=== PATIENT | female | born 1985 | race Caucasian/White ===

== ENCOUNTER 2016-11-20 13:27 | Emergency (ER) | payer MEDICAID ==
--- NOTE | 2016-11-20 13:34 | ER Document Report ---
ED Medical Screen (RME) - General Stated Complaint: BACK PAIN Mode of Arrival: Ambulatory Information source: Patient Notes: pt reports she turned the wrong way now having increased back pain. Reports hx of back pain. Has taken OTC meds without relief of sx. Denies urinary /bowel retention/incontinence, denies numbness/tingling. Reports pain with sitting, reports feels better with standing. Denies trauma. I have greeted and performed a rapid initial assessment of this patient. A comprehensive ED assessment and evaluation of the patient, analysis of test results and completion of the medical decision making process will be conducted by additional ED providers. TRAVEL OUTSIDE OF THE [place] IN LAST 30 DAYS: No - Related Data Allergies/Adverse Reactions: No Known Allergies Allergy (Verified 06/25/12 11:23) Past Medical History - Past Medical History Cardiac Medical History: Denies: Hx Coronary Artery Disease, Hx Heart Attack, Hx Hypertension Pulmonary Medical History: Denies: Hx Asthma, Hx Bronchitis, Hx COPD, Hx Pneumonia Neurological Medical History: Denies: Hx Cerebrovascular Accident, Hx Seizures Musculoskeltal Medical History: Denies Hx Arthritis Psychiatric Medical History: Reports: Hx Anxiety - Immunizations Immunizations up to date: Yes Hx Diphtheria, Pertussis, Tetanus Vaccination: Yes
--- NOTE | 2016-11-20 14:28 | ER Document Report ---
ED Neck/Back Problem - General Chief Complaint: Back Pain Stated Complaint: BACK PAIN Mode of Arrival: Ambulatory Information source: Patient Notes: 31 y/o F presents to ED c/o low back pain. Pt reports hx of degenerative disc disease and states has had similar episodes in the past and at one time was being followed by pain management clinic. Reports yesterday was lifting a box when she felt a pulling pain to her left lower back. States pain radiates to her left upper buttocks and is worse with sitting. Denies fall or direct trauma , fever, extremity weakness/numbness/tingling, saddle numbness, urinary retention, or incontinence of bowel or bladder. TRAVEL OUTSIDE OF THE [place] IN LAST 30 DAYS: No - HPI Patient complains to provider of: Lower back Onset: Yesterday Onset: Gradual Timing: Still present Quality of pain: Achy, Sharp Severity: Moderate Pain Level: 3 Context: Lifting, Turning Recent injury: Possibly Associated symptoms: Like prior neck/back pain. denies: None, Abdominal pain, Chest pain, Chills, Constipation, Fever, Incontinence, Motor loss, Numbness/ tingling, Radiation to arm, Radiation to chest, Radiation to leg, Sensory loss, Sweaty, Unable to urinate, Lower back pain, Upper back pain, Other Exacerbated by: Sitting position Relieved by: Upright position Similar symptoms previously: Yes Recently seen / treated by doctor: No - Related Data Allergies/Adverse Reactions: No Known Allergies Allergy (Verified 11/20/16 13:33) Past Medical History - General Information source: Patient - Social History Smoking Status: Smoker,Current Status Unk Frequency of alcohol use: None Drug Abuse: None Lives with: Family Family History: Reviewed & Not Pertinent - Past Medical History Cardiac Medical History: Denies: Hx Coronary Artery Disease, Hx Heart Attack, Hx Hypertension Pulmonary Medical History: Denies: Hx Asthma, Hx Bronchitis, Hx COPD, Hx Pneumonia Neurological Medical History: Denies: Hx Cerebrovascular Accident, Hx Seizures Renal/ Medical History: Denies: Hx Peritoneal Dialysis Musculoskeltal Medical History: Denies Hx Arthritis Psychiatric Medical History: Reports: Hx Anxiety Surgical Hx: Negative - Immunizations Immunizations up to date: Yes Hx Diphtheria, Pertussis, Tetanus Vaccination: Yes Review of Systems - Review of Systems Constitutional: No symptoms reported EENT: No symptoms reported Cardiovascular: No symptoms reported Respiratory: No symptoms reported Gastrointestinal: No symptoms reported Genitourinary: No symptoms reported Female Genitourinary: No symptoms reported Musculoskeletal: See HPI Skin: No symptoms reported Hematologic/Lymphatic: No symptoms reported Neurological/Psychological: No symptoms reported -: Yes All other systems reviewed and negative Physical Exam - Vital signs Vitals: Temp Pulse Resp BP Pulse Ox 98.5 F 83 20 105/59 L 98 11/20/16 13:31 11/20/16 13:31 11/20/16 13:31 11/20/16 13:31 11/20/16 13:31 Interpretation: Normal - General General appearance: Appears well, Alert In distress: None - HEENT Head: Normocephalic, Atraumatic Eyes: Normal Pupils: PERRL - Respiratory Respiratory status: No respiratory distress Chest status: Nontender Breath sounds: Normal Chest palpation: Normal - Cardiovascular Rhythm: Regular Heart sounds: Normal auscultation Murmur: No Pulses: Normal: Radial, Posterior tibial, Dorsalis pedis Normal capillary refill: Yes - Abdominal Inspection: Normal Distension: No distension Bowel sounds: Normal Tenderness: Nontender Organomegaly: No organomegaly - Back Back: Tender. No: Normal, Nontender, Deformity/step-off, CVA tenderness, Vertebra tenderness - tenderness with palpation to left paraspinal musculature at lumbar level. full ROM without paresthesias. or neurological deficits., Scars , Scoliosis, Wounds, Other - Extremities General upper extremity: Normal inspection, Nontender, Normal color, Normal ROM , Normal strength, Normal temperature. No: Edema General lower extremity: Normal inspection, Nontender, Normal color, Normal ROM , Normal strength, Normal temperature, Normal weight bearing. No: Edema - Neurological Neuro grossly intact: Yes Cognition: Normal Orientation: AAOx4 Sarah Coma Scale Eye Opening: Spontaneous Sarah Coma Scale Verbal: Oriented Sarah Coma Scale Motor: Obeys Commands [place] Coma Scale Total: 15 Speech: Normal Cerebellar coordination: Normal Motor strength normal: LUE, RUE, LLE, RLE Sensory: Normal Knee - Reflex grade: 2 = Normal - Psychological Associated symptoms: Normal affect, Normal mood - Skin Skin Temperature: Warm Skin Moisture: Dry Skin Color: Normal Course - Re-evaluation Re-evalutation: 11/20/16 14:29 Pt hemodynamically stable, in no distress, afebrile. The patient presents with back pain without signs of spinal cord compression, cauda equina syndrome, infection, aneurysm, or other serious etiology. The patient is neurologically intact, independently and steadily ambulatory without paresthesias or neurological deficits. Given the extremely low risk of these diagnoses further testing and evaluation for these possibilities does not appear to be indicated at this time. Pt appears stable for discharge and agrees with home care, follow -up, and ED return precautions. - Vital Signs Vital signs: Temp Pulse Resp BP Pulse Ox 98.6 F 69 20 103/68 99 11/20/16 15:54 11/20/16 15:54 11/20/16 13:31 11/20/16 15:54 11/20/16 15:54 Discharge - Discharge Clinical Impression: Low back pain Qualifiers: Chronicity: acute Back pain laterality: left Sciatica presence: without sciatica Qualified Code(s): M54.5 - Low back pain Condition: Stable Disposition: HOME, SELF-CARE Additional Instructions: LOW BACK PAIN: Three out of every four people will have an episode of disabling back pain during their lifetime. Most commonly the pain is due to straining of the muscles and ligaments in the low back. Usual treatment includes: (1) Rest on a firm surface. Avoid lying on your stomach. (2) Ice pack the painful area. After a few days, gentle heat may be used intermittently to relax the area, or ice packs can be continued. (3) Medication may be needed -- muscle relaxers and antiinflammatory medicines are commonly used. (4) As the back improves, exercises are prescribed to strengthen the back and abdominal muscles. Your doctor will advise you on the proper care for your back at each stage in your recovery. You may be better in a few days -- or healing may take several weeks. If new symptoms of a "herniated disc" (radiation of pain, numbness, or tingling down the back of the leg or weakness in the leg) occur, you should be re-examined. Further testing may be necessary. Anti-Inflammatory Medication You have received a prescription for an antiinflammatory agent. This is an excellent, safe drug for pain control. In addition, it has potent antiinflammatory effects which are beneficial, especially in the treatment of injuries, arthritis, or tendonitis. It's best to take this medicine with food. Persons with ulcer disease or allergy to aspirin should notify their physician of this before taking this drug. Take the medication exactly as prescribed. Don't take additional doses unless instructed to do so by your doctor. If you develop wheezing, shortness of breath, hives, faintness, stomach pain, vomiting, or dark black stools, return for re-evaluation at once. MUSCLE RELAXERS: Muscle relaxing medications are usually prescribed for acute muscle spasm or injury to the neck and back. They are often combined with antiinflammatory pain medication for increased relief. You may stop the muscle relaxer when the pain and stiffness have improved. Start the medication again if spasms recur. Muscle relaxers may cause drowsiness, especially with the first dose. Do not operate machinery or drive while under the effects of the medication. Most muscle relaxers last up to 24 hours. Do not combine the medication with alcohol. ICE PACKS: Apply ice packs frequently against the painful area. Many different schedules are recommended, such as "20 minutes on, 20 minutes off" or "one hour ice, two hours rest." If you need to work, you may need to go longer between ice treatments. You should plan to have the area ice packed AT LEAST one fourth of the time. The ice should be applied over the wrap, tape, or splint, or over a layer of cloth -- not directly against the skin. Some ice bags have a built-in cloth and can be put directly on the skin. WARM PACKS: After approximately two days, apply gentle heat (such as a heating pad or hot water bottle) for about 20 to 30 minutes about every two hours -- at least four times daily. Warmth and elevation will help you make a more rapid recovery , and will ease the pain considerably. Do not use HOT heat, and never apply heat for longer than 30 minutes. The continuous heat can invisibly damage skin and muscles -- even when no burn is seen on the surface. Damaged muscles can make you MORE sore. FOLLOW-UP CARE: Follow-up with your primary care provider this week as discussed. Return to the Emergency Department for any worsening symptoms or concerns. Prescriptions: Methocarbamol [Robaxin 500 mg Tablet] 500 mg PO Q8HP PRN #10 tablet PRN Reason: Naproxen 500 mg PO BIDP PRN #10 tablet PRN Reason: Referrals: BABATUNDE LOWERY DO [NO LOCAL MD] - Follow up in 3-5 days
[2016-11-20] MEDS ORDERED: NAPROXEN 250 MG TABLET PO ONE (15:56)
[2016-11-20 16:00] VITALS: BP 103/68
== END 2016-11-20 16:06 | disposition home or self-care (01) ==
LOC: ER 13:27
DX: M54.5 Low back pain (principal); X50.9XXA Other and unspecified overexertion or strenuous movements or postures, initial encounter
CPT/HCPCS: 99283; J3490

== ENCOUNTER → 2017-01-13 | Outpatient (CLI) | payer MEDICAID | LOC: RAD 13:40 | PROVIDERS: ATTEND Student in an Organized Health Care Education/Training Program | DX: M79.672 Pain in left foot (principal) ==

== ENCOUNTER 2017-03-10 21:33 | Emergency (ER) | payer MEDICAID ==
[2017-03-10] MEDS ORDERED: OXYCODONE-ACETAMINOPHEN 5-325 MG TABLET PO ONE (23:15)
--- NOTE | 2017-03-10 23:39 | ER Document Report ---
ED General - General Chief Complaint: Post Surgical Pain Stated Complaint: DRAINAGE/PAIN FROM SURGICAL SITE Time Seen by Provider: 03/10/17 23:04 Notes: Patient is a 32 year old female that comes to the ED for chief complaint of right breast pain. She states she has a lumpectomy [address] Castro in [place]. She states she accidentally bumped the breast on the wall today, states she had a little bit of bleeding and the area is much more tender than it was before. She states she is worried it is infected. She denies fever, N/V. She denies any other symptoms. TRAVEL OUTSIDE OF THE [place] IN LAST 30 DAYS: No - Related Data Allergies/Adverse Reactions: No Known Allergies Allergy (Verified 11/20/16 13:33) Past Medical History - General Information source: Patient - Social History Smoking Status: Never Smoker Drug Abuse: None Lives with: Family Family History: Reviewed & Not Pertinent Patient has suicidal ideation: No Patient has homicidal ideation: No - Past Medical History Cardiac Medical History: Denies: Hx Coronary Artery Disease, Hx Heart Attack, Hx Hypertension Pulmonary Medical History: Denies: Hx Asthma, Hx Bronchitis, Hx COPD, Hx Pneumonia Neurological Medical History: Denies: Hx Cerebrovascular Accident, Hx Seizures Renal/ Medical History: Denies: Hx Peritoneal Dialysis Musculoskeltal Medical History: Denies Hx Arthritis Psychiatric Medical History: Reports: Hx Anxiety Past Surgical History: Reports: Hx Breast Surgery - Immunizations Immunizations up to date: Yes Hx Diphtheria, Pertussis, Tetanus Vaccination: Yes Review of Systems - Review of Systems Constitutional: No symptoms reported EENT: No symptoms reported Cardiovascular: No symptoms reported Respiratory: No symptoms reported Gastrointestinal: No symptoms reported Genitourinary: No symptoms reported Female Genitourinary: No symptoms reported Musculoskeletal: No symptoms reported Skin: See HPI Hematologic/Lymphatic: No symptoms reported Neurological/Psychological: No symptoms reported Physical Exam - Vital signs Vitals: Temp Pulse Resp BP Pulse Ox 98.2 F 68 16 101/60 99 03/10/17 21:49 03/10/17 21:49 03/10/17 21:49 03/10/17 21:49 03/10/17 21:49 Interpretation: Normal - General General appearance: Appears well, Alert - HEENT Head: Normocephalic, Atraumatic Eyes: Normal Pupils: PERRL - Respiratory Respiratory status: No respiratory distress Chest status: Nontender Breath sounds: Normal Chest palpation: Normal - Cardiovascular Rhythm: Regular Heart sounds: Normal auscultation Murmur: No - Abdominal Inspection: Normal Distension: No distension Bowel sounds: Normal Tenderness: Nontender Organomegaly: No organomegaly - Back Back: Normal, Nontender - Extremities General upper extremity: Normal inspection, Nontender, Normal color, Normal ROM , Normal temperature General lower extremity: Normal inspection, Nontender, Normal color, Normal ROM , Normal temperature, Normal weight bearing. No: Nazia's sign - Neurological Neuro grossly intact: Yes Cognition: Normal Orientation: AAOx4 Sarah Coma Scale Eye Opening: Spontaneous [place] Coma Scale Verbal: Oriented Sarah Coma Scale Motor: Obeys Commands [place] Coma Scale Total: 15 Speech: Normal Motor strength normal: LUE, RUE, LLE, RLE Sensory: Normal - Psychological Associated symptoms: Normal affect, Normal mood - Skin Skin Temperature: Warm Skin Moisture: Dry Skin Color: Normal Skin irregularity: other - Right breast with an area superior to the nipple, appears to have good healing but 1 and has a tiny amount of dried blood over it. There is tenderness over the area behind the wound, there appears to be some soft tissue swelling, there is no abnormal heat, there is no abnormal erythema, there is no discharge from the nipple. No nearby swollen lymph nodes. LAMONTE Arenas present during exam. Course - Re-evaluation Re-evalutation: No leukocytosis, fever, tachycardia. No evidence of cellulitis or postop infection on exam. Area is tender, there was a tiny amount of bleeding although the wound did not separate and it does not need closure at this time. Appears to be soft tissue injury of the recent surgical site with no concerning abnormalities. I did provide pain control, patient states that she will call her surgeon for follow-up within the next 3 days, discussed return precautions in detail, patient states she is ready to leave and is grateful for the evaluation and care. - Vital Signs Vital signs: Temp Pulse Resp BP Pulse Ox 98.4 F 76 18 107/52 L 98 03/11/17 00:28 03/11/17 00:28 03/11/17 00:28 03/11/17 00:28 03/11/17 00:28 - Laboratory Result Diagrams: 03/10/17 23:40 Discharge - Discharge Clinical Impression: Breast pain, right, Post-op pain Condition: Stable Disposition: HOME, SELF-CARE Additional Instructions: Your examination is consistent with injury/contusion and possibly even a hematoma in the area of surgery, however the examination and workup did not indicate infection. Keep a clean dressing, ideally with topical antibiotic, over the small area that has bled to avoid infection. Take the pain medication if needed. Follow-up with your surgeon closely for a reevaluation and additional management. Return to the emergency department for any concerning or worsening symptoms including developing or spreading redness, discolored drainage, fever, or any other concerning symptoms. Prescriptions: Morphine Sulfate [Morphine Ir 15 Mg Tablet] 15 mg PO Q4HP PRN #12 tablet PRN Reason: Referrals: BERTA ESTRELLA PA-C [Primary Care Provider] - Follow up as needed
[2017-03-10 23:54] LABS: ABSOLUTE BASOPHILS # (AUTO) 0.1 10^3/uL (0.0-0.2); ABSOLUTE EOSINOPHILS # (AUTO) 0.2 10^3/uL (0.0-0.6); ABSOLUTE LYMPHOCYTES (AUTO) 2.5 10^3/uL (0.5-4.7); ABSOLUTE MONOCYTES (AUTO) 0.4 10^3/uL (0.1-1.4); ABSOLUTE NEUT (AUTO) 5.2 10^3/uL (1.7-8.2); BASOPHILS % (AUTO) 0.8 % (0-2); EOSINOPHILS % (AUTO) 2.4 % (0-6); HEMATOCRIT 38.3 % (36.0-47.0); HEMOGLOBIN 12.8 g/dL (12.0-15.5); HGB HCT DIFFERENCE 0.1; LYMPHOCYTES % (AUTO) 30.2 % (13-45); MEAN CORPUSCULAR HEMOGLOBIN 31.3 pg (27.0-33.4); MEAN CORPUSCULAR HGB CONC 33.4 g/dL (32.0-36.0); MEAN CORPUSCULAR VOLUME 94 fl (80-97); MONOCYTES % (AUTO) 5.1 % (3-13); SEGMENTED NEUTROPHILS % (AUTO) 61.5 % (42-78); WHITE BLOOD COUNT 8.4 10^3/uL (4.0-10.5)
[2017-03-11 00:29] VITALS: BP 107/52
== END 2017-03-11 00:30 | disposition home or self-care (01) ==
LOC: ER 21:33
DX: G89.18 Other acute postprocedural pain (principal); N64.4 Mastodynia; W22.01XA Walked into wall, initial encounter
CPT/HCPCS: 36415; 85025; 99283

== ENCOUNTER → 2017-05-01 | Outpatient (CLI) | payer MEDICAID ==
[2017-05-01 14:55] LABS: ABSOLUTE LYMPHOCYTES (AUTO) 1.5 10^3/uL (0.5-4.7); ABSOLUTE MONOCYTES (AUTO) 0.2 10^3/uL (0.1-1.4); ABSOLUTE NEUT (AUTO) 3.7 10^3/uL (1.7-8.2); BASOPHILS % (AUTO) 0.3 % (0-2); EOSINOPHILS % (AUTO) 0.7 % (0-6); HEMATOCRIT 39.2 % (36.0-47.0); HEMOGLOBIN 13.2 g/dL (12.0-15.5); HGB HCT DIFFERENCE 0.4; LYMPHOCYTES % (AUTO) 27.3 % (13-45); MEAN CORPUSCULAR HGB CONC 33.7 g/dL (32.0-36.0); MEAN CORPUSCULAR VOLUME 92 fl (80-97); MONOCYTES % (AUTO) 3.8 % (3-13); RED BLOOD COUNT 4.25 10^6/uL (3.72-5.28); RED CELL DISTRIBUTION WIDTH 13.3 % (11.5-14.0); SEGMENTED NEUTROPHILS % (AUTO) 67.9 % (42-78); WHITE BLOOD COUNT 5.4 10^3/uL (4.0-10.5)
[2017-05-01 15:35] LABS: ERYTHROCYTE SEDIMENTATION RATE 6 mm/hr (0-20)
== END ==
LOC: OD 14:00
PROVIDERS: ATTEND Orthopaedic Surgery
DX: M54.12 Radiculopathy, cervical region (principal)
CPT/HCPCS: 36415; 85025; 85652; 86038; 86140; 86430

== ENCOUNTER 2017-05-29 14:49 | Emergency (ER) | payer MEDICAID ==
--- NOTE | 2017-05-29 16:27 | ER Document Report ---
HPI - HPI Pain Level: 5 Notes: Patient is a 32-year-old female who presents to the ED complaining of itching to the skin around her vaginal area 3 years intermittently with this case being over the last 2-3 months. Patient states that she has been seen by multiple providers, specialties, and even dermatology on one occasion who placed her on several different creams and medicines without any resolution or firm diagnosis. Patient states that she has had all the STD testing, pelvic exams, and skin scraping done. Patient states that she has not had an actual skin biopsy performed. Patient states that she was told it could be a superficial nerve problem or possibly something like psoriasis. Patient has not been seen recently for the rash. The rash is localized to that area and does not spread. She never notices any discharge, abscess, or red streaks. 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 Patient states that she does shave, but did try stopping for 4 months straight without any changes. Patient states that she has tried all new close with different fabrics, different soaps, different detergents without any resolution. She denies any vaginal discharge, bleeding, or odor. Denies any headache, fever, URI, sore throat, chest pain, palpitations , syncope, cough, shortness of breath, wheeze, dyspnea, abdominal pain, nausea/ vomiting/diarrhea, urinary retention, dysuria, hematuria. - ROS Notes: REVIEW OF SYSTEMS: CONSTITUTIONAL : Denies fever, chills, or sweats. Denies recent illness. EENT: Denies eye, ear, throat, or mouth pain or symptoms. Denies nasal or sinus congestion or discharge. Denies throat, tongue, or mouth swelling or difficulty swallowing. CARDIOVASCULAR: Denies chest pain. Denies palpitations or racing or irregular heart beat. Denies ankle edema. RESPIRATORY: Denies cough, cold, or chest congestion. Denies shortness of breath, difficulty breathing, or wheezing. GASTROINTESTINAL: Denies abdominal pain or distention. Denies nausea, vomiting , or diarrhea. Denies blood in vomitus, stools, or per rectum. Denies black, tarry stools. Denies constipation. GENITOURINARY: Denies difficulty urinating, painful urination, burning, frequency, blood in urine, or discharge. MUSCULOSKELETAL: Denies back or neck pain or stiffness. Denies joint pain or swelling. SKIN: See HPI NEUROLOGICAL: Denies confusion or altered mental status. Denies passing out or loss of consciousness. Denies dizziness or lightheadedness. Denies headache. Denies weakness or paralysis or loss of use of either side. Denies problems with gait or speech. Denies sensory loss, numbness, or tingling. ALL OTHER SYSTEMS REVIEWED AND NEGATIVE. Dictation was performed using [facility] voice recognition software - REPRODUCTIVE LMP: IUD 1 month ago Reproductive: DENIES: : - DERM Skin Color: Normal Past Medical History - Social History Smoking Status: Never Smoker Chew tobacco use (# tins/day): No Frequency of alcohol use: Occasional Drug Abuse: None Family History: Reviewed & Not Pertinent Patient has suicidal ideation: No - Past Medical History Cardiac Medical History: Denies: Hx Coronary Artery Disease, Hx Heart Attack, Hx Hypertension Pulmonary Medical History: Denies: Hx Asthma, Hx Bronchitis, Hx COPD, Hx Pneumonia Neurological Medical History: Denies: Hx Cerebrovascular Accident, Hx Seizures Renal/ Medical History: Denies: Hx Peritoneal Dialysis Musculoskeltal Medical History: Denies Hx Arthritis Psychiatric Medical History: Reports: Hx Anxiety Past Surgical History: Reports: Hx Breast Surgery - Immunizations Immunizations up to date: Yes Hx Diphtheria, Pertussis, Tetanus Vaccination: Yes Vertical Provider Document - CONSTITUTIONAL Agree With Documented VS: Yes Notes: PHYSICAL EXAMINATION: accompanied by female nurse (kassi) GENERAL: Well-appearing, well-nourished and in no acute distress. HEAD: Atraumatic, normocephalic. EYES: Pupils equal round and reactive to light, extraocular movements intact, conjunctiva are normal. ENT: Nares patent, oropharynx clear without exudates. Moist mucous membranes. EAC's clear bilaterally. TMs intact bilaterally without erythema fluid or perforation. No tonsillar hypertrophy or erythema. No sinus tenderness. NECK: Normal range of motion, supple without lymphadenopathy LUNGS: Breath sounds clear to auscultation bilaterally and equal. No wheezes rales or rhonchi. HEART: Regular rate and rhythm without murmurs ABDOMEN: Soft, nontender, nondistended abdomen. No guarding, no rebound. No masses appreciated. Normal bowel sounds present. CVA tenderness negative bilaterally. Female : No inguinal adenopathy. External genitalia without erythema, lesions , or masses. + scant/mild folliculitis noted. No other rash visualized. No vaginal discharge noted. No abscess, streaks, or discharge. Musculoskeletal: FROM to passive/active. Strength 5+/5. Extremities: No cyanosis/clubbing/edema b/l. Peripheral pulses 2+. Capillary refill less than 3 seconds. NEUROLOGICAL: Normal speech, normal gait. Normal sensory, motor exams PSYCH: Normal mood, normal affect. SKIN: Warm, Dry, normal turgor, no rashes or lesions noted. - INFECTION CONTROL TRAVEL OUTSIDE OF THE [place] IN LAST 30 DAYS: No - RESPIRATORY O2 Sat by Pulse Oximetry: 99 Course - Re-evaluation Re-evalutation: 05/29/17 16:55 Patient is an afebrile, well-hydrated, 32-year-old female who presents the ED with chronic rash issues to her vaginal area, I suspect that this current issue resembles folliculitis based on H&P today. Vitals are stable. PE otherwise unremarkable. Urine test was negative. Thoroughly reviewed with the patient that with the symptoms being intermittent for 3 years and her already having several consults with specialists, that we would not be able to perform any further biopsies at this time and that she needs follow-up with a electronics engineering technologist for further evaluation and management. I do not have any suspicion of an emergent situation at this time. I will send her home with a prescription for doxycycline to take twice a day for 10 days. Patient advised to stop shaving and to wash with mild soap and water. She may apply bacitracin to the area as well. Recheck with your PCM this week. Schedule consult with dermatology for further evaluation and management. Return to the ED with any worsening/concerning symptoms otherwise as reviewed in discharge. Patient is in agreement. - Vital Signs Vital signs: Temp Pulse Resp BP Pulse Ox 98.0 F 64 105/62 99 05/29/17 15:14 05/29/17 15:14 05/29/17 15:14 05/29/17 15:14 Discharge - Discharge Clinical Impression: Folliculitis Condition: Stable Disposition: HOME, SELF-CARE Instructions: Bactroban Ointment ([facility]), Doxycycline ([facility]), Folliculitis ([facility]) Additional Instructions: Keep the skin clean and dry Wash with mild soap and water Use bacitracin once daily for 2-3 days Take antibiotics as directed for full dose Monitor for any worsening symptoms Recheck with your PCM this week Schedule an appointment with dermatology for further evaluation and management Return to the ED with any worsening symptoms and/or development of fever, headache, chest pain, palpitations, syncope, shortness of breath, trouble breathing, abdominal pain, n/v/d, blood in stool/urine, loss of control of bowel /bladder, vaginal discharge/bleeding/odor, abscess, red streaks, discharge, or other worsening symptoms that are concerning to you. Prescriptions: Doxycycline Hyclate 100 mg PO BID #20 capsule Referrals: BABATUNDE LOWERY DO [Primary Care Provider] - Follow up in 3-5 days MOLLY FITZGERALD DO [ACTIVE STAFF] - Follow up in 1 week
[2017-05-29 17:04] VITALS: BP 113/72
== END 2017-05-29 17:01 | disposition home or self-care (01) ==
LOC: ER 14:49
DX: L73.9 Follicular disorder, unspecified (principal); B00.9 Herpesviral infection, unspecified
CPT/HCPCS: 81025; 99283

== ENCOUNTER 2017-06-18 15:09 | Emergency (ER) | payer MEDICAID ==
[2017-06-18] MEDS ORDERED: DIPHENHYDRAMINE HCL 50 MG/ML VIAL IM ONE (15:44)
--- NOTE | 2017-06-18 15:57 | ER Document Report ---
ED Medical Screen (RME) - General TRAVEL OUTSIDE OF THE [place] IN LAST 30 DAYS: No <RIGOBERTO CORONEL - Last Filed: 06/18/17 15:44> <ALAINA VALVERDE - Last Filed: 06/18/17 16:50> - General Chief Complaint: Pelvic Pain Stated Complaint: RIGHT SIDE PAIN Time Seen by Provider: 06/18/17 15:35 Notes: Patient is a 32 year old female presenting to the emergency department for vaginal itching, abdominal pain, "red spots to her pubic region," nausea, and diarrhea. Patient states she saw her PCP 3 weeks ago who stated that she had red spots from shaving and patient states she has not shaved in 3 weeks and they are still present. Patient states that her abdomen is hard and painful when pushing on it. Patient states she also has nausea and night sweats. Patient had diarrhea for 1 months but saw her GI doctor for such. Patient denies any fevers. Patient states she had a pelvic exam 3 weeks ago and was treated for bacterial vaginosis; patient states she had no relief. Patient has a follow up with her PCP on Monday. Patient states she wants to be comfortable , be able to sleep, and make it through her appointment on Monday. Patient had her Thyroid checked in September and it was normal. Patient also wants to get her hormone levels checked because early menopause runs in her family. Patient also states she lost 65 lbs in the last year. (RIGOBERTO CORONEL) - Related Data Allergies/Adverse Reactions: No Known Allergies Allergy (Verified 06/18/17 15:15) Past Medical History - Social History Frequency of alcohol use: Occasional Drug Abuse: None - Past Medical History Cardiac Medical History: Denies: Hx Coronary Artery Disease, Hx Heart Attack, Hx Hypertension Pulmonary Medical History: Denies: Hx Asthma, Hx Bronchitis, Hx COPD, Hx Pneumonia Neurological Medical History: Denies: Hx Cerebrovascular Accident, Hx Seizures Renal/ Medical History: Denies: Hx Peritoneal Dialysis GI Medical History: Reports: Hx Gastroesophageal Reflux Disease Musculoskeltal Medical History: Denies Hx Arthritis Psychiatric Medical History: Reports: Hx Anxiety Past Surgical History: Reports: Hx Breast Surgery - lupectomy - Immunizations Immunizations up to date: Yes Hx Diphtheria, Pertussis, Tetanus Vaccination: Yes History of Influenza Vaccine for 06/2017 - 11/2017 Season: No <RIGOBERTO CORONEL - Last Filed: 06/18/17 15:44> Physical Exam <RIGOBRETO CORONEL - Last Filed: 06/18/17 15:44> <ALAINA VALVERDE - Last Filed: 06/18/17 16:50> - Vital signs Vitals: Temp Pulse Resp BP Pulse Ox 98.6 F 105 H 18 128/82 H 97 06/18/17 15:16 06/18/17 15:16 06/18/17 15:16 06/18/17 15:16 06/18/17 15:16 - Notes Notes: GENERAL: Alert. No acute distress. RESPIRATORY: No respiratory distress. (RIGOBERTO CORONEL) Course - Laboratory Result Diagrams: 06/18/17 15:50 06/18/17 15:50 <ALAINA VALVERDE - Last Filed: 06/18/17 16:50> - Vital Signs Vital signs: Temp Pulse Resp BP Pulse Ox 98.6 F 105 H 18 128/82 H 97 06/18/17 15:16 06/18/17 15:16 06/18/17 15:16 06/18/17 15:16 06/18/17 15:16 - Laboratory Laboratory results interpreted by me: 06/18/17 15:50 Urine Urobilinogen 2.0 H Ur Leukocyte Esterase SMALL H Scribe Documentation - Scribe Written by Scrariella:: Ildefonso Giraldo 06/18/17 16:00 acting as scribe for :: Ange <RIGOBERTO CORONEL - Last Filed: 06/18/17 15:44>
[2017-06-18 16:15] LABS: ABSOLUTE LYMPHOCYTES (AUTO) 1.6 10^3/uL (0.5-4.7); ABSOLUTE MONOCYTES (AUTO) 0.2 10^3/uL (0.1-1.4); ABSOLUTE NEUT (AUTO) 3.9 10^3/uL (1.7-8.2); BASOPHILS % (AUTO) 0.6 % (0-2); EOSINOPHILS % (AUTO) 0.3 % (0-6); HEMATOCRIT 40.3 % (36.0-47.0); HEMOGLOBIN 13.7 g/dL (12.0-15.5); HGB HCT DIFFERENCE 0.8; LYMPHOCYTES % (AUTO) 27.5 % (13-45); MEAN CORPUSCULAR HEMOGLOBIN 31.1 pg (27.0-33.4); MEAN CORPUSCULAR HGB CONC 33.9 g/dL (32.0-36.0); MEAN CORPUSCULAR VOLUME 92 fl (80-97); MONOCYTES % (AUTO) 3.6 % (3-13); WHITE BLOOD COUNT 5.7 10^3/uL (4.0-10.5)
--- NOTE | 2017-06-18 16:15 | ER Document Report ---
ED General - General Chief Complaint: Pelvic Pain Stated Complaint: RIGHT SIDE PAIN Time Seen by Provider: 06/18/17 15:35 Mode of Arrival: Ambulatory Information source: Patient Notes: 32-year-old female presents with complaints of 2-3 year duration of itching of her external labia with ulcerations. Patient notes she has been seen multiple times for this but there is been no diagnosis. Patient denies any fevers or chills denies any drainage TRAVEL OUTSIDE OF THE [place] IN LAST 30 DAYS: No - HPI Onset: Other Onset/Duration: Persistent Quality of pain: Burning Severity: Mild Pain Level: 1 Associated symptoms: Other Exacerbated by: Denies Relieved by: Denies Similar symptoms previously: Yes Recently seen / treated by doctor: Yes - Related Data Allergies/Adverse Reactions: No Known Allergies Allergy (Verified 06/18/17 15:15) Past Medical History - Social History Smoking Status: Never Smoker Cigarette use (# per day): No Chew tobacco use (# tins/day): No Smoking Education Provided: No Frequency of alcohol use: Occasional Drug Abuse: None Family History: Reviewed & Not Pertinent - Past Medical History Cardiac Medical History: Denies: Hx Coronary Artery Disease, Hx Heart Attack, Hx Hypertension Pulmonary Medical History: Denies: Hx Asthma, Hx Bronchitis, Hx COPD, Hx Pneumonia Neurological Medical History: Denies: Hx Cerebrovascular Accident, Hx Seizures Renal/ Medical History: Denies: Hx Peritoneal Dialysis GI Medical History: Reports: Hx Gastroesophageal Reflux Disease Musculoskeltal Medical History: Denies Hx Arthritis Psychiatric Medical History: Reports: Hx Anxiety Past Surgical History: Reports: Hx Breast Surgery - lupectomy - Immunizations Immunizations up to date: Yes Hx Diphtheria, Pertussis, Tetanus Vaccination: Yes Review of Systems - Review of Systems Notes: REVIEW OF SYSTEMS: CONSTITUTIONAL : Denies fever, chills, or sweats. Denies recent illness. EENT: Denies eye, ear, throat, or mouth pain or symptoms. Denies nasal or sinus congestion or discharge. Denies throat, tongue, or mouth swelling or difficulty swallowing. CARDIOVASCULAR: Denies chest pain. Denies palpitations or racing or irregular heart beat. Denies ankle edema. RESPIRATORY: Denies cough, cold, or chest congestion. Denies shortness of breath, difficulty breathing, or wheezing. GASTROINTESTINAL: Denies abdominal pain or distention. Denies nausea, vomiting , or diarrhea. Denies blood in vomitus, stools, or per rectum. Denies black, tarry stools. Denies constipation. GENITOURINARY: Denies difficulty urinating, painful urination, burning, frequency, blood in urine, or discharge. FEMALE GENITOURINARY: Denies vaginal bleeding, heavy or abnormal periods, irregular periods. Denies vaginal discharge or odor. Admits to rash on vagina MUSCULOSKELETAL: Denies back or neck pain or stiffness. Denies joint pain or swelling. SKIN: Admits to vaginal rash HEMATOLOGIC : Denies easy bruising or bleeding. LYMPHATIC: Denies swollen, enlarged glands. NEUROLOGICAL: Denies confusion or altered mental status. Denies passing out or loss of consciousness. Denies dizziness or lightheadedness. Denies headache. Denies weakness or paralysis or loss of use of either side. Denies problems with gait or speech. Denies sensory loss, numbness, or tingling. Denies seizures. PSYCHIATRIC: Denies anxiety or stress. Denies depression, suicidal ideation, or homicidal ideation. ALL OTHER SYSTEMS REVIEWED AND NEGATIVE. PHYSICAL EXAMINATION: GENERAL: Well-appearing, well-nourished and in no acute distress. HEAD: Atraumatic, normocephalic. EYES: Pupils equal round and reactive to light, extraocular movements intact, conjunctiva are normal. ENT: Nares patent, oropharynx clear without exudates. Moist mucous membranes. NECK: Normal range of motion, supple without lymphadenopathy LUNGS: Breath sounds clear to auscultation bilaterally and equal. No wheezes rales or rhonchi. HEART: Regular rate and rhythm without murmurs ABDOMEN: Soft, nontender, nondistended abdomen. No guarding, no rebound. No masses appreciated. Female : Exam performed with nurse in room notes small ulceration near the clitoris as well as ulceration on the left suprapubic region 2 small blisters of the right suprapubic region Musculoskeletal: Normal range of motion, no pitting or edema. No cyanosis. NEUROLOGICAL: Cranial nerves grossly intact. Normal speech, normal gait. Normal sensory, motor exams PSYCH: Normal mood, normal affect. SKIN: Warm, Dry, normal turgor, no rashes or lesions noted. Dictation was performed using [employer] voice recognition software Physical Exam - Vital signs Vitals: Temp Pulse Resp BP Pulse Ox 98.6 F 105 H 18 128/82 H 97 06/18/17 15:16 06/18/17 15:16 06/18/17 15:16 06/18/17 15:16 06/18/17 15:16 Course - Re-evaluation Re-evalutation: 06/18/17 19:12 Swab for viral culture was performed, patient will be started on acyclovir for concerns of herpes ulcerations. Patient otherwise well-appearing no distress Patient given follow-up with [facility] After performing a Medical Screening Examination, I estimate there is LOW risk for OPEN FRACTURE, COMPARTMENT SYNDROME, TENDON RUPTURE, ACUTE NEUROVASCULAR INJURY, or RETAINED FOREIGN BODY, thus I consider the discharge disposition reasonable. Also, there is no evidence or peritonitis, sepsis, or toxicity. I have reevaluated this patient multiple times and no significant life threatening changes are noted. The patient and I have discussed the diagnosis and risks, and we agree with discharging home with close follow-up with the understanding that symptoms and presentations can change. We also discussed returning to the Emergency Department immediately if new or worsening symptoms occur. We have discussed the symptoms which are most concerning (e.g., changing or worsening pain, fever, numbness, weakness, cool or painful digits) that necessitate immediate return. - Vital Signs Vital signs: Temp Pulse Resp BP Pulse Ox 98.6 F 64 16 123/74 99 06/18/17 17:44 06/18/17 17:44 06/18/17 17:44 06/18/17 17:44 06/18/17 17:44 - Laboratory Result Diagrams: 06/18/17 15:50 06/18/17 15:50 Laboratory results interpreted by me: 06/18/17 15:50 Urine Urobilinogen 2.0 H Ur Leukocyte Esterase SMALL H Discharge - Discharge Clinical Impression: Ulceration of vagina Condition: Stable Disposition: HOME, SELF-CARE Instructions: [facility] Doctors Prescriptions: Acyclovir [Acyclovir 400 mg Tablet] 400 mg PO Q6 10 Days tablet Referrals: BABATUNDE LOWERY DO [Primary Care Provider] - Follow up in 3-5 days
[2017-06-18 16:27] LABS: APPEARANCE,URINE SLIGHTLY-CLOUDY; BILIRUBIN,URINE NEGATIVE (NEGATIVE); GLUCOSE, URINE NEGATIVE (NEGATIVE); KETONES,URINE NEGATIVE (NEGATIVE); LEUKOCYTE ESTERASE,URINE SMALL (NEGATIVE); NITRITE,URINE NEGATIVE (NEGATIVE); PROTEIN,URINE NEGATIVE (NEGATIVE); URINE SPECIFIC GRAVITY 1.025
[2017-06-18 16:41] LABS: ALANINE AMINOTRANSFERASE 34 U/L (9-52); ALBUMIN 4.6 g/dL (3.5-5.0); ALKALINE PHOSPHATASE 50 U/L (38-126); ANION GAP 12 (5-19); ASPARTATE AMINO TRANSFERASE 19 U/L (14-36); BILIRUBIN,DIRECT 0.4 mg/dL (0.0-0.4); BILIRUBIN,TOTAL 0.8 mg/dL (0.2-1.3); BLOOD UREA NITROGEN 11 mg/dL (7-20); CALCIUM 9.5 mg/dL (8.4-10.2); CARBON DIOXIDE 27 mmol/L (22-30); CHLORIDE 103 mmol/L (98-107); CREATININE RESULT 0.68 mg/dL (0.52-1.25); GLUCOSE 104 mg/dL (75-110); POTASSIUM 4.2 mmol/L (3.6-5.0); TOTAL PROTEIN 7.1 g/dL (6.3-8.2)
[2017-06-18 17:48] VITALS: BP 123/74
== END 2017-06-18 17:48 | disposition home or self-care (01) ==
LOC: ER 15:09
DX: N76.5 Ulceration of vagina (principal); R10.2 Pelvic and perineal pain; L29.9 Pruritus, unspecified; R10.9 Unspecified abdominal pain
CPT/HCPCS: 99284; 96372; 36415; 87252; 84703; 85025; 80053; 81001; J1200

== ENCOUNTER 2017-06-27 07:39 | Day surgery (SDC) | payer MEDICAID ==
[2017-06-23 11:42] LABS: APPEARANCE,URINE SLIGHTLY-CLOUDY; BILIRUBIN,URINE NEGATIVE (NEGATIVE); GLUCOSE, URINE NEGATIVE (NEGATIVE); KETONES,URINE NEGATIVE (NEGATIVE); LEUKOCYTE ESTERASE,URINE NEGATIVE (NEGATIVE); NITRITE,URINE NEGATIVE (NEGATIVE); PROTEIN,URINE NEGATIVE (NEGATIVE); URINE SPECIFIC GRAVITY 1.027
[2017-06-23 11:53] LABS: HEMATOCRIT 40.1 % (36.0-47.0); HEMOGLOBIN 13.5 g/dL (12.0-15.5); HGB HCT DIFFERENCE 0.4; MEAN CORPUSCULAR HEMOGLOBIN 31.4 pg (27.0-33.4); MEAN CORPUSCULAR HGB CONC 33.7 g/dL (32.0-36.0); MEAN CORPUSCULAR VOLUME 93 fl (80-97); RED BLOOD COUNT 4.31 10^6/uL (3.72-5.28); RED CELL DISTRIBUTION WIDTH 14.1 % (11.5-14.0); WHITE BLOOD COUNT 5.7 10^3/uL (4.0-10.5)
[2017-06-23 12:26] LABS: ANION GAP 11 (5-19); BLOOD UREA NITROGEN 11 mg/dL (7-20); CALCIUM 9.6 mg/dL (8.4-10.2); CARBON DIOXIDE 26 mmol/L (22-30); CHLORIDE 106 mmol/L (98-107); CREATININE RESULT 0.62 mg/dL (0.52-1.25); GLUCOSE 98 mg/dL (75-110); POTASSIUM 4.9 mmol/L (3.6-5.0); SODIUM 142.9 mmol/L (137-145)
[~2017-06-27 07:39] MED LIST: CEFAZOLIN 2 GM/D5W RTU 2 GM/50 ML RTUPB IV PRN; LACTATED RINGERS 1000 ML IV PRN; LIDOCAINE 0.5% INJ-PF (5 MG/ML) 50 ML SDV SUBCUT PRN
[2017-06-27] MEDS ORDERED: BUPIVACAINE HCL 0.5 % INJ/PF 30 ML SDV ONE ×2 (07:56→09:18)
[2017-06-27] MEDS ORDERED: FENTANYL CITRATE INJ/PF 100 MCG/2 ML AMPUL ONE (09:05)
[2017-06-27] MEDS ORDERED: MIDAZOLAM 2 MG/2 ML INJ ONE (09:05)
[2017-06-27] MEDS ORDERED: ONDANSETRON HCL INJ/PF 4 MG/2 ML SDV ONE (09:05)
[2017-06-27] MEDS ORDERED: PROPOFOL INJ 200 MG/20 ML VIAL IV ONE (09:06)
[2017-06-27] MEDS ORDERED: LIDOCAINE 1% INJ-PF (10 MG/ML) 30 ML SDV ONE (09:18)
[2017-06-27] MEDS ORDERED: PROMETHAZINE HCL INJ 25 MG/1 ML VIAL IV PRN (09:25)
[2017-06-27] MEDS ORDERED: MEPERIDINE HCL/PF INJ 25 MG/1 ML DISP.SYRIN IV PRN (09:25)
[2017-06-27] MEDS ORDERED: FENTANYL CITRATE INJ/PF 100 MCG/2 ML AMPUL IV PRN ×3 (09:25)
[2017-06-27] MEDS ORDERED: DIPHENHYDRAMINE HCL 50 MG/ML VIAL IV PRN (09:25)
[2017-06-27] MEDS ORDERED: MORPHINE SULFATE 10 MG/ML INJ IV PRN ×2 (09:25→09:45)
[2017-06-27] MEDS ORDERED: ONDANSETRON HCL INJ/PF 4 MG/2 ML SDV IV PRN (09:45)
[2017-06-27] MEDS ORDERED: HYDROCODONE/ACETAMINOPHEN 5-325 MG TABLET PO PRN (09:45)
--- NOTE | 2017-06-27 09:47 | Operative Report ---
Operative Report DATE OF SURGERY: 06/27/17 PREOPERATIVE DIAGNOSIS: Right Carpal Tunnel Syndrome POSTOPERATIVE DIAGNOSIS: Same OPERATION: Endoscopic Right Carpal Tunnel Release SURGEON: RAMONA TOMAS ANESTHESIA: LMAC COMPLICATIONS: None ESTIMATED BLOOD LOSS: Minimal PROCEDURE: Indication for above procedure: 32-year-old female with subjective findings suggesting carpal tunnel syndrome. Patient had neurodiagnostic testing which demonstrated minimal findings of carpal tunnel syndrome however given her subjective complaints we attempted conservative measures including bracing and injections. Injections did provide relief but not complete relief. At that point we discussed treatment options including continued conservative management versus operative intervention. After discussing risks and benefits of both the joint decision was made to proceed with operative treatment. Procedure In Detail: Patient was seen and evaluated in the preoperative holding area. The RIGHT upper extremity was initialized and marked. Patient received Ancef IV for bacterial prophylaxis. Patient was taken back to the operative room where transferred operative table. Patient was then placed under MAC anesthesia. Once adequately anesthetized, a nonsterile tourniquet was placed on the upper extremity. A surgical team debriefing was performed ensuring all instrumentation was available, the surgical procedure was discussed with possible concerns reviewed. Skin was prepped with alcohol a 50:50 10 mL mixture of 1% lidocaine and 0.5% Marcaine plain was injected locally and w/in carpal canal. The upper extremity was prepped with chlorhexidine and alcohol and draped in a sterile fashion. A timeout was done identifying correct patient, procedure and extremity everyone in attendance agree with this and verbalized no concerns.The extremity was then exsanguinated the tourniquet was inflated to 250 mmHg. A transverse skin incision was made just proximal to the wrist flexion crease ulnar to the palmaris longus. Blunt dissection was performed down to the palmaris longus tendon which was retracted radially. Deep to the palmaris longus tendon was the volar carpal ligament this was incised identifying the median nerve deep. With the use of a Lovejoy elevator any soft tissue/synovium was freed from the undersurface of the transverse carpal ligament. The hook of hamate was identified ulnarly. The ConMed cannulas were then introduced beginning with #1 progressing to a #3 gently dilating the carpal canal. I then introduced the scope within the cannula and identified transverse carpal ligament ensuring the median nerve was not visualized within the cannula. I triangulated distally with a 25-gauge needle identifying the distal aspect of the transverse carpal ligament, to ensure protection of the superficial palmar arch. The arthroscopic knife was used to incise the transverse carpal ligament under direct visualization with the arthroscopic camera. Any excess transverse fibers that remained after the first past were carefully released with a repeat pass. The median nerve was then directly visualized radially without disruption. Once this was completed I placed the #3 dilator and assured I got complete release of the transverse carpal ligament without residual compression. The median nerve was directly visualized and free of any overlying compression. I then turned my attention to release of the volar antebrachial fascia proximally. Once again a Lovejoy was used to open the wound and I proceeded with cannula #1 to #3. The arthroscope was introduced into the cannula and under direct visualization the volar antebrachial fascia was released. Once this was complete I copiusly irrigated the wound with normal saline. The skin incision was closed with 4-0 Monocryl subcutaneous and a running subcuticular 4-0 Monocryl. This was reinforced with Dermabond and Steri -Strips. Sterile, 4 x 4's and a Kvng bandage was placed loosely. Sponge counts , instrument counts and needle counts were correct. The was no intraoperative complications patient tolerated the procedure well and was stable to PACU.
--- NOTE | 2017-06-27 09:49 | PDOC DISCHARGE SUMMARY ---
Discharge Summary (SDC) - Discharge Final Diagnosis: Right carpal tunnel syndrome Date of Surgery: 06/27/17 Discharge Date: 06/27/17 Condition: Good Treatment or Instructions: Schedule Follow Up w/ Dr. Alex Collier @ [facility] for Surgery to be seen in 10-14 days or as scheduled [place]: [place]: [place]: May remove dressing on postop day #3, keep incision covered and dry. Ice and elevate May begin finger range of motion attempting to make full fist. Stool softener of choice when on pain medication. Prescriptions: Hydrocodone/Acetaminophen [[place] 5-325 mg Tablet] 1 tab PO Q6 PRN #20 tablet PRN Reason: Referrals: BABATUNDE LOWERY DO [Primary Care Provider] - Discharge Diet: As Tolerated Respiratory Treatments at Home: Deep Breathing/Coughing Discharge Activity: No Lifting Over 10 Pounds, No Lifting/Push/Pulling Report the Following to Your Physician Immediately: Increase in Pain, Fever over 101 Degrees, Unusual Bleeding, Redness, Swelling, Warmth, Increased Soreness
[2017-06-27 11:23] VITALS: BP 115/79
== END 2017-06-27 11:20 | disposition home or self-care (01) ==
LOC: OROUT 07:39
PROVIDERS: ATTEND Orthopaedic Surgery
PROC: 01N54ZZ Release Median Nerve, Percutaneous Endoscopic Approach (ICD-10-PCS; principal; 2017-06-27 09:30)
DX: G56.03 Carpal tunnel syndrome, bilateral upper limbs (principal); F17.210 Nicotine dependence, cigarettes, uncomplicated; F90.9 Attention-deficit hyperactivity disorder, unspecified type; F32.9 Major depressive disorder, single episode, unspecified; Z79.899 Other long term (current) drug therapy
CPT/HCPCS: 36415; 85027; 81025; 80048; 81001; 29848; J2250; J3010; J3490; J2405; J2704; J0690; 1810

== ENCOUNTER 2017-07-04 20:07 | Emergency (ER) | payer MEDICAID ==
[2017-07-04 20:11] VITALS: BP 124/75
--- NOTE | 2017-07-04 20:47 | RADIOLOGY REPORT (SQ) ---
EXAM DESCRIPTION: HAND RIGHT 3 VIEWS COMPLETED DATE/TIME: 07/04/2017 8:37 pm REASON FOR STUDY: injury to hand and wrist COMPARISON: None. EXAM PARAMETERS: NUMBER OF VIEWS: Three views. TECHNIQUE: AP, lateral and oblique radiographic images acquired of the right hand. LIMITATIONS: None. FINDINGS: MINERALIZATION: Normal. BONES: No acute fracture or dislocation. No worrisome bone lesions. JOINTS: No effusions. SOFT TISSUES: No soft tissue swelling. No foreign body. OTHER: No other significant finding. IMPRESSION: NEGATIVE STUDY OF THE RIGHT HAND. NO RADIOGRAPHIC EVIDENCE OF ACUTE INJURY. TECHNICAL DOCUMENTATION: JOB ID: [id number] [employer]- All Rights Reserved
[2017-07-04] MEDS ORDERED: ACETAMINOPHEN 325 MG TABLET PO ONE (21:12)
--- NOTE | 2017-07-04 21:21 | ER Document Report ---
HPI - HPI Pain Level: 3 Context: Patient is a 32-year-old female who presents emergency department complaining of right wrist pain. Patient states that she had surgery last Monday for carpal tunnel release with Dr. Tomas. States this evening she was sliding her glass door closed when she caught her wrist just proximal to her incision in the door. She admits to pain in her wrist radiating up her arm. Otherwise she denies any bleeding from the incision site, drainage. - CARDIOVASCULAR Cardiovascular: DENIES: Chest pain - REPRODUCTIVE Reproductive: DENIES: : Past Medical History - Social History Smoking Status: Never Smoker Chew tobacco use (# tins/day): No Frequency of alcohol use: None Drug Abuse: None Family History: Reviewed & Not Pertinent Patient has suicidal ideation: No Patient has homicidal ideation: No - Past Medical History Cardiac Medical History: Denies: Hx Coronary Artery Disease, Hx Heart Attack, Hx Hypertension Pulmonary Medical History: Denies: Hx Asthma, Hx Bronchitis, Hx COPD, Hx Pneumonia Neurological Medical History: Denies: Hx Cerebrovascular Accident, Hx Seizures Renal/ Medical History: Denies: Hx Peritoneal Dialysis GI Medical History: Reports: Hx Gastroesophageal Reflux Disease Musculoskeltal Medical History: Denies Hx Arthritis Psychiatric Medical History: Reports: Hx Anxiety Past Surgical History: Reports: Hx Breast Surgery - lupectomy - Immunizations Immunizations up to date: Yes Hx Diphtheria, Pertussis, Tetanus Vaccination: Yes Vertical Provider Document - CONSTITUTIONAL Notes: PHYSICAL EXAM GENERAL: Alert, interacts well. EXTREMITIES: Moves all 4 extremities spontaneously. No edema, radial and dorsalis pedis pulses 2/4 bilaterally. No cyanosis. NEUROLOGICAL: Alert and oriented x4. Normal speech. PSYCH: Normal affect, normal mood. SKIN: Warm, dry, normal turgor. 3 cm incision over the flexor surface of the right wrist without evidence of wound dehiscence, bleeding. Minimal surrounding erythema without cellulitis or induration or fluctuation. Small amount of ecchymosis just distal to the incision with mild swelling. - INFECTION CONTROL TRAVEL OUTSIDE OF THE [place] IN LAST 30 DAYS: No - RESPIRATORY O2 Sat by Pulse Oximetry: 97 Course - Re-evaluation Re-evalutation: 07/04/17 21:19 Patient is a 32-year-old female who is hemodynamically stable, no acute distress afebrile. No evidence of fracture, soft tissue swelling noted on x- ray of the hand or the wrist. Bedside ultrasound does not show any evidence of hematoma at the incision site or area of swelling. Discussed with patient to use ice and elevation and she is to follow-up with Dr. Tomas on Monday. - Vital Signs Vital signs: Temp Pulse Resp BP Pulse Ox 98.6 F 97 18 124/75 97 07/04/17 20:09 07/04/17 20:09 07/04/17 20:09 07/04/17 20:09 07/04/17 20:09 - Diagnostic Test Radiology reviewed: Image reviewed, Reports reviewed Discharge - Discharge Clinical Impression: Wrist pain Qualifiers: Laterality: right Qualified Code(s): M25.531 - Pain in right wrist Condition: Good Disposition: HOME, SELF-CARE Instructions: Contusion ([facility]), Ice & Elevation ([facility]), Acetaminophen Referrals: RAMONA TOMAS DO [ACTIVE STAFF] - 07/10/17
== END 2017-07-04 21:26 | disposition home or self-care (01) ==
LOC: ER 20:07
DX: M25.531 Pain in right wrist (principal); W23.0XXA Caught, crushed, jammed, or pinched between moving objects, initial encounter; Z98.890 Other specified postprocedural states
CPT/HCPCS: 99283; 73130; J3490

== ENCOUNTER 2017-08-23 22:51 | Emergency (ER) | payer MEDICAID ==
[2017-08-23] MEDS ORDERED: ONDANSETRON 4 MG TAB.RAPDIS PO ONE (23:55)
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
[2017-08-24] MEDS ORDERED: HYDROMORPHONE HCL INJ/PF 2 MG/ML AMPULE IV ONE (00:37)
[2017-08-24] MEDS ORDERED: TETRACAINE HCL 0.5% OPH SOLN 2 ML OS ONE (00:40)
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
--- NOTE | 2017-08-24 01:05 | RADIOLOGY REPORT (SQ) ---
EXAM DESCRIPTION: CT FACIAL AREA WITHOUT CLINICAL HISTORY: trauma COMPARISON: None available TECHNIQUE: Axial CT of the facial bones obtained without contrast. FINDINGS: Visualized orbital floors and conrad are intact. Orbits and globes are unremarkable. Extensive soft tissue edema and contusion in the left preseptal periorbital soft tissues as well as the remainder of the left facial subcutaneous soft tissues. The nasal bones are intact. The nasal septum is midline. Minimal layering fluid in the maxillary sinuses. The maxillary antral conrad appear to be intact. The pterygoid plates are intact. The maxillary hard palate and anterior nasal spine are intact. The zygomatic processes are intact. The mandible is intact. No mandibular condylar dislocation. The remaining paranasal sinuses and mastoid air cells are well aerated. No soft tissue abnormalities of the oral or nasopharynx. Parotid gland is unremarkable. DLP: 520.53 mGy-cm IMPRESSION: 1. No definite facial bone fracture identified. 2. Minimal layering fluid in the maxillary sinuses bilaterally. Occult nondisplaced maxillary antral wall fractures cannot completely be excluded. 3. Extensive contusion and edema within the left facial soft tissues extending from the periorbital region through the soft tissues overlying the mandible. This exam was performed according to our departmental dose-optimization program, which includes automated exposure control, adjustment of the mA and/or kV according to patient size and/or use of iterative reconstruction technique.
[2017-08-24] MEDS ORDERED: HYDROCODONE/ACETAMINOPHEN 5-325 MG 6 TAB/DSPK PO PRN (01:57)
[2017-08-24 02:27] VITALS: BP 117/72
== END 2017-08-24 02:30 | disposition home or self-care (01) ==
LOC: ER 22:51
DX: S06.0X9A Concussion with loss of consciousness of unspecified duration, initial encounter (principal); S00.83XA Contusion of other part of head, initial encounter; R51 Headache; Y04.0XXA Assault by unarmed brawl or fight, initial encounter
CPT/HCPCS: 99284; 96374; 70450; 70486; 72125; S0119; J1170; J3490

== ENCOUNTER → 2017-10-26 | Outpatient (CLI) | payer MEDICAID ==
--- NOTE | 2017-10-26 12:58 | WOMENS IMAGING REPORT ---
EXAM DESCRIPTION: BILAT DIAGNOSTIC MAMMO W/CAD COMPLETED DATE/TIME: 10/26/2017 10:44 am REASON FOR STUDY: MASTODYNIA N64.4 MASTODYNIA COMPARISON: 2009, 2015 TECHNIQUE: Standard craniocaudal and mediolateral oblique views of each breast recorded using digita l acquisition. True lateral views of both breasts. LIMITATIONS: None. FINDINGS: RIGHT BREAST MASSES: No suspicious masses. CALCIFICATIONS: No new or suspicious calcifications. ARCHITECTURAL DISTORTION: Adjacent to surgical clips in the upper outer quadrant status post benign b iopsy. DEVELOPING DENSITY: None. ASYMMETRY: None noted. OTHER: No other significant findings. LEFT BREAST MASSES: No suspicious masses. CALCIFICATIONS: No new or suspicious calcifications. ARCHITECTURAL DISTORTION: None. DEVELOPING DENSITY: None. ASYMMETRY: None noted. OTHER: No other significant finding. Read with the assistance of CAD: .[facility] - R2 Cenova Version 1.3 .[facility] - R2 Cenova Version 1.3 .[facility] - R2 Cenova Version 2.4 .[facility] - R2 Cenova Version 2.4 .[facility] - R2 [employer] Architect Version 9.2 Ultrasound of both breasts was performed. Small lymph node in the right breast 10 o'clock position. No suspicious masses in either breast. IMPRESSION: No evidence of malignancy. BREAST DENSITY: c. The breasts are heterogeneously dense, which may obscure small masses. BIRAD: 2 Benign findings. RECOMMENDATION: RECOMMENDED FOLLOW UP: Birads 1 or 2: No breast imaging finding to explain the patie nt's presenting complaint. Further intervention should be based on the degree of clinical suspicion. SPECIFIC INTERVENTION/IMAGING/CONSULTATION RECOMMENDED:No additional intervention/ imaging/consultati on needed at this time. COMMUNICATION:The imaging findings were not discussed with the patient. Her referring provider has be en notified of the findings. COMMENT: The patient has been notified of the results by letter per SA requirements. Additional no tification policies are in place for contacting patient with suspicious or incomplete findings. Quality ID #[id number]: The [employer] recommends an annual screening mammogram for women aged 40 years or over. This facility utilizes a reminder system to ensure that all patients receive reminder letters, and/or direct phone calls for appointments. This includes reminders for routine scr eening mammograms, diagnostic mammograms, or other Breast Imaging Interventions when appropriate. Th is patient will be placed in the appropriate reminder system. The [employer] (ACR) has developed recommendations for screening MRI of the breast s in certain patient populations, to be used in conjunction with mammography. Breast MRI surveillanc e may be appropriate for women with more than 20% lifetime risk of developing breast cancer as deter mined by genetic testing, significant family history of the disease, or history of mantle radiation f or Hodgkins Disease. ACR Practice Guidelines 2008. TECHNICAL DOCUMENTATION: FINDING NUMBER: (1) ASSESSMENT: (1) JOB ID: [id number] [employer]- All Rights Reserved
--- NOTE | 2017-10-26 13:40 | WOMENS IMAGING REPORT ---
EXAM DESCRIPTION: U/S BREAST UNILATERAL, COMPL COMPLETE DATE/TIME: 10/26/2017 1:17 pm REASON FOR STUDY: BILATERAL BREAST N63,N64.6 N64.4 MASTODYNIA FINDINGS: Please see combined report for performance of procedure and radiologic supervision and int erpretation. IMPRESSION: Please see combined report for performance of procedure and radiologic supervision and i nterpretation.
== END ==
LOC: WI 10:13
PROVIDERS: ATTEND Physician Assistant
DX: N64.4 Mastodynia (principal)
CPT/HCPCS: 76641; 77066

== ENCOUNTER 2018-08-02 23:23 | Emergency (ER) | payer MEDICAID ==
[2018-08-03] MEDS ORDERED: KETOROLAC TROMETHAMINE 60 MG/2 ML SDV IM ONE (00:20)
[2018-08-03] MEDS ORDERED: HYDROCODONE/ACETAMINOPHEN 5-325 MG (6 TAB/ER DISP) PO PRN (00:20)
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
[2018-08-03 00:37] VITALS: BP 109/58
== END 2018-08-03 01:02 | disposition home or self-care (01) ==
LOC: ER 23:23
DX: G89.18 Other acute postprocedural pain (principal); N64.4 Mastodynia; R11.0 Nausea; Z91.048 Other nonmedicinal substance allergy status
CPT/HCPCS: 99283; 96372; J1885

== ENCOUNTER 2018-09-12 06:55 | Inpatient (IN) | payer MEDICAID ==
[2018-09-12] MEDS ORDERED: IPRATROPIUM/ALBUTEROL 0.5-2.5 MG/3 ML AMPUL NEB ONE (07:06)
--- NOTE | 2018-09-12 07:08 | ER Document Report ---
ED General - General Chief Complaint: Breathing Difficulty Stated Complaint: SHORTNESS OF BREATH Time Seen by Provider: 09/12/18 07:08 Notes: Patient is a 33-year-old female that presents to the emergency department for chief complaint of shortness of breath, difficulty breathing. Patient states that she had a colonoscopy on Monday, and during the procedure she got nauseous, and vomited, and believes that she had aspirated, she was doing okay yesterday but symptoms progressed yesterday evening, to the point where she is very short of breath this morning and brought her to the emergency department. She denies history of lung disease in the past. She is also noted having a cough. Having rib pain. She currently rates her pain as a 4 out of 10. She describes the pain as an aching sensation, worse with a deep breath, diffusely in both sides. She denies noting any fevers, chills, night sweats, abdominal pain, but does admit to having some nausea, but no vomiting at this time. Past Medical History: Breast mass, anxiety, intermittent rectal bleeding Past Surgical History: Colonoscopy, breast surgery Social History: Denies tobacco, alcohol or drug use. Family History: Reviewed and noncontributory for presenting illness Allergies: Reviewed, see documented allergy list. REVIEW OF SYSTEMS: Other than noted above, the 12 point review of systems was reviewed with the patient and were negative, all pertinent findings are included in the HPI. PHYSICAL EXAMINATION: Vital signs reviewed, nursing noted reviewed. GENERAL: Ill-appearing female, in acute respiratory distress, breathing approximately 50 breaths a minute HEAD: Atraumatic, normocephalic. EYES: Eyes appear normal, extraocular movements intact, sclera anicteric, conjunctiva are normal. ENT: nares patent, oropharynx clear without exudates. Moist mucous membranes. NECK: Normal range of motion, supple without lymphadenopathy LUNGS: Lung sounds demonstrate crackles bilaterally in the bases, clear in the upper perez. Increased work of breathing, acute respiratory distress HEART: Heart rate tachycardic, regular rhythm ABDOMEN: Soft, nontender, normoactive bowel sounds. No rebound, guarding, or rigidity. No masses appreciated. EXTREMITIES: Nontender, good range of motion, no pitting or edema. NEUROLOGICAL: No focal neurological deficits. Moves all extremities spontaneously Motor and sensory grossly intact on exam. PSYCH: Patient appears anxious, answering questions appropriately, conversational dyspnea SKIN: Warm, Dry, normal turgor, no rashes or lesions noted on exposed skin TRAVEL OUTSIDE OF THE [place] IN LAST 30 DAYS: No - Related Data Allergies/Adverse Reactions: adhesive tape Allergy (Unknown, Verified 09/12/18 07:28) Past Medical History - Social History Smoking Status: Never Smoker Family History: Reviewed & Not Pertinent - Past Medical History Cardiac Medical History: Denies: Hx Coronary Artery Disease, Hx Heart Attack, Hx Hypertension Pulmonary Medical History: Denies: Hx Asthma, Hx Bronchitis, Hx COPD, Hx Pneumonia Neurological Medical History: Denies: Hx Cerebrovascular Accident, Hx Seizures Renal/ Medical History: Denies: Hx Peritoneal Dialysis GI Medical History: Reports: Hx Gastroesophageal Reflux Disease Musculoskeletal Medical History: Denies Hx Arthritis Psychiatric Medical History: Reports: Hx Anxiety, Hx Depression - anxiety Past Surgical History: Reports: Hx Breast Surgery - lupectomy, Hx Orthopedic Surgery - carpal tunnel - Immunizations Immunizations up to date: Yes Hx Diphtheria, Pertussis, Tetanus Vaccination: Yes Physical Exam - Vital signs Vitals: Temp Pulse Resp BP Pulse Ox 98.7 F 131 H 45 H 124/77 71 L 09/12/18 06:59 09/12/18 06:59 09/12/18 06:59 09/12/18 06:59 09/12/18 06:59 Course - Re-evaluation Re-evalutation: Patient seen and examined vital signs reviewed. Laboratory data and imaging were ordered as appropriate for the patient's presenting symptoms and complaint, with consideration of any critical or life threatening conditions that may be associated with their obtained history and exam as noted above. Patient was treated with supplemental oxygen initially, and then eventually placed on BiPAP to help assist breathing, she did continue to use accessory muscles, and was breathing 40-[address] of the chest was ordered to evaluate for possible pulmonary embolism, given recent surgery, and severe hypoxia and respiratory distress. Results were reviewed when available and demonstrated multifocal lobar pneumonia, likely secondary to aspiration, possible ARDS component or aspiration pneumonitis, patient given IV Zosyn, and 2 L IV fluid bolus, her lactic acid was elevated at 3.3, and was given a bolus above 30 mils per kilo. She was also given a low dose of Dilaudid for pain as well as some Zofran for her nausea. The patient was re-evaluated and was improved on the BiPAP. Evaluation was most consistent with recent pneumonia versus pneumonitis, hypoxia, acute respiratory failure requiring noninvasive positive pressure ventilation. Results were discussed with the patient at this point after careful consideration I feel that that patient should be admitted to the hospital. This was discussed with the patient that it is in the best interest for their care to be admitted for further evaluation and management. Patient agreed with this plan of care. A call was placed to the admitted physician, Dr. Garcia who graciously accepted the patient onto their service. *Note is created using voice recognition software and may contain spelling, syntax or grammatical errors. Laboratory 09/12/18 09/12/18 09/12/18 07:08 07:08 07:08 WBC 9.9 RBC 4.43 Hgb 13.7 Hct 40.3 MCV 91 MCH 30.9 MCHC 33.9 RDW 13.9 Plt Count 198 Total Counted 100 Seg Neutrophils % Not Reportable Seg Neuts % (Manual) 87 H Band Neutrophils % 5 Lymphocytes % Not Reportable Lymphocytes % (Manual) 7 L Monocytes % Not Reportable Monocytes % (Manual) 0 L Eosinophils % Not Reportable Eosinophils % (Manual) 1 Basophils % Not Reportable Basophils % (Manual) 0 Absolute Neutrophils Not Reportable Abs Neuts (Manual) 9.1 H Absolute Lymphocytes Not Reportable Abs Lymphs (Manual) 0.7 Absolute Monocytes Not Reportable Abs Monocytes (Manual) 0.0 L Absolute Eosinophils Not Reportable Absolute Eos (Manual) 0.1 Absolute Basophils Not Reportable Abs Basophils (Manual) 0.0 Toxic Granulation 1+ Toxic Vacuolation PRESENT Platelet Comment ADEQUATE Polychromasia SLIGHT Hypochromasia SLIGHT PT 13.8 INR 1.01 Carbonic Acid HCO3/H2CO3 Ratio ABG pH ABG pCO2 ABG pO2 ABG HCO3 ABG Total CO2 ABG O2 Saturation ABG Base Excess VBG pH VBG pCO2 VBG HCO3 VBG Base Excess FiO2 Sodium 137.1 Potassium 4.1 Chloride 101 Carbon Dioxide 24 Anion Gap 12 BUN 9 Creatinine 0.49 L Est GFR ( Amer) > 60 Est GFR (Non-Af Amer) > 60 Glucose 175 H POC Glucose Lactic Acid Calcium 9.2 Total Bilirubin 0.9 Direct Bilirubin 0.2 Neonat Total Bilirubin Not Reportable Neonat Direct Bilirubin Not Reportable Neonat Indirect Bili Not Reportable AST 25 ALT 10 Alkaline Phosphatase 50 Troponin I NT-Pro-B Natriuret Pep Total Protein 6.1 L Albumin 3.5 Serum HCG, Qual 09/12/18 09/12/18 09/12/18 07:08 07:08 07:08 WBC RBC Hgb Hct MCV MCH MCHC RDW Plt Count Total Counted Seg Neutrophils % Seg Neuts % (Manual) Band Neutrophils % Lymphocytes % Lymphocytes % (Manual) Monocytes % Monocytes % (Manual) Eosinophils % Eosinophils % (Manual) Basophils % Basophils % (Manual) Absolute Neutrophils Abs Neuts (Manual) Absolute Lymphocytes Abs Lymphs (Manual) Absolute Monocytes Abs Monocytes (Manual) Absolute Eosinophils Absolute Eos (Manual) Absolute Basophils Abs Basophils (Manual) Toxic Granulation Toxic Vacuolation Platelet Comment Polychromasia Hypochromasia PT INR Carbonic Acid HCO3/H2CO3 Ratio ABG pH ABG pCO2 ABG pO2 ABG HCO3 ABG Total CO2 ABG O2 Saturation ABG Base Excess VBG pH 7.45 H VBG pCO2 39.7 VBG HCO3 26.7 VBG Base Excess 2.5 FiO2 Sodium Potassium Chloride Carbon Dioxide Anion Gap BUN Creatinine Est GFR ( Amer) Est GFR (Non-Af Amer) Glucose POC Glucose Lactic Acid 3.3 H Calcium Total Bilirubin Direct Bilirubin Neonat Total Bilirubin Neonat Direct Bilirubin Neonat Indirect Bili AST ALT Alkaline Phosphatase Troponin I < 0.012 NT-Pro-B Natriuret Pep 937 H Total Protein Albumin Serum HCG, Qual 09/12/18 09/12/18 09/12/18 07:08 07:42 07:46 WBC RBC Hgb Hct MCV MCH MCHC RDW Plt Count Total Counted Seg Neutrophils % Seg Neuts % (Manual) Band Neutrophils % Lymphocytes % Lymphocytes % (Manual) Monocytes % Monocytes % (Manual) Eosinophils % Eosinophils % (Manual) Basophils % Basophils % (Manual) Absolute Neutrophils Abs Neuts (Manual) Absolute Lymphocytes Abs Lymphs (Manual) Absolute Monocytes Abs Monocytes (Manual) Absolute Eosinophils Absolute Eos (Manual) Absolute Basophils Abs Basophils (Manual) Toxic Granulation Toxic Vacuolation Platelet Comment Polychromasia Hypochromasia PT INR Carbonic Acid 1.12 HCO3/H2CO3 Ratio 23:1 ABG pH 7.47 H ABG pCO2 37.1 ABG pO2 93.5 ABG HCO3 26.3 H ABG Total CO2 27.5 H ABG O2 Saturation 97.6 ABG Base Excess 2.7 VBG pH VBG pCO2 VBG HCO3 VBG Base Excess FiO2 18L Sodium Potassium Chloride Carbon Dioxide Anion Gap BUN Creatinine Est GFR ( Amer) Est GFR (Non-Af Amer) Glucose POC Glucose 135 H Lactic Acid Calcium Total Bilirubin Direct Bilirubin Neonat Total Bilirubin Neonat Direct Bilirubin Neonat Indirect Bili AST ALT Alkaline Phosphatase Troponin I NT-Pro-B Natriuret Pep Total Protein Albumin Serum HCG, Qual NEGATIVE Chest X-Ray 09/12/18 07:10 IMPRESSION: Extensive multi lobar pneumonia. - Vital Signs Vital signs: Temp Pulse Resp BP Pulse Ox 98.6 F 90 28 H 104/61 98 09/12/18 14:20 09/12/18 14:20 09/12/18 14:20 09/12/18 14:20 09/12/18 14:20 - Laboratory Result Diagrams: 09/12/18 07:08 09/12/18 07:08 Laboratory results interpreted by me: 09/12/18 09/12/18 09/12/18 07:08 07:08 07:08 Seg Neuts % (Manual) 87 H Lymphocytes % (Manual) 7 L Monocytes % (Manual) 0 L Abs Neuts (Manual) 9.1 H Abs Monocytes (Manual) 0.0 L ABG pH ABG HCO3 ABG Total CO2 VBG pH Creatinine 0.49 L Glucose 175 H POC Glucose Lactic Acid 3.3 H NT-Pro-B Natriuret Pep Total Protein 6.1 L 09/12/18 09/12/18 09/12/18 07:08 07:08 07:42 Seg Neuts % (Manual) Lymphocytes % (Manual) Monocytes % (Manual) Abs Neuts (Manual) Abs Monocytes (Manual) ABG pH ABG HCO3 ABG Total CO2 VBG pH 7.45 H Creatinine Glucose POC Glucose 135 H Lactic Acid NT-Pro-B Natriuret Pep 937 H Total Protein 09/12/18 07:46 Seg Neuts % (Manual) Lymphocytes % (Manual) Monocytes % (Manual) Abs Neuts (Manual) Abs Monocytes (Manual) ABG pH 7.47 H ABG HCO3 26.3 H ABG Total CO2 27.5 H VBG pH Creatinine Glucose POC Glucose Lactic Acid NT-Pro-B Natriuret Pep Total Protein - EKG Interpretation by Me Additional EKG results interpreted by me: EKG demonstrates sinus tachycardia with a ventricular rate of 112 bpm, normal axis, normal intervals, no evidence of acute ischemia in this EKG. Critical Care Note - Critical Care Note Total time excluding time spent on procedures (mins): 45 Comments: Critical care time 45 minutes exclusive from separate billable procedures for a patient requiring complex medical decision making, and high potential for clinical deterioration. In a patient with severe hypoxia, acute respiratory distress requiring noninvasive positive pressure ventilation. Time spent obtaining history from patient or surrogate, discussions with consultants, development of treatment plan with patient or surrogate, evaluation of patient's response to treatment, examination of patient, ordering and performing treatments and interventions, ordering and review of laboratory studies, re- evaluation of patient's condition, ordering and review of radiographic studies and review of old charts Discharge - Discharge Clinical Impression: Acute respiratory failure with hypoxia, Multifocal pneumonia, Severe sepsis, Tachycardia, Lactic acidemia Condition: Serious Disposition: ADMITTED INPATIENT Admitting Provider: Hospitalist - Dr. Garcia Unit Admitted: ICU
[2018-09-12] MEDS ORDERED: RINGERS SOLUTION,LACTATED 1,000 ML IV ONE ×3 (07:09→18:30)
[2018-09-12 07:21] LABS: VENOUS BLOOD BASE EXCESS 2.5 mmol/L; VENOUS BLOOD HCO3 26.7 mmol/L (20-32); VENOUS BLOOD PCO2 39.7 mmHg (35-63); VENOUS BLOOD PH 7.45 (7.30-7.42)
[2018-09-12 07:35] LABS: HEMATOCRIT 40.3 % (36.0-47.0); HEMOGLOBIN 13.7 g/dL (12.0-15.5); MEAN CORPUSCULAR HEMOGLOBIN 30.9 pg (27.0-33.4); MEAN CORPUSCULAR HGB CONC 33.9 g/dL (32.0-36.0); MEAN CORPUSCULAR VOLUME 91 fl (80-97); PLATELET COUNT 198 10^3/uL (150-450); RED BLOOD COUNT 4.43 10^6/uL (3.72-5.28); RED CELL DISTRIBUTION WIDTH 13.9 % (11.5-14.0); WHITE BLOOD COUNT 9.9 10^3/uL (4.0-10.5)
[2018-09-12] MEDS ORDERED: PIPERACILLIN/TAZOBACTAM 4.5 GM VIAL IV ONE (07:39)
[2018-09-12 07:40] LABS: ALANINE AMINOTRANSFERASE 10 U/L (9-52); ALBUMIN 3.5 g/dL (3.5-5.0); ALKALINE PHOSPHATASE 50 U/L (38-126); ANION GAP 12 (5-19); ASPARTATE AMINO TRANSFERASE 25 U/L (14-36); BILIRUBIN,DIRECT 0.2 mg/dL (0.0-0.4); BILIRUBIN,TOTAL 0.9 mg/dL (0.2-1.3); BLOOD UREA NITROGEN 9 mg/dL (7-20); CALCIUM 9.2 mg/dL (8.4-10.2); CARBON DIOXIDE 24 mmol/L (22-30); CHLORIDE 101 mmol/L (98-107); GLUCOSE 175 mg/dL (75-110); INTERNATIONAL RATION (INR) 1.01; PROTHROMBIN TIME 13.8 SEC (11.4-15.4); SODIUM 137.1 mmol/L (137-145); TOTAL PROTEIN 6.1 g/dL (6.3-8.2)
[2018-09-12 07:41] LABS: POTASSIUM 4.1 mmol/L (3.6-5.0)
[2018-09-12] MEDS ORDERED: HYDROMORPHONE HCL INJ/PF 2 MG/ML AMPULE IV ONE (07:49)
[2018-09-12] MEDS ORDERED: ONDANSETRON HCL INJ/PF 4 MG/2 ML SDV IV ONE (07:50)
--- NOTE | 2018-09-12 07:54 | RADIOLOGY REPORT (SQ) ---
EXAM DESCRIPTION: CT CHEST ANGIOGRAPHY WITHOUT THEN WITH IV CONTRAST COMPLETED DATE/TME: 09/12/2018 07:13 CLINICAL HISTORY: 33 years Female, chest pain, sob, hypoxia Comparison: None. Technique: IV contrast. Coronal and sagittal reformat. 3d reconstruction. This exam was performed according to our departmental dose-optimization program, which includes automated exposure control, adjustment of the mA and/or kV according to patient size and/or use of iterative reconstruction technique.[facility]: Dose Right [facility]: CareDose [facility]: Dose Right [facility]: Teradose 4D [facility]: [employer] LIMITATIONS: None Findings: Mixed airspace opacities included moderate lingular consolidation, and extensive patchy groundglass opacity of both lung perez. No effusion. No pulmonary embolus. No right ventricular strain. Inferior neck, axillae, mediastinum, airway, lymphatics, heart, vasculature, upper abdomen, and musculoskeleton appear otherwise unremarkable. Impression: Multifocal pneumonia. No pulmonary embolus.
[2018-09-12 07:59] LABS: ARTERIAL BLOOD BASE EXCESS 2.7 mmol/L; ARTERIAL BLOOD H2CO3 1.12 mmol/L (1.05-1.35); ARTERIAL BLOOD HCO3 26.3 mmol/L (20-24); ARTERIAL BLOOD O2 SATURATION 97.6 % (94-98); ARTERIAL BLOOD PCO2 37.1 mmHg (35-45); ARTERIAL BLOOD PH 7.47 (7.35-7.45); ARTERIAL BLOOD PO2 93.5 mmHg (80-100); ARTERIAL BLOOD TOTAL CO2 27.5 mmol/L (21-25)
[2018-09-12 08:02] LABS: ARTERIAL BLOOD FIO2 18L
[2018-09-12 08:02] LABS: ABSOLUTE LYMPHOCYTES# (MANUAL) 0.7 10^3/uL (0.5-4.7); ABSOLUTE NEUTROPHILS# (MANUAL) 9.1 10^3/uL (1.7-8.2); BAND NEUTROPHILS % (MANUAL) 5 % (3-5); BASOPHILS % (MANUAL) 0 % (0-2); EOSINOPHILS % (MANUAL) 1 % (0-6); LYMPHOCYTES % (MANUAL) 7 % (13-45); MONOCYTES % (MANUAL) 0 % (3-13); SEGMENTED NEUTROPHILS % (MAN) 87 % (42-78); TOTAL CELLS COUNTED 100; TOXIC GRANULATION 1+; TOXIC VACUOLATION PRESENT
[2018-09-12 08:03] LABS: HYPOCHROMASIA SLIGHT; PLATELET COMMENT ADEQUATE; POLYCHROMASIA SLIGHT
[2018-09-12 08:05] LABS: NT PRO BNP 937 pg/mL (<125)
[2018-09-12 08:09] LABS: TROPONIN I < 0.012 ng/mL
--- NOTE | 2018-09-12 08:13 | RADIOLOGY REPORT (SQ) ---
EXAM DESCRIPTION: CHEST SINGLE VIEW COMPLETED DATE/TIME: 09/12/2018 7:35 am REASON FOR STUDY: hypoxia COMPARISON: None. EXAM PARAMETERS: NUMBER OF VIEWS: One view. TECHNIQUE: Single frontal radiographic view of the chest acquired. RADIATION DOSE: NA LIMITATIONS: None. FINDINGS: LUNGS AND PLEURA: Extensive basilar perihilar parenchymal opacities. No effusions. No pn eumothorax. MEDIASTINUM AND HILAR STRUCTURES: No masses. Contour normal. HEART AND VASCULAR STRUCTURES: Heart normal in size. Normal vasculature. BONES: No acute findings. HARDWARE: None in the chest. OTHER: No other significant finding. IMPRESSION: Extensive multi lobar pneumonia. TECHNICAL DOCUMENTATION: JOB ID: [id number] [employer]- All Rights Reserved Reading location - IP/workstation name: [email or web address]
[2018-09-12] MEDS ORDERED: RINGERS SOLUTION,LACTATED 1,000 ML IV PRN (10:03)
[2018-09-12] MEDS ORDERED: ALBUTEROL SULFATE 0.083% NEB 2.5 MG/3 ML AMPUL NEB PRN (10:03)
[2018-09-12] MEDS ORDERED: (PENDING PHARMACY ID) (Zolpidem Tartrate [Ambien] 5 MG) PO PRN (10:23)
[2018-09-12] MEDS ORDERED: DIAZEPAM 5 MG TABLET PO PRN (10:23)
--- NOTE | 2018-09-12 10:47 | PDOC H&P ---
History of Present Illness Admission Date/PCP: 09/12/18 09:11 BERTA ESTRELLA PA-C Patient complains of: Worsening shortness of breath. Emesis while anesthetized for colonoscopy History of Present Illness: MACK AMOR is a 33 year old female who underwent a breast lumpectomy (benign) approximate 5 or 6 weeks ago. Postoperatively she felt fine. Proxy 1 week ago she had a colonoscopy for rectal bleeding. During the procedure evidently she experienced emesis with possible aspiration. The patient reports that immediately after the procedure she did not feel well. She was given 2 antibiotics to take after the procedure. She never really felt better. She had no chest discomfort and there was no obvious shortness of breath. Over the course of the week she began to have chills and body aches. Now her whole body hurts. Her shortness of breath has increased significantly. She did have a cough that was productive of a small amount of orange white sputum. She states that she feels congested in her chest but is unable to cough up the mucus. Today she felt like she could not catch her breath at all. She presented to the emergency department and her pulse ox was found to be 71% on room air. CT scan was negative for pulmonary embolus however it showed multifocal consolidations consistent with pneumonia. She is feeling slightly better on BiPAP. She did receive 1 dose of antibiotic therapy as well as nebulizer treatment. Past Medical History Cardiac Medical History: Denies: Coronary Artery Disease, Myocardial Infarction, Hypertension Pulmonary Medical History: Denies: Asthma, Bronchitis, Chronic Obstructive Pulmonary Disease (COPD), Pneumonia EENT Medical History: Denies: Cataracts, Eyes, Ears, Nose, Throat Neurological Medical History: Denies: Migraine, Seizures Endocrine Medical History: Denies: Diabetes Mellitus Type 1, Diabetes Mellitus Type 2, Hypothyroidism Renal/ Medical History: Denies: Chronic Kidney Disease, Nephrolithiasis Malignancy Medical History: Reports: None GI Medical History: Reports: Gastroesophageal Reflux Disease Musculoskeltal Medical History: Denies: Arthritis Psychiatric Medical History: Reports: Depression - anxiety, General Anxiety Disorder Traumatic Medical History: Reports: None Hematology: Denies: Anemia Infectious Medical History: Reports: None Past Surgical History Past Surgical History: Reports: Orthopedic Surgery - carpal tunnel, Other - Breast lumpectomy Social History Information Source: Patient Lives with: Family Smoking Status: Never Smoker Frequency of Alcohol Use: Occasional Hx Recreational Drug Use: No Drugs: None Hx Prescription Drug Abuse: No Past Social History Note: mother of 3. - Advance Directive Resuscitation Status: Full Code Surrogate healthcare decision maker:: No formal healthcare proxy established. She did say that her emergency contact, her Sister Yesica, would be the decision maker. Family History Family History: DM Parental Family History Reviewed: Yes Children Family History Reviewed: Yes - 1 child with asthma Sibling(s) Family History Reviewed.: Yes Medication/Allergy Home Medications: Valacyclovir HCl [Valtrex 500 mg Tablet] 500 mg PO PRN PRN 01/03/13 Diazepam 5 mg PO PRN PRN 06/16/17 Olanzapine/Fluoxetine HCl [Symbyax 6-50 mg Capsule] 1 each PO DAILY 06/16/17 Acyclovir [Acyclovir 400 mg Tablet] 400 mg PO Q6 10 Days tablet 06/18/17 Lisdexamfetamine Dimesylate [Vyvanse] 60 mg PO DAILY 06/21/17 Zolpidem Tartrate [Ambien] 5 mg PO PRN PRN 06/21/17 Hydrocodone/Acetaminophen [Redding 5-325 mg Tablet] 1 tab PO Q6 PRN #20 tablet 06/27/17 Morphine Sulfate [Morphine Ir 15 Mg Tablet] 15 mg PO Q6 PRN #15 tablet 08/24/17 Allergies/Adverse Reactions: adhesive tape Allergy (Unknown, Verified 09/12/18 07:28) Review of Systems Constitutional: PRESENT: as per HPI Eyes: ABSENT: visual disturbances Ears: ABSENT: hearing changes Nose, Mouth, and Throat: ABSENT: mouth pain, sore throat Cardiovascular: PRESENT: dyspnea on exertion. ABSENT: edema, orthropnea, palpitations Respiratory: PRESENT: cough, dyspnea, sputum Gastrointestinal: PRESENT: heartburn, nausea. ABSENT: constipation, diarrhea Genitourinary: ABSENT: difficulty urinating, hematuria Musculoskeletal: PRESENT: other - Diffuse myalgias and arthralgias Integumentary: ABSENT: diaphoresis, lesions, pruritus Neurological: ABSENT: confusion, dizziness, memory loss, tremor(s), vertigo Psychiatric: PRESENT: anxiety, depression Endocrine: ABSENT: cold intolerance, heat intolerance, polydipsia Hematologic/Lymphatic: ABSENT: easy bleeding, easy bruising Allergic/Immunologic: ABSENT: seasonal rhinorrhea Physical Exam Vital Signs: Temp Pulse Resp BP Pulse Ox 98.7 F 131 H 35 H 117/68 98 09/12/18 06:59 09/12/18 06:59 09/12/18 09:01 09/12/18 09:01 09/12/18 09:01 Intake & Output 09/11/18 09/12/18 09/13/18 06:59 06:59 06:59 Intake Total 1999 Balance 1999 Weight 62.6 kg General appearance: PRESENT: cooperative, well-developed, other - Moderate distress Head exam: PRESENT: normocephalic Eye exam: PRESENT: conjunctiva pink, EOMI. ABSENT: scleral icterus Ear exam: PRESENT: normal external ear exam Mouth exam: PRESENT: neck supple, other - Currently wearing BiPAP Teeth exam: PRESENT: other - Currently wearing BiPAP Throat exam: PRESENT: other - Currently wearing BiPAP Neck exam: PRESENT: full ROM. ABSENT: carotid bruit, JVD, lymphadenopathy Respiratory exam: PRESENT: symmetrical, tachypnea, wheezes - Sporadic expiratory wheeze, other - Coarse breath sounds. ABSENT: rales, rhonchi Cardiovascular exam: PRESENT: +S1, +S2, tachycardia Pulses: PRESENT: normal radial pulses, normal dorsalis pedis pul GI/Abdominal exam: PRESENT: normal bowel sounds, soft. ABSENT: distended, tenderness Rectal exam: PRESENT: deferred Extremities exam: ABSENT: calf tenderness, pedal edema Musculoskeletal exam: PRESENT: normal inspection Neurological exam: PRESENT: alert, awake, oriented to person, oriented to place, oriented to time, oriented to situation, CN II-XII grossly intact Psychiatric exam: PRESENT: anxious, appropriate affect. ABSENT: agitated Focused psych exam: ABSENT: restlessness Skin exam: PRESENT: dry, normal color, warm. ABSENT: abrasion, erythema Results Laboratory Results: 09/12/18 07:08 09/12/18 07:08 09/12/18 09/12/18 09/12/18 07:08 07:08 07:08 WBC 9.9 RBC 4.43 Hgb 13.7 Hct 40.3 MCV 91 MCH 30.9 MCHC 33.9 RDW 13.9 Plt Count 198 Seg Neutrophils % Not Reportable Lymphocytes % Not Reportable Monocytes % Not Reportable Eosinophils % Not Reportable Basophils % Not Reportable Absolute Neutrophils Not Reportable Absolute Lymphocytes Not Reportable Absolute Monocytes Not Reportable Absolute Eosinophils Not Reportable Absolute Basophils Not Reportable Carbonic Acid HCO3/H2CO3 Ratio ABG pH ABG pCO2 ABG pO2 ABG HCO3 ABG O2 Saturation ABG Base Excess VBG pH VBG pCO2 VBG HCO3 VBG Base Excess FiO2 Sodium 137.1 Potassium 4.1 Chloride 101 Carbon Dioxide 24 Anion Gap 12 BUN 9 Creatinine 0.49 L Est GFR ( Amer) > 60 Est GFR (Non-Af Amer) > 60 Glucose 175 H Lactic Acid 3.3 H Calcium 9.2 Total Bilirubin 0.9 AST 25 ALT 10 Alkaline Phosphatase 50 Total Protein 6.1 L Albumin 3.5 Serum HCG, Qual 09/12/18 09/12/18 09/12/18 07:08 07:08 07:46 WBC RBC Hgb Hct MCV MCH MCHC RDW Plt Count Seg Neutrophils % Lymphocytes % Monocytes % Eosinophils % Basophils % Absolute Neutrophils Absolute Lymphocytes Absolute Monocytes Absolute Eosinophils Absolute Basophils Carbonic Acid 1.12 HCO3/H2CO3 Ratio 23:1 ABG pH 7.47 H ABG pCO2 37.1 ABG pO2 93.5 ABG HCO3 26.3 H ABG O2 Saturation 97.6 ABG Base Excess 2.7 VBG pH 7.45 H VBG pCO2 39.7 VBG HCO3 26.7 VBG Base Excess 2.5 FiO2 18L Sodium Potassium Chloride Carbon Dioxide Anion Gap BUN Creatinine Est GFR ( Amer) Est GFR (Non-Af Amer) Glucose Lactic Acid Calcium Total Bilirubin AST ALT Alkaline Phosphatase Total Protein Albumin Serum HCG, Qual NEGATIVE 09/12/18 07:08 Troponin I < 0.012 NT-Pro-B Natriuret Pep 937 H Impressions: Chest X-Ray 09/12/18 07:10 IMPRESSION: Extensive multi lobar pneumonia. Assessment & Plan - Diagnosis (1) Acute respiratory failure with hypoxia Is this a current diagnosis for this admission?: Yes Plan: The patient is currently on BiPAP with oxygen bleed in (60%) and maintaining s aturation above 90. She is still tachypneic. She took her mask off to take a drink and dropped her oxygenation. She understands that she has to stay on the BiPAP. Small windows for meals and drinks are allowed but the nurse must be aware and put the mask back on after a brief window. Etiology is multifocal pneumonia secondary to aspiration under anesthesia. (2) Multifocal pneumonia Is this a current diagnosis for this admission?: Yes Plan: With the aspiration she will be on Zosyn. I have also added azithromycin in the event that it is community-acquired. This is less likely however. (3) Tachycardia Is this a current diagnosis for this admission?: Yes Plan: She will receive aggressive IV fluids. She also has significant history of anxiety and this is likely contributing to her tachycardia. (4) Lactic acidemia Is this a current diagnosis for this admission?: Yes Plan: Aggressive fluids and recheck lactic acid. (5) Anxiety and depression Is this a current diagnosis for this admission?: Yes Plan: The patient is on multiple psychiatric medications. She is on anxiolytics as well as antidepressants and medication for attention deficit disorder. I will resume some of these medications especially to help with anxiety. Waiting for pharmacy to confirm current medication list. - Time Time Spent: 50 to 70 Minutes Medications reviewed and adjusted accordingly: Yes Anticipated discharge: Home - Inpatient Certification Based on my medical assessment, after consideration of the patient's comorbidities, presenting symptoms, or acuity I expect that the services needed warrant INPATIENT care.: Yes I certify that my determination is in accordance with my understanding of Medicare's requirements for reasonable and necessary INPATIENT services [42 CFR 412.3e].: Yes Medical Necessity: Need For IV Fluids, Need for Nebulizer Therapy and Monitoring of Response, Need for IV Antibiotics
[2018-09-12] MEDS ORDERED: ZOLPIDEM TARTRATE 5 MG TABLET PO PRN (11:31)
[2018-09-12] MEDS: HYDROCODONE/ACETAMINOPHEN 5-325 MG TABLET PO PRN ×2 (12:12→19:28)
[2018-09-12] MEDS: METHYLPREDNISOLONE INJ 40 MG/1 ML SDV IV SCH ×2 (12:13→21:59)
[2018-09-12] MEDS: AZITHROMYCIN 500 MG in DEXTROSE 5%-WATER 250 ML IV SCH (12:18)
[2018-09-12] MEDS: ALBUTEROL SULFATE 0.083% NEB 2.5 MG/3 ML AMPUL NEB SCH ×2 (14:13→20:12)
[2018-09-12] MEDS: ACETAMINOPHEN 325 MG TABLET PO PRN (15:30)
[2018-09-12] MEDS: PIPERACILLIN SODIUM/TAZOBACTAM 3.375 GM in NORMAL SALINE 100 ML IV SCH ×2 (15:33→21:57)
[2018-09-12 15:48] LABS: APPEARANCE,URINE SLIGHTLY-CLOUDY; BILIRUBIN,URINE NEGATIVE (NEGATIVE); COLOR,URINE STRAW; GLUCOSE, URINE 150 mg/dL (NEGATIVE); KETONES,URINE NEGATIVE (NEGATIVE); LEUKOCYTE ESTERASE,URINE NEGATIVE (NEGATIVE); NITRITE,URINE NEGATIVE (NEGATIVE); PROTEIN,URINE NEGATIVE (NEGATIVE); URINE SPECIFIC GRAVITY 1.003; UROBILINOGEN,URINE NEGATIVE mg/dL (<2.0)
--- NOTE | 2018-09-12 17:17 | EKG REPORT ---
SEVERITY:- ABNORMAL ECG - SINUS TACHYCARDIA BIATRIAL ABNORMALITIES CONSIDER RIGHT VENTRICULAR HYPERTROPHY : Confirmed by: Esthela Cuevas MD 12-Sep-2018 17:16:47
[2018-09-12] MEDS: ONDANSETRON HCL INJ/PF 4 MG/2 ML SDV IV PRN (18:32)
[2018-09-12] MEDS ORDERED: (PENDING PHARMACY ID) (Hydroxyzine Hcl [Atarax 25 Mg Tablet] 1 TAB) PO PRN (18:40)
[2018-09-12] MEDS ORDERED: HYDROXYZINE HCL 10 MG TABLET PO PRN (18:53)
[2018-09-12] MEDS: GUAIFENESIN 600 MG TABLET.SA PO SCH (21:59)
[2018-09-12] MEDS: FAMOTIDINE 20 MG TABLET PO SCH (21:59)
[2018-09-13] MEDS: PIPERACILLIN SODIUM/TAZOBACTAM 3.375 GM in NORMAL SALINE 100 ML IV SCH ×4 (02:26→22:04)
[2018-09-13] MEDS: ALBUTEROL SULFATE 0.083% NEB 2.5 MG/3 ML AMPUL NEB SCH ×4 (02:34→19:20)
[2018-09-13] MEDS: HYDROCODONE/ACETAMINOPHEN 5-325 MG TABLET PO PRN ×4 (02:50→22:22)
[2018-09-13 05:02] LABS: HEMATOCRIT 32.3 % (36.0-47.0); MEAN CORPUSCULAR HEMOGLOBIN 31.2 pg (27.0-33.4); MEAN CORPUSCULAR HGB CONC 34.4 g/dL (32.0-36.0); MEAN CORPUSCULAR VOLUME 91 fl (80-97); PLATELET COUNT 165 10^3/uL (150-450); RED BLOOD COUNT 3.56 10^6/uL (3.72-5.28); RED CELL DISTRIBUTION WIDTH 13.3 % (11.5-14.0); WHITE BLOOD COUNT 9.9 10^3/uL (4.0-10.5)
[2018-09-13 05:18] LABS: ANION GAP 8 (5-19); BLOOD UREA NITROGEN 7 mg/dL (7-20); CALCIUM 8.3 mg/dL (8.4-10.2); CARBON DIOXIDE 28 mmol/L (22-30); CHLORIDE 103 mmol/L (98-107); GLUCOSE 148 mg/dL (75-110); SODIUM 138.7 mmol/L (137-145)
[2018-09-13 05:20] LABS: HEMOGLOBIN 11.1 g/dL (12.0-15.5)
[2018-09-13 05:28] LABS: ABSOLUTE LYMPHOCYTES# (MANUAL) 0.4 10^3/uL (0.5-4.7); ABSOLUTE NEUTROPHILS# (MANUAL) 9.5 10^3/uL (1.7-8.2); BAND NEUTROPHILS % (MANUAL) 3 % (3-5); BASOPHILS % (MANUAL) 0 % (0-2); EOSINOPHILS % (MANUAL) 0 % (0-6); LYMPHOCYTES % (MANUAL) 4 % (13-45); MONOCYTES % (MANUAL) 0 % (3-13); PLATELET COMMENT ADEQUATE; RBC MORPHOLOGY COMMENT NORMO-CYTIC/CHROMIC; SEGMENTED NEUTROPHILS % (MAN) 93 % (42-78); TOTAL CELLS COUNTED 100; TOXIC GRANULATION SLIGHT
[2018-09-13] MEDS: ONDANSETRON HCL INJ/PF 4 MG/2 ML SDV IV PRN ×3 (07:52→20:51)
[2018-09-13] MEDS: ACETAMINOPHEN 325 MG TABLET PO PRN ×2 (07:59→20:52)
[2018-09-13] MEDS: METHYLPREDNISOLONE INJ 40 MG/1 ML SDV IV SCH ×2 (09:36→22:03)
[2018-09-13] MEDS: ENOXAPARIN SODIUM INJ 40 MG/0.4 ML DISP.SYRIN SUBCUT SCH (09:36)
[2018-09-13] MEDS: ARIPIPRAZOLE 5 MG TABLET PO SCH (09:37)
[2018-09-13] MEDS: FAMOTIDINE 20 MG TABLET PO SCH ×2 (09:37→22:03)
[2018-09-13] MEDS: GUAIFENESIN 600 MG TABLET.SA PO SCH ×2 (09:37→22:04)
[2018-09-13] MEDS ORDERED: FLUOXETINE HCL PO SCH (10:00)
[2018-09-13] MEDS ORDERED: LISDEXAMFETAMINE DIMESYLATE 60 MG PO SCH (10:00)
[2018-09-13] MEDS ORDERED: OLANZAPINE PO SCH (10:00)
[2018-09-13] MEDS ORDERED: (PENDING PHARMACY ID) (Aripiprazole [Abilify 15 Mg Tablet] 15 MG) PO SCH (10:00)
[2018-09-13] MEDS: AZITHROMYCIN 500 MG in DEXTROSE 5%-WATER 250 ML IV SCH (12:08)
--- NOTE | 2018-09-13 19:24 | PDOC PROGRESS REPORT ---
Subjective Progress Note for:: 09/13/18 Subjective:: The patient is resting in bed. She has a nonrebreather mask in place because she is trying to eat. She still requires BiPAP most of the time. If she removes the oxygen she desaturates promptly. Reason For Visit: PNUEMONIA Physical Exam Vital Signs: Temp Pulse Resp BP Pulse Ox 98.5 F 66 27 H 112/65 98 09/13/18 15:13 09/13/18 15:13 09/13/18 16:30 09/13/18 15:13 09/13/18 16:30 Intake & Output 09/12/18 09/13/18 09/14/18 06:59 06:59 06:59 Intake Total 6018 450 Balance 6018 450 Weight 64.3 kg General appearance: PRESENT: mild distress, thin, well-developed Head exam: PRESENT: normocephalic Respiratory exam: PRESENT: rales - Bilateral, tachypnea, wheezes - Occasional end expiratory wheeze. ABSENT: rhonchi, stridor GI/Abdominal exam: PRESENT: normal bowel sounds, soft. ABSENT: distended, tenderness Neurological exam: PRESENT: alert, awake, oriented to person, oriented to place, oriented to time, oriented to situation, CN II-XII grossly intact Psychiatric exam: PRESENT: anxious Focused psych exam: ABSENT: restlessness Results Laboratory Results: 09/13/18 04:38 09/13/18 04:38 09/12/18 09/13/18 09/13/18 22:10 04:38 04:38 WBC 9.9 RBC 3.56 L Hgb 11.1 L D Hct 32.3 L MCV 91 MCH 31.2 MCHC 34.4 RDW 13.3 Plt Count 165 Seg Neutrophils % Not Reportable Lymphocytes % Not Reportable Monocytes % Not Reportable Eosinophils % Not Reportable Basophils % Not Reportable Absolute Neutrophils Not Reportable Absolute Lymphocytes Not Reportable Absolute Monocytes Not Reportable Absolute Eosinophils Not Reportable Absolute Basophils Not Reportable Sodium Potassium Chloride Carbon Dioxide Anion Gap BUN Creatinine Est GFR ( Amer) Est GFR (Non-Af Amer) Glucose Lactic Acid 3.1 H 1.9 Calcium 09/13/18 04:38 WBC RBC Hgb Hct MCV MCH MCHC RDW Plt Count Seg Neutrophils % Lymphocytes % Monocytes % Eosinophils % Basophils % Absolute Neutrophils Absolute Lymphocytes Absolute Monocytes Absolute Eosinophils Absolute Basophils Sodium 138.7 Potassium 4.0 Chloride 103 Carbon Dioxide 28 Anion Gap 8 BUN 7 Creatinine 0.40 L Est GFR ( Amer) > 60 Est GFR (Non-Af Amer) > 60 Glucose 148 H Lactic Acid Calcium 8.3 L 09/12/18 07:08 Troponin I < 0.012 NT-Pro-B Natriuret Pep 937 H Impressions: Chest X-Ray 09/12/18 07:10 IMPRESSION: Extensive multi lobar pneumonia. Assessment & Plan - Diagnosis (1) Acute respiratory failure with hypoxia Is this a current diagnosis for this admission?: Yes Plan: Reviewed the patient's radiology studies with pulmonology. They will be seeing her in the morning. She still requires BiPAP most of the time. Instead of a mask we will use high flow nasal cannula when she is trying to eat. (2) Multifocal pneumonia Is this a current diagnosis for this admission?: Yes Plan: There is likely more than just an infectious process. Multiple changes noted on the CT scan. Additional studies to assess for etiologies of pneumonitis/chronic inflammatory lung disease have been ordered. We will continue antibiotics at this time. Consider change in antibiotic therapy after discussion with pulmonology tomorrow. (3) Tachycardia Is this a current diagnosis for this admission?: Yes Plan: Improved (4) Lactic acidemia Is this a current diagnosis for this admission?: Yes Plan: Resolved (5) Anxiety and depression Is this a current diagnosis for this admission?: Yes Plan: To replace her combination medication of olanzapine and fluoxetine I have split the dosing. This certainly could be contributing to her anxiety. That should improve note she is back on these medications. She is also on Abilify. - Time Time Spent with patient: 25-34 minutes Medications reviewed and adjusted accordingly: Yes
--- NOTE | 2018-09-13 20:11 | RADIOLOGY REPORT (SQ) ---
EXAM DESCRIPTION: CHEST SINGLE VIEW COMPLETED DATE/TIME: 09/13/2018 7:46 pm REASON FOR STUDY: Pneumonia COMPARISON: 09/12/2018 TECHNIQUE: Single frontal radiographic view of the chest acquired. NUMBER OF VIEWS: One view. LIMITATIONS: None. FINDINGS: LUNGS AND PLEURA: No pneumothorax. Similar bilateral basilar patchy consolidation, left g reater than right. No significant pleural effusion. MEDIASTINUM AND HILAR STRUCTURES: Stable. HEART AND VASCULAR STRUCTURES: Stable. BONES: No acute findings. HARDWARE: None in the chest. OTHER: No other significant finding. IMPRESSION: Similar bilateral basilar patchy consolidation, left greater than right. No significant pleural effusion. TECHNICAL DOCUMENTATION: JOB ID: [id number] [id number] 2010 [email or web address]- All Rights Reserved Reading location - IP/workstation name: [employer]
[2018-09-13] MEDS ORDERED: SUMATRIPTAN SUCCINATE 50 MG TABLET PO PRN (21:00)
[2018-09-13] MEDS: FLUOXETINE HCL 20 MG CAPSULE PO SCH (22:08)
[2018-09-14] MEDS: ALBUTEROL SULFATE 0.083% NEB 2.5 MG/3 ML AMPUL NEB SCH ×3 (02:12→13:42)
[2018-09-14] MEDS: PIPERACILLIN SODIUM/TAZOBACTAM 3.375 GM in NORMAL SALINE 100 ML IV SCH ×4 (02:32→21:39)
[2018-09-14 04:56] LABS: VENOUS BLOOD BASE EXCESS 5.8 mmol/L; VENOUS BLOOD HCO3 30.8 mmol/L (20-32); VENOUS BLOOD PCO2 46.4 mmHg (35-63); VENOUS BLOOD PH 7.44 (7.30-7.42)
[2018-09-14] MEDS: HYDROCODONE/ACETAMINOPHEN 5-325 MG TABLET PO PRN (07:13)
[2018-09-14] MEDS ORDERED: SUCCINYLCHOLINE CHLORIDE INJ 200 MG/10 ML VIAL ONE ×2 (08:00→08:47)
[2018-09-14] MEDS ORDERED: HYDROXYZINE PAMOATE 25 MG CAPSULE PO PRN (08:07)
[2018-09-14] MEDS ORDERED: OLANZAPINE 2.5 MG TABLET PO SCH (10:00)
[2018-09-14] MEDS: METHYLPREDNISOLONE INJ 40 MG/1 ML SDV IV SCH (10:08)
[2018-09-14] MEDS: FAMOTIDINE 20 MG TABLET PO SCH (10:08)
[2018-09-14] MEDS: FLUOXETINE HCL 20 MG CAPSULE PO SCH (10:09)
[2018-09-14] MEDS: GUAIFENESIN 600 MG TABLET.SA PO SCH (10:10)
[2018-09-14] MEDS: ARIPIPRAZOLE 5 MG TABLET PO SCH (10:11)
[2018-09-14] MEDS: ENOXAPARIN SODIUM INJ 40 MG/0.4 ML DISP.SYRIN SUBCUT SCH (10:12)
[2018-09-14] MEDS: AZITHROMYCIN 500 MG in DEXTROSE 5%-WATER 250 ML IV SCH (12:13)
[2018-09-14] MEDS: ACETAMINOPHEN 325 MG TABLET PO PRN (12:15)
[2018-09-14] MEDS: ONDANSETRON HCL INJ/PF 4 MG/2 ML SDV IV PRN (12:25)
[2018-09-14] MEDS ORDERED: PROPOFOL 1,000 MG/100 ML INFUS..BTL IV ONE (14:10)
[2018-09-14] MEDS ORDERED: PHARMACY COMMUNICATION ORDER MC NR (14:15)
[2018-09-14] MEDS ORDERED: LEVALBUTEROL HCL NEB 1.25 MG/3 ML AMPUL NEB PRN (14:37)
[2018-09-14] MEDS ORDERED: MIDAZOLAM HCL 50 MG/100 ML RTUINJ ONE (14:43)
[2018-09-14] MEDS ORDERED: VANCOMYCIN HCL 0 MG in DEXTROSE 5%-WATER 250 ML IV NR (14:45)
[2018-09-14] MEDS ORDERED: ACETAMINOPHEN SOLN 325 MG/10.15 ML UDCUP NG PRN (14:58)
[2018-09-14 14:59] LABS: ARTERIAL BLOOD BASE EXCESS 3.1 mmol/L; ARTERIAL BLOOD H2CO3 1.26 mmol/L (1.05-1.35); ARTERIAL BLOOD HCO3 27.6 mmol/L (20-24); ARTERIAL BLOOD O2 SATURATION 99.5 % (94-98); ARTERIAL BLOOD PCO2 41.8 mmHg (35-45); ARTERIAL BLOOD PH 7.44 (7.35-7.45); ARTERIAL BLOOD PO2 218.8 mmHg (80-100); ARTERIAL BLOOD TOTAL CO2 28.9 mmol/L (21-25)
[2018-09-14 15:00] LABS: ARTERIAL BLOOD FIO2 50%
[2018-09-14] MEDS: MIDAZOLAM HCL 50 MG/100 ML RTUINJ IV PRN ×3 (15:00→21:57)
[2018-09-14] MEDS ORDERED: SUMATRIPTAN SUCCINATE 50 MG TABLET NG PRN (15:00)
[2018-09-14] MEDS ORDERED: ZOLPIDEM TARTRATE 5 MG TABLET NG PRN (15:00)
[2018-09-14] MEDS ORDERED: PROPOFOL 1,000 MG/100 ML INFUS..BTL IV PRN (15:06)
--- NOTE | 2018-09-14 15:26 | RADIOLOGY REPORT (SQ) ---
EXAM DESCRIPTION: CHEST SINGLE VIEW COMPLETED DATE/TIME: 09/14/2018 3:11 pm REASON FOR STUDY: intubation COMPARISON: 09/13/2018 EXAM PARAMETERS: NUMBER OF VIEWS: One view. TECHNIQUE: Single frontal radiographic view of the chest acquired. RADIATION DOSE: NA LIMITATIONS: None. FINDINGS: LUNGS AND PLEURA: Persistent bibasilar and perihilar airspace disease, left greater than r ight. No significant pleural effusion. No pneumothorax. MEDIASTINUM AND HILAR STRUCTURES: No discrete mass. Left perihilar opacities. HEART AND VASCULAR STRUCTURES: Normal heart size. BONES: No acute bony abnormality. HARDWARE: Intubation with endotracheal tube tip overlying midthoracic trachea. Enteric tube tip belo w diaphragm but excluded by collimation. OTHER: No other significant finding. IMPRESSION: Persistent bibasilar and perihilar opacities, left greater than right, compatible with p neumonia. Interval intubation with endotracheal tube tip overlying midthoracic trachea. Enteric tube tip below diaphragm but excluded by collimation. TECHNICAL DOCUMENTATION: JOB ID: [id number] [employer]- All Rights Reserved Reading location - IP/workstation name: [email or web address]
--- NOTE | 2018-09-14 15:28 | RADIOLOGY REPORT (SQ) ---
EXAM DESCRIPTION: KUB/ABDOMEN (SINGLE VIEW) COMPLETED DATE/TIME: 09/14/2018 3:11 pm REASON FOR STUDY: Check Placement of NG Tube COMPARISON: None. NUMBER OF VIEWS: One view. TECHNIQUE: Supine radiographic image of the abdomen acquired. LIMITATIONS: Left flank excluded by collimation. FINDINGS: BOWEL GAS PATTERN: Normal bowel gas pattern. No dilated loops. CALCIFICATIONS: No suspicious calcifications. SOFT TISSUES: No gross mass or suggestion of organomegaly. HARDWARE: Enteric tube tip overlies gastric body. Umbilical piercing present. BONES: No acute fracture. No worrisome bone lesions. OTHER: No other significant finding. IMPRESSION: Enteric tube tip overlies gastric body. TECHNICAL DOCUMENTATION: JOB ID: [id number] [employer]- All Rights Reserved Reading location - IP/workstation name: [email or web address]
[2018-09-14] MEDS ORDERED: LORAZEPAM INJ 2 MG/1 ML VIAL ONE (16:26)
[2018-09-14] MEDS: IPRATROPIUM/ALBUTEROL 0.5-2.5 MG/3 ML AMPUL NEB SCH ×2 (16:29→20:48)
[2018-09-14] MEDS: NORMAL SALINE 500 ML with ROCURONIUM BROMIDE 500 MG IV PRN ×2 (16:44)
[2018-09-14] MEDS: LORAZEPAM INJ 2 MG/1 ML VIAL IV PRN (16:44)
[2018-09-14] MEDS: OLANZAPINE 2.5 MG TABLET NG SCH (18:50)
--- NOTE | 2018-09-14 19:00 | PDOC PROGRESS REPORT ---
Subjective Progress Note for:: 09/14/18 Subjective:: The patient was seen by Dr. Ni. We discussed the plan to electively intubate the patient due to her increasing tachypnea and difficulty breathing despite treatment. Shortly after the discussion a rapid response was called for the patient. We transported the patient to the intensive care unit where she was sedated and intubated. Reason For Visit: PNUEMONIA Physical Exam Vital Signs: Temp Pulse Resp BP Pulse Ox 97.7 F 54 L 22 H 135/72 H 99 09/14/18 16:00 09/14/18 16:00 09/14/18 16:00 09/14/18 16:00 09/14/18 16:00 Intake & Output 09/13/18 09/14/18 09/15/18 06:59 06:59 06:59 Intake Total 6018 1150 561 Output Total 200 Balance 6018 1150 361 Weight 64.3 kg 64 kg General appearance: PRESENT: well-developed, other - Intubated and sedated Head exam: PRESENT: normocephalic Eye exam: PRESENT: conjunctiva pink. ABSENT: scleral icterus Ear exam: PRESENT: normal external ear exam Mouth exam: PRESENT: other - Endotracheal tube in place Teeth exam: ABSENT: dental tenderness Neck exam: ABSENT: carotid bruit, JVD, lymphadenopathy Respiratory exam: PRESENT: other - Coarse breath sounds anteriorly bilaterally.. ABSENT: wheezes Cardiovascular exam: PRESENT: RRR, +S1, +S2, systolic murmur Pulses: PRESENT: normal radial pulses, normal dorsalis pedis pul GI/Abdominal exam: PRESENT: normal bowel sounds, soft. ABSENT: distended, tenderness Rectal exam: PRESENT: deferred Gentrourinary exam: PRESENT: indwelling catheter Extremities exam: ABSENT: calf tenderness, joint swelling, pedal edema Musculoskeletal exam: PRESENT: normal inspection Neurological exam: PRESENT: other - Intubated and sedated Psychiatric exam: PRESENT: agitated - Immediately post intubation the patient was very agitated. Required significant medications (Versed drip and rocuronium drip) for sedation Results Laboratory Results: 09/13/18 04:38 09/13/18 04:38 09/14/18 09/14/18 04:41 14:30 Carbonic Acid 1.26 HCO3/H2CO3 Ratio 21:1 ABG pH 7.44 ABG pCO2 41.8 ABG pO2 218.8 H ABG HCO3 27.6 H ABG O2 Saturation 99.5 H ABG Base Excess 3.1 VBG pH 7.44 H VBG pCO2 46.4 VBG HCO3 30.8 VBG Base Excess 5.8 FiO2 50% 09/12/18 17:40 Sputum Gram Stain - Final 09/12/18 17:40 Sputum Sputum Culture - Final NORMAL SHER 09/12/18 07:08 Troponin I < 0.012 NT-Pro-B Natriuret Pep 937 H Impressions: Chest X-Ray 09/14/18 00:00 IMPRESSION: Persistent bibasilar and perihilar opacities, left greater than right, compatible with pneumonia. Interval intubation with endotracheal tube tip overlying midthoracic trachea. Enteric tube tip below diaphragm but excluded by collimation. KUB X-Ray 09/14/18 14:16 IMPRESSION: Enteric tube tip overlies gastric body. Assessment & Plan - Diagnosis (1) Acute respiratory failure with hypoxia Is this a current diagnosis for this admission?: Yes Plan: Patient required intubation due to increased work of breathing. Intubation was successful. The patient is on IMV and appears comfortable. (2) Multifocal pneumonia Is this a current diagnosis for this admission?: Yes Plan: Antibiotics will now be Zosyn and vancomycin. Aspiration is a component but there seems to be marked inflammatory changes. Autoimmune serologies are pending. (3) Tachycardia Is this a current diagnosis for this admission?: Yes Plan: Significantly improved. In fact bradycardia ensued after propofol was added. (4) Lactic acidemia Is this a current diagnosis for this admission?: Yes Plan: Was resolved. We will recheck due to acute change in condition (5) Anxiety and depression Is this a current diagnosis for this admission?: Yes Plan: Will change administration of medication through NG tube. In addition she will have continuous IV sedation. - Time Time Spent with patient: 35 or more minutes
[2018-09-14] MEDS: GUAIFENESIN SYRP 200 MG/10 ML UDC NG SCH (19:26)
[2018-09-14] MEDS: VANCOMYCIN HCL 750 MG in DEXTROSE 5%-WATER 250 ML IV SCH (19:27)
[2018-09-14] MEDS ORDERED: HYDROCODONE/ACETAMINOPHEN 5-325 MG TABLET NG PRN (19:30)
[2018-09-14] MEDS ORDERED: HYDROXYZINE PAMOATE 25 MG CAPSULE NG PRN (19:30)
[2018-09-14] MEDS: BUDESONIDE NEB 0.5 MG/2 ML AMPUL NEB SCH (20:48)
[2018-09-14] MEDS: METHYLPREDNISOLONE INJ 125 MG/2 ML SDV IV SCH (21:41)
[2018-09-14] MEDS: FLUOXETINE HCL 20 MG/5 ML UDCUP NG SCH (21:44)
[2018-09-14] MEDS: FAMOTIDINE 20 MG TABLET NG SCH (21:44)
[2018-09-15] MEDS: IPRATROPIUM/ALBUTEROL 0.5-2.5 MG/3 ML AMPUL NEB SCH ×7 (00:09→23:53)
[2018-09-15] MEDS: GUAIFENESIN SYRP 200 MG/10 ML UDC NG SCH ×4 (00:49→18:52)
[2018-09-15] MEDS: VANCOMYCIN HCL 750 MG in DEXTROSE 5%-WATER 250 ML IV SCH ×3 (01:06→18:51)
[2018-09-15] MEDS ORDERED: NORMAL SALINE 1000 ML 1,000 ML IV PRN (01:49)
[2018-09-15] MEDS: NORMAL SALINE 500 ML with ROCURONIUM BROMIDE 500 MG IV PRN ×2 (02:56)
[2018-09-15] MEDS: PIPERACILLIN SODIUM/TAZOBACTAM 3.375 GM in NORMAL SALINE 100 ML IV SCH ×3 (02:57→16:35)
[2018-09-15] MEDS: MIDAZOLAM HCL 50 MG/100 ML RTUINJ IV PRN ×4 (02:57→20:55)
[2018-09-15 04:16] LABS: ALANINE AMINOTRANSFERASE 41 U/L (9-52); ALBUMIN 2.8 g/dL (3.5-5.0); ALKALINE PHOSPHATASE 55 U/L (38-126); ANION GAP 8 (5-19); ASPARTATE AMINO TRANSFERASE 18 U/L (14-36); BILIRUBIN,DIRECT 0.1 mg/dL (0.0-0.4); BILIRUBIN,TOTAL 0.4 mg/dL (0.2-1.3); BLOOD UREA NITROGEN 12 mg/dL (7-20); CALCIUM 7.9 mg/dL (8.4-10.2); CARBON DIOXIDE 25 mmol/L (22-30); CHLORIDE 106 mmol/L (98-107); GLUCOSE 150 mg/dL (75-110); HEMATOCRIT 30.4 % (36.0-47.0); HEMOGLOBIN 10.6 g/dL (12.0-15.5); MEAN CORPUSCULAR HEMOGLOBIN 31.5 pg (27.0-33.4); MEAN CORPUSCULAR HGB CONC 34.8 g/dL (32.0-36.0); MEAN CORPUSCULAR VOLUME 91 fl (80-97); PHOSPHORUS 3.7 mg/dL (2.5-4.5); PLATELET COUNT 195 10^3/uL (150-450); POTASSIUM 3.6 mmol/L (3.6-5.0); RED BLOOD COUNT 3.35 10^6/uL (3.72-5.28); RED CELL DISTRIBUTION WIDTH 13.9 % (11.5-14.0); SODIUM 138.7 mmol/L (137-145); TOTAL PROTEIN 5.2 g/dL (6.3-8.2); WHITE BLOOD COUNT 4.1 10^3/uL (4.0-10.5)
[2018-09-15 04:54] LABS: ABSOLUTE LYMPHOCYTES# (MANUAL) 0.6 10^3/uL (0.5-4.7); ABSOLUTE MONOCYTES # (MANUAL) 0.2 10^3/uL (0.1-1.4); ABSOLUTE NEUTROPHILS# (MANUAL) 3.4 10^3/uL (1.7-8.2); BAND NEUTROPHILS % (MANUAL) 1 % (3-5); BASOPHILS % (MANUAL) 0 % (0-2); EOSINOPHILS % (MANUAL) 0 % (0-6); ERYTHROCYTE SEDIMENTATION RATE 68 mm/hr (0-20); LYMPHOCYTES % (MANUAL) 14 % (13-45); MONOCYTES % (MANUAL) 4 % (3-13); SEGMENTED NEUTROPHILS % (MAN) 79 % (42-78); TOTAL CELLS COUNTED 100
[2018-09-15 04:55] LABS: PLATELET COMMENT ADEQUATE; PLATELET LARGE PRESENT; POIKILOCYTOSIS SLIGHT; SCHISTOCYTES SLIGHT; TEAR DROP CELLS SLIGHT; TOXIC GRANULATION 1+
[2018-09-15 04:56] LABS: MYELOCYTES % (MANUAL) 2 % (0)
[2018-09-15 05:22] LABS: ARTERIAL BLOOD BASE EXCESS 1.7 mmol/L; ARTERIAL BLOOD H2CO3 1.04 mmol/L (1.05-1.35); ARTERIAL BLOOD O2 SATURATION 96.7 % (94-98); ARTERIAL BLOOD PCO2 34.5 mmHg (35-45); ARTERIAL BLOOD PH 7.48 (7.35-7.45); ARTERIAL BLOOD PO2 81.2 mmHg (80-100); ARTERIAL BLOOD TOTAL CO2 26.1 mmol/L (21-25)
[2018-09-15 05:26] LABS: ARTERIAL BLOOD FIO2 40%
--- NOTE | 2018-09-15 08:25 | RADIOLOGY REPORT (SQ) ---
EXAM DESCRIPTION: CHEST SINGLE VIEW COMPLETED DATE/TIME: 09/15/2018 7:14 am REASON FOR STUDY: pna/resp failure COMPARISON: 09/14/2018. FINDINGS: Single-view chest AP portable upright approximately 0654 hours. Endotracheal and nasogastric tubes appropriate. Patchy basilar and perihilar opacities, doubt signif icant change. No pneumothorax. Generally stable chest. TECHNICAL DOCUMENTATION: JOB ID: [id number] Reading location - IP/workstation name: [email or web address]
--- NOTE | 2018-09-15 08:34 | PDOC PROGRESS REPORT ---
Subjective Progress Note for:: 09/15/18 Subjective:: Patient is adequately sedated. She requires high levels of Versed and rocuronium. Propofol caused bradycardia. Reason For Visit: PNUEMONIA Physical Exam Vital Signs: Temp Pulse Resp BP Pulse Ox 97.9 F 69 0 L 150/90 H 96 09/15/18 08:00 09/15/18 08:00 09/15/18 08:03 09/15/18 08:04 09/15/18 08:04 Intake & Output 09/14/18 09/15/18 09/16/18 06:59 06:59 06:59 Intake Total 1150 2732 99 Output Total 1595 285 Balance 1150 1137 -186 Weight 64 kg 69.8 kg General appearance: PRESENT: other - Sedated and intubated Head exam: PRESENT: atraumatic, normocephalic Eye exam: PRESENT: conjunctiva pink. ABSENT: scleral icterus Ear exam: PRESENT: normal external ear exam Mouth exam: PRESENT: dry mucosa, other - Nasogastric and endotracheal tubes in place Neck exam: ABSENT: carotid bruit, lymphadenopathy Respiratory exam: PRESENT: wheezes - Faint wheezes on the right. Faint expiratory "squeak" on the left. ABSENT: rales, rhonchi Cardiovascular exam: PRESENT: RRR, +S1, +S2 Pulses: PRESENT: normal dorsalis pedis pul GI/Abdominal exam: PRESENT: normal bowel sounds, soft. ABSENT: tenderness Rectal exam: PRESENT: deferred Gentrourinary exam: PRESENT: indwelling catheter Extremities exam: ABSENT: pedal edema Neurological exam: PRESENT: other - Sedated and intubated Psychiatric exam: PRESENT: other - Sedated and intubated Focused psych exam: PRESENT: other - Sedated and intubated. ABSENT: restlessness Results Laboratory Results: 09/15/18 03:49 09/15/18 03:49 09/14/18 09/15/18 09/15/18 14:30 03:49 03:49 WBC 4.1 RBC 3.35 L Hgb 10.6 L Hct 30.4 L MCV 91 MCH 31.5 MCHC 34.8 RDW 13.9 Plt Count 195 Seg Neutrophils % Not Reportable Lymphocytes % Not Reportable Monocytes % Not Reportable Eosinophils % Not Reportable Basophils % Not Reportable Absolute Neutrophils Not Reportable Absolute Lymphocytes Not Reportable Absolute Monocytes Not Reportable Absolute Eosinophils Not Reportable Absolute Basophils Not Reportable Carbonic Acid 1.26 HCO3/H2CO3 Ratio 21:1 ABG pH 7.44 ABG pCO2 41.8 ABG pO2 218.8 H ABG HCO3 27.6 H ABG O2 Saturation 99.5 H ABG Base Excess 3.1 FiO2 50% Sodium 138.7 Potassium 3.6 Chloride 106 Carbon Dioxide 25 Anion Gap 8 BUN 12 Creatinine 0.53 Est GFR ( Amer) > 60 Est GFR (Non-Af Amer) > 60 Glucose 150 H Calcium 7.9 L Phosphorus 3.7 Magnesium 2.5 H Total Bilirubin 0.4 AST 18 ALT 41 Alkaline Phosphatase 55 Total Protein 5.2 L Albumin 2.8 L 09/15/18 05:15 WBC RBC Hgb Hct MCV MCH MCHC RDW Plt Count Seg Neutrophils % Lymphocytes % Monocytes % Eosinophils % Basophils % Absolute Neutrophils Absolute Lymphocytes Absolute Monocytes Absolute Eosinophils Absolute Basophils Carbonic Acid 1.04 L HCO3/H2CO3 Ratio 24:1 ABG pH 7.48 H ABG pCO2 34.5 L ABG pO2 81.2 ABG HCO3 25.0 H ABG O2 Saturation 96.7 ABG Base Excess 1.7 FiO2 40% Sodium Potassium Chloride Carbon Dioxide Anion Gap BUN Creatinine Est GFR ( Amer) Est GFR (Non-Af Amer) Glucose Calcium Phosphorus Magnesium Total Bilirubin AST ALT Alkaline Phosphatase Total Protein Albumin 09/12/18 17:40 Sputum Gram Stain - Final 09/12/18 17:40 Sputum Sputum Culture - Final NORMAL SHER 09/12/18 07:08 Troponin I < 0.012 NT-Pro-B Natriuret Pep 937 H Impressions: KUB X-Ray 09/14/18 14:16 IMPRESSION: Enteric tube tip overlies gastric body. Assessment & Plan - Diagnosis (1) Acute respiratory failure with hypoxia Is this a current diagnosis for this admission?: Yes Plan: Patient is currently intubated respiratory failure secondary to pneumonia with possible pneumonitis. Remains on SIMV tidal volume 500, rate 22, pressure support 10 with PEEP of 8 and FiO2 40%. Continue nebulizer treatments including budesonide as well as systemic steroids. (2) Multifocal pneumonia Is this a current diagnosis for this admission?: Yes Plan: Aspiration pneumonia from emesis during conscious sedation for colonoscopy. Possible autoimmune component and likely pneumonitis from gastric secretions. Continue vancomycin and Zosyn. The patient is also on nebulizer treatments, mucolytic's and systemic steroids. (3) Tachycardia Is this a current diagnosis for this admission?: Yes Plan: Resolved. Propofol because of bradycardia. Continue to monitor heart rate. (4) Lactic acidemia Is this a current diagnosis for this admission?: Yes Plan: Was normal yesterday. Continue to get IV fluids. Will check intermittently. (5) Anxiety and depression Is this a current diagnosis for this admission?: Yes Plan: Multiple antidepressant/antipsychotic medications. Possibly severe depression with psychosis or bipolar disorder. Currently continuing similar regimen that is amenable to nasogastric tube administration. (6) Leukopenia Qualifiers: Leukopenia type: neutropenia Neutropenia type: unspecified Qualified Code(s): D70.9 - Neutropenia, unspecified Is this a current diagnosis for this admission?: Yes Plan: Surprisingly there was no elevation in her white blood cell count despite the pneumonia. Her white blood cell count in fact is decreasing. Etiology unsure. We will continue to monitor at this time. If it worsens we will obtain a hematology consult.
[2018-09-15] MEDS: BUDESONIDE NEB 0.5 MG/2 ML AMPUL NEB SCH ×2 (08:59→20:27)
[2018-09-15] MEDS: METHYLPREDNISOLONE INJ 125 MG/2 ML SDV IV SCH ×2 (10:20→22:10)
[2018-09-15] MEDS: FAMOTIDINE 20 MG TABLET NG SCH ×2 (10:21→22:11)
[2018-09-15] MEDS: ARIPIPRAZOLE 5 MG TABLET NG SCH (10:21)
[2018-09-15] MEDS: ENOXAPARIN SODIUM INJ 40 MG/0.4 ML DISP.SYRIN SUBCUT SCH (10:22)
[2018-09-15] MEDS: FLUOXETINE HCL 20 MG/5 ML UDCUP NG SCH ×2 (10:24→22:10)
[2018-09-15] MEDS ORDERED: OLANZAPINE 2.5 MG TABLET ONE (10:29)
[2018-09-15] MEDS: OLANZAPINE 2.5 MG TABLET NG SCH ×2 (10:32→18:52)
[2018-09-15 17:47] LABS: ANTINUCLEAR ANTIBODIES Negative (Negative)
[2018-09-15] MEDS: IMIPENEM/CILASTATIN SODIUM 1,000 MG in NORMAL SALINE 250 ML IV SCH (18:52)
[2018-09-16] MEDS: NORMAL SALINE 1000 ML 1,000 ML IV PRN ×2 (00:05→09:35)
[2018-09-16] MEDS: GUAIFENESIN SYRP 200 MG/10 ML UDC NG SCH ×5 (00:05→23:21)
[2018-09-16] MEDS: IMIPENEM/CILASTATIN SODIUM 1,000 MG in NORMAL SALINE 250 ML IV SCH ×4 (00:07→17:32)
[2018-09-16] MEDS: VANCOMYCIN HCL 750 MG in DEXTROSE 5%-WATER 250 ML IV SCH ×2 (01:57→09:41)
[2018-09-16] MEDS: MIDAZOLAM HCL 50 MG/100 ML RTUINJ IV PRN ×2 (01:57→09:33)
[2018-09-16 04:26] LABS: ABSOLUTE RETICS # 0.044 10^6/uL (0.028-0.122); HEMATOCRIT 29.1 % (36.0-47.0); MEAN CORPUSCULAR HGB CONC 34.3 g/dL (32.0-36.0); MEAN CORPUSCULAR VOLUME 91 fl (80-97); PLATELET COUNT 203 10^3/uL (150-450); RED BLOOD COUNT 3.21 10^6/uL (3.72-5.28); RED CELL DISTRIBUTION WIDTH 13.8 % (11.5-14.0); RETICULOCYTE COUNT (AUTO) 1.36 % (0.66-2.85); WHITE BLOOD COUNT 5.3 10^3/uL (4.0-10.5)
[2018-09-16] MEDS: IPRATROPIUM/ALBUTEROL 0.5-2.5 MG/3 ML AMPUL NEB SCH ×5 (04:27→20:36)
[2018-09-16 04:53] LABS: ABSOLUTE MONOCYTES # (MANUAL) 0.3 10^3/uL (0.1-1.4); BASOPHILS % (MANUAL) 0 % (0-2); EOSINOPHILS % (MANUAL) 0 % (0-6); LYMPHOCYTES % (MANUAL) 18 % (13-45); MONOCYTES % (MANUAL) 6 % (3-13); SEGMENTED NEUTROPHILS % (MAN) 76 % (42-78); TOTAL CELLS COUNTED 100
[2018-09-16 04:54] LABS: PLATELET COMMENT ADEQUATE; RBC MORPHOLOGY COMMENT NORMO-CYTIC/CHROMIC
[2018-09-16 05:24] LABS: ALANINE AMINOTRANSFERASE 30 U/L (9-52); ALBUMIN 2.5 g/dL (3.5-5.0); ALKALINE PHOSPHATASE 47 U/L (38-126); ANION GAP 5 (5-19); ASPARTATE AMINO TRANSFERASE 11 U/L (14-36); BILIRUBIN,DIRECT 0.1 mg/dL (0.0-0.4); BILIRUBIN,TOTAL 0.3 mg/dL (0.2-1.3); BLOOD UREA NITROGEN 9 mg/dL (7-20); CALCIUM 7.8 mg/dL (8.4-10.2); CARBON DIOXIDE 25 mmol/L (22-30); CHLORIDE 107 mmol/L (98-107); GLUCOSE 139 mg/dL (75-110); IRON(TIBC) 46.8 ug/dL (37-170); POTASSIUM 3.8 mmol/L (3.6-5.0); SODIUM 137.4 mmol/L (137-145); TOTAL PROTEIN 4.7 g/dL (6.3-8.2)
[2018-09-16 05:48] LABS: ARTERIAL BLOOD BASE EXCESS 1.4 mmol/L; ARTERIAL BLOOD H2CO3 1.02 mmol/L (1.05-1.35); ARTERIAL BLOOD HCO3 24.6 mmol/L (20-24); ARTERIAL BLOOD O2 SATURATION 97.7 % (94-98); ARTERIAL BLOOD PCO2 33.9 mmHg (35-45); ARTERIAL BLOOD PH 7.48 (7.35-7.45); ARTERIAL BLOOD PO2 94.5 mmHg (80-100); ARTERIAL BLOOD TOTAL CO2 25.7 mmol/L (21-25)
[2018-09-16 05:49] LABS: ARTERIAL BLOOD FIO2 40%
[2018-09-16 06:41] LABS: FOLATE 4.46 ng/mL (>2.76)
--- NOTE | 2018-09-16 06:51 | RADIOLOGY REPORT (SQ) ---
EXAM DESCRIPTION: XR CHEST 1 VIEW COMPLETED DATE/TME: 09/16/2018 06:00 CLINICAL HISTORY: 33 years Female, pna/resp failure COMPARISON: One day prior. NUMBER OF VIEWS/TECHNIQUE: 1/AP FINDINGS: Mild mixed interstitial and airspace opacity, lower predominance.Adequate appearing endotracheal tube. Likely adequate appearing enteric tube partially obscured. Normal cardiac silhouette size. No pneumothorax. Stable bony thorax. IMPRESSION: No significant change.
[2018-09-16] MEDS: LORAZEPAM INJ 2 MG/1 ML VIAL IV PRN (07:45)
[2018-09-16] MEDS: BUDESONIDE NEB 0.5 MG/2 ML AMPUL NEB SCH ×2 (09:05→20:36)
[2018-09-16] MEDS: OLANZAPINE 2.5 MG TABLET NG SCH ×2 (09:29→17:30)
[2018-09-16] MEDS: FAMOTIDINE 20 MG TABLET NG SCH ×2 (09:30→23:21)
[2018-09-16] MEDS: METHYLPREDNISOLONE INJ 125 MG/2 ML SDV IV SCH ×2 (09:31→23:19)
[2018-09-16] MEDS: ARIPIPRAZOLE 5 MG TABLET NG SCH (09:31)
[2018-09-16] MEDS: FLUOXETINE HCL 20 MG/5 ML UDCUP NG SCH ×2 (09:31→23:29)
[2018-09-16] MEDS: ENOXAPARIN SODIUM INJ 40 MG/0.4 ML DISP.SYRIN SUBCUT SCH (09:32)
--- NOTE | 2018-09-16 09:35 | PDOC PROGRESS REPORT ---
Subjective Progress Note for:: 09/16/18 - seen on rounds this morning Subjective:: is alert and awake-able to respond- still on ventilation- wrote note to nursing stating she's in pain- going through her ROS- she indicates she has back and chest pain. Reason For Visit: PNUEMONIA Physical Exam Vital Signs: Temp Pulse Resp BP Pulse Ox 98.6 F 68 20 154/89 H 98 09/16/18 08:00 09/16/18 08:00 09/16/18 08:00 09/16/18 08:00 09/16/18 08:00 Intake & Output 09/15/18 09/16/18 09/17/18 06:59 06:59 06:59 Intake Total 2732 1828 1282 Output Total 1595 2945 350 Balance 1137 -1117 932 Weight 153 lb 14.122 oz 155 lb 6.814 oz General appearance: PRESENT: no acute distress, other - intubated Head exam: PRESENT: atraumatic, normocephalic Eye exam: PRESENT: EOMI, PERRLA. ABSENT: conjunctival injection, scleral icterus Ear exam: PRESENT: normal external ear exam Mouth exam: PRESENT: neck supple Respiratory exam: PRESENT: clear to auscultation peng, symmetrical. ABSENT: unlabored, wheezes Cardiovascular exam: PRESENT: +S1, +S2 Pulses: PRESENT: +2 pedal pulses bilateral Vascular exam: PRESENT: normal capillary refill GI/Abdominal exam: PRESENT: normal bowel sounds, soft. ABSENT: tenderness Musculoskeletal exam: ABSENT: tenderness Neurological exam: PRESENT: alert, CN II-XII grossly intact, other - intubated Skin exam: PRESENT: dry, warm Results Laboratory Results: 09/16/18 03:56 09/16/18 03:56 09/16/18 09/16/18 09/16/18 03:56 03:56 05:40 WBC 5.3 RBC 3.21 L Hgb 10.0 L Hct 29.1 L MCV 91 MCH 31.0 MCHC 34.3 RDW 13.8 Plt Count 203 Seg Neutrophils % Not Reportable Lymphocytes % Not Reportable Monocytes % Not Reportable Eosinophils % Not Reportable Basophils % Not Reportable Absolute Neutrophils Not Reportable Absolute Lymphocytes Not Reportable Absolute Monocytes Not Reportable Absolute Eosinophils Not Reportable Absolute Basophils Not Reportable Retic Count (auto) 1.36 Absolute Retic 0.044 Carbonic Acid 1.02 L HCO3/H2CO3 Ratio 24:1 ABG pH 7.48 H ABG pCO2 33.9 L ABG pO2 94.5 ABG HCO3 24.6 H ABG O2 Saturation 97.7 ABG Base Excess 1.4 FiO2 40% Sodium 137.4 Potassium 3.8 Chloride 107 Carbon Dioxide 25 Anion Gap 5 BUN 9 Creatinine 0.49 L Est GFR ( Amer) > 60 Est GFR (Non-Af Amer) > 60 Glucose 139 H Calcium 7.8 L Iron 46.8 TIBC 219 L % Saturation 21 Ferritin 52.20 Total Bilirubin 0.3 AST 11 L ALT 30 Alkaline Phosphatase 47 Total Protein 4.7 L Albumin 2.5 L Vitamin B12 512.0 Folate 4.46 09/12/18 07:08 Troponin I < 0.012 NT-Pro-B Natriuret Pep 937 H Impressions: KUB X-Ray 09/14/18 14:16 IMPRESSION: Enteric tube tip overlies gastric body. Chest X-Ray 09/16/18 06:00 IMPRESSION: No significant change. Assessment & Plan - Diagnosis (1) Acute respiratory failure with hypoxia Is this a current diagnosis for this admission?: Yes (2) Ventilator dependent Is this a current diagnosis for this admission?: Yes (3) Anxiety and depression Is this a current diagnosis for this admission?: Yes (4) Multifocal pneumonia Is this a current diagnosis for this admission?: Yes (5) Severe sepsis Is this a current diagnosis for this admission?: Yes - Time Time Spent with patient: 35 or more minutes Anticipated discharge: Home - Inpatient Certification Based on my medical assessment, after consideration of the patient's comorbidities, presenting symptoms, or acuity I expect that the services needed warrant INPATIENT care.: Yes I certify that my determination is in accordance with my understanding of Medicare's requirements for reasonable and necessary INPATIENT services [42 CFR 412.3e].: Yes - Plan Summary Plan Summary: Acute respiratory failure with hypoxia- remains on the vent but alert and oriented- currently being managed by Dr Ni- ABG this morning showed respiratory alkalosis- will await recommendations by Dr Ni. likely will need to adjust vent settings- will also give weaning trials today to get her off the vent if possible. she's on a low dose versed. c/w Solumedrol IV - will titrate down slowly Pneumonia- c/w Primaxin and Vanco for now- WBC WNL. will de-escalate if cultures remain neg. 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 Severe sepsis- see plan above. anxiety/depression- c/w olanzpine- will stop home vistaril and alma
--- NOTE | 2018-09-16 11:41 | PDOC CONSULTATION ---
Consultation Consult Date: 09/16/18 Attending physician:: CRUZ RESENDEZ Consult reason:: Anemia, recent sepsis/pneumonitis History of Present Illness Admission Date/PCP: 09/12/18 09:11 BERTA ESTRELLA PA-C Patient complains of: Shortness of breath, weakness History of Present Illness: MACK AMOR is a 33 year old female who is currently intubated, with known history of recent colonoscopy and unfortunately aspiration with presentation with respiratory distress, weakness, appearance on CT of bilateral pneumonitis/opacities consistent with an aspiration type pattern, patient became increasingly tachypneic, went to further respiratory distress and was intubated, over the last few days of intubation patient is improved and currently is on low vent settings and is being planned for extubation. Upon presentation her white count was in the 9 range and there is an expectation that she would have had a leukocytosis because of the severe pneumonia like picture, she also has been on high-dose steroids. On peripheral smear yesterday there was some metamyelocytes noted, so there was some concern of some other underlying process that may be possible. I reviewed the smear as well as the labs, I do not believe there is anything like a leukemia or bone marrow type process ongoing. Iron studies were performed because the hemoglobin dropped from the 12 to the 10 range, and patient is iron deficient. Past Medical History Cardiac Medical History: Denies: Coronary Artery Disease, Myocardial Infarction, Hypertension Pulmonary Medical History: Denies: Asthma, Bronchitis, Chronic Obstructive Pulmonary Disease (COPD), Pneumonia EENT Medical History: Denies: Cataracts, Eyes, Ears, Nose, Throat Neurological Medical History: Denies: Migraine, Seizures Endocrine Medical History: Denies: Diabetes Mellitus Type 1, Diabetes Mellitus Type 2, Hypothyroidism Renal/ Medical History: Denies: Chronic Kidney Disease, Nephrolithiasis Malignancy Medical History: Reports: None GI Medical History: Reports: Gastroesophageal Reflux Disease Musculoskeltal Medical History: Denies: Arthritis Psychiatric Medical History: Reports: Depression - anxiety, General Anxiety Disorder Traumatic Medical History: Reports: None Hematology: Denies: Anemia Infectious Medical History: Reports: None Past Surgical History Past Surgical History: Reports: Orthopedic Surgery - carpal tunnel, Other - Breast lumpectomy Social History Lives with: Family Smoking Status: Never Smoker Frequency of Alcohol Use: Occasional Hx Recreational Drug Use: No Drugs: None Hx Prescription Drug Abuse: No - Advance Directive Resuscitation Status: Full Code Family History Family History: Reviewed & Not Pertinent Parental Family History Reviewed: Yes Children Family History Reviewed: Yes Sibling(s) Family History Reviewed.: Yes Medication/Allergy Home Medications: Amoxicillin/Potassium Clav [Augmentin 500-125 Tablet] 1 each PO Q8 09/12/18 Aripiprazole [Abilify 15 mg Tablet] 15 mg PO DAILY 09/12/18 Ciprofloxacin HCl [Cipro 500 mg Tablet] 500 mg PO BID 09/12/18 Hydroxyzine HCl [Atarax 25 mg Tablet] 1 tab PO HSP PRN 09/12/18 Lisdexamfetamine Dimesylate [Vyvanse] 70 mg PO DAILY 09/12/18 Lorazepam [Ativan 0.5 mg Tablet] 0.5 mg PO Q8HP PRN 09/12/18 Allergies/Adverse Reactions: adhesive tape Allergy (Unknown, Verified 09/12/18 07:28) Review of Systems ROS unobtainable: Due to endotracheal tube Physical Exam Vital Signs: Temp Pulse Resp BP Pulse Ox 98.4 F 84 21 H 140/89 H 94 09/16/18 10:00 09/16/18 10:00 09/16/18 11:00 09/16/18 10:34 09/16/18 11:19 Intake & Output 09/15/18 09/16/18 09/17/18 06:59 06:59 06:59 Intake Total 2732 1828 1469 Output Total 1595 2945 770 Balance 1137 -1117 699 Weight 69.8 kg 70.5 kg General appearance: PRESENT: no acute distress Head exam: PRESENT: atraumatic Respiratory exam: PRESENT: clear to auscultation peng. ABSENT: rales, rhonchi, wheezes Cardiovascular exam: PRESENT: RRR. ABSENT: diastolic murmur, rubs, systolic murmur GI/Abdominal exam: PRESENT: normal bowel sounds, soft. ABSENT: distended, guarding, mass, organolmegaly, rebound, tenderness Rectal exam: PRESENT: deferred Neurological exam: PRESENT: alert, awake Results Laboratory Results: 09/16/18 03:56 09/16/18 09:44 09/16/18 09/16/18 09/16/18 03:56 03:56 05:40 WBC 5.3 RBC 3.21 L Hgb 10.0 L Hct 29.1 L MCV 91 MCH 31.0 MCHC 34.3 RDW 13.8 Plt Count 203 Seg Neutrophils % Not Reportable Lymphocytes % Not Reportable Monocytes % Not Reportable Eosinophils % Not Reportable Basophils % Not Reportable Absolute Neutrophils Not Reportable Absolute Lymphocytes Not Reportable Absolute Monocytes Not Reportable Absolute Eosinophils Not Reportable Absolute Basophils Not Reportable Retic Count (auto) 1.36 Absolute Retic 0.044 Carbonic Acid 1.02 L HCO3/H2CO3 Ratio 24:1 ABG pH 7.48 H ABG pCO2 33.9 L ABG pO2 94.5 ABG HCO3 24.6 H ABG O2 Saturation 97.7 ABG Base Excess 1.4 FiO2 40% Sodium 137.4 Potassium 3.8 Chloride 107 Carbon Dioxide 25 Anion Gap 5 BUN 9 Creatinine 0.49 L Est GFR ( Amer) > 60 Est GFR (Non-Af Amer) > 60 Glucose 139 H Calcium 7.8 L Iron 46.8 TIBC 219 L % Saturation 21 Ferritin 52.20 Total Bilirubin 0.3 AST 11 L ALT 30 Alkaline Phosphatase 47 Total Protein 4.7 L Albumin 2.5 L Vitamin B12 512.0 Folate 4.46 09/16/18 09:44 WBC RBC Hgb Hct MCV MCH MCHC RDW Plt Count Seg Neutrophils % Lymphocytes % Monocytes % Eosinophils % Basophils % Absolute Neutrophils Absolute Lymphocytes Absolute Monocytes Absolute Eosinophils Absolute Basophils Retic Count (auto) Absolute Retic Carbonic Acid HCO3/H2CO3 Ratio ABG pH ABG pCO2 ABG pO2 ABG HCO3 ABG O2 Saturation ABG Base Excess FiO2 Sodium Potassium Chloride Carbon Dioxide Anion Gap BUN Creatinine 0.42 L Est GFR ( Amer) > 60 Est GFR (Non-Af Amer) > 60 Glucose Calcium Iron TIBC % Saturation Ferritin Total Bilirubin AST ALT Alkaline Phosphatase Total Protein Albumin Vitamin B12 Folate 09/12/18 07:08 Troponin I < 0.012 NT-Pro-B Natriuret Pep 937 H Impressions: KUB X-Ray 09/14/18 14:16 IMPRESSION: Enteric tube tip overlies gastric body. Chest X-Ray 09/16/18 06:00 IMPRESSION: No significant change. Status: Image reviewed by me Assessment & Plan - Diagnosis (1) Other iron deficiency anemias Is this a current diagnosis for this admission?: Yes Plan: Likely secondary to iron deficiency anemia as ferritin is low, at this point would not recommend IV iron therapy. Hemoglobin is stable just watch for now. We can see her as an outpatient and offer IV iron if the hemoglobin does not fu lly stabilized back to normal. (2) Leukopenia Qualifiers: Leukopenia type: neutropenia Neutropenia type: due to infection Qualified Code(s): D70.3 - Neutropenia due to infection Is this a current diagnosis for this admission?: Yes Plan: Probably secondary to the aspiration pneumonia but this seems much more like a aspiration pneumonitis rather than a true pneumonia. There may be more of an inflammatory pattern in the lung rather than infective pattern, if that would be the case then inflammation does inherently cause myelosuppression just like infection can, and in her although we would have expected in overt leukocytosis, she may just have had normal counts. Her rheumatologic panel thus far is negative, ESR is elevated but we should expect that with the aspiration pneumonitis that she had. I believe she will improve appropriately and her counts will normalize and I do not believe we will see any abnormality in her counts. We will help monitor. - Time Time Spent: Greater than 70 Minutes - Inpatient Certification Based on my medical assessment, after consideration of the patient's comorbidities, presenting symptoms, or acuity I expect that the services needed warrant INPATIENT care.: Yes I certify that my determination is in accordance with my understanding of Medicare's requirements for reasonable and necessary INPATIENT services [42 CFR 412.3e].: Yes Medical Necessity: Need For Continuous Telemetry Monitoring, Need for Nebulizer Therapy and Monitoring of Response, Need for IV Antibiotics
[2018-09-16] MEDS: ONDANSETRON HCL INJ/PF 4 MG/2 ML SDV IV PRN (13:29)
[2018-09-16 14:04] LABS: ARTERIAL BLOOD BASE EXCESS 2.1 mmol/L; ARTERIAL BLOOD H2CO3 1.09 mmol/L (1.05-1.35); ARTERIAL BLOOD HCO3 25.6 mmol/L (20-24); ARTERIAL BLOOD O2 SATURATION 98.1 % (94-98); ARTERIAL BLOOD PCO2 36.3 mmHg (35-45); ARTERIAL BLOOD PH 7.47 (7.35-7.45); ARTERIAL BLOOD PO2 105.2 mmHg (80-100); ARTERIAL BLOOD TOTAL CO2 26.8 mmol/L (21-25)
[2018-09-16 14:06] LABS: ARTERIAL BLOOD FIO2 35%
[2018-09-16] MEDS: VANCOMYCIN HCL 1,000 MG in DEXTROSE 5%-WATER 250 ML IV SCH ×2 (15:22→23:19)
[2018-09-16] MEDS ORDERED: VANCOMYCIN HCL 1,000 MG in DEXTROSE 5%-WATER 250 ML IV ONE (15:45)
[2018-09-16] MEDS: MORPHINE SULFATE 10 MG/ML INJ IV PRN ×2 (16:13→23:42)
[2018-09-16] MEDS: KETOROLAC TROMETHAMINE INJ/PF 30 MG/1 ML SDV IV PRN (20:15)
[2018-09-17] MEDS: IMIPENEM/CILASTATIN SODIUM 1,000 MG in NORMAL SALINE 250 ML IV SCH ×5 (00:11→23:28)
[2018-09-17] MEDS: IPRATROPIUM/ALBUTEROL 0.5-2.5 MG/3 ML AMPUL NEB SCH ×6 (00:32→20:29)
[2018-09-17 03:54] LABS: HEMATOCRIT 31.1 % (36.0-47.0); HEMOGLOBIN 10.5 g/dL (12.0-15.5); MEAN CORPUSCULAR HEMOGLOBIN 30.5 pg (27.0-33.4); MEAN CORPUSCULAR HGB CONC 33.9 g/dL (32.0-36.0); MEAN CORPUSCULAR VOLUME 90 fl (80-97); PLATELET COUNT 236 10^3/uL (150-450); RED BLOOD COUNT 3.45 10^6/uL (3.72-5.28); RED CELL DISTRIBUTION WIDTH 13.6 % (11.5-14.0); WHITE BLOOD COUNT 7.5 10^3/uL (4.0-10.5)
[2018-09-17 04:09] LABS: ALANINE AMINOTRANSFERASE 27 U/L (9-52); ALBUMIN 2.8 g/dL (3.5-5.0); ALKALINE PHOSPHATASE 41 U/L (38-126); ANION GAP 7 (5-19); ASPARTATE AMINO TRANSFERASE 19 U/L (14-36); BILIRUBIN,DIRECT 0.2 mg/dL (0.0-0.4); BILIRUBIN,TOTAL 0.5 mg/dL (0.2-1.3); BLOOD UREA NITROGEN 11 mg/dL (7-20); CALCIUM 8.2 mg/dL (8.4-10.2); CARBON DIOXIDE 25 mmol/L (22-30); CHLORIDE 106 mmol/L (98-107); GLUCOSE 129 mg/dL (75-110); SODIUM 138.3 mmol/L (137-145); TOTAL PROTEIN 5.2 g/dL (6.3-8.2)
[2018-09-17 04:24] LABS: ABSOLUTE LYMPHOCYTES# (MANUAL) 1.4 10^3/uL (0.5-4.7); ABSOLUTE MONOCYTES # (MANUAL) 0.5 10^3/uL (0.1-1.4); ABSOLUTE NEUTROPHILS# (MANUAL) 5.6 10^3/uL (1.7-8.2); BASOPHILS % (MANUAL) 0 % (0-2); EOSINOPHILS % (MANUAL) 0 % (0-6); LYMPHOCYTES % (MANUAL) 19 % (13-45); MONOCYTES % (MANUAL) 6 % (3-13); PLATELET COMMENT ADEQUATE; RBC MORPHOLOGY COMMENT NORMO-CYTIC/CHROMIC; SEGMENTED NEUTROPHILS % (MAN) 75 % (42-78); TOTAL CELLS COUNTED 100
--- NOTE | 2018-09-17 06:21 | RADIOLOGY REPORT (SQ) ---
CLINICAL HISTORY: resp failure COMPARISON: September 16, 2018. TECHNIQUE: XR CHEST 1 VIEW 09/17/2018 6:00 AM GRIP FINDINGS: Cardiac silhouette is normal in size. There is patchy bibasilar airspace disease. There is no pleural effusion. There is no pneumothorax. There are no acute osseous findings. Endotracheal and nasogastric tubes have been removed. IMPRESSION: Persistent bibasilar pneumonia.
--- NOTE | 2018-09-17 07:53 | PDOC PROGRESS REPORT ---
Subjective Progress Note for:: 09/17/18 Subjective:: Extubated yesterday, doing well this am, eating bfast Reason For Visit: PNUEMONIA Physical Exam Vital Signs: Temp Pulse Resp BP Pulse Ox 98.0 F 58 L 16 110/71 96 09/17/18 03:59 09/17/18 04:32 09/17/18 04:32 09/17/18 04:15 09/17/18 05:42 Intake & Output 09/16/18 09/17/18 09/18/18 06:59 06:59 06:59 Intake Total 1828 4015 Output Total 2945 3270 Balance -1117 745 Weight 70.5 kg General appearance: PRESENT: no acute distress Head exam: PRESENT: atraumatic Eye exam: PRESENT: conjunctiva pink, EOMI, PERRLA. ABSENT: scleral icterus Ear exam: PRESENT: normal external ear exam Mouth exam: PRESENT: dry mucosa Neck exam: ABSENT: carotid bruit, JVD, lymphadenopathy, thyromegaly Respiratory exam: PRESENT: clear to auscultation pneg. ABSENT: rales, rhonchi, wheezes Cardiovascular exam: PRESENT: RRR. ABSENT: diastolic murmur, rubs, systolic murmur Pulses: PRESENT: normal dorsalis pedis pul Vascular exam: PRESENT: normal capillary refill GI/Abdominal exam: PRESENT: normal bowel sounds, soft. ABSENT: distended, guarding, mass, organolmegaly, rebound, tenderness Rectal exam: PRESENT: deferred Extremities exam: PRESENT: full ROM. ABSENT: calf tenderness, clubbing, pedal edema Neurological exam: PRESENT: alert, awake, oriented to person, oriented to place, oriented to time, oriented to situation, CN II-XII grossly intact. ABSENT: motor sensory deficit Psychiatric exam: PRESENT: appropriate affect, normal mood. ABSENT: homicidal ideation, suicidal ideation Skin exam: PRESENT: dry, intact, warm. ABSENT: cyanosis, rash Results Laboratory Results: 09/17/18 03:42 09/17/18 03:42 09/16/18 09/16/18 09/17/18 09:44 13:50 03:42 WBC 7.5 RBC 3.45 L Hgb 10.5 L Hct 31.1 L MCV 90 MCH 30.5 MCHC 33.9 RDW 13.6 Plt Count 236 Seg Neutrophils % Not Reportable Lymphocytes % Not Reportable Monocytes % Not Reportable Eosinophils % Not Reportable Basophils % Not Reportable Absolute Neutrophils Not Reportable Absolute Lymphocytes Not Reportable Absolute Monocytes Not Reportable Absolute Eosinophils Not Reportable Absolute Basophils Not Reportable Carbonic Acid 1.09 HCO3/H2CO3 Ratio 23:1 ABG pH 7.47 H ABG pCO2 36.3 ABG pO2 105.2 H ABG HCO3 25.6 H ABG O2 Saturation 98.1 H ABG Base Excess 2.1 FiO2 35% Sodium Potassium Chloride Carbon Dioxide Anion Gap BUN Creatinine 0.42 L Est GFR ( Amer) > 60 Est GFR (Non-Af Amer) > 60 Glucose Calcium Magnesium Total Bilirubin AST ALT Alkaline Phosphatase Total Protein Albumin 09/17/18 03:42 WBC RBC Hgb Hct MCV MCH MCHC RDW Plt Count Seg Neutrophils % Lymphocytes % Monocytes % Eosinophils % Basophils % Absolute Neutrophils Absolute Lymphocytes Absolute Monocytes Absolute Eosinophils Absolute Basophils Carbonic Acid HCO3/H2CO3 Ratio ABG pH ABG pCO2 ABG pO2 ABG HCO3 ABG O2 Saturation ABG Base Excess FiO2 Sodium 138.3 Potassium 4.0 Chloride 106 Carbon Dioxide 25 Anion Gap 7 BUN 11 Creatinine 0.43 L Est GFR ( Amer) > 60 Est GFR (Non-Af Amer) > 60 Glucose 129 H Calcium 8.2 L Magnesium 2.4 H Total Bilirubin 0.5 AST 19 ALT 27 Alkaline Phosphatase 41 Total Protein 5.2 L Albumin 2.8 L 09/12/18 07:08 Troponin I < 0.012 NT-Pro-B Natriuret Pep 937 H Impressions: KUB X-Ray 09/14/18 14:16 IMPRESSION: Enteric tube tip overlies gastric body. Chest X-Ray 09/17/18 06:00 IMPRESSION: Persistent bibasilar pneumonia. Assessment & Plan - Diagnosis (1) Other iron deficiency anemias Is this a current diagnosis for this admission?: Yes Plan: Hb stable, she can be referred for f/u with us to consider IV iron but she may do well w/ oral iron thru her PCP (2) Leukopenia Qualifiers: Leukopenia type: neutropenia Neutropenia type: due to infection Qualified Code(s): D70.3 - Neutropenia due to infection Is this a current diagnosis for this admission?: Yes Plan: Resolved, likely reactive to pneumonia/pneumonitis picture, no evidence malignancy - Time Time Spent with patient: 35 or more minutes Disposition: Will follow peripherally, thanks for the opportunity to assist in this pts care
[2018-09-17] MEDS: SUMATRIPTAN SUCCINATE 25 MG TABLET PO PRN (08:02)
[2018-09-17] MEDS: GUAIFENESIN SYRP 200 MG/10 ML UDC NG SCH (08:10)
[2018-09-17] MEDS: VANCOMYCIN HCL 1,000 MG in DEXTROSE 5%-WATER 250 ML IV SCH ×2 (08:16→14:28)
[2018-09-17] MEDS: BUDESONIDE NEB 0.5 MG/2 ML AMPUL NEB SCH ×2 (08:34→20:29)
[2018-09-17] MEDS ORDERED: FLUCONAZOLE 100 MG TABLET PO ONE (09:00)
[2018-09-17] MEDS ORDERED: FAMOTIDINE 20 MG TABLET PO SCH (10:00)
[2018-09-17] MEDS: KETOROLAC TROMETHAMINE INJ/PF 30 MG/1 ML SDV IV PRN ×2 (10:14→18:47)
[2018-09-17] MEDS: OLANZAPINE 2.5 MG TABLET PO SCH ×2 (10:56→17:52)
[2018-09-17] MEDS: ARIPIPRAZOLE 5 MG TABLET PO SCH (10:56)
[2018-09-17] MEDS: ENOXAPARIN SODIUM INJ 40 MG/0.4 ML DISP.SYRIN SUBCUT SCH (10:57)
[2018-09-17] MEDS: GUAIFENESIN 600 MG TABLET.SA PO SCH ×2 (10:57→22:22)
[2018-09-17] MEDS: FLUOXETINE HCL 20 MG CAPSULE PO SCH ×2 (10:57→22:22)
[2018-09-17] MEDS: METHYLPREDNISOLONE INJ 125 MG/2 ML SDV IV SCH ×2 (10:57→22:22)
--- NOTE | 2018-09-17 12:27 | PDOC PROGRESS REPORT ---
Subjective Progress Note for:: 09/17/18 Subjective:: is sitting on her bed- she was extubated yesterday and did well overnight. she's feeling better - still has some discomfort with deep breathing but otherwise well Reason For Visit: PNUEMONIA Physical Exam Vital Signs: Temp Pulse Resp BP Pulse Ox 96.5 F L 67 19 136/92 H 92 09/17/18 08:24 09/17/18 11:00 09/17/18 11:15 09/17/18 11:15 09/17/18 11:00 Intake & Output 09/16/18 09/17/18 09/18/18 06:59 06:59 06:59 Intake Total 1828 4015 250 Output Total 2945 3270 Balance -1117 745 250 Weight 155 lb 6.814 oz Results Laboratory Results: 09/17/18 03:42 09/17/18 03:42 09/16/18 09/17/18 09/17/18 13:50 03:42 03:42 WBC 7.5 RBC 3.45 L Hgb 10.5 L Hct 31.1 L MCV 90 MCH 30.5 MCHC 33.9 RDW 13.6 Plt Count 236 Seg Neutrophils % Not Reportable Lymphocytes % Not Reportable Monocytes % Not Reportable Eosinophils % Not Reportable Basophils % Not Reportable Absolute Neutrophils Not Reportable Absolute Lymphocytes Not Reportable Absolute Monocytes Not Reportable Absolute Eosinophils Not Reportable Absolute Basophils Not Reportable Carbonic Acid 1.09 HCO3/H2CO3 Ratio 23:1 ABG pH 7.47 H ABG pCO2 36.3 ABG pO2 105.2 H ABG HCO3 25.6 H ABG O2 Saturation 98.1 H ABG Base Excess 2.1 FiO2 35% Sodium 138.3 Potassium 4.0 Chloride 106 Carbon Dioxide 25 Anion Gap 7 BUN 11 Creatinine 0.43 L Est GFR ( Amer) > 60 Est GFR (Non-Af Amer) > 60 Glucose 129 H Calcium 8.2 L Magnesium 2.4 H Total Bilirubin 0.5 AST 19 ALT 27 Alkaline Phosphatase 41 Total Protein 5.2 L Albumin 2.8 L 09/12/18 08:11 Blood Blood Culture - Final NO GROWTH IN 5 DAYS 09/12/18 07:40 Blood Blood Culture - Final NO GROWTH IN 5 DAYS 09/12/18 07:08 Troponin I < 0.012 NT-Pro-B Natriuret Pep 937 H Impressions: KUB X-Ray 09/14/18 14:16 IMPRESSION: Enteric tube tip overlies gastric body. Chest X-Ray 09/17/18 06:00 IMPRESSION: Persistent bibasilar pneumonia. Assessment & Plan - Diagnosis (1) Acute respiratory failure with hypoxia Is this a current diagnosis for this admission?: Yes (2) Ventilator dependent Is this a current diagnosis for this admission?: Yes (3) Anxiety and depression Is this a current diagnosis for this admission?: Yes (4) Multifocal pneumonia Is this a current diagnosis for this admission?: Yes (5) Severe sepsis Is this a current diagnosis for this admission?: Yes - Plan Summary Plan Summary: Acute respiratory failure with hypoxia- has been extubated yesterday and on NC at this time- she's doing much better - still having some chest discomfort on deep breathing. likely 2/2 pneumonia.c/w Solumedrol IV - will titrate down slowly Pneumonia- on Primaxin and Vanco for now- WBC has trended down. CXR unfo rtunately still shows bibasilar pneumonia. will de-escalate ABx if cultures remain neg. 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 I spoke with Dr Ni and he will be following patient for her pneumonia. will c/w aggressive pulm hygiene with symbicort and duoneb Q4H Severe sepsis- see plan above. anxiety/depression- c/w olanzpine- stopped home satyataril and alma
[2018-09-17] MEDS ORDERED: MAG HYDROX/AL HYDROX/SIMETH SUSP 30 ML UDCUP PO PRN (14:04)
[2018-09-17] MEDS: PANTOPRAZOLE SODIUM 40 MG VIAL IV SCH (14:37)
[2018-09-17] MEDS: MORPHINE SULFATE 10 MG/ML INJ IV PRN (14:43)
[2018-09-17 15:50] LABS: PATH REVIEW PATHOLOGIST REVIEWED
[2018-09-17 23:24] LABS: VANCOMYCIN,TROUGH < 5.0 ug/mL (5.0-20.0)
[2018-09-18] MEDS: VANCOMYCIN HCL 1,000 MG in DEXTROSE 5%-WATER 250 ML IV SCH ×2 (00:29→07:21)
[2018-09-18] MEDS: IPRATROPIUM/ALBUTEROL 0.5-2.5 MG/3 ML AMPUL NEB SCH ×6 (00:57→20:49)
[2018-09-18] MEDS: IMIPENEM/CILASTATIN SODIUM 1,000 MG in NORMAL SALINE 250 ML IV SCH ×2 (03:00→09:32)
[2018-09-18] MEDS: ONDANSETRON HCL INJ/PF 4 MG/2 ML SDV IV PRN (07:22)
[2018-09-18] MEDS: KETOROLAC TROMETHAMINE INJ/PF 30 MG/1 ML SDV IV PRN (07:22)
[2018-09-18 07:31] LABS: ARTERIAL BLOOD BASE EXCESS 5.4 mmol/L; ARTERIAL BLOOD H2CO3 1.15 mmol/L (1.05-1.35); ARTERIAL BLOOD HCO3 28.9 mmol/L (20-24); ARTERIAL BLOOD O2 SATURATION 96.8 % (94-98); ARTERIAL BLOOD PCO2 38.2 mmHg (35-45); ARTERIAL BLOOD PO2 81.4 mmHg (80-100); ARTERIAL BLOOD TOTAL CO2 30.1 mmol/L (21-25)
[2018-09-18 07:33] LABS: ARTERIAL BLOOD FIO2 21%
[2018-09-18] MEDS: BUDESONIDE NEB 0.5 MG/2 ML AMPUL NEB SCH ×2 (08:18→20:49)
[2018-09-18] MEDS: PANTOPRAZOLE SODIUM 40 MG VIAL IV SCH (09:24)
[2018-09-18] MEDS: FLUOXETINE HCL 20 MG CAPSULE PO SCH ×2 (09:24→21:26)
[2018-09-18] MEDS: ENOXAPARIN SODIUM INJ 40 MG/0.4 ML DISP.SYRIN SUBCUT SCH (09:24)
[2018-09-18] MEDS: METHYLPREDNISOLONE INJ 125 MG/2 ML SDV IV SCH (09:24)
[2018-09-18] MEDS: ARIPIPRAZOLE 5 MG TABLET PO SCH (09:24)
[2018-09-18] MEDS: GUAIFENESIN 600 MG TABLET.SA PO SCH ×2 (09:25→21:26)
[2018-09-18] MEDS: OLANZAPINE 2.5 MG TABLET PO SCH ×2 (09:25→17:34)
--- NOTE | 2018-09-18 15:03 | PDOC PROGRESS REPORT ---
Subjective Progress Note for:: 09/18/18 Subjective:: seen on rounds this morning- she's doing much better- her oxygen is being weaned down- she states her breathing is better than yesterday- still has some SOB with deep inspiration and chest tightness- advised to c/w incentive spirometry. she had no new acute complaints at this time- she wants to know when she can go home Reason For Visit: PNUEMONIA Physical Exam Vital Signs: Temp Pulse Resp BP Pulse Ox 98.7 F 67 16 131/82 H 96 09/18/18 12:23 09/18/18 12:26 09/18/18 12:26 09/18/18 12:23 09/18/18 12:26 Intake & Output 09/17/18 09/18/18 09/19/18 06:59 06:59 06:59 Intake Total 4015 2150 500 Output Total 3270 Balance 745 2150 500 Weight 143 lb 4.807 oz General appearance: PRESENT: no acute distress Head exam: PRESENT: atraumatic, normocephalic Eye exam: PRESENT: EOMI, PERRLA. ABSENT: scleral icterus Ear exam: PRESENT: normal external ear exam Mouth exam: PRESENT: tongue midline Neck exam: ABSENT: tracheal deviation Respiratory exam: PRESENT: crackles, decreased breath sounds - bilateral bases with rhonchi and some occasional crackles, rhonchi, symmetrical Cardiovascular exam: PRESENT: +S1, +S2 Pulses: PRESENT: +2 pedal pulses bilateral GI/Abdominal exam: PRESENT: normal bowel sounds, soft. ABSENT: tenderness Extremities exam: ABSENT: joint swelling, pedal edema Neurological exam: PRESENT: alert, awake, oriented to person, oriented to place, oriented to time, CN II-XII grossly intact Skin exam: PRESENT: dry, warm Results Laboratory Results: 09/17/18 03:42 09/17/18 14:00 09/18/18 07:00 Carbonic Acid 1.15 HCO3/H2CO3 Ratio 25:1 ABG pH 7.50 H ABG pCO2 38.2 ABG pO2 81.4 ABG HCO3 28.9 H ABG O2 Saturation 96.8 ABG Base Excess 5.4 FiO2 21% 09/12/18 07:08 Troponin I < 0.012 NT-Pro-B Natriuret Pep 937 H Impressions: KUB X-Ray 09/14/18 14:16 IMPRESSION: Enteric tube tip overlies gastric body. Chest X-Ray 09/17/18 06:00 IMPRESSION: Persistent bibasilar pneumonia. Assessment & Plan - Diagnosis (1) Acute respiratory failure with hypoxia Is this a current diagnosis for this admission?: Yes (2) Ventilator dependent Is this a current diagnosis for this admission?: Yes (3) Anxiety and depression Is this a current diagnosis for this admission?: Yes (4) Multifocal pneumonia Is this a current diagnosis for this admission?: Yes (5) Severe sepsis Is this a current diagnosis for this admission?: Yes - Plan Summary Plan Summary: Acute respiratory failure with hypoxia- extubated 09/16 and on NC at this time- she's doing much better- oxygen is being weaned daily - on 1L O2 now- still having some chest discomfort on deep breathing. likely 2/2 pneumonia. c/w inhalers, nebs and i have lowered her IV solumedrol to 60mg daily- likely will need a few days on discharge. Pneumonia- on Primaxin and Vanco initially- WBC has trended down. CXR unfortunately still shows bibasilar pneumonia. will de-escalate ABx to Cefepime. 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 I spoke with Dr Ni and he will be following patient for her pneumonia. will c/w aggressive pulm hygiene with symbicort and duoneb Q4H Severe sepsis- see plan above. anxiety/depression- c/w olanzpine- stopped home vistaril and ambien i think she can be discharged home in 1-2 days on PO antibiotics for her Pneumonia- consider 10-14 days of total ABx duration since she had significant pneumonia bilaterally- she will benefit from inhalers, nebs and prednisone on discharge. follow up with pulm outpatient.
[2018-09-18] MEDS: CEFEPIME 1 GM/D5W RTU 1 GM/50 ML RTUPB IV SCH ×2 (15:24→21:27)
[2018-09-18] MEDS: ACETAMINOPHEN 325 MG TABLET PO PRN (15:34)
--- NOTE | 2018-09-18 18:44 | Progress Note ---
Provider Note Provider Note: Called by nursing that patient is having some left lower quadrant pain. Patient states that she has this small pinching kind of pain in the left side of her abdomen. Started this afternoon while she was showering. States it is better now. He also mentions to me today that she has been having diarrhea 2-3 times a day for the last 3 days. I asked her why she did not tell me this earlier-she is tells me that she did not think it was important. She also states that her stool color has been "coffee ground" in color. Patient states that she did not mention this to me either for the last 3 days. We will repeat CBC in the morning. We will send stool cultures and stool guaiac.
[2018-09-19] MEDS: IPRATROPIUM/ALBUTEROL 0.5-2.5 MG/3 ML AMPUL NEB SCH ×5 (01:05→16:51)
[2018-09-19] MEDS: KETOROLAC TROMETHAMINE INJ/PF 30 MG/1 ML SDV IV PRN ×2 (03:36→11:18)
[2018-09-19] MEDS: CEFEPIME 1 GM/D5W RTU 1 GM/50 ML RTUPB IV SCH ×2 (05:23→13:20)
[2018-09-19 07:50] LABS: HEMATOCRIT 31.1 % (36.0-47.0); HEMOGLOBIN 10.7 g/dL (12.0-15.5); MEAN CORPUSCULAR HEMOGLOBIN 31.1 pg (27.0-33.4); MEAN CORPUSCULAR HGB CONC 34.4 g/dL (32.0-36.0); MEAN CORPUSCULAR VOLUME 90 fl (80-97); PLATELET COUNT 324 10^3/uL (150-450); RED BLOOD COUNT 3.44 10^6/uL (3.72-5.28); RED CELL DISTRIBUTION WIDTH 13.6 % (11.5-14.0); WHITE BLOOD COUNT 9.5 10^3/uL (4.0-10.5)
[2018-09-19 08:11] LABS: ABSOLUTE LYMPHOCYTES# (MANUAL) 2.4 10^3/uL (0.5-4.7); ABSOLUTE MONOCYTES # (MANUAL) 0.4 10^3/uL (0.1-1.4); ABSOLUTE NEUTROPHILS# (MANUAL) 6.6 10^3/uL (1.7-8.2); BASOPHILS % (MANUAL) 0 % (0-2); EOSINOPHILS % (MANUAL) 2 % (0-6); LYMPHOCYTES % (MANUAL) 25 % (13-45); MONOCYTES % (MANUAL) 4 % (3-13); SEGMENTED NEUTROPHILS % (MAN) 69 % (42-78); TOTAL CELLS COUNTED 100
[2018-09-19 08:13] LABS: TOXIC GRANULATION 1+
[2018-09-19 08:14] LABS: PLATELET COMMENT ADEQUATE; RBC MORPHOLOGY COMMENT NORMO-CYTIC/CHROMIC
[2018-09-19] MEDS: BUDESONIDE NEB 0.5 MG/2 ML AMPUL NEB SCH (08:16)
[2018-09-19] MEDS: ARIPIPRAZOLE 5 MG TABLET PO SCH (09:45)
[2018-09-19] MEDS: ENOXAPARIN SODIUM INJ 40 MG/0.4 ML DISP.SYRIN SUBCUT SCH (09:45)
[2018-09-19] MEDS: PANTOPRAZOLE SODIUM 40 MG VIAL IV SCH (09:46)
[2018-09-19] MEDS: FLUOXETINE HCL 20 MG CAPSULE PO SCH ×2 (09:46→21:11)
[2018-09-19] MEDS: GUAIFENESIN 600 MG TABLET.SA PO SCH ×2 (09:46→21:11)
[2018-09-19] MEDS: OLANZAPINE 2.5 MG TABLET PO SCH ×2 (09:49→19:10)
[2018-09-19] MEDS: ACETAMINOPHEN 325 MG TABLET PO PRN (09:52)
[2018-09-19] MEDS ORDERED: METHYLPREDNISOLONE INJ 125 MG/2 ML SDV IV SCH (10:00)
[2018-09-19] MEDS ORDERED: LACTOBACILLUS ACIDOPHILUS 250 MG TAB PO ONE (13:39)
[2018-09-19] MEDS ORDERED: LEVALBUTEROL HCL NEB 1.25 MG/3 ML AMPUL NEB PRN (13:48)
[2018-09-19] MEDS ORDERED: LORAZEPAM 0.5 MG TABLET PO PRN (13:51)
[2018-09-19] MEDS ORDERED: GUAIFENESIN 600 MG TABLET.SA PO ONE ×2 (15:00→19:00)
[2018-09-19] MEDS: PIPERACILLIN SODIUM/TAZOBACTAM 4.5 GM in NORMAL SALINE 100 ML IV SCH ×2 (16:22→21:11)
[2018-09-19] MEDS: LACTOBACILLUS ACIDOPHILUS 250 MG TAB PO SCH (19:09)
[2018-09-19] MEDS: BENZOCAINE/MENTHOL SORE THROAT LOZENGE BUCCAL PRN ×2 (20:50→22:52)
[2018-09-19] MEDS: ONDANSETRON 4 MG TAB.RAPDIS PO PRN (20:50)
[2018-09-20] MEDS: IPRATROPIUM/ALBUTEROL 0.5-2.5 MG/3 ML AMPUL NEB SCH ×3 (00:28→16:13)
[2018-09-20] MEDS: SUMATRIPTAN SUCCINATE 25 MG TABLET PO PRN (00:46)
[2018-09-20] MEDS: BENZOCAINE/MENTHOL SORE THROAT LOZENGE BUCCAL PRN (00:47)
[2018-09-20] MEDS: PIPERACILLIN SODIUM/TAZOBACTAM 4.5 GM in NORMAL SALINE 100 ML IV SCH ×4 (03:08→21:14)
[2018-09-20 05:45] LABS: ABSOLUTE EOSINOPHILS # (AUTO) 0.1 10^3/uL (0.0-0.6); ABSOLUTE LYMPHOCYTES (AUTO) 2.2 10^3/uL (0.5-4.7); ABSOLUTE MONOCYTES (AUTO) 0.7 10^3/uL (0.1-1.4); ABSOLUTE NEUT (AUTO) 8.6 10^3/uL (1.7-8.2); BASOPHILS % (AUTO) 0.1 % (0-2); EOSINOPHILS % (AUTO) 0.9 % (0-6); HEMATOCRIT 33.4 % (36.0-47.0); HEMOGLOBIN 11.5 g/dL (12.0-15.5); LYMPHOCYTES % (AUTO) 18.9 % (13-45); MEAN CORPUSCULAR HEMOGLOBIN 30.9 pg (27.0-33.4); MEAN CORPUSCULAR HGB CONC 34.3 g/dL (32.0-36.0); MEAN CORPUSCULAR VOLUME 90 fl (80-97); MONOCYTES % (AUTO) 5.8 % (3-13); PLATELET COUNT 348 10^3/uL (150-450); RED BLOOD COUNT 3.72 10^6/uL (3.72-5.28); RED CELL DISTRIBUTION WIDTH 13.8 % (11.5-14.0); SEGMENTED NEUTROPHILS % (AUTO) 74.3 % (42-78); TOTAL CELLS COUNTED % (AUTO) 100 %; WHITE BLOOD COUNT 11.6 10^3/uL (4.0-10.5)
[2018-09-20 06:14] LABS: ANION GAP 6 (5-19); BLOOD UREA NITROGEN 9 mg/dL (7-20); CALCIUM 8.6 mg/dL (8.4-10.2); CARBON DIOXIDE 32 mmol/L (22-30); CHLORIDE 99 mmol/L (98-107); GLUCOSE 86 mg/dL (75-110); POTASSIUM 3.9 mmol/L (3.6-5.0); SODIUM 137.4 mmol/L (137-145)
--- NOTE | 2018-09-20 07:02 | PROGRESS NOTE E ---
Progress Note NAME: MACK AMOR : 1985 AGE: 33Y DATE: 09/19/2018 ROOM: 325 SUBJECTIVE: The patient is currently lying in bed. She states that she feels much better than when she came in. She sat up very quickly in bed when I entered the room. The patient states she feels she can breathe for the first time. She denies any nausea, vomiting. Diarrhea has resolved. No shortness of breath, dizziness, chest pain. No fevers, chills. The patient has been afebrile. Blood pressure is in an acceptable range. The patient does not voice any other concerns at this time. REVIEW OF SYSTEMS: The rest of review of systems negative. MEDICATIONS: Medications were reviewed. OBJECTIVE: GENERAL: The patient is a 33-year-old female who is awake, alert, and oriented to person, time, place, situation. She is verbal, conversational. Did not appear to be in acute distress. VITAL SIGNS: Temperature is 98.3, pulse 81, respirations 16, blood pressure is 113/68, oxygen saturation 94% on room air. SKIN: Warm and dry. No rash. Not diaphoretic. HEENT: Pupils equal, round, and reactive to light and accommodation. Conjunctivae are pink. No evidence of JVP. CARDIOVASCULAR: Heart is regular. There is no murmur or rub. CHEST: The patient does have diminished lung sounds in both bases, symmetrical, unlabored at this time. ABDOMEN: Soft, nontender. EXTREMITIES: No clubbing, cyanosis, edema. PSYCHIATRIC: Appropriate affect and pleasant mood. DIAGNOSTICS: Lab values are as follows: Hematology obtained on 09/19/2018: WBC is 9.5, hemoglobin is 10.7, hematocrit is 31.1, platelet count is 324,000. Chemistries obtained on 09/17/2018: Sodium is 138, potassium 4.0, chloride is 106, carbon dioxide 25, BUN 11, creatinine is 0.43, glucose 129, calcium is 8.2, magnesium is 2.4. IMPRESSION AND PLAN: 1. MULTIFOCAL PNEUMONIA, HAVE A HIGH SUSPICION FOR ASPIRATION PNEUMONIA. Did expand the patient's antibiotic coverage to include anaerobes. Will add incentive spirometry, flutter valve, as well as Mucinex. The patient has had a strong cough, but unfortunately has been unable to produce any sputum. 2. ACUTE HYPOXEMIC RESPIRATORY FAILURE. The patient is status post extubation day 2. Overall has made significant improvement. 3. SEVERE SEPSIS SECONDARY TO #1. The patient appears to have improved. 4. ANXIETY/DEPRESSION. Continue the patient's home medications. DISPOSITION: The patient is a FULL CODE. Pending patient's symptomatology and diagnostic findings, will reevaluate in the a.m. The patient can be downgraded to a medical bed. Time spent on this followup, including assessment and plan, physical examination, patient education, review of records, and family meeting is 25 minutes. DICTATING PHYSICIAN: ALBERTINA FERGUSON NP [id number] PHY#: [id number] ID: [id number] JOB#: [id number] ACCT: [id number] cc: > MTDD
[2018-09-20] MEDS: ARIPIPRAZOLE 5 MG TABLET PO SCH (09:14)
[2018-09-20] MEDS: LACTOBACILLUS ACIDOPHILUS 250 MG TAB PO SCH ×2 (09:15→18:11)
[2018-09-20] MEDS: FLUOXETINE HCL 20 MG CAPSULE PO SCH ×2 (09:15→21:13)
[2018-09-20] MEDS: GUAIFENESIN 600 MG TABLET.SA PO SCH ×2 (09:16→21:13)
[2018-09-20] MEDS: ENOXAPARIN SODIUM INJ 40 MG/0.4 ML DISP.SYRIN SUBCUT SCH (09:16)
[2018-09-20] MEDS: LANSOPRAZOLE 30 MG TAB.RAP.DR PO SCH (09:17)
[2018-09-20] MEDS: ONDANSETRON 4 MG TAB.RAPDIS PO PRN ×2 (09:23→21:08)
[2018-09-20] MEDS: OLANZAPINE 2.5 MG TABLET PO SCH ×2 (09:23→18:11)
--- NOTE | 2018-09-20 11:10 | RADIOLOGY REPORT (SQ) ---
EXAM DESCRIPTION: CHEST 2 VIEWS COMPLETED DATE/TIME: 09/20/2018 10:44 am REASON FOR STUDY: Follow-up aspiration COMPARISON: 09/17/2018 EXAM PARAMETERS: NUMBER OF VIEWS: two views TECHNIQUE: Digital Frontal and Lateral radiographic views of the chest acquired. RADIATION DOSE: NA LIMITATIONS: none FINDINGS: LUNGS AND PLEURA: Residual airspace disease in the lingula. Improved aeration in the righ t lower lobe. MEDIASTINUM AND HILAR STRUCTURES: No masses or contour abnormalities. HEART AND VASCULAR STRUCTURES: Heart normal size. No evidence for failure. BONES: No acute findings. HARDWARE: None in the chest. OTHER: No other significant finding. IMPRESSION: Improving pneumonia. TECHNICAL DOCUMENTATION: JOB ID: [id number] [employer]- All Rights Reserved Reading location - IP/workstation name: [email or web address]
--- NOTE | 2018-09-20 11:17 | PROGRESS NOTE E ---
Progress Note NAME: MACK AMOR : 1985 AGE: 33Y DATE: 09/20/2018 ROOM: 325 SUBJECTIVE: The patient feels much better today. The patient denies any nausea, vomiting, diarrhea, no shortness of breath, dizziness, chest pain. The patient has been on room air for over a day. The patient has been doing a pulmonary toileting and coughing up a good amount of sputum. The patient has had a temp of about 99.5. Has been somewhat tachycardic. Her heart rate can be in the 110s and no conversational dyspnea noted. The patient does not voice any other concerns at this time. REVIEW OF SYSTEMS: The rest of review of systems negative. MEDICATIONS: Medications were reviewed. OBJECTIVE: GENERAL: The patient is a 33-year-old female who is awake, alert, and oriented to person, place, time, and situation. She is verbal, conversational. Does not appear to be distressed. VITAL SIGNS: Temperature is 99.2, pulse 71, respirations 20, blood pressure is 118/80, oxygen saturation 92% on room air. She did drop to 87% with ambulation. SKIN: Warm and dry. No rash. Not diaphoretic. HEENT: Pupils equal, round, and reactive to light and accommodation. Conjunctivae are pink. No evidence of JVP. CARDIOVASCULAR: Heart is regular. There is no murmur or rub. CHEST: Diminished, symmetrical, unlabored. ABDOMEN: Soft, nontender, nondistended. BACK: No CVA tenderness or sacral edema. EXTREMITIES: No clubbing, cyanosis, edema. PSYCHIATRIC: Appropriate affect and pleasant mood. DIAGNOSTICS: Lab values are as follows: Hematology obtained on 09/20/2018: WBC is 11.6, hemoglobin is 11.5, hematocrit is 32.4, platelet count is 348,000. Chemistries obtained on 09/20/2018: Sodium is 137, potassium 3.9, chloride is 99, carbon dioxide 32, BUN 9, creatinine is 0.53, glucose 86, calcium is 8.6, magnesium is 2.2. IMPRESSION AND PLAN: 1. MULTIFOCAL PNEUMONIA, MOST LIKELY ASPIRATION. The patient has had expanded antibiotic coverage to include anaerobes. We will continue incentive spirometry, flutter valve, as well as Mucinex. The patient does have a strong cough and is now producing a good amount of sputum. 2. ACUTE HYPOXEMIC RESPIRATORY FAILURE. The patient is status post extubation day number 3. Overall has made significant improvement. Will follow. 3. SEVERE SEPSIS SECONDARY TO NUMBER 1. The patient is improved. 4. ANXIETY/DEPRESSION. Continue home medications. DISPOSITION: The patient is a FULL CODE. Pending patient's symptomatology and diagnostic findings, will reevaluate in the a.m. for discharge. Time spent on this followup, including assessment and plan, physical examination, patient education, review of records is 35 minutes. DICTATING PHYSICIAN: ALBERTINA FERGUSON NP [id number] PHY#: [id number] ID: [id number] JOB#: [id number] ACCT: [id number] cc: > MTDD
[2018-09-20] MEDS: FLUTICASONE NASAL SPRAY 50 MCG/SPRY 120 SPRAY/16 GM NASL SCH ×2 (16:28→21:14)
[2018-09-20] MEDS: CETIRIZINE 10 MG TABLET PO SCH (16:28)
[2018-09-21] MEDS: IPRATROPIUM/ALBUTEROL 0.5-2.5 MG/3 ML AMPUL NEB SCH ×2 (00:26→08:22)
[2018-09-21] MEDS: PIPERACILLIN SODIUM/TAZOBACTAM 4.5 GM in NORMAL SALINE 100 ML IV SCH ×2 (03:30→08:04)
[2018-09-21] MEDS: LANSOPRAZOLE 30 MG TAB.RAP.DR PO SCH (05:50)
[2018-09-21] MEDS: ONDANSETRON 4 MG TAB.RAPDIS PO PRN (08:04)
[2018-09-21] MEDS: CETIRIZINE 10 MG TABLET PO SCH (10:02)
[2018-09-21] MEDS: FLUOXETINE HCL 20 MG CAPSULE PO SCH (10:02)
[2018-09-21] MEDS: GUAIFENESIN 600 MG TABLET.SA PO SCH (10:02)
[2018-09-21] MEDS: ARIPIPRAZOLE 5 MG TABLET PO SCH (10:02)
[2018-09-21] MEDS: OLANZAPINE 2.5 MG TABLET PO SCH (10:02)
[2018-09-21] MEDS: FLUTICASONE NASAL SPRAY 50 MCG/SPRY 120 SPRAY/16 GM NASL SCH (10:03)
[2018-09-21] MEDS: ENOXAPARIN SODIUM INJ 40 MG/0.4 ML DISP.SYRIN SUBCUT SCH (10:03)
[2018-09-21] MEDS: LACTOBACILLUS ACIDOPHILUS 250 MG TAB PO SCH (10:03)
[2018-09-21 11:01] VITALS: BP 102/60
--- NOTE | 2018-09-23 16:27 | DISCHARGE SUMMARY E ---
Discharge Summary NAME: MACK AMOR : 1985 AGE: 33Y ADMITTED: 09/12/2018 DISCHARGED: 09/21/2018 CODE STATUS: FULL CODE. PRIMARY CARE PROVIDER: Brice Sheffield M.D. DISCHARGE DIAGNOSES include: 1. Multifocal pneumonia, most likely aspiration. 2. Acute hypoxemic respiratory failure secondary to #1, resolved. 3. Severe sepsis secondary to #1, resolved. 4. Depression with anxiety. DISCHARGE MEDICATIONS include: 1. Avelox 400 mg p.o. daily, 6 tablets, zero refills. 2. Zofran ODT 4 mg p.o. q.4 hours p.r.n., 10 tablets, zero refills. 3. Mucinex 1200 mg p.o. q.12 hours, 16 tablets, zero refills. 4. Vyvanse 60 mg p.o. daily. 5. Flonase 2 sprays q.12 hours. 6. Ativan 0.5 mg p.o. q.8 hours p.r.n. 7. Atarax 25 mg p.o. at hour of sleep p.r.n. 8. Abilify 15 mg p.o. daily. DIET: As tolerated. ACTIVITY: As tolerated. Pulmonary toileting. CONDITION: Good. DIAGNOSTICS: Lab values are as follows: Hematology obtained on 09/19/2018: WBC is 9.5, hemoglobin is 10.7, hematocrit is 31.7, platelet count is 324,000. Coagulation obtained on 09/12/2018: INR is 1.01. ABG obtained on 09/18/2018: PH is 7.50, PCO2 is 38.2, bicarbonate is 81.4. Chemistries obtained on 09/20/2018: Sodium is 137, potassium 3.9, chloride is 99, carbon dioxide 32, BUN 9, creatinine is 0.53, glucose 86, lactic acid is 1.9, calcium is 8.6, phosphorus is 3.7, magnesium is 2.2, iron is 46, TIBC is 219, percent saturation is 21, ferritin is 52, bilirubin is 0.5, AST 19, ALT is 27, alkaline phosphatase 41. Troponin is 0.012. Urinalysis obtained on 09/12/2018: Color straw, appearance slightly cloudy, specific gravity is 1.003. Protein 9, glucose is 150, ketones negative, occult blood negative, nitrite negative, bilirubin negative, urobilogens negative, leukocyte esterase is negative. WBC is zero, RBC is 1. HAKEEM obtained on 09/14/2018 is negative. Serologies obtained on 09/14/2018: HIV is negative. Microbiology: Blood cultures obtained on 09/12/2018: Reveal no growth. Sputum culture obtained on 09/12/2018: Reveal no growth. Fungal smear obtained on 09/16/2018: Preliminary report reveals no noted fungus. Chest x-ray obtained on 09/12/2018: Reveals extensive multilobular pneumonia. CT of the chest and abdomen obtained on 09/12/2018: Reveals multifocal pneumonia, but no evidence of pulmonary emboli. Chest x-ray obtained on 09/20/2018: Reveals improving pneumonia. EKG obtained on 09/12/2018: Reveals sinus tachycardia. PHYSICAL EXAMINATION: GENERAL: The patient is a well-developed, well-nourished, 33-year-old female who is awake, alert, and oriented to person, place, time, and situation. She is verbal, conversational. Does not appear to be in acute distress. VITAL SIGNS: Temperature is 98.1, pulse 77, respirations 19, blood pressure is 101/62, oxygen saturation 98% on room air. SKIN: Warm and dry. No rash. Not diaphoretic. HEENT: Pupils equal, round, and reactive to light and accommodation. Conjunctivae are pink. No evidence of JVP. CARDIOVASCULAR: Heart is regular. There is no murmur or rub. CHEST: Clear, symmetrical, unlabored. ABDOMEN: Soft, nontender, nondistended. BACK: No CVA tenderness or sacral edema. EXTREMITIES: No clubbing, cyanosis, edema. PSYCHIATRIC: Appropriate affect and pleasant mood. HISTORY OF PRESENT ILLNESS: The patient is a 33-year-old female with a past medical history of depression and anxiety. The patient was admitted due to worsening shortness of breath and emesis while getting a colonoscopy and subsequent aspiration. The patient apparently had a colonoscopy about a week ago for rectal bleeding. During the procedure, the patient experienced emesis with possible aspiration. The patient reported immediately after the procedure not feeling well. She was given 2 different antibiotics to take after the procedure and she has really not felt better since that time. The patient had no chest discomfort or short of breath. Began to have fevers, chills, body aches, now her whole body hurts. The patient's shortness of breath increased significantly. The patient did have a cough that was productive of small amount of orange-janell white sputum. The patient stated she felt congested in her chest, but was unable to really cough up a lot of mucus. The patient felt like she could not catch her breath at all. While in the emergency department, the patient's sats were found to be 71% on room air. CT scan was negative for PE; however, it showed a multifocal consolidation consistent with pneumonia. The patient was placed on BiPAP, received 1 dose of antibiotic and nebulizer and was referred to the hospitalist for admission. HOSPITAL COURSE: The patient was admitted to ICU. The patient was aggressively managed with antibiotics to cover both gram-negative and anaerobes and additional HCAP. The patient also had azithromycin added for atypical coverage. The patient was aggressively hydrated and required aggressive pulmonary toileting. The patient made slow, but steady progress. Today, at discharge, the patient was able to ambulate around the unit twice and oxygen saturations have remained above 96% during that time. The patient is now producing copious amounts of sputum with cough and is using her pulmonary toileting regularly and the patient is quite eager for discharge. DISCHARGE PLANNIN. The patient will follow with her primary care provider within 1-2 weeks for hospital followup. 2. The patient will be referred to Dr. Ni as she has requested to establish care with a long term care pharmacist as well. Time spent on this discharge including assessment and plan, physical examination, patient education, review of records is 35 minutes. DICTATING PHYSICIAN: ALBERTINA FERGUSON NP [id number] PHY#: [id number] ID: [id number] JOB#: [id number] ACCT: [id number] cc:MD ALBERTINA Hughes NP > MTDD
--- NOTE | 2018-10-12 13:53 | PDOC CONSULTATION ---
Consultation Consult Date: 09/14/18 Attending physician:: CRUZ RESENDEZ Consult reason:: Dyspnea History of Present Illness Admission Date/PCP: 09/12/18 09:11 BERTA ESTRELLA PA-C History of Present Illness: MACK AMOR is a 33 year old female, 33-year-old female status post 2 recent procedures want a breast biopsy another colonoscopy presented to the emergent with increasing shortness of breath and a cough productive of some clear to white phlegm she denies any hemoptysis PPD status is unknown no history chronic lung disease or adolescent she denies a smoking she denies exposure to passive smoke as a child or adult no occupational exposure no pets no recent travel denies angina-like chest pain sleeps on 2 pillows rare PND rare nocturnal cough no edema complains of snoring restless sleep nocturia 2-3 times per night unrestful sleep and some daytime somnolence. Past Medical History Cardiac Medical History: Denies: Coronary Artery Disease, Myocardial Infarction, Hypertension Pulmonary Medical History: Denies: Asthma, Bronchitis, Chronic Obstructive Pulmonary Disease (COPD), Pneumonia EENT Medical History: Denies: Cataracts, Eyes, Ears, Nose, Throat Neurological Medical History: Denies: Migraine, Seizures Endocrine Medical History: Denies: Diabetes Mellitus Type 1, Diabetes Mellitus Type 2, Hypothyroidism Renal/ Medical History: Denies: Chronic Kidney Disease, Nephrolithiasis Malignancy Medical History: Reports: None GI Medical History: Reports: Gastroesophageal Reflux Disease Musculoskeltal Medical History: Denies: Arthritis Psychiatric Medical History: Reports: Depression - anxiety, General Anxiety Disorder Traumatic Medical History: Reports: None Hematology: Denies: Anemia Infectious Medical History: Reports: None Past Surgical History Past Surgical History: Reports: Orthopedic Surgery - carpal tunnel, Other - Breast lumpectomy Social History Information Source: Patient, [facility] Records Lives with: Family Smoking Status: Never Smoker Frequency of Alcohol Use: Occasional Hx Recreational Drug Use: No Drugs: None Hx Prescription Drug Abuse: No Do you have pets?: No Have you had any respiratory illnesses as a child?: No Have you been exposed to any sick contacts recently?: No Have you had any recent respiratory illnesses?: Yes Have you travelled outside of [place] in the past 12 months?: No - Advance Directive Resuscitation Status: Full Code Family History Family History: COPD Parental Family History Reviewed: Yes Children Family History Reviewed: Yes Sibling(s) Family History Reviewed.: Yes Medication/Allergy Home Medications: Aripiprazole [Abilify 15 mg Tablet] 15 mg PO DAILY 09/12/18 Hydroxyzine HCl [Atarax 25 mg Tablet] 1 tab PO HSP PRN 09/12/18 Lisdexamfetamine Dimesylate [Vyvanse] 70 mg PO DAILY 09/12/18 Lorazepam [Ativan 0.5 mg Tablet] 0.5 mg PO Q8HP PRN 09/12/18 Fluticasone Propionate [Flonase Nasal [place] 50 Mcg/[place] 16 gm] 2 spray NASL Q12 spray.pump 09/21/18 Guaifenesin [Mucinex Sr 600 mg Tablet.sa] 1,200 mg PO Q12 #16 tablet.sa 09/21/18 Lisdexamfetamine Dimesylate [Vyvanse] 60 mg PO .DAILY 09/21/18 Moxifloxacin HCl [Avelox] 400 mg PO DAILY #6 tablet 09/21/18 Ondansetron [Zofran Odt 4 mg Tablet] 4 mg PO Q4HP PRN #10 tab.rapdis 09/21/18 Allergies/Adverse Reactions: adhesive tape Allergy (Unknown, Verified 09/12/18 07:28) Review of Systems Constitutional: ABSENT: chills, fatigue, fever(s) Eyes: ABSENT: visual disturbances Ears: ABSENT: hearing changes Nose, Mouth, and Throat: ABSENT: mouth pain, sore throat Cardiovascular: PRESENT: dyspnea on exertion. ABSENT: chest pain, orthropnea, palpitations Respiratory: PRESENT: cough, dyspnea, sputum. ABSENT: hemoptysis Gastrointestinal: PRESENT: heartburn, melena. ABSENT: abdominal pain, bloating, coffee ground emesis, diarrhea, hematemesis Genitourinary: ABSENT: dysuria, hematuria Musculoskeletal: ABSENT: deformity, joint swelling Integumentary: ABSENT: lesions, pruritus, rash Neurological: ABSENT: abnormal gait, abnormal movements, abnormal speech, confusion, focal weakness, frequent falls, lack of coordination, memory loss, restless legs Psychiatric: ABSENT: hallucinations, homidical ideation, suicidal ideation Endocrine: ABSENT: cold intolerance, heat intolerance, polydipsia, polyuria Hematologic/Lymphatic: ABSENT: easy bruising Allergic/Immunologic: PRESENT: seasonal rhinorrhea Physical Exam Vital Signs: Temp Pulse Resp BP Pulse Ox 98.3 F 58 L 24 H 125/68 93 09/14/18 07:48 09/14/18 07:52 09/14/18 11:15 09/14/18 07:48 09/14/18 11:15 Intake & Output 09/13/18 09/14/18 09/15/18 06:59 06:59 06:59 Intake Total 6018 1150 100 Balance 6018 1150 100 Weight 64.3 kg 64 kg General appearance: PRESENT: no acute distress, cooperative, disheveled, thin Head exam: PRESENT: atraumatic, normocephalic Eye exam: PRESENT: conjunctiva pale, EOMI. ABSENT: nystagmus Mouth exam: PRESENT: dry mucosa, neck supple, tongue midline Neck exam: ABSENT: carotid bruit, JVD, lymphadenopathy, thyromegaly, tracheal de viation, tracheostomy Respiratory exam: PRESENT: decreased breath sounds, prolonged expiratory phas, rales, rhonchi, unlabored. ABSENT: retraction, stridor Cardiovascular exam: PRESENT: RRR, +S1, +S2 Pulses: PRESENT: normal radial pulses GI/Abdominal exam: PRESENT: soft. ABSENT: tenderness Extremities exam: ABSENT: calf tenderness, clubbing, joint swelling, pedal edema Musculoskeletal exam: ABSENT: deformity, dislocation Neurological exam: PRESENT: awake Psychiatric exam: PRESENT: appropriate affect Skin exam: PRESENT: dry, warm Results Laboratory Results: 09/13/18 04:38 09/13/18 04:38 09/14/18 04:41 VBG pH 7.44 H VBG pCO2 46.4 VBG HCO3 30.8 VBG Base Excess 5.8 09/12/18 17:40 Sputum Gram Stain - Final 09/12/18 17:40 Sputum Sputum Culture - Final NORMAL SHER 09/12/18 07:08 Troponin I < 0.012 NT-Pro-B Natriuret Pep 937 H Impressions: Chest X-Ray 09/13/18 00:00 IMPRESSION: Similar bilateral basilar patchy consolidation, left greater than right. No significant pleural effusion. Assessment & Plan - Diagnosis (1) Acute respiratory failure with hypoxia Is this a current diagnosis for this admission?: Yes Plan: NIPPV patient is very tachypneic (2) Multifocal pneumonia Is this a current diagnosis for this admission?: Yes Plan: CXR (3) Severe sepsis Is this a current diagnosis for this admission?: Yes Plan: Abnormal chest x-ray, fever, tachycardia, leukocytosis
--- NOTE | 2018-10-12 13:57 | PDOC PROGRESS REPORT ---
Subjective Progress Note for:: 09/14/18 Subjective:: Tachypneic for several days now discussed this patient will transfer to ICU for Reason For Visit: PNUEMONIA Physical Exam Vital Signs: Temp Pulse Resp BP Pulse Ox 98.1 F 77 18 102/60 98 09/21/18 10:59 09/21/18 10:59 09/21/18 10:59 09/21/18 10:59 09/21/18 10:59 General appearance: PRESENT: cooperative, disheveled, severe distress, thin, well-developed, well-nourished Head exam: PRESENT: atraumatic, normocephalic Eye exam: PRESENT: conjunctiva pale, EOMI. ABSENT: nystagmus Mouth exam: PRESENT: dry mucosa, neck supple, tongue midline Neck exam: ABSENT: carotid bruit, JVD, lymphadenopathy, thyromegaly, tracheal deviation, tracheostomy Respiratory exam: PRESENT: decreased breath sounds, prolonged expiratory phas Cardiovascular exam: PRESENT: RRR, tachycardia. ABSENT: diastolic murmur, rubs, systolic murmur Pulses: PRESENT: normal radial pulses GI/Abdominal exam: PRESENT: soft. ABSENT: tenderness Gentrourinary exam: PRESENT: indwelling catheter Extremities exam: ABSENT: calf tenderness, clubbing, joint swelling, pedal edema Musculoskeletal exam: ABSENT: deformity, dislocation Neurological exam: PRESENT: awake Psychiatric exam: PRESENT: appropriate affect Skin exam: PRESENT: dry, warm Results Laboratory Results: 09/20/18 04:59 09/20/18 04:59 09/12/18 07:08 Troponin I < 0.012 NT-Pro-B Natriuret Pep 937 H Impressions: KUB X-Ray 09/14/18 14:16 IMPRESSION: Enteric tube tip overlies gastric body. Chest X-Ray 09/20/18 06:00 IMPRESSION: Improving pneumonia. Assessment & Plan - Diagnosis (1) Acute respiratory failure with hypoxia Is this a current diagnosis for this admission?: Yes Plan: To ICU for intubation (2) Multifocal pneumonia Is this a current diagnosis for this admission?: Yes Plan: CXR (3) Severe sepsis Is this a current diagnosis for this admission?: Yes - Time Total Critical Time (Minutes): 55
--- NOTE | 2018-10-12 13:59 | PDOC PROGRESS REPORT ---
Subjective Progress Note for:: 09/15/18 Subjective:: intuBated and sedated Reason For Visit: PNUEMONIA Physical Exam Vital Signs: Temp Pulse Resp BP Pulse Ox 97.9 F 69 0 L 150/90 H 96 09/15/18 08:00 09/15/18 08:00 09/15/18 08:03 09/15/18 08:04 09/15/18 08:04 Intake & Output 09/14/18 09/15/18 09/16/18 06:59 06:59 06:59 Intake Total 1150 2732 99 Output Total 1595 285 Balance 1150 1137 -186 Weight 64 kg 69.8 kg General appearance: PRESENT: no acute distress, disheveled, thin, well- developed, well-nourished. ABSENT: cooperative Head exam: PRESENT: atraumatic, normocephalic Eye exam: PRESENT: conjunctiva pale. ABSENT: nystagmus Mouth exam: PRESENT: dry mucosa, neck supple, tongue midline, other - Endotracheal tube Neck exam: ABSENT: carotid bruit, JVD, lymphadenopathy, thyromegaly, tracheal deviation, tracheostomy Cardiovascular exam: PRESENT: RRR, +S1, +S2, tachycardia Pulses: PRESENT: normal radial pulses GI/Abdominal exam: PRESENT: soft. ABSENT: tenderness Gentrourinary exam: PRESENT: indwelling catheter Extremities exam: ABSENT: calf tenderness, clubbing, joint swelling, pedal edema Musculoskeletal exam: ABSENT: ambulatory, deformity, dislocation Neurological exam: ABSENT: awake Skin exam: PRESENT: dry, warm Results Laboratory Results: 09/15/18 03:49 09/15/18 03:49 09/14/18 09/15/18 09/15/18 14:30 03:49 03:49 WBC 4.1 RBC 3.35 L Hgb 10.6 L Hct 30.4 L MCV 91 MCH 31.5 MCHC 34.8 RDW 13.9 Plt Count 195 Seg Neutrophils % Not Reportable Lymphocytes % Not Reportable Monocytes % Not Reportable Eosinophils % Not Reportable Basophils % Not Reportable Absolute Neutrophils Not Reportable Absolute Lymphocytes Not Reportable Absolute Monocytes Not Reportable Absolute Eosinophils Not Reportable Absolute Basophils Not Reportable Carbonic Acid 1.26 HCO3/H2CO3 Ratio 21:1 ABG pH 7.44 ABG pCO2 41.8 ABG pO2 218.8 H ABG HCO3 27.6 H ABG O2 Saturation 99.5 H ABG Base Excess 3.1 FiO2 50% Sodium 138.7 Potassium 3.6 Chloride 106 Carbon Dioxide 25 Anion Gap 8 BUN 12 Creatinine 0.53 Est GFR ( Amer) > 60 Est GFR (Non-Af Amer) > 60 Glucose 150 H Calcium 7.9 L Phosphorus 3.7 Magnesium 2.5 H Total Bilirubin 0.4 AST 18 ALT 41 Alkaline Phosphatase 55 Total Protein 5.2 L Albumin 2.8 L 09/15/18 05:15 WBC RBC Hgb Hct MCV MCH MCHC RDW Plt Count Seg Neutrophils % Lymphocytes % Monocytes % Eosinophils % Basophils % Absolute Neutrophils Absolute Lymphocytes Absolute Monocytes Absolute Eosinophils Absolute Basophils Carbonic Acid 1.04 L HCO3/H2CO3 Ratio 24:1 ABG pH 7.48 H ABG pCO2 34.5 L ABG pO2 81.2 ABG HCO3 25.0 H ABG O2 Saturation 96.7 ABG Base Excess 1.7 FiO2 40% Sodium Potassium Chloride Carbon Dioxide Anion Gap BUN Creatinine Est GFR ( Amer) Est GFR (Non-Af Amer) Glucose Calcium Phosphorus Magnesium Total Bilirubin AST ALT Alkaline Phosphatase Total Protein Albumin 09/12/18 17:40 Sputum Gram Stain - Final 09/12/18 17:40 Sputum Sputum Culture - Final NORMAL SHER 09/12/18 07:08 Troponin I < 0.012 NT-Pro-B Natriuret Pep 937 H Impressions: KUB X-Ray 09/14/18 14:16 IMPRESSION: Enteric tube tip overlies gastric body. Assessment & Plan - Diagnosis (1) Acute respiratory failure with hypoxia Is this a current diagnosis for this admission?: Yes Plan: To ICU for intubation (2) Multifocal pneumonia Is this a current diagnosis for this admission?: Yes Plan: CXR (3) Severe sepsis Is this a current diagnosis for this admission?: Yes Plan: Abnormal chest x-ray, fever, tachycardia, leukocytosis - Time Total Critical Time (Minutes): 50
--- NOTE | 2018-10-12 14:03 | PDOC PROGRESS REPORT ---
Subjective Progress Note for:: 09/16/18 Subjective:: intuBated and sedated Reason For Visit: PNUEMONIA Physical Exam Vital Signs: Temp Pulse Resp BP Pulse Ox 98.4 F 84 22 H 144/90 H 94 09/16/18 10:00 09/16/18 10:00 09/16/18 10:00 09/16/18 10:00 09/16/18 10:00 Intake & Output 09/15/18 09/16/18 09/17/18 06:59 06:59 06:59 Intake Total 2732 1828 1469 Output Total 1595 2945 770 Balance 1137 -1117 699 Weight 69.8 kg 70.5 kg General appearance: PRESENT: no acute distress, disheveled, thin, well- developed, well-nourished Head exam: PRESENT: atraumatic, normocephalic Eye exam: PRESENT: conjunctiva pink, EOMI. ABSENT: nystagmus Mouth exam: PRESENT: dry mucosa, neck supple, tongue midline, other - ET tube Neck exam: ABSENT: carotid bruit, JVD, lymphadenopathy, thyromegaly, tracheal deviation, tracheostomy Respiratory exam: PRESENT: decreased breath sounds, prolonged expiratory phas, rhonchi, symmetrical, unlabored. ABSENT: retraction, stridor Cardiovascular exam: PRESENT: RRR, +S1, +S2 Pulses: PRESENT: normal radial pulses GI/Abdominal exam: PRESENT: soft. ABSENT: tenderness Gentrourinary exam: PRESENT: indwelling catheter Extremities exam: ABSENT: calf tenderness, clubbing, joint swelling, pedal edema Musculoskeletal exam: ABSENT: deformity, dislocation Neurological exam: PRESENT: awake Psychiatric exam: PRESENT: appropriate affect Skin exam: PRESENT: dry, warm Results Laboratory Results: 09/16/18 03:56 09/16/18 09:44 09/16/18 09/16/18 09/16/18 03:56 03:56 05:40 WBC 5.3 RBC 3.21 L Hgb 10.0 L Hct 29.1 L MCV 91 MCH 31.0 MCHC 34.3 RDW 13.8 Plt Count 203 Seg Neutrophils % Not Reportable Lymphocytes % Not Reportable Monocytes % Not Reportable Eosinophils % Not Reportable Basophils % Not Reportable Absolute Neutrophils Not Reportable Absolute Lymphocytes Not Reportable Absolute Monocytes Not Reportable Absolute Eosinophils Not Reportable Absolute Basophils Not Reportable Retic Count (auto) 1.36 Absolute Retic 0.044 Carbonic Acid 1.02 L HCO3/H2CO3 Ratio 24:1 ABG pH 7.48 H ABG pCO2 33.9 L ABG pO2 94.5 ABG HCO3 24.6 H ABG O2 Saturation 97.7 ABG Base Excess 1.4 FiO2 40% Sodium 137.4 Potassium 3.8 Chloride 107 Carbon Dioxide 25 Anion Gap 5 BUN 9 Creatinine 0.49 L Est GFR ( Amer) > 60 Est GFR (Non-Af Amer) > 60 Glucose 139 H Calcium 7.8 L Iron 46.8 TIBC 219 L % Saturation 21 Ferritin 52.20 Total Bilirubin 0.3 AST 11 L ALT 30 Alkaline Phosphatase 47 Total Protein 4.7 L Albumin 2.5 L Vitamin B12 512.0 Folate 4.46 09/16/18 09:44 WBC RBC Hgb Hct MCV MCH MCHC RDW Plt Count Seg Neutrophils % Lymphocytes % Monocytes % Eosinophils % Basophils % Absolute Neutrophils Absolute Lymphocytes Absolute Monocytes Absolute Eosinophils Absolute Basophils Retic Count (auto) Absolute Retic Carbonic Acid HCO3/H2CO3 Ratio ABG pH ABG pCO2 ABG pO2 ABG HCO3 ABG O2 Saturation ABG Base Excess FiO2 Sodium Potassium Chloride Carbon Dioxide Anion Gap BUN Creatinine 0.42 L Est GFR ( Amer) > 60 Est GFR (Non-Af Amer) > 60 Glucose Calcium Iron TIBC % Saturation Ferritin Total Bilirubin AST ALT Alkaline Phosphatase Total Protein Albumin Vitamin B12 Folate 09/12/18 07:08 Troponin I < 0.012 NT-Pro-B Natriuret Pep 937 H Impressions: KUB X-Ray 09/14/18 14:16 IMPRESSION: Enteric tube tip overlies gastric body. Chest X-Ray 09/16/18 06:00 IMPRESSION: No significant change. Assessment & Plan - Diagnosis (1) Acute respiratory failure with hypoxia Is this a current diagnosis for this admission?: Yes Plan: all parameters suggest successful extubation will proceed with extubation to BiPAP (2) Multifocal pneumonia Is this a current diagnosis for this admission?: Yes Plan: Improving (3) Severe sepsis Is this a current diagnosis for this admission?: Yes Plan: Resolving - Time Total Critical Time (Minutes): 55
--- NOTE | 2018-10-12 14:06 | PDOC PROGRESS REPORT ---
Subjective Progress Note for:: 09/17/18 Subjective:: 24 hrs s/p extubation stable Reason For Visit: PNUEMONIA Physical Exam Vital Signs: Temp Pulse Resp BP Pulse Ox 96.5 F L 67 16 116/71 97 09/17/18 08:24 09/17/18 08:36 09/17/18 08:36 09/17/18 07:15 09/17/18 08:36 Intake & Output 09/16/18 09/17/18 09/18/18 06:59 06:59 06:59 Intake Total 1828 4015 Output Total 2945 3270 Balance -1117 745 Weight 70.5 kg General appearance: PRESENT: no acute distress, cooperative, disheveled, thin, well-developed, well-nourished Head exam: PRESENT: atraumatic, normocephalic Eye exam: PRESENT: conjunctiva pale, EOMI Mouth exam: PRESENT: dry mucosa, neck supple, tongue midline Neck exam: ABSENT: carotid bruit, JVD, lymphadenopathy, thyromegaly, tracheal deviation, tracheostomy Respiratory exam: PRESENT: decreased breath sounds, prolonged expiratory phas, rhonchi, unlabored. ABSENT: retraction, stridor Cardiovascular exam: PRESENT: RRR, +S1, +S2 Pulses: PRESENT: normal radial pulses GI/Abdominal exam: PRESENT: soft. ABSENT: tenderness Gentrourinary exam: PRESENT: indwelling catheter Extremities exam: ABSENT: calf tenderness, clubbing, joint swelling, pedal edema Musculoskeletal exam: ABSENT: deformity, dislocation Neurological exam: PRESENT: alert, awake Psychiatric exam: PRESENT: appropriate affect Skin exam: PRESENT: dry, warm Results Laboratory Results: 09/17/18 03:42 09/17/18 03:42 09/16/18 09/16/18 09/17/18 09:44 13:50 03:42 WBC 7.5 RBC 3.45 L Hgb 10.5 L Hct 31.1 L MCV 90 MCH 30.5 MCHC 33.9 RDW 13.6 Plt Count 236 Seg Neutrophils % Not Reportable Lymphocytes % Not Reportable Monocytes % Not Reportable Eosinophils % Not Reportable Basophils % Not Reportable Absolute Neutrophils Not Reportable Absolute Lymphocytes Not Reportable Absolute Monocytes Not Reportable Absolute Eosinophils Not Reportable Absolute Basophils Not Reportable Carbonic Acid 1.09 HCO3/H2CO3 Ratio 23:1 ABG pH 7.47 H ABG pCO2 36.3 ABG pO2 105.2 H ABG HCO3 25.6 H ABG O2 Saturation 98.1 H ABG Base Excess 2.1 FiO2 35% Sodium Potassium Chloride Carbon Dioxide Anion Gap BUN Creatinine 0.42 L Est GFR ( Amer) > 60 Est GFR (Non-Af Amer) > 60 Glucose Calcium Magnesium Total Bilirubin AST ALT Alkaline Phosphatase Total Protein Albumin 09/17/18 03:42 WBC RBC Hgb Hct MCV MCH MCHC RDW Plt Count Seg Neutrophils % Lymphocytes % Monocytes % Eosinophils % Basophils % Absolute Neutrophils Absolute Lymphocytes Absolute Monocytes Absolute Eosinophils Absolute Basophils Carbonic Acid HCO3/H2CO3 Ratio ABG pH ABG pCO2 ABG pO2 ABG HCO3 ABG O2 Saturation ABG Base Excess FiO2 Sodium 138.3 Potassium 4.0 Chloride 106 Carbon Dioxide 25 Anion Gap 7 BUN 11 Creatinine 0.43 L Est GFR ( Amer) > 60 Est GFR (Non-Af Amer) > 60 Glucose 129 H Calcium 8.2 L Magnesium 2.4 H Total Bilirubin 0.5 AST 19 ALT 27 Alkaline Phosphatase 41 Total Protein 5.2 L Albumin 2.8 L 09/12/18 08:11 Blood Blood Culture - Final NO GROWTH IN 5 DAYS 09/12/18 07:40 Blood Blood Culture - Final NO GROWTH IN 5 DAYS 09/12/18 07:08 Troponin I < 0.012 NT-Pro-B Natriuret Pep 937 H Impressions: KUB X-Ray 09/14/18 14:16 IMPRESSION: Enteric tube tip overlies gastric body. Chest X-Ray 09/17/18 06:00 IMPRESSION: Persistent bibasilar pneumonia. Assessment & Plan - Diagnosis (1) Acute respiratory failure with hypoxia Is this a current diagnosis for this admission?: Yes Plan: 24 hours status post extubation doing well (2) Multifocal pneumonia Is this a current diagnosis for this admission?: Yes Plan: Radiographic improvement clinical improvement - Time Total Critical Time (Minutes): 40
--- NOTE | 2018-10-12 14:10 | PDOC PROGRESS REPORT ---
Subjective Progress Note for:: 09/19/18 Subjective:: stable Reason For Visit: PNUEMONIA Physical Exam Vital Signs: Temp Pulse Resp BP Pulse Ox 98.1 F 77 18 102/60 98 09/21/18 10:59 09/21/18 10:59 09/21/18 10:59 09/21/18 10:59 09/21/18 10:59 General appearance: PRESENT: no acute distress, cooperative, disheveled, thin, well-developed, well-nourished Head exam: PRESENT: atraumatic, normocephalic Eye exam: PRESENT: conjunctiva pale, EOMI. ABSENT: nystagmus Mouth exam: PRESENT: dry mucosa, neck supple, tongue midline Neck exam: ABSENT: carotid bruit, JVD, lymphadenopathy, thyromegaly, tracheal d eviation, tracheostomy Cardiovascular exam: PRESENT: RRR, +S1, +S2 Pulses: PRESENT: normal radial pulses GI/Abdominal exam: PRESENT: soft. ABSENT: tenderness Gentrourinary exam: PRESENT: indwelling catheter Musculoskeletal exam: ABSENT: deformity, dislocation Neurological exam: PRESENT: alert, awake Skin exam: PRESENT: dry, warm Results Laboratory Results: 09/20/18 04:59 09/20/18 04:59 09/12/18 07:08 Troponin I < 0.012 NT-Pro-B Natriuret Pep 937 H Impressions: KUB X-Ray 09/14/18 14:16 IMPRESSION: Enteric tube tip overlies gastric body. Chest X-Ray 09/20/18 06:00 IMPRESSION: Improving pneumonia. Assessment & Plan - Diagnosis (1) Acute respiratory failure with hypoxia Is this a current diagnosis for this admission?: Yes Plan: doing well (2) Multifocal pneumonia Is this a current diagnosis for this admission?: Yes Plan: Radiographic improvement clinical improvement
--- NOTE | 2018-10-12 14:15 | PDOC PROGRESS REPORT ---
Subjective Progress Note for:: 09/20/18 Subjective:: stable Reason For Visit: PNUEMONIA Physical Exam Vital Signs: Temp Pulse Resp BP Pulse Ox 98.1 F 77 18 102/60 98 09/21/18 10:59 09/21/18 10:59 09/21/18 10:59 09/21/18 10:59 09/21/18 10:59 General appearance: PRESENT: no acute distress, cooperative, thin, well- developed, well-nourished Head exam: PRESENT: atraumatic, normocephalic Eye exam: PRESENT: conjunctiva pale, EOMI. ABSENT: nystagmus Mouth exam: PRESENT: dry mucosa, neck supple, tongue midline Neck exam: ABSENT: carotid bruit, JVD, lymphadenopathy, thyromegaly, tracheal deviation, tracheostomy Respiratory exam: PRESENT: decreased breath sounds, prolonged expiratory phas, rhonchi, symmetrical, unlabored. ABSENT: retraction, stridor, tachypnea Cardiovascular exam: PRESENT: RRR, +S1, +S2 Pulses: PRESENT: normal radial pulses GI/Abdominal exam: PRESENT: soft. ABSENT: tenderness Extremities exam: ABSENT: calf tenderness, clubbing, joint swelling, pedal edema Musculoskeletal exam: ABSENT: deformity, dislocation Neurological exam: PRESENT: alert, awake Psychiatric exam: PRESENT: appropriate affect Skin exam: PRESENT: dry, warm Results Laboratory Results: 09/20/18 04:59 09/20/18 04:59 09/12/18 07:08 Troponin I < 0.012 NT-Pro-B Natriuret Pep 937 H Impressions: KUB X-Ray 09/14/18 14:16 IMPRESSION: Enteric tube tip overlies gastric body. Chest X-Ray 09/20/18 06:00 IMPRESSION: Improving pneumonia. Assessment & Plan - Diagnosis (1) Acute respiratory failure with hypoxia Is this a current diagnosis for this admission?: Yes Plan: reSolved (2) Multifocal pneumonia Is this a current diagnosis for this admission?: Yes Plan: Continues to improve
== END 2018-09-21 11:20 | disposition home or self-care (01) | DRG 871 ==
LOC: ER 06:55 → EH 09:11 → 3W 14:14 → ICU 09-14 14:15 → 3W 09-17 12:00
PROVIDERS: ADMIT Hospitalist; ATTEND Hospitalist
PROC: 5A1945Z Respiratory Ventilation, 24-96 Consecutive Hours (ICD-10-PCS; principal; 2018-09-14)
PROC: 0BH17EZ Insertion of Endotracheal Airway into Trachea, Via Natural or Artificial Opening (ICD-10-PCS; 2018-09-14)
DX: A41.9 Sepsis, unspecified organism (principal); J96.01 Acute respiratory failure with hypoxia; J69.0 Pneumonitis due to inhalation of food and vomit; J95.89 Other postprocedural complications and disorders of respiratory system, not elsewhere classified; E87.2 Acidosis; R65.20 Severe sepsis without septic shock; R00.0 Tachycardia, unspecified; D50.8 Other iron deficiency anemias; D70.3 Neutropenia due to infection; K21.9 Gastro-esophageal reflux disease without esophagitis; F41.8 Other specified anxiety disorders; Y83.8 Other surgical procedures as the cause of abnormal reaction of the patient, or of later complication, without mention of misadventure at the time of the procedure; Y73.0 Diagnostic and monitoring gastroenterology and urology devices associated with adverse incidents; Y92.538 Other ambulatory health services establishments as the place of occurrence of the external cause
CPT/HCPCS: 31500; 36415; 71045; 71046; 71275; 74018; 80048; 80053; 80202; 81001; 82565; 82607; 82728; 82746; 82803; 82962; 83540; 83550; 83605; 83735; 83880; 84100; 84484; 84703; 85025; 85045; 85610; 85652; 86038; 86701; 87040; 87070; 87101; 87205; 93005; 93010; 94002; 94003; 94660; 94667; 94668; 94799; 96365; 99285; J0330; J0456; J0692; J0743; J1170; J1650; J1885; J2060; J2250; J2270; J2405; J2543; J2704; J2920; J2930; J3370; J3490; J7030; J7040; J7050; J7060; J7120; J7620; S0119; S0164

== ENCOUNTER → 2018-12-17 | Outpatient (CLI) | payer MEDICAID ==
--- NOTE | 2018-12-17 13:15 | RADIOLOGY REPORT (SQ) ---
EXAM DESCRIPTION: CT CHEST WITHOUT COMPLETED DATE/TIME: 12/17/2018 11:03 am REASON FOR STUDY: BRONCHIECTASIS (J47.9) J47.9 BRONCHIECTASIS, UNCOMPLICATED COMPARISON: 09/12/2018 TECHNIQUE: CT scan performed of the chest without intravenous contrast. Images reviewed with lung, soft tissue and bone windows. Reconstructed coronal and sagittal MPR images reviewed. All images st ored on PACS. All CT scanners at this facility use dose modulation, iterative reconstruction, and/or weight based d osing when appropriate to reduce radiation dose to as low as reasonably achievable (ALARA). [facility]: Dose Right [facility]: CareDose [facility]: Dose Right [facility]: Teradose 4D [facility]: [employer] RADIATION DOSE: CT Rad equipment meets quality standard of care and radiation dose reduction techniq ues were employed. CTDIvol: 3.4 mGy. DLP: 129 mGy-cm. mGy. LIMITATIONS: No technical limitations. FINDINGS: LUNGS AND PLEURA: There appears to be limited bronchiectasis in the lingula. Cannot exclu de mild associated pneumonia. HILAR AND MEDIASTINAL STRUCTURES: No identified masses or abnormal nodes. No obvious aneurysm. HEART AND VASCULAR STRUCTURES: No aneurysm. No pericardial effusion. UPPER ABDOMEN: No significant findings. Limited exam. THYROID AND OTHER SOFT TISSUES: No masses. No adenopathy. BONES: No significant finding. HARDWARE: None in the chest. OTHER: No other significant findings. IMPRESSION: Limited lingular bronchiectasis. Cannot exclude mild associated airspace disease. TECHNICAL DOCUMENTATION: JOB ID: [id number] Quality ID # [id number]: Final reports with documentation of one or more dose reduction techniques (e.g., Au tomated exposure control, adjustment of the mA and/or kV according to patient size, use of iterative reconstruction technique) 2010 [employer]- All Rights Reserved Reading location - IP/workstation name: [email or web address]
== END ==
LOC: RAD 10:42
PROVIDERS: ATTEND Internal Medicine Critical Care Medicine
DX: J47.9 Bronchiectasis, uncomplicated (principal)
CPT/HCPCS: 71250

== ENCOUNTER 2019-05-01 10:57 | Emergency (ER) | payer MEDICAID ==
[2019-05-01 11:03] VITALS: BP 118/70
[2019-05-01] MEDS ORDERED: ACETAMINOPHEN 325 MG TABLET PO ONE (11:18)
--- NOTE | 2019-05-01 11:23 | ER Document Report ---
HPI - HPI Time Seen by Provider: 05/01/19 11:18 Pain Level: 4 Context: Patient is a 34-year-old female presents to the emergency department with a chief complaint of jaw pain. Patient reports she is 22 weeks and this morning around 2 AM she was driving back from [place] when she yawned and felt a pop to the left side of her jaw. Patient states it hurts to eat, talk or close her mouth after it has been opened. Patient states she did take Tylenol around 5 AM. Patient states she is able to move her jaw but this does cause discomfort. Patient denies any other injury such as a fall. - REPRODUCTIVE Reproductive: DENIES: : Past Medical History - General Information source: Patient - Social History Smoking Status: Unknown if Ever Smoked Frequency of alcohol use: None Drug Abuse: None Lives with: Spouse/Significant other Family History: COPD - Past Medical History Cardiac Medical History: Reports: None Denies: Hx Coronary Artery Disease, Hx Heart Attack, Hx Hypertension Pulmonary Medical History: Reports: None Denies: Hx Asthma, Hx Bronchitis, Hx COPD, Hx Pneumonia EENT Medical History: Reports: None Neurological Medical History: Reports: None. Denies: Hx Cerebrovascular Accident, Hx Migraine, Hx Seizures Endocrine Medical History: Reports: None. Denies: Hx Diabetes Mellitus Type 1, Hx Diabetes Mellitus Type 2, Hx Hypothyroidism Renal/ Medical History: Reports: None. Denies: Hx Peritoneal Dialysis Malignancy Medical History: Reports: None GI Medical History: Reports: Hx Gastroesophageal Reflux Disease Musculoskeletal Medical History: Reports None, Denies Hx Arthritis Skin Medical History: Reports None Psychiatric Medical History: Reports: Hx Anxiety, Hx Depression - anxiety Traumatic Medical History: Reports: None Infectious Medical History: Reports: None Past Surgical History: Reports: Hx Breast Surgery - lupectomy, Hx Orthopedic Surgery - carpal tunnel, Other - Breast lumpectomy - Immunizations Immunizations up to date: Yes Hx Diphtheria, Pertussis, Tetanus Vaccination: Yes Vertical Provider Document - CONSTITUTIONAL Agree With Documented VS: Yes Exam Limitations: No Limitations General Appearance: No Apparent Distress - INFECTION CONTROL TRAVEL OUTSIDE OF THE [place] IN LAST 30 DAYS: No - HEENT HEENT: Atraumatic, Normocephalic, PERRLA Notes: There is tenderness to palpation to the TMJ on left side. Very mild left facial edema when compared to the right. There does not appear to be any obvious dislocation. There is no crepitus palpated to the TMJ or left jaw, there is no clicking noted when the patient moves her jaw. - NECK Neck: Normal Inspection - RESPIRATORY Respiratory: Breath Sounds Normal, No Respiratory Distress - CARDIOVASCULAR Cardiovascular: Regular Rate, Regular Rhythm - GI/ABDOMEN Gastrointestinal: Abdomen Soft, Abdomen Non-Tender, Normal Bowel Sounds - NEURO Level of Consciousness: Awake, Alert, Appropriate - DERM Integumentary: Warm, Dry, No Rash Course - Re-evaluation Re-evalutation: 05/01/19 11:22 Patient is 22 weeks . I did speak with the x-ray as they will cover her with a lead it to perform the facial x-ray. Patient in agreement with receiving the x-ray at this time. We will give the patient a dose of Tylenol as her last dose was around 5 AM. I did inform the patient I am limited as what I can give her for discomfort as she is . Patient very understanding and okay with the Tylenol at this time. 05/01/19 12:37 X-ray was negative for any acute dislocation. Ideally the best imaging for this would be a CT. I did explain this to the patient that if she is continued to have pain after 7 to 10 days after conservative measures to please follow-up with her primary care physician. Patient did ask for Tylenol 3. I did inform her that due to I do not feel comfortable prescribing her medication with narcotics. I did inform the patient to use conservative measures as explained in the discharge instructions initially. - Vital Signs Vital signs: Temp Pulse Resp BP Pulse Ox 97.9 F 96 16 118/70 99 05/01/19 11:01 05/01/19 11:01 05/01/19 11:01 05/01/19 11:01 05/01/19 11:01 - Diagnostic Test Radiology reviewed: Reports reviewed Radiology results interpreted by me: 05/01/19 12:30 Facial Bones X-Ray 05/01/19 11:18 IMPRESSION: No obvious displaced fracture of the facial bones or mandible. The left TMJ appears to be in anatomic apposition. CT is more sensitive for the evaluation of suspected facial bone or mandibular fracture. Discharge - Discharge Clinical Impression: Jaw pain Condition: Stable Disposition: HOME, SELF-CARE Additional Instructions: Today you were seen in the emergency department for jaw pain. The radiology studies that were performed were negative. Due to the area where you are having pain this is called the temporomandibular joint (TMJ). This type of injury usually heals well. Please rest this joint. Stay on a diet which requires no chewing such as milkshake applesauce and puddings avoid any motion of the jaw that provokes pain. You can place ice packs to the jaw if this helps with your discomfort. Take Tylenol as needed for pain. If you continue to have pain please follow-up with your primary care physician as you may need further imaging. Temporomandibular Joint Injury You have an injury to your jaw joint, called the temporomandibular (TMJ) joint. This type of injury usually heals well, but further evaluation is often necessary. Occasionally, chronic symptoms can develop if the TMJ fails to heal well. The joint should be rested. Stay on a diet which requires no chewing -- such as milkshakes, applesauce, and puddings. Avoid any motion of the jaw which provokes pain. Periodic ice packs help decrease swelling and pain. If the physician is suspicious of a major hidden fracture, or if you fail to improve as expected, a specialized X-ray (Panorex) may be scheduled. You should follow up as instructed, and call the physician if you encounter any problems. Referrals: BERTA ESTRELLA PA-C [Primary Care Provider] - Follow up as needed
--- NOTE | 2019-05-01 12:18 | RADIOLOGY REPORT (SQ) ---
EXAM DESCRIPTION: FACIAL BONES COMPLETED DATE/TIME: 05/01/2019 12:04 pm REASON FOR STUDY: felt pop to left jaw, + jaw pain, 22 wks COMPARISON: None. NUMBER OF VIEWS: Three view. TECHNIQUE: Images of the facial bones acquired. LIMITATIONS: None. FINDINGS: ORBITS: No fracture. No foreign body. SINUSES: No mucosal thickening. No air fluid levels. FACIAL BONES: No fracture. OTHER: No other significant finding. IMPRESSION: No obvious displaced fracture of the facial bones or mandible. The left TMJ appears to be in anatomic apposition. CT is more sensitive for the evaluation of suspected facial bone or rosemarie bular fracture. TECHNICAL DOCUMENTATION: JOB ID: [id number] [employer]- All Rights Reserved Reading location - IP/workstation name: [email or web address]
== END 2019-05-01 12:46 | disposition home or self-care (01) ==
LOC: ER 10:57
DX: O26.892 Other specified pregnancy related conditions, second trimester (principal); R68.84 Jaw pain; R60.0 Localized edema; Z3A.22 22 weeks gestation of pregnancy
CPT/HCPCS: 70150; J3490; 99283

== ENCOUNTER 2019-06-20 07:57 | Outpatient (CLI) | payer MEDICAID ==
[2019-06-20 08:40] LABS: APPEARANCE,URINE SLIGHTLY-CLOUDY; BILIRUBIN,URINE NEGATIVE (NEGATIVE); COLOR,URINE YELLOW; GLUCOSE, URINE NEGATIVE (NEGATIVE); KETONES,URINE NEGATIVE (NEGATIVE); LEUKOCYTE ESTERASE,URINE NEGATIVE (NEGATIVE); NITRITE,URINE NEGATIVE (NEGATIVE); PROTEIN,URINE NEGATIVE (NEGATIVE); URINE SPECIFIC GRAVITY 1.005; UROBILINOGEN,URINE NEGATIVE mg/dL (<2.0)
[2019-06-20 08:56] LABS: URINE AMPHETAMINES SCREEN NEGATIVE; URINE BENZODIAZEPINES SCREEN NEGATIVE; URINE COCAINE SCREEN NEGATIVE; URINE METHADONE SCREEN NEGATIVE; URINE PHENCYCLIDINE SCREEN NEGATIVE
[2019-06-20 09:04] LABS: URINE BARBITURATES SCREEN UNCONFIRMED POSITIVE; URINE MARIJUANA (THC) SCREEN UNCONFIRMED POSITIVE
== END 2019-06-20 09:05 | disposition home or self-care (01) ==
LOC: LC 07:57
PROVIDERS: ATTEND Obstetrics & Gynecology Gynecology
PROC: 4A1HXCZ Monitoring of Products of Conception, Cardiac Rate, External Approach (ICD-10-PCS; principal; 2019-06-20)
DX: O36.8130 Decreased fetal movements, third trimester, not applicable or unspecified (principal); Z3A.29 29 weeks gestation of pregnancy
CPT/HCPCS: 59899; 81001; 80307; G0480 ×2; 80349

== ENCOUNTER → 2019-08-12 | Outpatient (CLI) | payer MEDICAID ==
--- NOTE | 2019-08-12 10:38 | Non Stress Test Report ---
Non Stress Test Datetime Report Generated by CPN: 08/12/2019 10:38 DEMOGRAPHIC EGA NST: 37.1 VITAL SIGNS Temperature - NST: 98.7 Pulse - NST: 85 RESP - NST: 16 NBPSYS NST: 118 NBPDIA NST: 66 MONITORING Monitor Explained: Monitor Explained; Test Explained; Patient Verbalized Understanding Time on Monitor: 08/12/2019 10:06 Time off Monitor: 08/12/2019 10:36 NST Duration: 30 NST INTERVENTIONS NST Interventions: PO Hydration Physician Notified NST: J. Mejias, CNM BABY A: [id number] BABY A Movement : Present Contraction Frequency : Occasional FHR Baseline : 135 Accelerations : 15X15 Decelerations : None Variability : Moderate 6-25bpm NST Review: Meets Criteria for Reactive NST NST Review and Verified By : Balwinder Lombardo RN NST Results: Reactive NST REPORT Report Trigger: Send Report
== END ==
LOC: LC 09:54
PROVIDERS: ATTEND Obstetrics & Gynecology Gynecology
PROC: 4A1HXCZ Monitoring of Products of Conception, Cardiac Rate, External Approach (ICD-10-PCS; principal; 2019-08-12)
DX: Z34.93 Encounter for supervision of normal pregnancy, unspecified, third trimester (principal); Z3A.37 37 weeks gestation of pregnancy
CPT/HCPCS: 59025

== ENCOUNTER 2019-08-28 06:20 | Inpatient (IN) | payer MEDICAID ==
[2019-08-27 10:38] LABS: APPEARANCE,URINE SLIGHTLY-CLOUDY; BILIRUBIN,URINE NEGATIVE (NEGATIVE); COLOR,URINE STRAW; GLUCOSE, URINE NEGATIVE (NEGATIVE); KETONES,URINE NEGATIVE (NEGATIVE); LEUKOCYTE ESTERASE,URINE NEGATIVE (NEGATIVE); NITRITE,URINE NEGATIVE (NEGATIVE); PROTEIN,URINE NEGATIVE (NEGATIVE); URINE SPECIFIC GRAVITY 1.006; UROBILINOGEN,URINE NEGATIVE mg/dL (<2.0)
[2019-08-27 11:05] LABS: ABSOLUTE EOSINOPHILS # (AUTO) 0.1 10^3/uL (0.0-0.6); ABSOLUTE MONOCYTES (AUTO) 0.4 10^3/uL (0.1-1.4); ABSOLUTE NEUT (AUTO) 5.2 10^3/uL (1.7-8.2); BASOPHILS % (AUTO) 0.3 % (0-2); EOSINOPHILS % (AUTO) 1.2 % (0-6); HEMATOCRIT 35.7 % (36.0-47.0); HEMOGLOBIN 12.5 g/dL (12.0-15.5); LYMPHOCYTES % (AUTO) 26.1 % (13-45); MEAN CORPUSCULAR HEMOGLOBIN 31.7 pg (27.0-33.4); MEAN CORPUSCULAR HGB CONC 34.9 g/dL (32.0-36.0); MEAN CORPUSCULAR VOLUME 91 fl (80-97); MONOCYTES % (AUTO) 5.3 % (3-13); PLATELET COUNT 220 10^3/uL (150-450); RED BLOOD COUNT 3.93 10^6/uL (3.72-5.28); RED CELL DISTRIBUTION WIDTH 14.4 % (11.5-14.0); SEGMENTED NEUTROPHILS % (AUTO) 67.1 % (42-78); TOTAL CELLS COUNTED % (AUTO) 100 %; WHITE BLOOD COUNT 7.8 10^3/uL (4.0-10.5)
[2019-08-27 11:18] LABS: URINE AMPHETAMINES SCREEN NEGATIVE; URINE BENZODIAZEPINES SCREEN NEGATIVE; URINE COCAINE SCREEN NEGATIVE; URINE MARIJUANA (THC) SCREEN NEGATIVE; URINE METHADONE SCREEN NEGATIVE; URINE PHENCYCLIDINE SCREEN NEGATIVE
[2019-08-27 11:51] LABS: URINE BARBITURATES SCREEN UNCONFIRMED POSITIVE
[~2019-08-28 06:20] MED LIST changes: -CEFAZOLIN 2 GM/D5W RTU 2 GM/50 ML RTUPB IV PRN; +CEFAZOLIN SODIUM 2 GM in DEXTROSE 5%-WATER 100 ML IV PRN; +RINGERS SOLUTION,LACTATED 1,500 ML IV PRN
[2019-08-28] MEDS ORDERED: OXYTOCIN 10 UNIT/ML VIAL ONE (08:25)
[2019-08-28] MEDS ORDERED: OXYTOCIN/NORMAL SALINE 20 UNIT/1,000 ML RTUINJ ONE (08:25)
[2019-08-28] MEDS ORDERED: PHENYLEPHRINE HCL INJ/PF 10 MG/1 ML SDV ONE (08:25)
[2019-08-28] MEDS ORDERED: ONDANSETRON HCL INJ/PF 4 MG/2 ML SDV ONE (08:25)
[2019-08-28] MEDS ORDERED: MIDAZOLAM 2 MG/2 ML INJ ONE (08:25)
[2019-08-28] MEDS ORDERED: FENTANYL CITRATE INJ/PF 100 MCG/2 ML AMPUL ONE (08:25)
[2019-08-28] MEDS ORDERED: CITRIC ACID/SODIUM CITRATE ORAL SOLN 15 ML UDCUP ONE (08:47)
[2019-08-28] MEDS ORDERED: FENTANYL CITRATE INJ/PF 100 MCG/2 ML AMPUL IV PRN ×3 (09:21)
[2019-08-28] MEDS ORDERED: MORPHINE SULFATE 10 MG/ML INJ IV PRN (09:21)
[2019-08-28] MEDS ORDERED: MEPERIDINE HCL/PF INJ 25 MG/1 ML DISP.SYRIN IV PRN (09:21)
[2019-08-28] MEDS ORDERED: DIPHENHYDRAMINE HCL 50 MG/ML VIAL IV PRN (09:21)
[2019-08-28] MEDS ORDERED: PROMETHAZINE HCL INJ 25 MG/1 ML VIAL IV PRN ×2 (09:21→09:59)
[2019-08-28] MEDS ORDERED: ACETAMINOPHEN 325 MG TABLET PO PRN (09:59)
[2019-08-28] MEDS ORDERED: DIPH/PERTUSS(ACELL)/TETANUS VAC/PF 0.5 ML SYR (>=10YO) IM PRN (09:59)
[2019-08-28] MEDS ORDERED: SIMETHICONE 80 MG TAB.CHEW PO PRN (09:59)
[2019-08-28] MEDS ORDERED: OXYTOCIN/NORMAL SALINE 20 UNIT/1,000 ML RTUINJ IV PRN (09:59)
[2019-08-28] MEDS ORDERED: MEASLES,MUMPS&RUBELLA VACC/PF 0.5 ML VIAL SUBCUT PRN (09:59)
[2019-08-28] MEDS ORDERED: OXYCODONE-ACETAMINOPHEN 5-325 MG TABLET PO PRN (09:59)
[2019-08-28] MEDS ORDERED: EPHEDRINE SULFATE INJ 50 MG/1 ML AMPULE ONE (10:04)
[2019-08-28] MEDS ORDERED: MEPERIDINE HCL/PF INJ 25 MG/1 ML DISP.SYRIN ONE (10:14)
[2019-08-28] MEDS: FENTANYL CITRATE INJ/PF 100 MCG/2 ML AMPUL ONE ×3 (11:09→11:25)
[2019-08-28] MEDS: PRENATAL VITAMIN W DHA CAPSULE PO SCH (11:44)
[2019-08-28] MEDS: DOCUSATE SODIUM 100 MG CAPSULE PO SCH ×2 (11:44→17:49)
[2019-08-28] MEDS: OXYCODONE-ACETAMINOPHEN 5-325 MG TABLET PO PRN ×3 (12:15→22:00)
--- NOTE | 2019-08-28 13:24 | Operative Report ---
Operative Report DATE OF SURGERY: 08/28/19 PREOPERATIVE DIAGNOSIS: Intrauterine at 39+ weeks. History of should er dystocia x2, desires delivery to avoid recurrence. Unwanted fertility POSTOPERATIVE DIAGNOSIS: Intrauterine at 39+ weeks. History of shoulder dystocia x2, desires delivery to avoid recurrence. Unwanted fertility OPERATION: Primary section. Bilateral tubal ligation SURGEON: BABATUNDE VILLARREAL ANESTHESIA: Spinal TISSUE REMOVED OR ALTERED: Placenta COMPLICATIONS: None ESTIMATED BLOOD LOSS: 700 INTRAOPERATIVE FINDINGS: Normal appearing uterus, bilateral fallopian tubes and ovaries. Clear fluid noted. Placenta grossly normal. Viable female . PROCEDURE: IV fluids: per anesthesia record Urinary output: 300 cc Position: To recovery room in stable condition Description of procedure: The patient was taken to the operating room and spinal anesthesia was administered and found to be adequate. She was then placed on the OR table in the supine position with a slight leftward tilt. Patient was prepped and draped in usual sterile fashion. Ancef 2 gms was given IV prior to the procedure for infection prophylaxis. Timeout was taken. A Pfannenstiel skin incision was then made approximately 3 cm above the pubic symphysis and carried down to level the rectus fascia. The rectus fascia was then nicked in the midline with a scalpel and the fascial incision was extended laterally with use of curved Woodward scissors. The rectus fascia was then grasped with 2 Kocker clamps elevated and the underlying rectus muscle was dissected off both bluntly and sharply. Any bleeding controlled with cautery. The rectus muscles were then split in the midline and the peritoneum was entered. The peritoneal incision was then extended by manually stretching the peritoneum. The bladder blade was positioned. Bladder flap created and bladder blade replaced. The bladder was noted to be out of harm's way. A scalpel was then used in the lower uterine for the hysterotomy, slowly until amniotomy was obtained a large amount of fluid was noted. The uterine incision was then manually stretched. The infant was noted to be in vertex postion but engaged in the pelvis. The head was delivered with minmal difficulty. The shoulders and the rest of the body followed immediately. The cord was cut clamped and the was handed off to the nurse awaiting. was crying prior to hand off. The placenta was manually delivered. Using a lap gauze the uterus was cleared of all clots and debris. The uterus was then exteriorized and a bladder blade was repositioned. The uterine incision was then closed with 0 Chromic suture in a running locked fashion. A second layer of the same suture was used in a running locked imbricated fashion. The uterine incision was inspected and noted to be hemostatic. Retractor was removed. The posterior aspect of the uterus was then inspected and anatomy was seen as above. The right fallopian tube was identified and traced to the fimbriated end. A filshie clip was placed approximately 2 cm from the uterine cornu. Clip surrounded the tube in its entirety. Blanching noted and hemostasis. The left fallopian tube was identified and traced to the fimbriated end. A filshie clip was placed approximately 2 cm from the uterine cornu. Clip surrounded the tube in its entirety. Blanching noted and hemostasis. The uterus was returned to its normal anatomic position within the abdominal cavity. Warm saline irrigation was used to clear all clots and debris from the abdomen. The uterine incision was inspected once more and noted to remain hemostatic. The bladder blade was removed and the peritoneum was closed with 2-0 chromic in a running fashion. The rectus muscles were then reapproximated and the rectus fascia was closed with a #1 PDS in a running fashion. The subcutaneous tissue was then inspected and any bleeding was controlled with Bovie electrocautery. The subcutaneous tissue was then closed with 2-0 Plain Gut suture in a running fashion. The skin was then closed with 3-0 Monocryl in a running subcuticular fashion. The skin incision was then clean dried and Dermabond was applied over the skin incision. All instrument sponge and needle counts were correct x3 for the procedure the patient tolerated the procedure well. She will proceed to recovery room in stable condition
[2019-08-28] MEDS: HYDROMORPHONE HCL INJ/PF 2 MG/ML AMPULE IV PRN ×2 (13:48→17:49)
[2019-08-28] MEDS: VALACYCLOVIR HCL 500 MG TABLET PO SCH ×2 (13:48→22:03)
[2019-08-28] MEDS: IBUPROFEN 800 MG TABLET PO SCH (22:01)
[2019-08-28] MEDS: PANTOPRAZOLE SODIUM 40 MG TABLET.DR PO SCH (22:03)
[2019-08-29] MEDS: HYDROMORPHONE HCL INJ/PF 2 MG/ML AMPULE IV PRN ×3 (00:59→15:15)
[2019-08-29] MEDS: OXYCODONE-ACETAMINOPHEN 5-325 MG TABLET PO PRN ×5 (03:13→23:31)
[2019-08-29] MEDS: IBUPROFEN 800 MG TABLET PO SCH ×3 (06:39→22:17)
[2019-08-29 07:16] LABS: HEMATOCRIT 31.2 % (36.0-47.0); HEMOGLOBIN 10.7 g/dL (12.0-15.5); MEAN CORPUSCULAR HEMOGLOBIN 31.3 pg (27.0-33.4); MEAN CORPUSCULAR HGB CONC 34.3 g/dL (32.0-36.0); MEAN CORPUSCULAR VOLUME 91 fl (80-97); PLATELET COUNT 202 10^3/uL (150-450); RED BLOOD COUNT 3.42 10^6/uL (3.72-5.28); RED CELL DISTRIBUTION WIDTH 14.8 % (11.5-14.0); WHITE BLOOD COUNT 6.9 10^3/uL (4.0-10.5)
[2019-08-29] MEDS: VALACYCLOVIR HCL 500 MG TABLET PO SCH ×2 (09:36→22:17)
[2019-08-29] MEDS: PANTOPRAZOLE SODIUM 40 MG TABLET.DR PO SCH (09:36)
[2019-08-29] MEDS: PRENATAL VITAMIN W DHA CAPSULE PO SCH (09:36)
[2019-08-29] MEDS: DOCUSATE SODIUM 100 MG CAPSULE PO SCH ×2 (09:37→18:04)
--- NOTE | 2019-08-29 09:54 | PDOC PROGRESS REPORT ---
Subjective-OB Progress Note for:: 08/29/19 Subjective: sitting up eating bkf, feels good, no c/o ambulating, bottle feeding Physical Exam (OB) Vital Signs: Temp Pulse Resp BP Pulse Ox 97.7 F 79 14 114/69 96 08/29/19 07:29 08/29/19 07:29 08/29/19 07:29 08/29/19 07:29 08/29/19 07:29 Intake & Output 08/28/19 08/29/19 08/30/19 06:59 06:59 06:59 Intake Total 2740 Output Total 3861 Balance -1121 Weight 80.29 kg - PIH/Pre-Eclampsia Clonus: Negative Headache: Absent Epigastric Pain: No Visual Changes: No - Dressing Removed: No Incision: Open, Well Approximated Closure Type: Surgical Glue - Lochia Lochia Amount: Scant < 10 ml Lochia Color: Rubra/Red - Abdomen Description: Tender, Soft Hernia Present: No Fundal Description: Firm, Midline Fundal Height: u/u - u/2 Objective-Diagnostic Laboratory: 08/29/19 07:06 08/29/19 07:06 WBC 6.9 RBC 3.42 L Hgb 10.7 L Hct 31.2 L MCV 91 MCH 31.3 MCHC 34.3 RDW 14.8 H Plt Count 202 Assessment and Plan(PN) - Assessment and Plan (1) Anxiety and depression Is this a current diagnosis for this admission?: Yes (2) Delivery normal Is this a current diagnosis for this admission?: Yes (3) Other iron deficiency anemias Is this a current diagnosis for this admission?: Yes - Time Spent with Patient Time with patient: Less than 15 minutes Medications reviewed and adjusted accordingly: Yes - Disposition Anticipated Discharge: Home Within: within 24 hours
[2019-08-29] MEDS: HYDROXYZINE PAMOATE 50 MG CAPSULE PO PRN (13:37)
[2019-08-30] MEDS: HYDROXYZINE PAMOATE 50 MG CAPSULE PO PRN (01:20)
[2019-08-30] MEDS: OXYCODONE-ACETAMINOPHEN 5-325 MG TABLET PO PRN ×3 (05:08→13:30)
[2019-08-30] MEDS: IBUPROFEN 800 MG TABLET PO SCH ×2 (05:08→13:31)
[2019-08-30] MEDS: DOCUSATE SODIUM 100 MG CAPSULE PO SCH (09:34)
[2019-08-30] MEDS: PANTOPRAZOLE SODIUM 40 MG TABLET.DR PO SCH (09:34)
[2019-08-30] MEDS: VALACYCLOVIR HCL 500 MG TABLET PO SCH (09:35)
[2019-08-30] MEDS: PRENATAL VITAMIN W DHA CAPSULE PO SCH (10:05)
--- NOTE | 2019-08-30 11:30 | PDOC DISCHARGE SUMMARY ---
Impression - Admit/DC Date/PCP Admission Date/Primary Care Provider: 08/28/19 06:20 BERTA ESTRELLA PA-C Discharge Date: 08/30/19 - POD #2, doing well, desires to go home today. O+ Rubella Immune, bottle feeding - Discharge Diagnosis (1) S/P repeat low transverse Is this a current diagnosis for this admission?: Yes (2) 39 weeks gestation of Is this a current diagnosis for this admission?: Yes (3) Unwanted fertility Is this a current diagnosis for this admission?: Yes (4) Tubal ligation status Is this a current diagnosis for this admission?: Yes - Additional Information Resuscitation Status: Full Code Discharge Diet: As Tolerated, Regular Discharge Activity: Activity As Tolerated, No Driving, No Lifting Over 10 Pounds, Pelvic Rest Referrals: BERTA ESTRELLA PA-C [Primary Care Provider] - Prescriptions: Ibuprofen [Motrin 800 mg Tablet] 800 mg PO Q8 #60 tablet Oxycodone HCl/Acetaminophen [Percocet 5-325 mg Tablet] 2 tab PO Q4HP PRN #30 tablet PRN Reason: Pain Scale Of 4 Home Medications: Glyburide 1.25 mg PO QHS 06/20/19 No122/Iron/Folic Acid [ Multi Tablet] 1 each PO DAILY 06/20/19 Ibuprofen [Motrin 800 mg Tablet] 800 mg PO Q8 #60 tablet 08/30/19 Oxycodone HCl/Acetaminophen [Percocet 5-325 mg Tablet] 2 tab PO Q4HP PRN #30 tablet 08/30/19 HPI Reason(s) for Admission: Ceasarean Section-Repeat, Tubal Ligation Procedures: NST, Ultrasound Intrapartum Procedure(s): : Low Cervical, Transverse Hospital Course Hospital Course: routine Results Laboratory Results: WBC 6.9 10^3/uL (4.0-10.5) 08/29/19 07:06 RBC 3.42 10^6/uL (3.72-5.28) L 08/29/19 07:06 Hgb 10.7 g/dL (12.0-15.5) L 08/29/19 07:06 Hct 31.2 % (36.0-47.0) L 08/29/19 07:06 MCV 91 fl (80-97) 08/29/19 07:06 MCH 31.3 pg (27.0-33.4) 08/29/19 07:06 MCHC 34.3 g/dL (32.0-36.0) 08/29/19 07:06 RDW 14.8 % (11.5-14.0) H 08/29/19 07:06 Plt Count 202 10^3/uL (150-450) 08/29/19 07:06 Lymph % (Auto) 26.1 % (13-45) 08/27/19 10:17 Graves % (Auto) 5.3 % (3-13) 08/27/19 10:17 Eos % (Auto) 1.2 % (0-6) 08/27/19 10:17 Baso % (Auto) 0.3 % (0-2) 08/27/19 10:17 Absolute Neuts (auto) 5.2 10^3/uL (1.7-8.2) 08/27/19 10:17 Absolute Lymphs (auto) 2.0 10^3/uL (0.5-4.7) 08/27/19 10:17 Absolute Monos (auto) 0.4 10^3/uL (0.1-1.4) 08/27/19 10:17 Absolute Eos (auto) 0.1 10^3/uL (0.0-0.6) 08/27/19 10:17 Absolute Basos (auto) 0.0 10^3/uL (0.0-0.2) 08/27/19 10:17 Seg Neutrophils % 67.1 % (42-78) 08/27/19 10:17 POC Glucose 83 mg/dL (70-110) 08/28/19 07:46 Urine Color STRAW 08/27/19 09:50 Urine Appearance SLIGHTLY-CLOUDY 08/27/19 09:50 Urine pH 8.0 (5.0-9.0) 08/27/19 09:50 Ur Specific [place] 1.006 08/27/19 09:50 Urine Protein NEGATIVE mg/dL (NEGATIVE) 08/27/19 09:50 Urine Glucose (UA) NEGATIVE mg/dL (NEGATIVE) 08/27/19 09:50 Urine Ketones NEGATIVE mg/dL (NEGATIVE) 08/27/19 09:50 Urine Blood NEGATIVE (NEGATIVE) 08/27/19 09:50 Urine Nitrite NEGATIVE (NEGATIVE) 08/27/19 09:50 Urine Bilirubin NEGATIVE (NEGATIVE) 08/27/19 09:50 Urine Urobilinogen NEGATIVE mg/dL (<2.0) 08/27/19 09:50 Ur Leukocyte Esterase NEGATIVE (NEGATIVE) 08/27/19 09:50 Urine WBC (Auto) 0 /HPF 08/27/19 09:50 Urine RBC (Auto) 1 /HPF 08/27/19 09:50 Urine Bacteria (Auto) TRACE /HPF 08/27/19 09:50 Squamous Epi Cells Auto 6 /HPF 08/27/19 09:50 Urine Mucus (Auto) RARE /LPF 08/27/19 09:50 Urine Ascorbic Acid NEGATIVE (NEGATIVE) 08/27/19 09:50 Urine Opiates Screen NEGATIVE 08/27/19 09:50 Urine Methadone Screen NEGATIVE 08/27/19 09:50 Ur Barbiturates Screen UNCONFIRMED POSITIVE 08/27/19 09:50 Ur Phencyclidine Scrn NEGATIVE 08/27/19 09:50 Ur Amphetamines Screen NEGATIVE 08/27/19 09:50 U Benzodiazepines Scrn NEGATIVE 08/27/19 09:50 Urine Cocaine Screen NEGATIVE 08/27/19 09:50 U Marijuana (THC) Screen NEGATIVE 08/27/19 09:50 Blood Type O POSITIVE 08/27/19 10:17 Antibody Screen NEGATIVE 08/27/19 10:17 Plan Health Concerns: Continue w/ Post Op care at home, watch for SOB, fever Plan of Treatment: d/c to home, f/u with [facility] in one week
[2019-08-30 11:45] VITALS: BP 129/83
== END 2019-08-30 17:20 | disposition home or self-care (01) | DRG 784 ==
LOC: 2S 06:20
PROVIDERS: ADMIT Obstetrics & Gynecology; ATTEND Obstetrics & Gynecology
PROC: 0UL70CZ Occlusion of Bilateral Fallopian Tubes with Extraluminal Device, Open Approach (ICD-10-PCS; 2019-08-28)
PROC: 10D00Z1 Extraction of Products of Conception, Low, Open Approach (ICD-10-PCS; principal; 2019-08-28 09:00)
DX: O24.425 Gestational diabetes mellitus in childbirth, controlled by oral hypoglycemic drugs (principal); Z30.2 Encounter for sterilization; O98.32 Other infections with a predominantly sexual mode of transmission complicating childbirth; A60.04 Herpesviral vulvovaginitis; K21.9 Gastro-esophageal reflux disease without esophagitis; O99.613 Diseases of the digestive system complicating pregnancy, third trimester; O99.344 Other mental disorders complicating childbirth; F32.9 Major depressive disorder, single episode, unspecified; F41.9 Anxiety disorder, unspecified; Z28.20 Immunization not carried out because of patient decision for unspecified reason; Z3A.39 39 weeks gestation of pregnancy; Z37.0 Single live birth; Z79.899 Other long term (current) drug therapy
CPT/HCPCS: 1961; 36415; 59025; 80307; 81001; 82962; 85025; 85027; 86235; 86695; 86696; 86850; 86900; 86901; 94799; J0690; J1170; J2175; J2250; J2370; J2405; J2550; J2590; J3010; J3490; J7060

== ENCOUNTER 2019-12-04 10:01 | Day surgery (SDC) | payer MEDICAID ==
[2019-12-04] MEDS ORDERED: FENTANYL CITRATE INJ/PF 100 MCG/2 ML AMPUL ONE ×2 (10:03→12:09)
[2019-12-04] MEDS ORDERED: KETAMINE HCL INJ 500 MG/10 ML VIAL ONE (10:03)
[2019-12-04] MEDS ORDERED: MIDAZOLAM 2 MG/2 ML INJ ONE (10:03)
[2019-12-04] MEDS ORDERED: PROPOFOL INJ 200 MG/20 ML VIAL IV ONE (10:04)
[2019-12-04] MEDS ORDERED: ONDANSETRON HCL INJ/PF 4 MG/2 ML SDV ONE (10:04)
[2019-12-04 10:26] LABS: APPEARANCE,URINE CLOUDY; BILIRUBIN,URINE NEGATIVE (NEGATIVE); COLOR,URINE YELLOW; GLUCOSE, URINE NEGATIVE (NEGATIVE); KETONES,URINE TRACE mg/dL (NEGATIVE); LEUKOCYTE ESTERASE,URINE NEGATIVE (NEGATIVE); NITRITE,URINE NEGATIVE (NEGATIVE); PROTEIN,URINE 30 mg/dL (NEGATIVE); URINE SPECIFIC GRAVITY 1.024; UROBILINOGEN,URINE NEGATIVE mg/dL (<2.0)
[2019-12-04 10:46] LABS: HEMATOCRIT 40.9 % (36.0-47.0); HEMOGLOBIN 14.1 g/dL (12.0-15.5); MEAN CORPUSCULAR HEMOGLOBIN 30.9 pg (27.0-33.4); MEAN CORPUSCULAR HGB CONC 34.4 g/dL (32.0-36.0); MEAN CORPUSCULAR VOLUME 90 fl (80-97); PLATELET COUNT 234 10^3/uL (150-450); RED BLOOD COUNT 4.56 10^6/uL (3.72-5.28); RED CELL DISTRIBUTION WIDTH 14.3 % (11.5-14.0)
[2019-12-04] MEDS ORDERED: ALBUTEROL SULFATE 0.083% NEB 2.5 MG/3 ML AMPUL NEB ONE (10:47)
[2019-12-04] MEDS ORDERED: FAMOTIDINE INJ/PF 20 MG/2 ML SDV IV ONE (10:47)
[2019-12-04] MEDS ORDERED: LIDOCAINE 1%/EPINEPHRINE INJ 20 ML VIAL ONE (10:47)
[2019-12-04] MEDS ORDERED: METOCLOPRAMIDE HCL INJ/PF 10 MG/2 ML SDV ONE (10:47)
[2019-12-04] MEDS ORDERED: MEPERIDINE HCL/PF INJ 25 MG/1 ML DISP.SYRIN IV PRN (11:07)
[2019-12-04] MEDS ORDERED: MORPHINE SULFATE 10 MG/ML INJ IV PRN (11:07)
[2019-12-04] MEDS ORDERED: FENTANYL CITRATE INJ/PF 100 MCG/2 ML AMPUL IV PRN ×3 (11:07)
[2019-12-04] MEDS ORDERED: PROMETHAZINE HCL INJ 25 MG/1 ML VIAL IV PRN (11:07)
[2019-12-04] MEDS ORDERED: DIPHENHYDRAMINE HCL 50 MG/ML VIAL IV PRN (11:07)
[2019-12-04] MEDS ORDERED: ACETAMINOPHEN 1,000 MG/100 ML RTUPB IV ONE (11:47)
[2019-12-04] MEDS ORDERED: HYDROMORPHONE HCL INJ/PF 2 MG/ML AMPULE IV PRN (12:09)
[2019-12-04] MEDS ORDERED: RINGERS SOLUTION,LACTATED 1,000 ML IV PRN (12:09)
[2019-12-04] MEDS ORDERED: IBUPROFEN 800 MG TABLET PO PRN (12:10)
[2019-12-04] MEDS ORDERED: OXYCODONE-ACETAMINOPHEN 5-325 MG TABLET PO PRN ×2 (12:10)
[2019-12-04] MEDS ORDERED: ONDANSETRON HCL INJ/PF 4 MG/2 ML SDV IV PRN (12:28)
[2019-12-04] MEDS ORDERED: OXYCODONE-ACETAMINOPHEN 5-325 MG TABLET ONE (13:01)
[2019-12-04 14:05] VITALS: BP 118/64
--- NOTE | 2019-12-06 09:12 | Operative Report ---
Operative Report DATE OF SURGERY: 12/04/19 ANESTHESIA: LMAC PROCEDURE: Anesthesia: [] Anesthesia: LMAC EBL: less than 10ml IVF: [] UOP: void prior to OR Specimens: [] Complications: None Findings:[] Indications: [] Procedure: The patient was taken to the Operating Room where general anesthesia was obtained without difficulty. She was prepped and draped in the normal sterile fashion in the dorsal lithotomy position. Exam under anesthesia was performed and noted above. A speculum was placed in the vagina. The anterior cervix was grasped with a single-tooth tenaculum and the uterus sounded to 8 cm after paracervical block was performed with 8 mL of 1% lidocaine with epinephrine. Sequential dilators were then used to dilate the cervix to accommodate the Myosure hysteroscope. The hysteroscope was then gently advanced into the uterine cavity in the usual fashion with visualization of the endometrial polyp as noted above. The Myosure device was then advanced through the hysteroscope and used to easily remove the endometrial polyp noted within intrauterine cavity. The Myosure device was then removed and the hysteroscope removed. At this time gentle curettage was performed until a gritty texture was noted. All instruments were removed from the patient's cervix and vagina. Silver nitrate was applied to the tenaculum site for hemostasis. Sponge lap needle and instrument counts are correct 2. No perioperative antibiotics were given as is not indicated for this procedure. The patient tolerated the procedure well and was taken to the recovery area awake and in stable condition.
== END 2019-12-04 13:55 | disposition home or self-care (01) ==
LOC: OROUT 10:01
PROVIDERS: ATTEND Student in an Organized Health Care Education/Training Program
DX: N93.8 Other specified abnormal uterine and vaginal bleeding (principal); J45.909 Unspecified asthma, uncomplicated; D64.9 Anemia, unspecified; F17.210 Nicotine dependence, cigarettes, uncomplicated; M79.7 Fibromyalgia; Z79.899 Other long term (current) drug therapy
CPT/HCPCS: 58563; 36415; 85027; 81025; 81001; 88305 ×2; 00952; J2250; J3010; J3490 ×2; J2765; J2405; J2704; S0028; J0131; 952

== ENCOUNTER 2019-12-10 15:50 | Emergency (ER) | payer MEDICAID ==
[2019-12-10] MEDS ORDERED: NORMAL SALINE 1000 ML 1,000 ML IV ONE (15:55)
[2019-12-10] MEDS ORDERED: ONDANSETRON HCL INJ/PF 4 MG/2 ML SDV IV ONE (15:55)
--- NOTE | 2019-12-10 15:57 | ER Document Report ---
ED Medical Screen (RME) - General Stated Complaint: ABDOMINAL PAIN/VOMITING Time Seen by Provider: 12/10/19 15:52 Primary Care Provider: BERTA ESTRELLA PA-C [Primary Care Provider] - Follow up as needed Mode of Arrival: Wheelchair Information source: Patient Notes: Otherwise healthy 34-year-old female presents the emergency department chief complaint of abdominal pain with nausea and vomiting. Patient reports that she had a D&C done last week and was feeling fine until this afternoon when she took a dose of doxycycline. She reports shortly after taking the doxycycline she started developing severe abdominal cramping, she felt cold and clammy and then began vomiting. She denies ever having a reaction to doxycycline in the past. In triage she is writhing back and forth in a wheelchair, moaning, stating that she feels very sick. I have greeted and performed a rapid initial assessment of this patient. A comprehensive ED assessment and evaluation of the patient, analysis of test results and completion of the medical decision making process will be conducted by additional ED providers. I have specifically instructed the patient or family members with the patient to immediately return to any nursing staff should anything change in the patient's condition or with their chief complaint. TRAVEL OUTSIDE OF THE [place] IN LAST 30 DAYS: No - Related Data Allergies/Adverse Reactions: adhesive tape Allergy (Unknown, Verified 12/04/19 10:27) Past Medical History - Past Medical History Cardiac Medical History: Denies: Hx Coronary Artery Disease, Hx Heart Attack, Hx Hypertension Pulmonary Medical History: Reports: Hx Asthma - MODERATE WITH THE SEASON, Hx Pneumonia - 2019 Denies: Hx Bronchitis, Hx COPD Neurological Medical History: Denies: Hx Cerebrovascular Accident, Hx Migraine, Hx Seizures Endocrine Medical History: Denies: Hx Diabetes Mellitus Type 1, Hx Diabetes Mellitus Type 2, Hx Hypothyroidism Renal/ Medical History: Denies: Hx Kidney Stones, Hx Ovarian Cysts, Hx Peritoneal Dialysis, Hx Pelvic Inflammatory Disease Malignancy Medical History: Denies: Hx Breast Cancer, Hx Cervical Cancer, Hx Ovarian Cancer GI Medical History: Reports: Hx Gastroesophageal Reflux Disease Musculoskeltal Medical History: Denies Hx Arthritis, Reports Hx Fibromyalgia Psychiatric Medical History: Reports: Hx Anxiety, Hx Depression - anxiety Traumatic Medical History: Denies: Hx Fractures Infectious Medical History: Denies: Hx HIV Past Surgical History: Reports: Hx Breast Surgery - lupectomy, Hx Orthopedic Surgery - carpal tunnel, Other - Breast lumpectomy - Immunizations Immunizations up to date: Yes Hx Diphtheria, Pertussis, Tetanus Vaccination: Yes Doctor's Discharge - Discharge Referrals: EBRTA ESTRELLA PA-C [Primary Care Provider] - Follow up as needed
--- NOTE | 2019-12-10 16:03 | ER Document Report ---
ED GI/ - General Chief Complaint: Abdominal Pain Stated Complaint: ABDOMINAL PAIN/VOMITING Time Seen by Provider: 12/10/19 15:52 Primary Care Provider: [facility] [Provider Group] - Follow up in 3-5 days BERTA ESTRELLA PA-C [Primary Care Provider] - Follow up as needed Mode of Arrival: Wheelchair Notes: Patient is a 34-year-old female who presents the emergency department with a chief complaint of abdominal pain. States her pain is in her mid upper abdomen. She denies any alcohol use. Patient recently had a D&C, 5 days ago. Patient states that she was given doxycycline and she took 1 dose of doxycycline and then immediately started vomiting. Patient states that she has vomited approximately 15 times. TRAVEL OUTSIDE OF THE [place] IN LAST 30 DAYS: No - Related Data Allergies/Adverse Reactions: adhesive tape Allergy (Unknown, Verified 12/10/19 16:40) Past Medical History - General Information source: Patient - Social History Smoking Status: Current Some Day Smoker Family History: COPD Patient has suicidal ideation: No Patient has homicidal ideation: No - Past Medical History Cardiac Medical History: Denies: Hx Coronary Artery Disease, Hx Heart Attack, Hx Hypertension Pulmonary Medical History: Reports: Hx Asthma - MODERATE WITH THE SEASON, Hx Pneumonia - 2019 Denies: Hx Bronchitis, Hx COPD Neurological Medical History: Denies: Hx Cerebrovascular Accident, Hx Migraine, Hx Seizures Endocrine Medical History: Denies: Hx Diabetes Mellitus Type 1, Hx Diabetes Mellitus Type 2, Hx Hypothyroidism Renal/ Medical History: Denies: Hx Kidney Stones, Hx Ovarian Cysts, Hx Peritoneal Dialysis, Hx Pelvic Inflammatory Disease Malignancy Medical History: Denies: Hx Breast Cancer, Hx Cervical Cancer, Hx Ovarian Cancer GI Medical History: Reports: Hx Gastroesophageal Reflux Disease Musculoskeletal Medical History: Denies Hx Arthritis, Reports Hx Fibromyalgia Psychiatric Medical History: Reports: Hx Anxiety, Hx Depression - anxiety Traumatic Medical History: Denies: Hx Fractures Infectious Medical History: Denies: Hx HIV Past Surgical History: Reports: Hx Breast Surgery - lupectomy, Hx Orthopedic Surgery - carpal tunnel, Other - Breast lumpectomy - Immunizations Immunizations up to date: Yes Hx Diphtheria, Pertussis, Tetanus Vaccination: Yes Review of Systems - Review of Systems Notes: REVIEW OF SYSTEMS: CONSTITUTIONAL : Denies recent illness. Denies recent unintentional weight loss. Denies fever, chills, or sweats. EENT: Denies eye, ear, throat, or mouth pain, discharge, or symptoms. Denies nasal or sinus congestion. CARDIOVASCULAR: Denies chest pain. RESPIRATORY: Denies shortness of breath, cough, congestion, difficulty breathing, or wheezing. GASTROINTESTINAL: See HPI. GENITOURINARY: Denies difficulty urinating, burning, blood in urine, urgency or frequency. MUSCULOSKELETAL: Denies neck and back pain. Denies joint pain or swelling. SKIN: Denies rash, itchiness, or lesions HEMATOLOGIC : Denies easy bruising or bleeding. LYMPHATIC: Denies swollen, painful, enlarged glands. NEUROLOGICAL: Denies no numbness or tingling denies weakness. Denies headache. Denies altered mental status. Denies alteration in speech. PSYCHIATRIC: Denies stress, anxiety, alteration in sleep patterns, or depression. All other systems reviewed and negative. Physical Exam - Vital signs Vitals: Temp Pulse Resp BP Pulse Ox 97.6 F 50 L 24 H 106/74 100 12/10/19 15:52 12/10/19 15:52 12/10/19 15:52 12/10/19 15:52 12/10/19 15:52 - Notes Notes: PHYSICAL EXAMINATION: GENERAL: Appears well, healthy, well-nourished, no acute distress. HEAD: Normocephalic, atraumatic. EYES: PERRL, conjunctiva normal, all extraocular movements intact, sclera nonicteric ENT: Moist mucous membranes. NECK: Supple, no noticeable swelling, redness, rash. Normal range of motion. LUNGS: Equal breath sounds bilaterally and clear to auscultation. No wheezes rales or rhonchi. CARDIOVASCULAR: S1-S2, regular rate, regular rhythm. Radial pulses 2+, normal. ABDOMEN: Soft, tender generalized abdomen, specifically mid upper abdomen. EXTREMITIES: Normal strength and range of motion, no pitting or edema. No cyanosis. NEUROLOGICAL: Moves all extremities upon command. Strength 5/5 in all extremities. PSYCH: Normal mood, normal affect. SKIN: Warm, dry. No rash, lesions, ulcerations noted. Normal skin turgor. Course - Re-evaluation Re-evalutation: 12/10/19 19:48 Hematology shows a mild leukocytosis of 10,900. No anemia noted. Patient's sodium is slightly low at 135. She was given a liter of fluids. CO2 is also a little low, but this will be corrected with fluids. Urine is urinalysis shows a moderate amount of leukocytes. Abdominal ultrasound is negative for any acute findings. No cholecystitis noted. No gallstones noted. I suspect patient most likely has gastritis due to taking doxycycline. She will be sent home with Carafate and Pepcid. I spoke with Dr. Nicole, the OB on-call. He is recommending that I start the patient on Cleocin. Relayed this on to the patient. Follow-up precautions were given. Verbal discharge instructions were given to the patient. They verbalized understanding. They are stable for discharge. - Vital Signs Vital signs: Temp Pulse Resp BP Pulse Ox 98.0 F 42 L 12 145/75 H 99 12/10/19 19:58 12/10/19 19:58 12/10/19 19:58 12/10/19 19:58 12/10/19 18:01 - Laboratory Result Diagrams: 12/10/19 16:11 12/10/19 16:11 Laboratory results interpreted by me: 12/10/19 12/10/19 12/10/19 16:11 16:11 19:08 WBC 10.9 H RDW 14.8 H Sodium 135.9 L Carbon Dioxide 20 L BUN 6 L Glucose 118 H Urine Protein 100 H Urine Ketones 80 H Urine Blood LARGE H Ur Leukocyte Esterase MODERATE H Discharge - Discharge Clinical Impression: Abdominal pain Qualifiers: Abdominal location: left upper quadrant Qualified Code(s): R10.12 - Left upper quadrant pain Nausea and vomiting Qualifiers: Vomiting type: unspecified Vomiting Intractability: non-intractable Qualified Code(s): R11.2 - Nausea with vomiting, unspecified Urinary tract infection Qualifiers: Urinary tract infection type: acute cystitis Hematuria presence: with hematuria Qualified Code(s): N30.01 - Acute cystitis with hematuria Condition: Stable Disposition: HOME, SELF-CARE Instructions: Antinausea Medication ([facility]), Reglan ([facility]), Vomiting ([facility]) Additional Instructions: Your symptoms appear to be most consistent with stomach or upper intestinal irritation. Please begin taking famotidine 40 mg in the morning and 40 mg at night. This medicine can be purchased directly [id number], or use the prescription. Also take Carafate. You may also take medicine such as Pepto- Bismol or Tums to assist with your pain. Please return to emergency department immediately if you have worsening of your pain, shortness of breath, vomiting, become unable to exert yourself due to pain or difficulty breathing, you pass out, or have any pain that radiates into your arms, jaw, or back. Please also return if you have any additional symptoms that are concerning to you. As we have discussed, the most important thing is lifestyle changes. You need to avoid smoking, sodas, tea, coffee, alcohol, spicy foods, and acidic foods such as citrus fruits, tomato based products, berries, and most fruit juices. Your urine shows findings consistent with a urinary tract infection. Please take all the antibiotics as directed even if your symptoms have improved. Please follow-up with your primary care physician as needed. Return to emergen cy room if you develop fever >101F, persistent vomiting, become lethargic, have severe pain in your sides, or any other symptoms that are concerning to you. Follow-up with your [facility]. Prescriptions: Sucralfate [Carafate 1 gm Tablet] 1 gm PO ACHS #20 tablet Clindamycin HCl [Cleocin 150 mg Capsule] 300 mg PO BID 7 Days #28 capsule Famotidine [Pepcid 20 mg Tablet] 40 mg PO BID #24 tablet Metoclopramide HCl [Reglan 10 mg Tablet] 1 - 2 tab PO ASDIR PRN #25 tablet PRN Reason: Referrals: BERTA ESTRELLA PA-C [Primary Care Provider] - Follow up as needed [facility] [Provider Group] - Follow up in 3-5 days
[2019-12-10 16:29] LABS: ABSOLUTE EOSINOPHILS # (AUTO) 0.1 10^3/uL (0.0-0.6); ABSOLUTE LYMPHOCYTES (AUTO) 2.6 10^3/uL (0.5-4.7); ABSOLUTE MONOCYTES (AUTO) 0.4 10^3/uL (0.1-1.4); ABSOLUTE NEUT (AUTO) 7.8 10^3/uL (1.7-8.2); BASOPHILS % (AUTO) 0.4 % (0-2); EOSINOPHILS % (AUTO) 0.5 % (0-6); HEMATOCRIT 45.9 % (36.0-47.0); HEMOGLOBIN 15.4 g/dL (12.0-15.5); LYMPHOCYTES % (AUTO) 23.9 % (13-45); MEAN CORPUSCULAR HEMOGLOBIN 30.3 pg (27.0-33.4); MEAN CORPUSCULAR HGB CONC 33.5 g/dL (32.0-36.0); MEAN CORPUSCULAR VOLUME 90 fl (80-97); MONOCYTES % (AUTO) 3.6 % (3-13); PLATELET COUNT 240 10^3/uL (150-450); RED BLOOD COUNT 5.09 10^6/uL (3.72-5.28); RED CELL DISTRIBUTION WIDTH 14.8 % (11.5-14.0); SEGMENTED NEUTROPHILS % (AUTO) 71.6 % (42-78); TOTAL CELLS COUNTED % (AUTO) 100 %; WHITE BLOOD COUNT 10.9 10^3/uL (4.0-10.5)
[2019-12-10] MEDS ORDERED: MORPHINE SULFATE 10 MG/ML INJ IV ONE ×2 (16:38→16:42)
[2019-12-10 16:46] LABS: ALBUMIN 4.6 g/dL (3.5-5.0); ALKALINE PHOSPHATASE 97 U/L (38-126); ANION GAP 12 (5-19); ASPARTATE AMINO TRANSFERASE 24 U/L (14-36); BILIRUBIN,DIRECT 0.3 mg/dL (0.0-0.4); BILIRUBIN,TOTAL 0.6 mg/dL (0.2-1.3); BLOOD UREA NITROGEN 6 mg/dL (7-20); CALCIUM 9.7 mg/dL (8.4-10.2); CARBON DIOXIDE 20 mmol/L (22-30); CHLORIDE 104 mmol/L (98-107); GLUCOSE 118 mg/dL (75-110); POTASSIUM 4.4 mmol/L (3.6-5.0); TOTAL PROTEIN 7.8 g/dL (6.3-8.2)
[2019-12-10] MEDS ORDERED: METOCLOPRAMIDE HCL INJ/PF 10 MG/2 ML SDV IV ONE (17:15)
[2019-12-10] MEDS ORDERED: MAG HYDROX/AL HYDROX/SIMETH SUSP 30 ML UDCUP PO ONE (17:34)
[2019-12-10] MEDS ORDERED: LIDOCAINE 2% VISCOUS SOLN 15 ML UDCUP PO ONE (17:34)
--- NOTE | 2019-12-10 18:45 | RADIOLOGY REPORT (SQ) ---
EXAM DESCRIPTION: U/S ABDOMEN LIMITED W/O DOP IMAGES COMPLETED DATE/TIME: 12/10/2019 6:16 pm REASON FOR STUDY: RUQ/epigastric abd pain COMPARISON: 11/01/2015 TECHNIQUE: Dynamic and static grayscale images acquired of the abdomen and recorded on PACS. Gianna ovalle selected color Doppler and spectral images recorded. LIMITATIONS: None. FINDINGS: PANCREAS: No masses. Visualized pancreatic duct normal caliber. LIVER: The liver measures 16.5 cm in length, within the upper limits of normal size. No masses. Ech otexture normal. LIVER VASCULATURE: Normal directional flow of the main portal vein and hepatic veins. GALLBLADDER: No stones. The gallbladder wall measures 1.9 mm, normal wall thickness. No pericholecys tic fluid. ULTRASOUND-DETECTED RODAS'S SIGN: Negative. INTRAHEPATIC DUCTS AND COMMON DUCT: CBD measures 3.0 mm, normal. The intrahepatic ducts normal calib er. No filling defects. INFERIOR VENA CAVA: Normal flow. AORTA: No aneurysm. RIGHT KIDNEY: The right kidney measures 10.7 cm, normal size. Normal echogenicity. No solid or suspi cious masses. No hydronephrosis. No calcifications. PERITONEAL AND RIGHT PLEURAL SPACE: No ascites or effusions. OTHER: No other significant findings. IMPRESSION: 1. Examination is unremarkable sonographically. TECHNICAL DOCUMENTATION: JOB ID: [id number] 2010 [employer]- All Rights Reserved Reading location - IP/workstation name: [email or web address]
[2019-12-10 19:33] LABS: APPEARANCE,URINE CLOUDY; BILIRUBIN,URINE NEGATIVE (NEGATIVE); COLOR,URINE YELLOW; GLUCOSE, URINE NEGATIVE (NEGATIVE); KETONES,URINE 80 mg/dL (NEGATIVE); LEUKOCYTE ESTERASE,URINE MODERATE (NEGATIVE); NITRITE,URINE NEGATIVE (NEGATIVE); PROTEIN,URINE 100 mg/dL (NEGATIVE); URINE SPECIFIC GRAVITY 1.019; UROBILINOGEN,URINE NEGATIVE mg/dL (<2.0)
[2019-12-10] MEDS ORDERED: FAMOTIDINE 20 MG TABLET PO ONE (19:35)
[2019-12-10] MEDS ORDERED: SUCRALFATE 1 GM TABLET PO ONE (19:35)
[2019-12-10 19:59] VITALS: BP 145/75
== END 2019-12-10 19:59 | disposition home or self-care (01) ==
LOC: ER 15:50
DX: N30.01 Acute cystitis with hematuria (principal); R10.12 Left upper quadrant pain; R11.2 Nausea with vomiting, unspecified; R10.817 Generalized abdominal tenderness; F17.200 Nicotine dependence, unspecified, uncomplicated; J45.909 Unspecified asthma, uncomplicated; Z87.19 Personal history of other diseases of the digestive system; Z98.890 Other specified postprocedural states; Z91.048 Other nonmedicinal substance allergy status
CPT/HCPCS: 99284; 96361; 96374; 96375; 36415; 87086; 83690; 85025; 87088; 80053; 81001; 76705; J3490 ×4; J2765; J2270; J2405; J7030

== ENCOUNTER 2020-02-13 11:41 | Emergency (ER) | payer MEDICAID ==
[2020-02-13] MEDS ORDERED: LIDOCAINE 2% VISCOUS SOLN 15 ML UDCUP PO ONE (12:50)
[2020-02-13] MEDS ORDERED: ONDANSETRON HCL INJ/PF 4 MG/2 ML SDV IV ONE (12:50)
[2020-02-13] MEDS ORDERED: MAG HYDROX/AL HYDROX/SIMETH SUSP 30 ML UDCUP PO ONE (12:50)
[2020-02-13] MEDS ORDERED: FAMOTIDINE INJ/PF 20 MG/2 ML SDV IV ONE (12:50)
[2020-02-13] MEDS ORDERED: NORMAL SALINE 1000 ML 1,000 ML IV ONE ×2 (12:50→14:11)
[2020-02-13 13:01] LABS: ABSOLUTE BASOPHILS # (AUTO) 0.1 10^3/uL (0.0-0.2); ABSOLUTE EOSINOPHILS # (AUTO) 0.1 10^3/uL (0.0-0.6); ABSOLUTE LYMPHOCYTES (AUTO) 1.3 10^3/uL (0.5-4.7); ABSOLUTE MONOCYTES (AUTO) 0.2 10^3/uL (0.1-1.4); ABSOLUTE NEUT (AUTO) 7.2 10^3/uL (1.7-8.2); BASOPHILS % (AUTO) 0.6 % (0-2); HEMOGLOBIN 14.6 g/dL (12.0-15.5); LYMPHOCYTES % (AUTO) 14.8 % (13-45); MEAN CORPUSCULAR HEMOGLOBIN 30.5 pg (27.0-33.4); MEAN CORPUSCULAR HGB CONC 33.9 g/dL (32.0-36.0); MEAN CORPUSCULAR VOLUME 90 fl (80-97); MONOCYTES % (AUTO) 2.5 % (3-13); PLATELET COUNT 240 10^3/uL (150-450); RED BLOOD COUNT 4.77 10^6/uL (3.72-5.28); RED CELL DISTRIBUTION WIDTH 14.9 % (11.5-14.0); SEGMENTED NEUTROPHILS % (AUTO) 81.1 % (42-78); TOTAL CELLS COUNTED % (AUTO) 100 %; WHITE BLOOD COUNT 8.9 10^3/uL (4.0-10.5)
[2020-02-13 13:21] LABS: ALBUMIN 4.4 g/dL (3.5-5.0); ALKALINE PHOSPHATASE 74 U/L (38-126); ANION GAP 8 (5-19); ASPARTATE AMINO TRANSFERASE 18 U/L (14-36); BILIRUBIN,TOTAL 0.5 mg/dL (0.2-1.3); BLOOD UREA NITROGEN 11 mg/dL (7-20); CALCIUM 9.5 mg/dL (8.4-10.2); CARBON DIOXIDE 21 mmol/L (22-30); CHLORIDE 107 mmol/L (98-107); GLUCOSE 127 mg/dL (75-110); POTASSIUM 4.4 mmol/L (3.6-5.0)
--- NOTE | 2020-02-13 13:33 | ER Document Report ---
ED GI/ - General Chief Complaint: Nausea/Vomiting/Diarrhea Stated Complaint: NAUSEA/VOMITING Time Seen by Provider: 02/13/20 12:25 Primary Care Provider: BERTA ESTRELLA PA-C [Primary Care Provider] - Follow up tomorrow Mode of Arrival: Ambulatory Information source: Patient Notes: Patient presents complaining of epigastric pain with nausea and vomiting that started today. Patient denies any cough cold symptoms or fever. Patient denies any urinary symptoms. Patient reports having vomiting x6 episodes today. Patient denies any blood in her emesis. TRAVEL OUTSIDE OF THE [place] IN LAST 30 DAYS: No - HPI Patient complains to provider of: Abdominal pain, Vomiting. No: Diarrhea Onset: This morning Quality of pain: Burning Pain Level: 4 Location: Epigastric Vaginal bleeding (Compared to normal period): None Associated symptoms: Nausea, Vomiting. denies: Blood in emesis, Constipation, Diarrhea, Fever, Urinary hesitancy, Urinary frequency, Urinary retention, Urinary urgency Exacerbated by: Denies Relieved by: Denies Similar symptoms previously: No Recently seen / treated by doctor: No - Related Data Allergies/Adverse Reactions: adhesive tape Allergy (Unknown, Verified 02/13/20 12:36) Past Medical History - General Information source: Patient - Social History Smoking Status: Never Smoker Chew tobacco use (# tins/day): No Frequency of alcohol use: Rare Drug Abuse: None Occupation: None Lives with: Family Family History: COPD Patient has homicidal ideation: No - Past Medical History Cardiac Medical History: Denies: Hx Coronary Artery Disease, Hx Heart Attack, Hx Hypertension Pulmonary Medical History: Reports: Hx Asthma - MODERATE WITH THE SEASON, Hx Pneumonia - 2019 Denies: Hx Bronchitis, Hx COPD Neurological Medical History: Denies: Hx Cerebrovascular Accident, Hx Migraine, Hx Seizures Endocrine Medical History: Denies: Hx Diabetes Mellitus Type 1, Hx Diabetes Mellitus Type 2, Hx Hypothyroidism Renal/ Medical History: Denies: Hx Kidney Stones, Hx Ovarian Cysts, Hx Peritoneal Dialysis, Hx Pelvic Inflammatory Disease GI Medical History: Reports: Hx Gastritis, Hx Gastroesophageal Reflux Disease Musculoskeletal Medical History: Denies Hx Arthritis, Reports Hx Fibromyalgia Psychiatric Medical History: Reports: Hx Anxiety, Hx Depression - anxiety Traumatic Medical History: Denies: Hx Fractures Infectious Medical History: Denies: Hx HIV Past Surgical History: Reports: Hx Breast Surgery - lupectomy, Hx Section, Hx Gynecologic Surgery - DNC, Hx Orthopedic Surgery - carpal tunnel, Other - Breast lumpectomy - Immunizations Immunizations up to date: Yes Hx Diphtheria, Pertussis, Tetanus Vaccination: Yes Review of Systems - Review of Systems Constitutional: No symptoms reported. denies: Fever EENT: No symptoms reported Cardiovascular: No symptoms reported. denies: Chest pain Respiratory: No symptoms reported. denies: Cough, Short of breath Gastrointestinal: Abdominal pain, Nausea, Vomiting. denies: Diarrhea Genitourinary: No symptoms reported. denies: Dysuria Female Genitourinary: No symptoms reported Musculoskeletal: No symptoms reported. denies: Back pain Skin: No symptoms reported Hematologic/Lymphatic: No symptoms reported Neurological/Psychological: No symptoms reported Physical Exam - Vital signs Vitals: Temp Resp BP Pulse Ox 97.5 F 21 H 116/64 100 02/13/20 11:54 02/13/20 11:54 02/13/20 11:54 02/13/20 11:54 - General General appearance: Appears well, Alert In distress: None - HEENT Head: Normocephalic, Atraumatic Eyes: Normal Conjunctiva: Normal Nasal: Normal Mouth/Lips: Normal Mucous membranes: Normal Neck: Normal, Supple. No: Lymphadenopathy - Respiratory Respiratory status: No respiratory distress Chest status: Nontender Breath sounds: Normal. No: Rales, Rhonchi, Stridor, Wheezing Chest palpation: Normal - Cardiovascular Rhythm: Bradycardia Heart sounds: S1 appreciated, S2 appreciated Murmur: No - Abdominal Inspection: Normal Distension: No distension Bowel sounds: Normal Tenderness: Tender - epigastric Organomegaly: No organomegaly - Back Back: Normal, Nontender. 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 02/13/20 18:14 Patient with positive UDS for benzos, opiates and marijuana. Patient is not on any prescription benzos or opiates at this time. Patient's ultrasound reviewed, no acute findings. Suspect likely gastritis due to her nausea vomiting and diarrhea. Patient's nausea is resolved at this time. Presentation of an overall well-appearing patient in no acute distress with complaints of nausea, vomiting, diarrhea. This is consistent with likely viral gastroenteritis. Patient has no abdominal tenderness on exam and specifically no tenderness in the RLQ, LLQ, RUQ. Overall well hydrated on exam. Able to tolerate oral intake here in the emergency department. Low clinical suspicion for any acute life- threatening etiology based on exam and history including acute cholecystitis, SBO, appendicitis, nephrolithiasis, or pylonephritis. CMP without evidence of acute hepatitis or significant dehydration. Will plan for discharge at this time with return precautions and followup recommendations. - Vital Signs Vital signs: Temp Pulse Resp BP Pulse Ox 98.2 F 53 L 16 113/70 100 02/13/20 19:00 02/13/20 18:32 02/13/20 19:00 02/13/20 18:32 02/13/20 18:32 - Laboratory Result Diagrams: 02/13/20 12:30 02/13/20 12:30 Laboratory results interpreted by me: 02/13/20 02/13/20 02/13/20 12:30 12:30 13:10 RDW 14.9 H Dale % (Auto) 2.5 L Seg Neutrophils % 81.1 H Sodium 136.4 L Carbon Dioxide 21 L Glucose 127 H Urine Protein 30 H Urine Ketones 80 H Ur Leukocyte Esterase TRACE H 02/13/20 18:15 Labs- All tests 24 hr 02/13/20 02/13/20 02/13/20 12:30 12:30 12:30 WBC 8.9 RBC 4.77 Hgb 14.6 Hct 43.0 MCV 90 MCH 30.5 MCHC 33.9 RDW 14.9 H Plt Count 240 Lymph % (Auto) 14.8 Dale % (Auto) 2.5 L Eos % (Auto) 1.0 Baso % (Auto) 0.6 Absolute Neuts (auto) 7.2 Absolute Lymphs (auto) 1.3 Absolute Monos (auto) 0.2 Absolute Eos (auto) 0.1 Absolute Basos (auto) 0.1 Seg Neutrophils % 81.1 H Sodium 136.4 L Potassium 4.4 Chloride 107 Carbon Dioxide 21 L Anion Gap 8 BUN 11 Creatinine 0.69 Est GFR ( Amer) > 60 Est GFR (MDRD) Non-Af > 60 Glucose 127 H Calcium 9.5 Total Bilirubin 0.5 Direct Bilirubin 0.0 Neonat Total Bilirubin Not Reportable Neonat Direct Bilirubin Not Reportable Neonat Indirect Bili Not Reportable AST 18 ALT 12 Alkaline Phosphatase 74 Total Protein 7.0 Albumin 4.4 Lipase 80.6 Serum HCG, Qual NEGATIVE Urine Color Urine Appearance Urine pH Ur Specific Dell Urine Protein Urine Glucose (UA) Urine Ketones Urine Blood Urine Nitrite Urine Bilirubin Urine Urobilinogen Ur Leukocyte Esterase Urine WBC (Auto) Urine RBC (Auto) Squamous Epi Cells Auto Urine Mucus (Auto) Urine Ascorbic Acid Urine Opiates Screen Urine Methadone Screen Ur Barbiturates Screen Ur Phencyclidine Scrn Ur Amphetamines Screen U Benzodiazepines Scrn Urine Cocaine Screen U Marijuana (THC) Screen Influenza A (Rapid) Influenza B (Rapid) 02/13/20 02/13/20 02/13/20 13:10 13:20 14:25 WBC RBC Hgb Hct MCV MCH MCHC RDW Plt Count Lymph % (Auto) Dale % (Auto) Eos % (Auto) Baso % (Auto) Absolute Neuts (auto) Absolute Lymphs (auto) Absolute Monos (auto) Absolute Eos (auto) Absolute Basos (auto) Seg Neutrophils % Sodium Potassium Chloride Carbon Dioxide Anion Gap BUN Creatinine Est GFR ( Amer) Est GFR (MDRD) Non-Af Glucose Calcium Total Bilirubin Direct Bilirubin Neonat Total Bilirubin Neonat Direct Bilirubin Neonat Indirect Bili AST ALT Alkaline Phosphatase Total Protein Albumin Lipase Serum HCG, Qual Urine Color YELLOW Urine Appearance SLIGHTLY-CLOUDY Urine pH 7.0 Ur Specific Dell 1.021 Urine Protein 30 H Urine Glucose (UA) NEGATIVE Urine Ketones 80 H Urine Blood NEGATIVE Urine Nitrite NEGATIVE Urine Bilirubin NEGATIVE Urine Urobilinogen NEGATIVE Ur Leukocyte Esterase TRACE H Urine WBC (Auto) 1 Urine RBC (Auto) 1 Squamous Epi Cells Auto 2 Urine Mucus (Auto) MANY Urine Ascorbic Acid NEGATIVE Urine Opiates Screen UNCONFIRMED POSITIVE Urine Methadone Screen NEGATIVE Ur Barbiturates Screen NEGATIVE Ur Phencyclidine Scrn NEGATIVE Ur Amphetamines Screen NEGATIVE U Benzodiazepines Scrn Urine Cocaine Screen NEGATIVE U Marijuana (THC) Screen UNCONFIRMED POSITIVE Influenza A (Rapid) NEGATIVE Influenza B (Rapid) NEGATIVE - Diagnostic Test Radiology reviewed: Reports reviewed - EKG Interpretation by Me EKG shows normal: Sinus rhythm Rate: Bradycardia When compared to previous EKG there are: Changes noted - Patient's comparison EKG was from a visit which she was admitted for pneumonia Additional EKG results interpreted by me: 02/13/20 18:08 QTc 437, no acute ischemic changes noted Discharge - Discharge Clinical Impression: Nausea vomiting and diarrhea Gastritis Qualifiers: Gastritis type: unspecified gastritis Chronicity: acute Gastritis bleeding: presence of bleeding unspecified Qualified Code(s): K29.00 - Acute gastritis without bleeding Condition: Stable Disposition: HOME, SELF-CARE Additional Instructions: Return immediately for any new or worsening symptoms Followup with your primary care provider, call tomorrow to make a followup appointment Increase oral fluids and stay well-hydrated VOMITING: Vomiting (or nausea without vomiting) can be caused by many other different problems. It can mean that something's wrong with the stomach, such as ulcers or inflammation or the intestinal tract, such as appendicitis. But it can also be a symptom of a problem that has nothing to do with the stomach or intestines. Vomiting is common with severe headaches, earaches, tonsillitis, and kidney infections, etc. We see it with pneumonia or heart attacks. Drugs can cause nausea and vomiting. Many abdominal problems cause vomiting; for example, gallstones, kidney stones, pancreatitis, and intestinal obstruction (blocked bowels). In most cases, curing the vomiting depends on fixing the problem that caused it. For temporary relief, we may use an anti-nausea medicine. For home u se, we can prescribe suppositories, chewable pills, pills that dissolve in the mouth, or liquid anti-nausea drugs. If the vomiting seems to be caused by a problem in the stomach, acid-suppressing drugs may be prescribed as well. It's important to avoid dehydration. Sip small amounts of clear liquids (soft drinks, tea, broth, etc) . Try to take fluids frequently even if you are vomiting to prevent dehydration. Take increasing amounts of fluid and when liquids are being consumed successfully, advance to small amounts of bland food (toast, soups, mashed potatoes, etc.) until you are able to resume a regular diet. Avoid aspirin, tobacco, and alcohol. If the vomiting worsens, if the problem that's making you vomit worsens, or if there's evidence of bleeding in the stomach (such as black, tarry stool, or bloody or black vomit), you should return immediately. Also, return if abdominal pain worsens or becomes localized to one area or you develop high fever. Call your doctor if you aren't improved in 24 hours. DIARRHEA, NON-SPECIFIC: Diarrhea means frequent, watery stools. There are many causes. Any problem that keeps the intestinal tract from absorbing water from the stool can lead to diarrhea. A sudden new diarrhea problem is usually caused by a virus, food se nsitivity, toxic bacteria, or drugs. In this case, we expect the problem to go away soon. Testing is done only if you seem seriously ill from the diarrhea. If you have chronic diarrhea, or diarrhea that keeps coming back, we need to find out why. Chronic diarrhea can be due to inflammation of the bowels such as Crohn's disease or ulcerative colitis, food sensitivity such as intolerance to lactose or wheat protein, irritable bowel syndrome, and other problems. If your diarrhea is a significant problem but it's not clear why you have it, we'll refer you to a specialist for further testing. During an episode of diarrhea, drink small amounts (two to six ounces) of clear liquids (soft drinks, sport drinks, herb teas, broth, etc). Take fluids frequently to prevent dehydration. It's usually not a problem to take mild anti- diarrhea medication such as Kaopectate or Pepto-Bismol. As the diarrhea eases, advance to small amounts of bland food (mashed potato, toast) for 24 hours. Call the physician if blood appears in your vomit or stool, if vomiting lasts longer than 24 hours, if the abdominal pain worsens or becomes localized to one area, if you develop high fever, or if you become lightheaded and weak. VIRAL SYNDROME: The physician has diagnosed a viral infection. Viruses not only cause "colds," but can cause many different symptoms including generalized aching, f ever, headache, cough, diarrhea, nausea, vomiting, and fatigue. The treatment, for the most part, is simply relief of symptoms. This means that antibiotics are usually not given. Rest, fluids, pain medications and, occasionally, medication for the specific symptoms that are most bothersome will be prescribed. Use good handwashing to avoid passing the virus to others. Shared toys should be cleaned with disinfectant. Clean the toilets, sinks, and counter surfaces in bathrooms. Launder clothing in hot water. Contact the physician if you develop any new or unusual symptoms such as severe headache, stiff neck, high fever, chest pain, productive cough, or shortness of breath. You should be rechecked if you don't see marked improvement within seven to 10 days. INTRAVENOUS (I V) FLUIDS: As part of your care today, you received intravenous (IV) fluids. IV fluids are administered to patients who are dehydrated or to those who have certain chemical (electrolyte) abnormalities that need correcting. ANTINAUSEA MEDICATION: You have been given a medication to suppress nausea and vomiting. This type of medication can be given as a shot, pill, or suppository. It will usually last for many hours. Pills and shots usually last six to eight hours. For the typical illness, only one or two doses of the medication may be necessary. Mild lightheadedness may occur. This type of medicine can cause drowsiness. Do not drive or operate dangerous machinery while under its influence. Do not mix with alcohol. See your doctor at once if you have muscle spasms or tightness, or uncontrollable motions (particularly of the neck, mouth, or jaw). Persistent vomiting or severe lightheadedness should also be evaluated by the physician. FOLLOW-UP CARE: If you have been referred to a physician for follow-up care, call the physicians office for an appointment as you were instructed or within the next two days. If you experience worsening or a significant change in your symptoms, notify the physician immediately or return to the Emergency Department at any time for re-evaluation. Prescriptions: Sucralfate [Carafate 1 gm Tablet] 1 gm PO ACHS PRN #20 tablet PRN Reason: Promethazine HCl [Phenergan 25 mg Tablet] 25 mg PO Q6H PRN #10 tablet PRN Reason: Referrals: BERTA ESTRELLA PA-C [Primary Care Provider] - Follow up tomorrow
[2020-02-13 13:54] LABS: APPEARANCE,URINE SLIGHTLY-CLOUDY; BILIRUBIN,URINE NEGATIVE (NEGATIVE); COLOR,URINE YELLOW; GLUCOSE, URINE NEGATIVE (NEGATIVE); KETONES,URINE 80 mg/dL (NEGATIVE); LEUKOCYTE ESTERASE,URINE TRACE (NEGATIVE); NITRITE,URINE NEGATIVE (NEGATIVE); PROTEIN,URINE 30 mg/dL (NEGATIVE); URINE SPECIFIC GRAVITY 1.021; UROBILINOGEN,URINE NEGATIVE mg/dL (<2.0)
[2020-02-13 14:14] LABS: URINE AMPHETAMINES SCREEN NEGATIVE; URINE BARBITURATES SCREEN NEGATIVE; URINE COCAINE SCREEN NEGATIVE; URINE METHADONE SCREEN NEGATIVE; URINE PHENCYCLIDINE SCREEN NEGATIVE
[2020-02-13 14:27] LABS: URINE MARIJUANA (THC) SCREEN UNCONFIRMED POSITIVE
[2020-02-13] MEDS ORDERED: PROCHLORPERAZINE EDISYLATE INJ 10 MG/2 ML VIAL IV ONE (15:01)
[2020-02-13] MEDS ORDERED: DIPHENHYDRAMINE HCL 50 MG/ML VIAL IV ONE (15:01)
[2020-02-13 15:34] LABS: A TYPE INFLUENZA AG NEGATIVE (NEGATIVE)
[2020-02-13 15:35] LABS: B INFLUENZA AG NEGATIVE (NEGATIVE)
--- NOTE | 2020-02-13 17:44 | RADIOLOGY REPORT (SQ) ---
EXAM DESCRIPTION: U/S ABDOMEN LIMITED W/O DOP IMAGES COMPLETED DATE/TIME: 02/13/2020 5:29 pm REASON FOR STUDY: upper abd pain COMPARISON: 12/10/2019 TECHNIQUE: Dynamic and static grayscale images acquired of the abdomen and recorded on PACS. Additio yamile selected color Doppler and spectral images recorded. LIMITATIONS: None. FINDINGS: PANCREAS: No masses. Visualized pancreatic duct normal caliber. LIVER: No masses. Echotexture normal. LIVER VASCULATURE: Normal directional flow of the main portal vein and hepatic veins. GALLBLADDER: No stones. Normal wall thickness. No pericholecystic fluid. ULTRASOUND-DETECTED RODAS'S SIGN: Negative. INTRAHEPATIC DUCTS AND COMMON DUCT: CBD and intrahepatic ducts normal caliber. No filling defects. INFERIOR VENA CAVA: Not imaged. AORTA: No aneurysm. RIGHT KIDNEY: Normal size, 11.2 cm. Normal echogenicity. No solid or suspicious masses. No hydroneph rosis. No calcifications. PERITONEAL AND RIGHT PLEURAL SPACE: No ascites or effusions. OTHER: No other significant findings. IMPRESSION: NORMAL RIGHT UPPER QUADRANT ULTRASOUND. TECHNICAL DOCUMENTATION: JOB ID: [id number] 2010 [employer]- All Rights Reserved Reading location - IP/workstation name: [email or web address]
[2020-02-13 18:37] VITALS: BP 113/70
--- NOTE | 2020-02-14 12:38 | EKG REPORT ---
SEVERITY:- BORDERLINE ECG - SINUS BRADYCARDIA BORDERLINE T ABNORMALITIES, ANT-LAT LEADS ST ELEV, PROBABLE NORMAL EARLY REPOL PATTERN : Confirmed by: Adithya Renteria 14-Feb-2020 12:37:54
== END 2020-02-13 19:05 | disposition home or self-care (01) ==
LOC: ER 11:41
DX: K29.00 Acute gastritis without bleeding (principal); R11.2 Nausea with vomiting, unspecified; R10.13 Epigastric pain; R19.7 Diarrhea, unspecified; R00.1 Bradycardia, unspecified; R10.816 Epigastric abdominal tenderness; J45.909 Unspecified asthma, uncomplicated; Z87.19 Personal history of other diseases of the digestive system; Z91.048 Other nonmedicinal substance allergy status
CPT/HCPCS: 93005; 99284; 96361; 96374; 96375; 36415; 83690; 84703; 85025; 80053; 81001; 80307; 87804; 76705; 93010; J1200; J3490 ×2; J0780; J2405; J7030; S0028

== ENCOUNTER 2020-03-11 08:34 | Day surgery (SDC) | payer MEDICAID ==
[~2020-03-11 08:34] MED LIST changes: -CEFAZOLIN SODIUM 2 GM in DEXTROSE 5%-WATER 100 ML IV PRN; -LACTATED RINGERS 1000 ML IV PRN; -LIDOCAINE 0.5% INJ-PF (5 MG/ML) 50 ML SDV SUBCUT PRN; +PROPOFOL INJ 200 MG/20 ML VIAL IV ONE; -RINGERS SOLUTION,LACTATED 1,500 ML IV PRN
--- NOTE | 2020-03-11 10:02 | Operative Report ---
Operative Report DATE OF SURGERY: 03/11/20 Operative Report: The risks benefits and alternatives of the procedure explained to the patient in detail and informed consent is obtained.A GIF Olympus video scope was inserted into the patient's mouth and hypopharynx, the esophagus is identified intubated and insufflated, the scope was then advanced through the esophagus stomach and duodenum ,retroflexion maneuver is done ,the esophagus stomach and first and second portions of the duodenum examined PREOPERATIVE DIAGNOSIS: Epigastric pain POSTOPERATIVE DIAGNOSIS: Gastritis status post biopsy rule out Helicobacter pylori OPERATION: EGD with biopsy SURGEON: KYMBERLY JUNE ANESTHESIA: LMAC TISSUE REMOVED OR ALTERED: As noted above. COMPLICATIONS: None. ESTIMATED BLOOD LOSS: None. INTRAOPERATIVE FINDINGS: As noted above. PROCEDURE: Patient tolerated the procedure well. No immediate postprocedure complications are noted. Patient is discharged in good condition. Discharge date 03/11/2020. Discharge diet: Regular. Discharge activity: Regular. 2 to 3-week follow-up to discuss findings. Patient is instructed call the office or proceed to the emergency room should there be any further problems or questions. Wait on the pathology.
[2020-03-11 11:06] VITALS: BP 107/65
== END 2020-03-11 11:07 | disposition home or self-care (01) ==
LOC: END 08:34
PROVIDERS: ATTEND Internal Medicine Gastroenterology
DX: K29.50 Unspecified chronic gastritis without bleeding (principal); K21.9 Gastro-esophageal reflux disease without esophagitis; Z03.818 Encounter for observation for suspected exposure to other biological agents ruled out; J45.909 Unspecified asthma, uncomplicated; M06.9 Rheumatoid arthritis, unspecified; Z79.899 Other long term (current) drug therapy
CPT/HCPCS: 43239; 87635; 88305 ×2; 00731; J2704; C9803; 731

== ENCOUNTER 2020-07-14 17:35 | Emergency (ER) | payer MEDICAID ==
[2020-07-14 17:42] VITALS: BP 107/47
--- NOTE | 2020-07-14 18:02 | ER Document Report ---
ED Medical Screen (RME) - General Chief Complaint: Chest Pain > 30 Stated Complaint: COUGH,CONGESTION,SORE THROAT Time Seen by Provider: 07/14/20 17:52 Primary Care Provider: JOSE CRUZ BARRY NP [Primary Care Provider] - Follow up as needed Mode of Arrival: Wheelchair Information source: Patient Notes: 35-year-old female presents to ED for complaint of chest pain x3. She states she has had cough congestion tightness runny nose sore throat body aches. She states she did have pneumonia last year and ended up coming in by EMS and was intubated after she coded. She states she has not had any flu shot or any pneumonia shots. She does have cardiac history. She states she does smoke 1 to 2 cigarettes a day drinks 2-3 times a week but is just wine and does not use any illicit drugs. She states after coding last year she is very concerned with having a cough and congestion and tight chest. The patient was evaluated during the global Covid 19 pandemic, and that diagnosis was suspected/considered upon their initial presentation. Their evaluation, treatment and testing was consistent with current guidelines for patients who present with complaints or symptoms that may be related to Covid 19. I have greeted and performed a rapid initial assessment of this patient. A comprehensive ED assessment and evaluation of the patient, analysis of test results and completion of medical decision making process will be conducted by an additional ED providers. TRAVEL OUTSIDE OF THE [place] IN LAST 30 DAYS: No - Related Data Allergies/Adverse Reactions: adhesive tape Allergy (Unknown, Verified 03/06/20 11:51) Past Medical History - Past Medical History Cardiac Medical History: Denies: Hx Coronary Artery Disease, Hx Heart Attack, Hx Hypertension Pulmonary Medical History: Reports: Hx Asthma, Hx Pneumonia - multiple times, nodules in L lung Denies: Hx Bronchitis, Hx COPD Neurological Medical History: Denies: Hx Cerebrovascular Accident, Hx Migraine, Hx Seizures Endocrine Medical History: Denies: Hx Diabetes Mellitus Type 1, Hx Diabetes Mellitus Type 2, Hx Hypothyroidism Renal/ Medical History: Denies: Hx Kidney Stones, Hx Ovarian Cysts, Hx Peritoneal Dialysis, Hx Pelvic Inflammatory Disease Malignancy Medical History: Denies: Hx Breast Cancer, Hx Cervical Cancer, Hx Ovarian Cancer GI Medical History: Reports: Hx Gastritis, Hx Gastroesophageal Reflux Disease Musculoskeltal Medical History: Denies Hx Arthritis, Reports Hx Fibromyalgia Psychiatric Medical History: Reports: Hx Anxiety, Hx Depression - anxiety Traumatic Medical History: Denies: Hx Fractures Infectious Medical History: Denies: Hx HIV Past Surgical History: Reports: Hx Breast Surgery - lupectomy, Hx Section, Hx Gynecologic Surgery - DNC, Hx Orthopedic Surgery - carpal tunnel, Other - Breast lumpectomy - Immunizations Immunizations up to date: Yes Hx Diphtheria, Pertussis, Tetanus Vaccination: Yes Physical Exam - Vital signs Vitals: Temp Pulse Resp BP Pulse Ox 98.5 F 77 17 107/47 L 100 07/14/20 17:41 07/14/20 17:41 07/14/20 17:41 07/14/20 17:41 07/14/20 17:41 Course - Vital Signs Vital signs: Temp Pulse Resp BP Pulse Ox 98.5 F 77 17 107/47 L 100 07/14/20 17:41 07/14/20 17:41 07/14/20 17:41 07/14/20 17:41 07/14/20 17:41 Doctor's Discharge - Discharge Referrals: JOSE CRUZ BARRY FLAT MACHINE CUTTER [Primary Care Provider] - Follow up as needed
--- NOTE | 2020-07-14 19:09 | RADIOLOGY REPORT (SQ) ---
EXAM DESCRIPTION: CHEST SINGLE VIEW IMAGES COMPLETED DATE/TIME: 07/14/2020 7:02 pm REASON FOR STUDY: chest pain cough congestion COMPARISON: 09/20/2018 EXAM PARAMETERS: NUMBER OF VIEWS: One view. TECHNIQUE: Single frontal radiographic view of the chest acquired. RADIATION DOSE: NA LIMITATIONS: None. FINDINGS: LUNGS AND PLEURA: No opacities, masses or pneumothorax. No pleural effusion. MEDIASTINUM AND HILAR STRUCTURES: No masses. Contour normal. HEART AND VASCULAR STRUCTURES: Heart normal in size. Normal vasculature. BONES: No acute findings. HARDWARE: None in the chest. OTHER: No other significant finding. IMPRESSION: No focal airspace disease or other evidence of acute intrathoracic process. TECHNICAL DOCUMENTATION: JOB ID: [id number] 2010 [employer]- All Rights Reserved Reading location - IP/workstation name: [email or web address]
--- NOTE | 2020-07-15 18:55 | EKG REPORT ---
SEVERITY:- NORMAL ECG - SINUS RHYTHM : Confirmed by: Ajay Walter MD 15-Jul-2020 18:54:28
== END 2020-07-15 00:03 | disposition left against medical advice (07) ==
LOC: ER 17:35
DX: J02.9 Acute pharyngitis, unspecified (principal); R07.9 Chest pain, unspecified; R68.89 Other general symptoms and signs
CPT/HCPCS: 71045; 93005; 93010; 99281

== ENCOUNTER 2020-07-23 10:25 | Emergency (ER) | payer MEDICAID ==
[2020-07-23 10:30] VITALS: BP 110/47
[2020-07-23] MEDS ORDERED: ACETAMINOPHEN 325 MG TABLET PO ONE (11:57)
--- NOTE | 2020-07-23 12:00 | ER Document Report ---
HPI - HPI Patient complains to provider of: Avulsion injury Time Seen by Provider: 07/23/20 11:53 Onset: Yesterday Onset/Duration: Sudden Quality of pain: Burning Severity: Moderate Pain Level: 3 Context: 35-year-old female presents to ED for avulsion injury to the tip of the left middle finger. Associated Symptoms: Other - Avulsion to the tip of the middle finger Exacerbated by: Denies Relieved by: Denies Similar symptoms previously: Yes Recently seen / treated by doctor: No - ROS ROS below otherwise negative: Yes - CONSTITUTIONAL Constitutional: DENIES: Fever, Chills - EENT EENT: DENIES: Sore Throat, Ear Pain, Nasal Drainage-Clear, Nasal Drainage- Purulent, Congestion, Eye problems - NEURO Neurology: DENIES: Headache, Weakness, Vision blurred, Dizzinesss / Vertigo - CARDIOVASCULAR Cardiovascular: DENIES: Chest pain - RESPIRATORY Respiratory: DENIES: Trouble Breathing, Coughing - GASTROINTESTINAL Gastrointestinal: DENIES: Abdominal Pain, Nausea, Patient vomiting, Diarrhea, Constipation, Black / Bloody Stools - URINARY Urinary: DENIES: Dysuria, Urgency, Frequency - REPRODUCTIVE Reproductive: DENIES: :, Postmenopausal, Abnormal bleeding / discharge - MUSCULOSKELETAL Musculoskeletal: REPORTS: Extremity pain - Left middle finger avulsion in - DERM Skin Color: Normal Skin Problems: Open to Air - Avulsion injury left middle finger Past Medical History - General Information source: Patient - Social History Smoking Status: Current Some Day Smoker Frequency of alcohol use: Occasional Drug Abuse: None Lives with: Family Family History: COPD Patient has suicidal ideation: No Patient has homicidal ideation: No - Past Medical History Cardiac Medical History: Reports: Other - PFO Pulmonary Medical History: Reports: Hx Asthma, Hx Pneumonia - multiple times, nodules in L lung EENT Medical History: Reports: None Neurological Medical History: Reports: None Endocrine Medical History: Reports: None Renal/ Medical History: Reports: Other - Uterine fibroids Malignancy Medical History: Reports: None GI Medical History: Reports: Hx Gastritis, Hx Gastroesophageal Reflux Disease Musculoskeletal Medical History: Reports Hx Fibromyalgia, Reports Hx Musculoskeletal Trauma, Reports Hx Systemic Lupus Erythematosus Skin Medical History: Reports None Psychiatric Medical History: Reports: Hx Anxiety, Hx Depression - anxiety Traumatic Medical History: Reports: None Infectious Medical History: Reports: None. Denies: Hx HIV Past Surgical History: Reports: Hx Breast Surgery - lumpectomy x2, Hx Section, Hx Gynecologic Surgery - D&C, Hx Orthopedic Surgery - carpal tunnel, Other - Breast lumpectomy - Immunizations Immunizations up to date: Yes Hx Diphtheria, Pertussis, Tetanus Vaccination: Yes Vertical Provider Document - CONSTITUTIONAL Agree With Documented VS: Yes Exam Limitations: No Limitations General Appearance: WD/WN, No Apparent Distress - INFECTION CONTROL TRAVEL OUTSIDE OF THE [place] IN LAST 30 DAYS: No - HEENT HEENT: Atraumatic, Conjuctival Injection, Normal ENT Exam, PERRLA - NECK Neck: Normal Inspection, Supple, Thyroid Normal - RESPIRATORY Respiratory: Breath Sounds Normal, No Respiratory Distress, Chest Non-Tender - CARDIOVASCULAR Cardiovascular: Regular Rate, Regular Rhythm, No Murmur - GI/ABDOMEN Gastrointestinal: Abdomen Soft, Abdomen Non-Tender, No Organomegaly, Normal Ferdinand l Sounds - MUSCULOSKELETAL/EXTREMETIES Musculoskeletal/Extremeties: Tender - Under to the distal end of the left middle finger - NEURO Level of Consciousness: Awake Deep Tendon Reflexes: 2+ - DERM Integumentary: negative: Laceration - Motion injury to the end of the left middle finger Course - Vital Signs Vital signs: Temp Pulse Resp BP Pulse Ox 98.5 F 98 16 110/47 L 100 07/23/20 10:29 07/23/20 10:29 07/23/20 10:29 07/23/20 10:29 07/23/20 10:29 Discharge - Discharge Clinical Impression: Avulsion injury to the left middle finge Condition: Stable Disposition: HOME, SELF-CARE Additional Instructions: Avulsion Injury You have an avulsion injury -- a loss of skin which can't be helped by suturing. When large, these injuries can require skin grafting. Smaller defects or shallow avulsions usually heal well with dressings. Keep the dressing clean and dry. If the bandage becomes wet, remove it, blot the area dry, and apply a fresh dressing. Change the dressings every day. Complete healing may take anywhere from 10 days to two months. The healing time depends on the size and depth of the avulsion and on the amount of crushing of underlying tissues. Re-examination by the physician is often necessary. If any signs of infection occur (swelling, redness, increasing tenderness, red streaks, profuse purulent drainage from the avulsion, tender lumps in the armpit or groin above the avulsion, or fever), see your doctor immediately. Soap Cleansing Gently wash the wound daily using a mild soap (like Ivory, Phisoderm, Neutrogena). Use warm water, rubbing gently until all debris, ooze, and crusting have been washed from the wound. Allow to dry briefly (about 10 minutes) after cleaning. Repeat this cleansing at least three times a day for the first two days and then once or twice a day. Antibiotic Ointment Protection Your wounds are such that dressing them is not practical or optional. After cleansing, you should apply a thin coating of antibiotic ointment (Bacitracin, not Neosporin) to the wounds at least three times daily. This lessens infection risk, and may decrease the amount of scarring. Use a q-tip or dull butter knife, not your finger, to apply this ointment. Any debris or ooze which builds up in the ointment should be gently rubbed off with a sterile gauze pad. Harder crusting may need to be gently scrubbed off with a clean wash cloth with soap and warm water, perhaps applying a warm, wet wash cloth to the wound for ten minutes first. Development of redness, severe itching, or blistering may mean allergy to the ointment. See the doctor. Acetaminophen Acetaminophen may be taken for pain relief or fever control. It's much safer than aspirin, offering a wider range of "safe" dosages. It is safe during . Some brand names are Tylenol, Panadol, Datril, Anacin 3, Tempra, and Liquiprin. Acetaminophen can be repeated every four hours. The following are maximum recommended dosages: WEIGHT Dose Drops Elixir Chewable(80mg) (LBS.) drprs=droppers tsp=teaspoon 6 40 mg .4 ml (1/2) 6-11 80 mg .8 ml (full) 1/2 tsp 1 tab 12-16 120 mg 1 1/2 drprs 3/4 tsp 1 1/2 tabs 17-23 160 mg 2 drprs 1 tsp 2 tabs 24-30 240 mg 3 drprs 1 1/2 tsp 3 tabs 30-35 320 mg 2 tsp 4 tabs 36-41 360 mg 2 1/4 tsp 4 1/2 tabs 42-47 400 mg 2 1/2 tsp 5 tabs 48-53 480 mg 3 tsp 6 tabs 54-59 520 mg 3 1/4 tsp 6 1/2 tabs 60-64 560 mg 3 1/2 tsp 7 tabs 65-70 600 mg 3 3/4 tsp 7 1/2 tabs 71-76 640 mg 4 tsp 8 tabs 77-82 720 mg 4 1/2 tsp 9 tabs 83-88 800 mg 5 tsp 10 tabs >89 pounds or adults 650 mg to 900 mg Acetaminophen can be repeated every four hours. Maximum daily dose not to exceed 4000 mg. These maximum recommended dosages are slightly higher than the dosages written on the product container, but these dosages are very safe and well below the toxic dosage for acetaminophen. Ibuprofen Ibuprofen is an excellent, safe drug for pain control. In addition, it has potent antiinflammatory effects which are beneficial, especially in the treatment of injuries, arthritis, or tendonitis. It's best to take ibuprofen with food. Persons with ulcer disease or allergy to aspirin should notify their physician of this before taking ibuprofen. Take the medication exactly as prescribed. Don't take additional doses unless instructed to do so by your doctor. If you develop wheezing, shortness of breath, hives, faintness, stomach pain, vomiting, or dark black stools, return for re-evaluation at once. Ibuprofen Ibuprofen is an excellent, safe drug for pain control. In addition, it has potent antiinflammatory effects which are beneficial, especially in the treatment of injuries, arthritis, or tendonitis. It's best to take ibuprofen with food. Persons with ulcer disease or allergy to aspirin should notify their physician of this before taking ibuprofen. Take the medication exactly as prescribed. Don't take additional doses unless instructed to do so by your doctor. If you develop wheezing, shortness of breath, hives, faintness, stomach pain, vomiting, or dark black stools, return for re-evaluation at once. FOLLOW-UP CARE: If you have been referred to a physician for follow-up care, call the physicians office for an appointment as you were instructed or within the next two days. If you experience worsening or a significant change in your symptoms, notify the physician immediately or return to the Emergency Department at any time for re-evaluation. Forms: Smoking Cessation Education Referrals: JOSE CRUZ BARRY NP [NO LOCAL MD] - Follow up as needed
--- OUTSIDE RECORDS SUMMARY | 2020-07-24 15:25 | XMS REPORT ---
:1985 [facility] [address] [place] [address] Care Team Providers Name Role Phone Other, [phone] Primary Care Physician Unavailable Miguel HERNÁNDEZ Attending Clinician Unavailable ROCHELLE Attending Clinician Unavailable Talat HERNÁNDEZ Attending Clinician Unavailable Hira Attending Clinician Unavailable MD Barry Rivera Attending Clinician Unavailable LIAM MOLINA Attending Clinician Unavailable MD Barry Rivera Admitting Clinician Unavailable LIAM MOLINA Admitting Clinician Unavailable Allergies, Adverse Reactions, Alerts This patient has no known allergies or adverse reactions. Medications Ordered Filled Start Stop Current Ordering Indication Dosage Frequency Signature Comments Components Medication Medication Date Date Medication? Clinician (SIG) Name Name Ventolin 2019-09 Yes Madie Scruggs HFA 108 (90 09-21 Miguel HERNÁNDEZ HFA 108 Base) 00:00: (90 Base) MCG/ACT 00 MCG/ACT Inhalation Inhalation Aerosol Aerosol Solution Solution 2 puffs every 4-6 hours as needed Quantity: 1 Refills: 3 Madie Rivera MD Start : 0Active 18 GM Inhaler Montelukast 2019-09 Yes Madie Montelukas Sodium 10 09-21 Miguel HERNÁNDEZ t Sodium MG Oral 00:00: 10 MG Oral Tablet 00 Tablet TAKE 1 TABLET AT BEDTIME. Quantity: 90 Refills: 3 Madie Rivera MD Start : 0Active Mometasone 2019-09 Yes Madie Q0.5D Mometasone Furoate 50 09-21 Miguel HERNÁNDEZ Furoate 50 MCG/ACT 00:00: MCG/ACT Nasal 00 Nasal Suspension Suspension INSTILL 2 SPRAY TWICE DAILY Quantity: 1 Refills: 3 Madie Rivera MD Start : 0Active 17 GM Bottle ZyrTEC 2019- Yes Madie 1 QD ZyrTEC Allergy 10 -11 Miguel HERNÁNDEZ Allergy 10 MG Oral 00:00: MG Oral Tablet 00 Tablet TAKE 1 TABLET DAILY. Quantity: 30 Refills: 6 Madie Rivera MD Start : 0Active Mucinex 600 2019-09 Yes Madie Q12H Mucinex MG Oral - Miguel HERNÁNDEZ 600 MG Tablet 00:00: Oral Extended 00 Tablet Release 12 Extended Hour Release 12 Hour TAKE 1 TABLET EVERY 12 HOURS NEEDED FOR CONGESTION . Quantity: 60 Refills: 3 Madie Rivera MD Start : 0Active levoFLOXaci 2019-09 Yes Madie QD levoFLOXac n 500 MG 09-21 Miguel HERNÁNDEZ in 500 MG Oral Tablet 00:00: Oral 00 Tablet TAKE 1 TABLET DAILY UNTIL FINISHED. Quantity: 10 Refills: 0 Madie Rivera MD Start : 0Active Famotidine 2019-09 Yes Madie QD Famotidine 20 MG Oral 09-21 Miguel HERNÁNDEZ 20 MG Oral Tablet 00:00: Tablet 00 TAKE 1 TABLET DAILY NEEDED FOR HEARTBURN Quantity: 30 Refills: 3 Madie Rivera MD Start : 0Active Pregabalin 2019-0 No Angelito 1 Q0.5D Pregabalin 75 MG Oral 05-14 Rivera 75 MG Oral Capsule 00:00: D.O. Capsule 00 TAKE 1 CAPSULE TWICE DAILY Quantity: 60 Refills: 5 Angelito Rivera D.O. Start : 14-May-2020 Active Nitrofurant 0 No 0 Nitrofuran oin Monohyd 8-17 toin Macro 100 00:00: Monohyd MG Oral 00 Macro 100 Capsule MG Oral Capsule TK 1 C PO Q 12 H WF Quantity: 10 Refills: 0 ,,, Start : 0Active Amoxicillin 2019-0 No Madie Amoxicilli -Pot 04-01 Miguel HERNÁNDEZ n-Pot Clavulanate 00:00: Clavulanat 875-125 MG 00 e 875-125 Oral Tablet MG Oral Tablet Take 1 tablet every 12 hours daily Quantity: 20 Refills: 0 Madie Rivera MD Start : 0Active predniSONE 2020-0 No Madie 1 Q0.5D predniSONE 20 MG Oral 04-01 Miguel HERNÁNDEZ 20 MG Oral Tablet 00:00: Tablet 00 TAKE 1 TABLET TWICE DAILY Quantity: 10 Refills: 0 Madie Rivera MD Start : 0Active Afrin Nasal 2019-0 No Madie Afrin Marquette 0.05 - Miguel HERNÁNDEZ Nasal % Nasal 00:00: Marquette 0.05 Solution 00 % Nasal Solution 1 spray each nostril for 3 days. Quantity: 1 Refills: 0 Madie Rivera MD Start : 0Active 20 ML Bottle Sudafed 30 2019-0 No Madie 1 Q0.3333D Sudafed 30 MG Oral 04-01 Miguel MD MG Oral Tablet 00:00: Tablet 00 TAKE 1 TABLET 3 times daily PRN congestion Quantity: 1 Refills: 0 Madie Rivera MD Start : 0Active 72 Tablet Box Budesonide- 0 Sonja Eaton Budesonide Formoterol 5- Miguel -Formotero Fumarate 09:28: D.O. l Fumarate 160-4.5 47 160-4.5 MCG/ACT MCG/ACT Inhalation Inhalation Aerosol Aerosol INHALE 2 PUFFS BY MOUTH TWICE DAILY. RINSE MOUTH AFTER USE* Quantity: 10.2 Refills: 0 Angelito Rivera D.O. Start : 0Active Ondansetron 2019-0 Yes Angelito 1 Q0.3333D Ondansetr o HCl - 4 MG 4-24 Rivera n HCl - 4 Oral Tablet 00:00: D.O. MG Oral 00 Tablet TAKE 1 TABLET 3 TIMES DAILY PRN Quantity: 30 Refills: 0 Angelito Rivera D.O. Start : 0Active Aimovig 70 2019-0 No Angelito Aimovig 70 MG/ML 4-24 Rivera MG/ML Subcutaneou 00:00: D.O. Subcutaneo s Solution 00 us Auto-inject Solution or Auto-injec tor take sub cut - monthly for migrain prevention Quantity: 4 Refills: 1 Angelito Rivera D.O. Start : 0Active Milliliter Pregabalin 2020-0 No Angelito Q0.5D Pregabalin 25 MG Oral 4-24 Rivera 25 MG Oral Capsule 00:00: D.O. Capsule 00 TAKE 1 CAPSULE TWICE DAILY. Quantity: 60 Refills: 3 Angelito Rivera D.O. Start : 0Active Esomeprazol 2019-0 No Madie Esomeprazo e Magnesium 4-15 Miguel HERNÁNDEZ le 40 MG Oral 16:57: Magnesium Capsule 01 40 MG Oral Delayed Capsule Release Delayed Release Take 1 capsule by mouth every day Quantity: 90 Refills: 1 Madie Rivera MD Start : 0Active Ventolin 2019-0 No Madie Ventolin HFA 108 (90 2-26 Miguel HERNÁNDEZ HFA 108 Base) 00:00: (90 Base) MCG/ACT 00 MCG/ACT Inhalation Inhalation Aerosol Aerosol Solution Solution INHALE 1 TO 2 PUFFS EVERY 4 TO 6 HOURS NEEDED. Quantity: 1 Refills: 3 Madie Rivera MD Start : 0Active 18 GM Inhaler Ondansetron 0 No Madie Ondansetro HCl - 4 MG 2- Miguel HERNÁNDEZ n HCl - 4 Oral Tablet 00:00: MG Oral 00 Tablet TAKE 1 TABLET EVERY 6-8 HOURS NEEDED FOR NAUSEA Quantity: 1 Refills: 0 Madie Rivera MD Start : 0Active 30 Tablet Bottle Symbicort 0 No Angelito Symbicort 160-4.5 2- Miguel 160-4.5 MCG/ACT 00:00: D.O. MCG/ACT Inhalation 00 Inhalation Aerosol Aerosol inhale TWO PUFFS by MOUTH TWICE daily *rinse MOUTH AFTER use* Quantity: 1 Refills: 0 Angelito Rivera D.O. Start : 0Active 10.2 GM Inhaler Xopenex HFA No Angelito Xopenex 45 MCG/ACT 05-29 Miguel HFA 45 Inhalation 00:00: D.O. MCG/ACT Aerosol 00 Inhalation Aerosol INHALE ONE OR TWO PUFFS BY MOUTH EVERY 4-6 HOURS NEEDED FOR COUGH AND DYSPNEA Quantity: 1 Refills: 3 Angelito Rivera D.O. Start : 9Active 15 GM Inhaler ZyrTEC No Madie 1 QD ZyrTEC Allergy 10 3-21 Miguel HERNÁNDEZ Allergy 10 MG Oral 00:00: MG Oral Tablet 00 Tablet TAKE 1 TABLET DAILY. Quantity: 30 Refills: 6 Madie Rivera MD Start : 9Active ketorolac 2017-0 Yes into each into each tromethamin 8-14 nostril. nostr il. e (SPRIX 10:06: NASL) 53 FLUoxetine 2017-0 Yes Prozac 40 Proz ac 40 (PROZAC) 40 8-14 mg capsule mg MG capsule 10:06: Take 1 capsule 38 capsule Take 1 twice a capsule day by twice a oral day by route. oral route. predniSONE Yes 40 mg qAM 40 m g qAM (DELTASONE) 8-14 x 5 days x 5 d ays 20 MG 00:00: then 20 mg then 20 tablet 00 qAM x 10 mg qAM x days 10 days cefadroxil 2018- No 500MG Take 1 Take 1 (DURICEF) 814 08-24 capsule capsule 500 MG 00:00: 23:59 (500 mg (500 mg capsule 00 :00 total) by total) b y mouth Two mouth Two (2) times (2) times a day. for a day. 10 days for 10 days temAZEpam 0 Yes 15MG Take 15 mg Take 15 (RESTORIL) 8-03 by mouth mg by 7.5 MG 10:00: nightly as mouth capsule 21 needed for nightly sleep. as needed for sleep. hydrOXYzine 0 Yes 25MG Take 1 Take 1 (ATARAX) 25 7-17 tablet (25 tab let MG tablet 00:00: mg total) (25 m g 00 by mouth total) by every mouth eight (8) every hours as eight (8) needed. hours as needed. lidocaine Yes Apply Apply (RECTICARE) 7-17 topically topi ami 5 % cream 00:00: Three (3) Three (3) 00 times a times a day as day as needed. needed. NON 2018-0 Yes Estradiol Estradiol FORMULARY 5-17 0.5mg/gm/L 0.5mg /gm/ 00:00: idocaine Lidocaine 00 5% in 5% in Aquafore. Aquafore. Apply pea Apply pea sized sized amount to amount to the vulvar the area twice vulvar daily. area twice daily. diazePAM 0 Yes 5MG Take 5 mg Take 5 mg (VALIUM) 5 4-19 by mouth by matias th MG tablet 11:21: two (2) two (2) 46 times a times a day as day as needed. needed. zolpidem Yes 10MG Take 10 mg Take 10 (AMBIEN) 10 4-19 by mouth mg by mg tablet 11:21: nightly as mout h 46 needed. nightly as needed. rizatriptan Yes 10MG Take 10 mg Ta ke 10 (MAXALT) 10 4-09 by mouth. mg b y MG tablet 00:00: mouth. 00 gabapentin 2018- No 600MG Take 600 Take 600 (NEURONTIN) 4-04 08-14 mg by mg by 600 MG 00:00: 00:00 mouth mouth tablet 00 :00 three (3) three (3) times a times a day (at day (at 6am, noon 6am, noon and 6pm). and 6pm). meloxicam Yes 7.5MG Take 7.5 Take 7 .5 (MOBIC) 7.5 1-31 mg by mg by MG tablet 00:00: mouth. mouth. 00 FLUoxetine Yes Take by Take b y 60 mg Tab 1-09 mouth. mouth. 00:00: 00 ARIPiprazol 2016-09 Yes 5MG Take 5 mg Fady e 5 mg e (ABILIFY) 2-18 by mouth. by m outh. 5 MG tablet 00:00: 00 lisdexamfet Yes TK 1 C PO TK 1 C PO amine 2-28 QD IN THE QD IN THE (VYVANSE) 00:00: MORNING MORNING 60 MG 00 capsule Abilify 15 No 1 Q1D Abilify 15 mg tablet mg tablet Take 1 Take 1 tablet tablet every day every day by oral by oral route. route. Colace 100 No 1capsul Q1D Colace 100 mg capsule e(s) mg capsule Take 1 Take 1 capsule capsule every day every day by oral by oral route as route as needed. needed. ketorolac No 1 Q6H ketorolac 10 mg 10 mg tablet Take tablet 1 tablet Take 1 every 6 tablet hours by every 6 oral route hours by as needed. oral route as needed. temazepam No 1capsul Q1D temazepam 15 mg e(s) 15 mg capsule capsule Take 1 Take 1 capsule capsule every day every day by oral by oral route as route as needed. needed. Vyvanse No Vyvanse 70mg po 70mg po daily daily ondansetron No 1 BID ondansetro HCl 4 mg n HCl 4 mg tablet Take tablet 1 tablet Take 1 twice a day tablet by oral twice a route as day by needed. oral route as needed. Xanax No Xanax Zofran No Zofran Problems Condition Condition Condition Status Onset Resolution Last Treatin g Comments Name Details Category Date Date Treatment Clinician Date Family Family Problem Active history of History of 04-10 breast Breast 00:00: cancer Cancer 00 Undifferent Undifferent Problem Active iated iated 03-30 attention Attention 00:00: deficit Deficit 00 disorder Disorder Elevated Elevated Problem Active blood-press Blood-press 03-30 ure reading ure Reading 00:00: without without 00 diagnosis Diagnosis of of hypertensio Hypertensio n n Breast lump Breast Lump Problem Active 03-30 00:00: 00 Problem No known Condition active problems Asthma Asthma Problem Active exacerbatio exacerbatio n n Sinus Sinus Problem Active infection infection Abnormal Abnormal Problem Active urine urine findings findings Chest pain Chest pain Problem Active Dyspnea Dyspnea Problem Active Syncope Syncope Problem Active PFO (patent PFO (patent Problem Active foramen foramen ovale) ovale) URI (upper URI (upper Problem Active respiratory respiratory infection) infection) Allergies Allergies Problem Active Positive Positive Problem Active cardiolipin cardiolipin antibodies antibodies Anxiety and Anxiety and Problem Active depression depression Breast pain Breast pain Problem Active in female in female Bruising Bruising Problem Active Idiopathic Idiopathic Problem Active vulvodynia vulvodynia Paresthesia Paresthesia Problem Active s s Sic[place] Sic[place] Problem Active Tinnitus of Tinnitus of Problem Active both ears both ears PRB (rectal PRB (rectal Problem Active bleeding) bleeding) Irritable Irritable Problem Active bowel bowel syndrome syndrome Cough Cough Problem Active Heart Heart Problem Active failure failure Itching Itching Problem Active 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 Edema leg Edema leg Problem Active Dyspareunia Dyspareunia Problem Active Poor sleep Poor sleep Problem Active Pneumonia Pneumonia Problem Active Aspiration Aspiration Problem Active pneumonitis pneumonitis Allergic Allergic Problem Active rhinitis rhinitis Pneumonia, Pneumonia, Problem Active lobar lobar Pulmonary Pulmonary Problem Active nodule nodule Pulmonary Pulmonary Problem Active infiltrate infiltrate Chronic Chronic Problem Active pain of pain of multiple multiple joints joints Asthma Asthma Problem Active Bronchiecta Bronchiecta Problem Active sis sis 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 GERD GERD Problem Active without without esophagitis esophagitis Chronic Chronic Problem Active fatigue fatigue Myalgia and Myalgia and Problem Active myositis myositis Migraine Migraine Problem Active headache headache Immune Immune Problem Active mechanism mechanism disorder disorder LE (lupus LE (lupus Problem Active erythematos erythematos us) us) Posttraumat Posttraumat Problem Active ic stress ic Stress disorder Disorder Depressive Depressive Problem Active disorder Disorder 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 Lumbar interverteb Interverteb ral disc ral Disc without without myelopathy Myelopathy Procedures Procedure Date / Time Performed Performing Clinician Devic e L - IgE+Allergens Zone 2(30) 2020-07-22 00:00:00 Basic Metabolic Panel(BMP) 2020-07-22 00:00:00 CRP 2020-07-22 00:00:00 Miscellaneous Test 2020-07-22 00:00:00 Sed Rate 2020-07-22 00:00:00 CBC 2020-07-22 00:00:00 XR-Chest(Pa&Lat) 2020-07-22 00:00:00 CT - Chest without Contrast 2020-07-07 00:00:00 Cholecystectomy with 2020-06-24 00:00:00 Cholangiography, Laparoscopic (Surg) DP-2D Echo 2020-06-18 00:00:00 Event Monitor 2020-06-18 00:00:00 L - B-Type Natriuretic Peptide 2020-06-17 00:00:00 CBC 2020-05-14 00:00:00 CMP(Complete Metabolic Panel) 2020-05-14 00:00:00 CRP 2020-05-14 00:00:00 L - HAKEEM w/Reflex if Positive 2020-05-14 00:00:00 L - Prot+CreatU (Random) 2020-05-14 00:00:00 Sed Rate 2020-05-14 00:00:00 Urinalysis 2020-05-14 00:00:00 Miscellaneous Test 2020-05-14 00:00:00 Urine Culture 2020-05-14 00:00:00 OFFICE/OUTPATIENT VISIT EST 2020-03-19 09:00:00 Excisional Breast Biopsy 2018-07-25 00:00:00 Excisional Breast Biopsy (Surg) 2018-07-25 00:00:00 Endoscopy, Wrist, Surgical, with 2017-06-27 00:00:00 Release of Transverse Carpal Ligament Endoscopy, Wrist, Surgical, with 2017-06-27 00:00:00 Release of Transverse Carpal Ligament (Surg) Lumpectomy 2016-11-09 00:00:00 History of Lumpectomy History of Carpal tunnel surgery History of Tonsillectomy with adenoidectomy History of Tubal ligation Results Test Description Test Time Test Comments Text Results Atomic Results Result Comments Basic Metabolic Panel(BMP) 2020-07-22 09:38:00 Test Item Value Reference Range Comments Glucose (test code = Glucose) 96 mg/dL 74-106 Sodium (test code = Sodium) 138 mmol/L 135-145 Potassium (test code = Potassium) 4.2 mmol/L 3.5-5.3 Chloride (test code = Chloride) 103 mmol/L 98-107 CO2 (test code = CO2) 32 mmol/L 22-30 Creatinine, serum (test code = Creatinine, serum) 0.60 mg/dL 0.10-1.04 Glomerular Filtration Rate (test code = Glomerular Filtration >6 0 >60 Rate) Glomerular Filtration Rate AA (test code = Glomerular >60 >60 Filtration Rate AA) Blood Urea Nitrogen (test code = Blood Urea Nitrogen) 8 mg/dL 7-17 Calcium (test code = Calcium) 9.2 mg/dL 8.4-10.5 [id number] 09:38:00 Test Item Value Reference Range Comments C-Reactive Protein (test code = C-Reactive <5 <10 Less than linearity Protein) [id number] 09:37:00 Test Item Value Reference Range Comments White Blood Cell (test code = White Blood Cell) 6.7 K/uL 3.5-11.1 Red Blood Cell (test code = Red Blood Cell) 4.23 {M/uL} 3.69 -4.87 Hemoglobin (test code = Hemoglobin) 13.1 g/dL 11.4-14.4 Hematocrit (test code = Hematocrit) 40 % 33-41 Mean Corpuscular Volume (test code = Mean 93.6 fL 79.0-9 5.0 Corpuscular Volume) Mean Corpuscular Hemoglobin (test code = Mean 31.0 pg/mL 27 .0-33.0 Corpuscular Hemoglobin) Mean Corpuscular Hemoglobin Concentration (test 33.1 g/dL 33.5-35.5 code = Mean Corpuscular Hemoglobin Concentration) Red Cell Distribution Width (test code = Red 13.1 % 12. 0-15.0 Cell Distribution Width) Platelet (test code = Platelet) 234 K/uL 130-353 Mean Platelet Volume (test code = Mean Platelet 9.8 fL 7.5-10.7 Volume) Neutrophil Count, absolute (test code = 4.6 K/uL 1.9-7.2 Neutrophil Count, absolute) Neutrophil Count Percentage (test code = 69.1 % 43.0-72 .0 Neutrophil Count Percentage) Lymphocyte Count, absolute (test code = 1.4 K/uL 1.1-2.7 Lymphocyte Count, absolute) Lymphocyte Count Percentage (test code = 21.6 % 17.0-44 .0 Lymphocyte Count Percentage) Monocyte Count, absolute (test code = Monocyte 0.4 K/uL 0 .3-0.8 Count, absolute) Monocyte Count Percentage (test code = Monocyte 6.1 % 4.5-12.4 Count Percentage) Eosinophil Count, absolute (test code = 0.2 K/uL 0.0-0.5 Eosinophil Count, absolute) Eosinophil Count Percentage (test code = 2.8 % 0.7-7.8 Eosinophil Count Percentage) Basophil Count, absolute (test code = Basophil 0.0 K/uL 0 .0-0.1 Count, absolute) Basophil Count Percentage (test code = Basophil 0.3 % 0.2-1.1 Count Percentage) Nucleated Red Blood Cell, absolute (test code = 0.00 K/uL 0.00-0.00 Nucleated Red Blood Cell, absolute) Nucleated Red Blood Cell, percentage (test code 0.00 % 0.00-0.00 = Nucleated Red Blood Cell, percentage) Sed [id number] 09:37:00 Test Item Value Reference Range Comments Erythrocyte Sedimentation Rate (test code = 5 {mm/hr} 0-30 Erythrocyte Sedimentation Rate) XR-Chest(Pa&Lat)2020-07-22 09:36:00An image is avaliable in iSite, click link to view imageCT - Chest without [id number] 08:36:00An image is avaliable in iSite, click link to view [id number] 22:52:00 [facility] [address] [facility] [address] Patient: MACK AMOR : 1985 Sex: F Address: [address] [place] [address] [place] [address] Unit #: [id number] REQ SEQ #: [id number] Location: SURGERY Room #: Ordering: SMILEY BYRD MD Diagnosis: K828/OTHER SPECIFIED DISEASES OF GALLBLADDER IVONNE LANGIOGRAM OPERATIVE History: K828/OTHER SPECIFIED DISEASES OF GALLBLADDER K828/OTHER SPECIFIED DISEASES OF GALLBLADDER FLUOROSCOPY TIME: 8.2 seconds Reference air kerma: 1.61 mGy Intraoperative fluoroscopic guidance is utilized. Multiple images obtained. No common bile duct stones. Contrast in the duodenum. No strictures. Impression: Appropriate intraoperative images obtained. Final report electronically signed by: Kiki Davis MD Signed by: KIKI DAVIS II, MD 06/24/20 2247 cc: KIKI DAVIS II, MD, MINDY MDPathology [id number] 00:00:00Path ReportDP-2D Echo 2020-06-19 12:57:00 + ++ + [facility] : :: :[facility] : :: : [address] : :+ + [place], [place] : : [address] + + Echocardiogram Report Name: Mack Amor : 1985MRN: [id number] Age: 35 yrsAccount Number:[id number] Gender: FemaleOrdering Physician: Franky Gilliland Study Date: 06/18/2020 02:05 PMReferring Physician: Talat Reason For Study: Heart failure History: History of heartPerformed By: GÉNESIS ANGELES^^^^ failure Interpr eting physician: Karl BorregoHeight: 65 in Weight: 121 lb BSA: 1.6 m2 HR: 65 BP: 104/70 mmHg ProcedureA complete two-dimensional transthoracic echocardiogram was performedincluding 2D, M-mode, spectral and tissue Doppler and color flow Doppler.Study performed by Alexus Velázquez, student [facility].Quality of the study is adequate. Interpretation SummaryNormal left ventricular size, thickness with low normal systolic function.Ejection Fraction = 50-55%.Normal rightventricular size and function.Normal valve structures and Doppler flows.A patent foramen ovale is pre sent. Left VentricleThe left ventricle is normal in size. Normal left ventricular wall thickness.Normal LV mass Index. Ejection Fraction = 50-55%. Normal left ventriculardiastolic function. Left ventricular systolic function is low normal. Noregional wall motion abnormalities noted.Right VentricleNormal right ventricular size and function.AtriaLeft atrial size is normal. Normal Left Atrial Volume Index. IVC is normal.Right atrial size is normal. A patent foramen ovale is present.Mitral ValveMitral valve is normal. No mitral valvestenosis. No mitral regurgitationnoted.Tricuspid ValveTricuspid valve is normal in appearance. No tricuspid stenosis. Tracetricuspid regurgitation. Unable to estimate RV systolic pressure based onincomplete tricuspid regurgitant jet.Aortic ValveThe aortic valve opens well. The aortic valve is trileaflet. Nohemodynamically significant valvular aortic stenosis. No aortic insufficiencyis present.Pulmonic ValvePulmonic valve is not well visualized. There is no pulmonic valvular stenosis.There is no pulmonic valvular regurgitation.Great VesselsThe aortic root is normal size. Ascending aorta is normal insize. Pulmonaryartery is grossly normal.Pericardium/PleuralNo pericardial effusion. No pleural effusion noted.MMode/2D Measurements & CalculationsRVDd: 3.9 cm LVIDd: 4.3 cmIVSd: 0.62 cm LVIDs: 3.0 cm LVPWd: 0.62 cmLV mass(C)d: 77.7 grams Ao root diam: 2.0 cmLV mass(C)dI: 48.6 grams/m2 Ao root area: 3.1 cm2 ACS: 1.6 cm LA dimension: 2.4 cmasc Aorta Diam: 2.9 cmLVOT diam: 1.7 cm LVOT area: 2.1 [id number] ap4: 7.7 cm LVLd ap2: 7.7 cmEDV(MOD-sp4): 66.8 ml EDV(MOD-sp2): 58.5 mlLVLs ap4: 6.7 cm ESV(MOD-sp2): 28.2 mlESV(MOD-sp4): 31.9 ml EF(MOD-sp2): 51.8 %EF(MOD-sp4): 52.2 %SV(MOD-sp4): 34.9 ml SV(MOD-sp2): 30.3 mlTAPSE_phl: 1.8 cm IVC Diam_phl: 1.6 cm RVIDd/LVIDd_phl: 0.89RA A4Cs_phl: 12.3 cm2LA area A2: 15.0 cm2 LA area A4: 14.6 cm2LA Volume Index: 23.3 ml/[id number] Measurements & CalculationsMV E max ubaldo: 92.6 cm/sec MV V2 max: 90.3 cm/secMV A max ubaldo: 50.0 cm/sec MV max P.3 mmHgMVE/A: 1.9 MV V2 mean: 59.5 cm/sec MVmean P.6 mmHg MV V2 VTI: 31.9 cm MVA(VTI): 1.5 cm2MV dec time: 0.19 sec Ao V2 max: 127.7 cm/sec Ao max P.5 mmHg Ao V2 mean: 82.3 cm/sec Ao mean P.1 mmHg Ao V2 VTI: 23.8 cm JOSE(I,D): 2.0 cm2 JOSE(V,D): 1.9 cm2LV V1 max P.8 mmHg SV(LVOT): 47.5 mlLV V1 mean P.8 mmHgLV V1 max: 110.1 cm/secLV V1 mean: 79.6 cm/secLV V1 VTI: 22.1 cmPA V2 max: 86.5 cm/sec Med Peak E' Ubaldo: 10.7 cm/secPA max P.0 mmHgPA acc time: 0.19 secLat Peak E' Ubaldo: 14.7 cm/sec PA pr(Accel): -6.6 mmHgAVA(VTI)/BSA_phl: 1.3 RV S Vel_phl: 10.2 cm/secE/E' lat: 6.3 E/E' med: 8.7 Electronically signed by:Karl Borrego 06/19/2020 12:57 PML - B-Type Natriuretic [id number] 14:06:00 Test Item Value Reference Range Comments B-Type Natriuretic Peptide (test code = 45874-7) 35.7 pg/mL 0.0-100.0 [facility] performed at: [] [address], [address], , Cinema Operator: Raisa Hernandez [id number] 11:20:00 Test Item Value Reference Range Comments White Blood Cell (test code = White Blood Cell) 8.7 K/uL 3.5-11.1 Red Blood Cell (test code = Red Blood Cell) 4.60 {M/uL} 3.69 -4.87 Hemoglobin (test code = Hemoglobin) 14.0 g/dL 11.4-14.4 Hematocrit (test code = Hematocrit) 42 % 33-41 Mean Corpuscular Volume (test code = Mean 91.7 fL 79.0-9 5.0 Corpuscular Volume) Mean Corpuscular Hemoglobin (test code = Mean 30.4 pg/mL 27 .0-33.0 Corpuscular Hemoglobin) Mean Corpuscular Hemoglobin Concentration (test 33.2 g/dL 33.5-35.5 code = Mean Corpuscular Hemoglobin Concentration) Red Cell Distribution Width (test code = Red 13.4 % 12. 0-15.0 Cell Distribution Width) Platelet (test code = Platelet) 236 K/uL 130-353 Mean Platelet Volume (test code = Mean Platelet 9.9 fL 7.5-10.7 Volume) Neutrophil Count, absolute (test code = 6.2 K/uL 1.9-7.2 Neutrophil Count, absolute) Neutrophil Count Percentage (test code = 71.5 % 43.0-72 .0 Neutrophil Count Percentage) Lymphocyte Count, absolute (test code = 1.9 K/uL 1.1-2.7 Lymphocyte Count, absolute) Lymphocyte Count Percentage (test code = 21.6 % 17.0-44 .0 Lymphocyte Count Percentage) Monocyte Count, absolute (test code = Monocyte 0.4 K/uL 0 .3-0.8 Count, absolute) Monocyte Count Percentage (test code = Monocyte 4.5 % 4.5-12.4 Count Percentage) Eosinophil Count, absolute (test code = 0.2 K/uL 0.0-0.5 Eosinophil Count, absolute) Eosinophil Count Percentage (test code = 1.8 % 0.7-7.8 Eosinophil Count Percentage) Basophil Count, absolute (test code = Basophil 0.0 K/uL 0 .0-0.1 Count, absolute) Basophil Count Percentage (test code = Basophil 0.3 % 0.2-1.1 Count Percentage) Nucleated Red Blood Cell, absolute (test code = 0.00 K/uL 0.00-0.00 Nucleated Red Blood Cell, absolute) Nucleated Red Blood Cell, percentage (test code 0.00 % 0.00-0.00 = Nucleated Red Blood Cell, percentage) Sed [id number] 11:20:00 Test Item Value Reference Range Comments Erythrocyte Sedimentation Rate (test code = 3 {mm/hr} 0-30 Erythrocyte Sedimentation Rate) [id number] 11:20:00 Test Item Value Reference Range Comments Urine Color (test code = Urine Color) YELLOW Yellow Urine Clarity (test code = Urine SL CLOUDY Clear Clarity) Urine Glucose (test code = Urine NEGATIVE Negative Glucose) Urine Ketones (test code = Urine NEGATIVE Negative Ketones) Urine Bilirubin (test code = Urine NEGATIVE Negative Bilirubin) Urine Specific [place] (test code = 1.025 1.010-1.030 Urine Specific [place]) Urine Blood (test code = Urine Blood) NEGATIVE Negative Urine pH (test code = Urine pH) 7.5 5.0-8.0 Urine Protein (test code = Urine TRACE Negative Protein) Urine Urobilinogen (test code = Urine 1.0 Eu/dl 0.2 Urobilinogen) Urine Nitrites (test code = Urine NEGATIVE Negative Nitrites) Urine Leukocytes (test code = Urine NEGATIVE Negative WBC=0-2RBC=0-2BAC=MOD Leukocytes) CMP(Complete Metabolic Panel)2020-05-14 11:20:00 Test Item Value Reference Range Comments Glucose (test code = Glucose) 110 mg/dL 74-106 Sodium (test code = Sodium) 137 mmol/L 135-145 Potassium (test code = Potassium) 4.1 mmol/L 3.5-5.3 Chloride (test code = Chloride) 102 mmol/L 98-107 CO2 (test code = CO2) 27 mmol/L 22-30 Creatinine, serum (test code = Creatinine, serum) 0.60 mg/dL 0.10-1.04 Glomerular Filtration Rate (test code = >60 >60 Glomerular Filtration Rate) Glomerular Filtration Rate AA (test code = >60 >60 Glomerular Filtration Rate AA) Blood Urea Nitrogen (test code = Blood Urea 9 mg/dL 7-17 Nitrogen) Calcium (test code = Calcium) 9.8 mg/dL 8.4-10.5 Phosphorus (test code = Phosphorus) 3.5 mg/dL 2.5-4.5 Total Protein (test code = Total Protein) 7.0 g/dL 6.3-8. 2 Albumin (test code = 76504-8) 4.4 g/dL 3.5-5.0 Total Bilirubin (test code = Total Bilirubin) 0.6 mg/dL 0. 2-1.3 Bilirubin, unconj (test code = Bilirubin, unconj) 0.4 mg/dL 0.0-1.1 Bilirubin, Direct (test code = Bilirubin, Direct) 0.2 mg/dL 0.0-0.4 Alkaline Phosphatase (test code = Alkaline 79 U/L 20-15 0 Phosphatase) Alanine Transaminase (test code = Alanine 11 U/L 0-35 Transaminase) Aspartate Aminotransferase (test code = Aspartate 15 U/L 3-36 Aminotransferase) [id number] 11:20:00 Test Item Value Reference Range Comments C-Reactive Protein (test code = C-Reactive Protein) <5 <10 Less than linearityUrine [id number] 11:20:00 Test Item Value Reference Range Comments Final Report (test Microbiology results Oakes C ount[05/15/2020 code = Final Report) 12:54 PM ] >100,000 cfu/mlResult[05/15 12:54 PM ] Mix ed culture, suggest mark of contamination. P lease resubmit if nece ssary. L - HAKEEM w/Reflex if [id number] 11:20:00 Test Item Value Reference Range Comments HAKEEM Direct (test code = 8061-4) Negative Negative [facility] performed at: [] [address], [address], , Cinema Operator: Evie Turner, [id number] 11:20:00 Test Item Value Reference Range Comments Creatinine, Urine (test code = 2161-8) 128.2 mg/dL Not Estab . Protein,Total,Urine (test code = 2888-6) 20.9 mg/dL Not Est ab. Protein/Creat Ratio (test code = 163 {mg/g creat} 0-200 Protein/Creat Ratio) [facility] performed at: [BN] [address], [address], , Cinema Operator: Raisa Hernandez MDUNC 2019 CORONAVIRUS ABY PANEL\S\2020-03-06 11:21:00 Test Item Value Reference Range Comments [facility]EL CORONAVIRUS ABY (test code = NOT DETECTED [id number]) [facility] CORONAVIRUS [facility] ABY [facility] (test code = NASOPHARYNGEAL SOURCE3) Pathology [id number] 00:00:00Path ReportPOCT , URINE, INTERFACED 2018-04-13 09:58:00 Test Item Value Reference Range Comments HCG Urine, POC (test code = HCG Urine, POC) Negative Nega tive Assessments Condition Name Status Diagnosis Date Treating Clinici an Postoperative visit Active 2020-07-08 07:37:16 Postoperative nausea Active 2020-07-08 11:16:05 Biliary dyskinesia Active 2020-05-22 15:35:57 Epigastric pain Active Right upper quadrant pain Active Oth symptoms and signs involving the Active dgstv sys and abdomen Nausea with vomiting, unspecified Active Cough Active SYSTEM Pain of breast Active 2018-08-16 09:11:12 PRB (rectal bleeding) Active Dyspareunia Active Myalgia and myositis Active GERD without esophagitis Active Breast pain in female Active Sicca Active Tinnitus of both ears Active Paresthesias Active Pneumonia, lobar Active Irritable bowel syndrome Active Immune mechanism disorder Active Bruising Active Poor sleep Active Anxiety and depression Active Pneumonia Active Bronchiectasis Active Pulmonary nodule Active Pneumonia Active Chronic pain of multiple joints Active 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 Immune mechanism disorder Active Asthma Active Allergic rhinitis Active Aspiration pneumonitis Active Pulmonary nodule Active GERD without esophagitis Active Bronchiectasis Active Pneumonia Active Asthma Active Allergic rhinitis Active Aspiration pneumonitis Active Edema leg Active Pulmonary nodule Active GERD without esophagitis Active Bronchiectasis Active Pneumonia Active Asthma Active Aspiration pneumonitis Active Chronic fatigue Active Dyspareunia Active Myalgia and myositis Active Bronchiectasis Active Immune mechanism disorder Active Poor sleep Active Allergic rhinitis Active Pulmonary nodule Active GERD without esophagitis Active Bronchiectasis Active Pneumonia Active Asthma Active Bronchiectasis Active Aspiration pneumonitis Active Pulmonary nodule Active GERD without esophagitis Active Allergic rhinitis Active Pneumonia, lobar Active Asthma Active Chronic pain of multiple joints Active Chronic fatigue Active LE (lupus erythematosus) Active Fibromyalgia syndrome Active Myalgia and myositis Active GERD without esophagitis Active Anticardiolipin antibody positive Active Bronchiectasis Active Immune mechanism disorder Active Asthma Active Migraine headache Active Asthma Active Edema leg Active Heart failure Active LE (lupus erythematosus) Active GERD without esophagitis Active Pulmonary infiltrate Active Bronchiectasis Active Allergic rhinitis Active Pneumonia Active Anxiety and depression Active Fibromyalgia syndrome Active LE (lupus erythematosus) Active Anticardiolipin antibody positive Active Cough Active Myalgia and myositis Active Itching Active Irritable bowel syndrome Active Immune mechanism disorder Active Asthma exacerbation Active Does not exercise Active Migraine headache Active Chest pain Active Dyspnea Active Syncope Active Allergic rhinitis Active Allergies Active Consumes alcohol occasionally Active Idiopathic vulvodynia Active Chronic pain of multiple joints Active Pseudoangiomatous stromal hyperplasia Active of breast Chronic fatigue Active Fibromyalgia syndrome Active Dyspareunia Active Bladder spasms Active Myalgia and myositis Active History of recurrent miscarriages, 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 Family history of rheumatoid arthritis Active GERD without esophagitis Active Breast pain in female Active Sicca Active Tinnitus of both ears Active Paresthesias Active Immune mechanism disorder Active History of attention deficit Active hyperactivity disorder (ADHD) Bruising Active Poor sleep Active Anxiety and depression Active Fibromyalgia syndrome Active Idiopathic vulvodynia Active Chronic pain of multiple joints Active Pseudoangiomatous stromal hyperplasia Active of breast Aspiration pneumonitis Active Chronic fatigue Active Encounters Start End Encounter Admission Attending Care Care Encounter Date/Time Date/Time Type Type Clinicians Facility Department ID 2020-07-22 2020-07-22 Appointment CHIRAG BEARD [id number] 09:25:00 09:25:00 ; Mayito marcos, XRAY 2020-07-22 2020-07-22 Appointment CHIRAG Rivera [id number] 08:30:00 08:30:00 ; Madie Rivera MD 2020-07-22 2020-07-22 Appointment CHIRAG ROYBERTRAM [id number] 08:00:00 08:00:00 ; FABIÁN MARCOS, ROOM 2020-07-07 2020-07-07 Marcial Salter [id number] 00:00:00 00:00:00 Eyerman, Surgical Surgical [address]: [address] [place] [address], Ph. 2020-06-24 2020-06-24 [facility] [id number] 00:37:00 00:37:00 SMILEY 0 2020-06-18 2020-06-18 [facility] [id number] 14:00:00 14:00:00 ; KURT PennxiomaraBridget taylor 2020-06-17 2020-06-17 Appointment MANUELA GillilandBERTRAM [facility] [id number] 14:30:00 14:30:00 ; Franky Gilliland MD 2020-05-21 2020-05-21 Marcial Salter [id number] 00:00:00 00:00:00 Eyerman, Surgical Surgical [address] [place] [address], Ph. 2020-05-14 2020-05-14 Appointment [facility] [id number] 10:45:00 10:45:00 ; Angelito Rivera D.O. 2020-04-01 2020-04-01 Appointment CHIRAG RiveraBERTRAM [id number] 15:15:00 15:15:00 ; Madie Rivera MD 2020-03-30 2020-03-30 [facility] [id number] 11:30:00 11:30:00 ; Madie Rivera MD 2020-03-19 2020-03-19 Outpatient Hira [facility] [id number] 09:00:00 09:00:00 Freya Children [id number], 2020-03-09 2020-03-09 Appointment [facility] [id number] 14:00:00 14:00:00 ; Fly Gutierrez MD 2020-03-07 2020-03-07 Outpatient [facility] [id number] 00:00:00 00:00:00 [id number] 2020-01-13 Appointment CHIRAG RiveraBERTRAM [id number] 09:45:00 09:45:00 ; Madie Rivera MD 2020-01-08 2020-01-08 Appointment [facility] [id number] 10:15:00 10:15:00 ; Fly Gutierrez MD 2020-01-03 2020-01-03 Appointment [facility] [id number] 11:30:00 11:30:00 ; CT MAYITO MARCOS, ROOM 2020-01-03 2020-01-03 Appointment [facility] [id number] 10:30:00 10:30:00 ; Angelito Rivera D.OChiki 2019-12-25 2019-12-25 Appointment [facility] [id number] 16:40:00 16:40:00 ; Mayito marcos, XRAY 2019-12-25 2019-12-25 Appointment Miguel, [facility] [id number] 15:30:00 15:30:00 ; Madie Rivera MD 2019-11-27 2019-11-27 Appointment [facility] [id number] 09:45:00 09:45:00 ; Fly Gutierrez MD 2019-11-06 2019-11-06 Appointment [facility] [id number] 12:35:00 12:35:00 ; Mayito marcos, XRAY 2019-11-06 2019-11-06 Appointment Miguel [facility] [id number] 11:45:00 11:45:00 ; Madie Rivera MD 2019-10-17 2019-10-17 [facility] [id number] 09:00:00 09:00:00 ; Madie Rivera MD 2019-07-17 2019-07-17 Appointment [facility] [id number] 10:30:00 10:30:00 ; Angelito Rivera D.OChiki 2019-07-17 2019-07-17 Appointment Miguel [facility] [id number] 08:30:00 08:30:00 ; Madie Rivera MD 2019-06-28 2019-06-28 Appointment [facility] [id number] 10:30:00 10:30:00 ; Fly Gutierrez MD 2019-06-03 2019-06-03 [facility] [id number] 13:00:00 13:00:00 ; Mayito marcos Echo/Vas U/SGarrett MD 2019-05-29 2019-05-29 Appointment Miguel [facility] [id number] 08:45:00 08:45:00 ; Madie Rivera MD 2019-04-24 2019-04-24 Appointment Miguel [facility] [id number] 14:30:00 14:30:00 ; Madie Rivera MD 2019-04-11 2019-04-11 Appointment Miguel [facility] [id number] 09:15:00 09:15:00 ; Madie Rivera MD 2019-01-31 2019-01-31 Appointment [facility] [id number] 09:15:00 09:15:00 ; Fly Gutierrez MD 2019-01-24 2019-01-24 O Madie Rivera [facility] 2 [id number] 14:34:00 14:34:00 Madie Rivera 2019-01-17 2019-01-17 Appointment [facility] [id number] 09:45:00 09:45:00 ; Angelito Rivera D.O. 2019-01-16 2019-01-16 Appointment Miguel [facility] [id number] 08:30:00 08:30:00 ; Madie Rivera MD 2019-01-14 2019-01-14 Appointment Miguel [facility] [id number] 08:30:00 08:30:00 ; Madie Rivera MD 2019-01-08 2019-01-08 Appointment [facility] [id number] 15:45:00 15:45:00 ; Fly Gutierrez MD 2018-12-10 2018-12-10 Appointment [facility] [id number] 11:30:00 11:30:00 ; Fly Gutierrez MD 2018-12-06 2018-12-06 Outpatient [facility] [id number] 00:00:00 00:00:00 [id number] 2018-11-29 2018-11-29 [facility] [id number] 10:45:00 10:45:00 ; Madie Rivera MD 2018-11-01 2018-11-01 [facility] [id number] 11:30:00 11:30:00 ; Madie Rivera MD 2018-10-25 2018-10-25 Appointment [facility] [id number] 15:00:00 15:00:00 ; Fly Gutierrez MD 2018-10-22 2018-10-22 Appointment [facility] [id number] 11:30:00 11:30:00 ; Mayito marcos Echo/Vas U/SGarrett MD 2018-10-11 2018-10-11 Appointment MANUELA RiveraBERTRAM [facility] [id number] 11:30:00 11:30:00 ; Madie Rivera MD 2018-10-11 2018-10-11 Appointment [facility] [id number] 10:30:00 10:30:00 ; Pulmonary, Functions 2018-10-11 2018-10-11 Appointment [facility] [id number] 10:00:00 10:00:00 ; RONDA SamsAY 2018-10-10 2018-10-10 [facility] [id number] 17:55:00 17:55:00 BALWINDER [id number] 2018-10-10 2018-10-10 [facility] [id number] 17:40:00 17:40:00 BALWINDER [id number] 2018-10-10 2018-10-10 [facility] [id number] 17:27:00 17:27:00 BALWINDER [id number] 2018-10-10 2018-10-10 [facility] [id number]_ 17:20:00 17:20:00 BALWINDER [id number] 2018-10-10 2018-10-10 Out[facility] [id number]_ 16:22:00 16:22:00 BALWINDER [id number] 2018-10-10 2018-10-10 Outpatient [facility] [id number] 14:35:00 14:35:00 BALWINDER [id number] 2018-10-10 2018-10-10 Outpatient [facility] [id number] 14:27:00 14:27:00 BALWINDER [id number] 2018-10-10 2018-10-10 Outpatient [facility] [id number] 00:00:00 00:00:00 BALWINDER [id number] 2018-10-05 2018-10-05 [facility] [id number] 10:00:00 10:00:00 ; Angelito Rivera D.O. 2018-09-14 2018-09-14 Outpatient [facility], [facility] [id number]_ 16:15:00 16:15:00 BALWINDER [id number] 2018-09-14 2018-09-14 Outpatient [facility], [facility] [id number]_ 14:31:00 14:31:00 BALWINDER [id number] 2018-09-14 2018-09-14 Outpatient [facility], [facility] [id number] 13:43:00 13:43:00 BALWINDER [id number] 2018-09-14 2018-09-14 Outpatient [facility], [facility] [id number]_ 13:30:00 13:30:00 BALWINDER [id number] 2018-09-14 2018-09-14 Outpatient [facility] [id number] 13:24:00 13:24:00 BALWINDER [id number] 2018-09-14 2018-09-14 Outpatient [facility] [id number] 00:00:00 00:00:00 BALWINDER [id number] 2018-08-24 2018-08-24 Outpatient [facility] [id number]_ 16:40:00 16:40:00 BALWINDER [id number] 2018-08-24 2018-08-24 Outpatient JOE CHAUDHARI [facility] [id number] 00:00:00 00:00:00 BALWINDER [id number] 2018-08-16 2018-08-16 Smiley Salter [id number] 00:00:00 00:00:00 Rochelle: Surgical Surgical [id number] [place] [address], Ph. 2018-08-15 2018-08-15 App[facility] [id number] 09:00:00 09:00:00 ; Angelito Rivera D.O. 2018-07-25 2018-07-25 Outpatient GABBI [facility] [id number] 00:31:00 00:31:00 SMILEY 2 2018-07-24 2018-07-24 [facility] [id number] 00:00:00 00:00:00 2018-07-18 2018-07-18 Out[facility] [id number]_ 08:30:00 08:30:00 BALWINDER [id number] 2018-07-18 2018-07-18 Outpatient [facility]ABBI MOLINA [facility] [id number] 00:00:00 00:00:00 BALWINDER [id number] 2018-07-10 2018-07-10 Outpatient [facility] [id number] 00:00:00 23:59:00 [id number] 2018-05-31 2018-05-31 R EL [facility] [id number] 00:00:00 23:59:00 [id number] 2018-05-31 2018-05-31 Outpatient [facility] [id number] 00:00:00 00:00:00 2018-05-10 2018-05-10 Outpatient [facility] [id number] 00:00:00 00:00:00 2018-04-24 2018-04-24 Outpatient [facility] [id number]_ 09:48:10 10:55:44 [id number] 2018-04-24 2018-04-24 Outpatient [facility] [id number] 09:48:10 10:55:44 2018-04-24 2018-04-24 Outpatient [facility] [id number] 00:00:00 00:00:00 [id number] 2018-04-24 Outpatient [facility] [id number] 00:00:00 00:00:00 [id number] 2018-04-20 2018-04-20 Outpatient [facility] [id number] 00:00:00 00:00:00 2018-04-13 2018-04-13 Outpatient [facility] [id number]_ 16:39:00 16:39:00 BALWINDER [id number] 2018-04-13 2018-04-13 Outpatient [facility] [id number]_ 09:42:24 13:12:00 BALWINDER [id number] 2018-04-13 2018-04-13 Outpatient [facility] [id number] 09:42:24 13:12:00 2018-04-13 2018-04-13 Outpatient [facility] [id number]_ 13:02:00 13:02:00 BALWINDER [id number] 2018-04-13 2018-04-13 Outpatient [facility] [id number]_ 11:55:00 11:55:00 BALWINDER [id number] 2018-04-13 2018-04-13 Outpatient [facility] [id number]_ 08:37:00 08:37:00 BALWINDER [id number] 2018-04-13 2018-04-13 Outpatient [facility] [id number]_ 00:00:00 00:00:00 BALWINDER [id number] 2018-04-12 2018-04-12 Outpatient [facility] [id number] 00:00:00 00:00:00 [id number] 2018-04-11 2018-04-11 Outpatient [facility] [id number] 00:00:00 00:00:00 2018-03-27 2018-03-27 Outpatient [facility] [id number] 00:00:00 00:00:00 2018-03-26 2018-03-26 Outpatient [facility] [id number] 00:00:00 00:00:00 2017-12-28 2017-12-28 Outpatient [facility] [id number]_ 11:05:10 23:59:00 [id number] 2017-12-28 2017-12-28 Outpatient [facility] [id number] 00:00:00 00:00:00 [id number] 2017-12-21 Outpatient [facility] [id number] 00:00:00 00:00:00 [id number] 2017-11-20 2017-11-20 Outpatient [facility] [id number] 00:00:00 00:00:00 [id number] 2017-11-07 Outpatient [facility] [id number] 00:00:00 00:00:00 [id number] 2017-10-31 Outpatient [facility] [id number] 00:00:00 00:00:00 [id number] 2017-10-31 2017-10-31 Outpatient [facility] [id number] 00:00:00 00:00:00 [id number] Family History Family Member Diagnosis Comments Start Date Stop Date Unspecified Family history of Multiple Family Members rheumatoid arthritis Grandmother Family history of rheumatoid arthritis Mother Family history of rheumatoid arthritis Mother Family history of Bipolar affective disorder, current episode manic Immunizations Ordered Immunization Filled Immunization Date Status Commen ts Refusal Reason Name Name Pneumococcal 2020-04-01 Completed polysaccharide 16:29:00 vaccine, 23 valent Payers Payer Name Policy Type Policy Number Effective Date Expiration D ate MEDICAID [place] [id number] 2017 00:00:00 ACCESS Plan of Treatment Planned Activity Planned Date Details Comments Future Scheduled Test [code = ] Future Scheduled Test [code = ] Future Scheduled Test [code = ] Future Scheduled Test [code = ] Future Scheduled Test [code = ] Social History Social Habit Start Date Stop Date Comments ASSERTION Tobacco smoking status NEIS 2018-04-24 00:00:00 2018-04-24 00:00 :00 Smoking Status Start Date Stop Date Never smoked tobacco (finding) Light Tobacco Smoker Vital Signs Vital Name Observation Time Observation Value Comments BP Diastolic 2020-07-07 00:00:00 81 mm[Hg] Height 2020-07-07 00:00:00 65 [in_i] BMI (Body Mass Index) 2020-07-07 00:00:00 24.1 kg/m2 BP Systolic 2020-07-07 00:00:00 121 mm[Hg] Body Weight 2020-07-07 00:00:00 145 [lb_av] WEIGHT 2020-06-04 09:36:00 57.7 kg HEIGHT 2020-06-04 09:36:00 165.147038 cm WEIGHT 2020-05-22 10:47:00 65.710408 kg HEIGHT 2020-05-22 10:47:00 165.868846 cm Height 2020-05-21 00:00:00 65 [in_i] BMI (Body Mass Index) 2020-05-21 00:00:00 24.1 kg/m2 Body Weight 2020-05-21 00:00:00 145 [lb_av] BP Diastolic 2018-08-16 00:00:00 76 mm[Hg] Height 2018-08-16 00:00:00 65 [in_i] BMI (Body Mass Index) 2018-08-16 00:00:00 24.1 kg/m2 BP Systolic 2018-08-16 00:00:00 112 mm[Hg] Body Weight 2018-08-16 00:00:00 145 [lb_av] WEIGHT 2018-07-25 11:15:00 62.9 kg HEIGHT 2018-07-25 11:15:00 165.362576 cm WEIGHT 2018-07-25 00:31:00 62.9 kg HEIGHT 2018-07-25 00:31:00 165.262205 cm Systolic blood pressure 2020-07-22 09:08:00 120 mm[Hg] Diastolic blood pressure 2020-07-22 09:08:00 68 mm[Hg] Body height 2020-07-22 09:08:00 65 [in_us] Weight 2020-07-22 09:08:00 123.5 [lb_av] Body mass index (BMI) [Ratio] 2020-07-22 09:08:00 20.55 kg/m2 Body temperature 2020-07-22 09:08:00 97.7 [degF] Heart Rate 2020-07-22 09:08:00 85 /min Respiratory rate 2020-07-22 09:08:00 16 /min O2 SAT 2020-07-22 09:08:00 100 % Source: RA Systolic blood pressure 2020-06-17 14:51:00 120 mm[Hg] Diastolic blood pressure 2020-06-17 14:51:00 70 mm[Hg] Body height 2020-06-17 14:51:00 65 [in_us] Weight 2020-06-17 14:51:00 121 [lb_av] Body mass index (BMI) [Ratio] 2020-06-17 14:51:00 20.14 kg/m2 Body temperature 2020-06-17 14:51:00 97.3 [degF] Heart Rate 2020-06-17 14:51:00 73 /min Systolic blood pressure 2020-05-14 09:36:00 100 mm[Hg] Diastolic blood pressure 2020-05-14 09:36:00 68 mm[Hg] Body height 2020-05-14 09:36:00 65 [in_us] Weight 2020-05-14 09:36:00 129.375 [lb_av] Body mass index (BMI) [Ratio] 2020-05-14 09:36:00 21.53 kg/m2 Body temperature 2020-05-14 09:36:00 98.2 [degF] Heart Rate 2020-05-14 09:36:00 70 /min Respiratory rate 2020-05-14 09:36:00 16 /min O2 SAT 2020-05-14 09:36:00 99 % Source: RA Systolic blood pressure 2020-04-01 15:32:00 128 mm[Hg] Diastolic blood pressure 2020-04-01 15:32:00 88 mm[Hg] Body height 2020-04-01 15:32:00 66 [in_us] Weight 2020-04-01 15:32:00 132 [lb_av] Body mass index (BMI) [Ratio] 2020-04-01 15:32:00 21.31 kg/m2 Body temperature 2020-04-01 15:32:00 98.6 [degF] Heart Rate 2020-04-01 15:32:00 100 /min Respiratory rate 2020-04-01 15:32:00 18 /min O2 SAT 2020-04-01 15:32:00 97 % Source: RA SYSTOLIC BLOOD PRESSURE 2018-04-24 09:57:00 117 mm[Hg] DIASTOLIC BLOOD PRESSURE 2018-04-24 09:57:00 63 mm[Hg] HEART RATE 2018-04-24 09:57:00 80 /min RESPIRATORY RATE 2018-04-24 09:57:00 17 /min HEIGHT 2018-04-24 09:57:00 165.1 cm WEIGHT 2018-04-24 09:57:00 56.7 kg SYSTOLIC BLOOD PRESSURE 2018-04-13 12:45:00 108 mm[Hg] DIASTOLIC BLOOD PRESSURE 2018-04-13 12:45:00 71 mm[Hg] HEART RATE 2018-04-13 12:45:00 59 /min BODY TEMPERATURE 2018-04-13 12:45:00 36.61 Marivel RESPIRATORY RATE 2018-04-13 12:45:00 18 /min OXYGEN SATURATION 2018-04-13 12:45:00 99 % HEIGHT 2018-04-13 10:00:00 165.1 cm WEIGHT 2018-04-13 10:00:00 62.959 kg Hospital Discharge Instructions NameDatesDetailsInstructions not documented1. Postoperative visit 2. Postoperative nausea ondansetron HCl 4 mg tablet Discussion Note: None recorded. Patient educational handouts: No information available. NameDatesDetailsInstructions not documentedNameDatesDetailsInstructions not documented1. Biliary dyskinesia Discussion Note: None recorded. Patient educational handouts: No information available.NameDatesDetailsInstructions not documentedNameDatesDetailsInstructions not documented1. Pain of breast breast pain: care instructions ketorolac 10 mg tablet Discussion Note: None recorded.
== END 2020-07-23 12:05 | disposition home or self-care (01) ==
LOC: ER 10:25
DX: S61.203A Unspecified open wound of left middle finger without damage to nail, initial encounter (principal); X58.XXXA Exposure to other specified factors, initial encounter; F17.200 Nicotine dependence, unspecified, uncomplicated
CPT/HCPCS: 99282; J3490

== ENCOUNTER 2020-08-19 13:07 | Emergency (ER) | payer MEDICAID ==
--- NOTE | 2020-08-19 13:22 | ER Document Report ---
ED Medical Screen (RME) - General Chief Complaint: Rectal Bleeding Stated Complaint: RECTAL BLEEDING Time Seen by Provider: 08/19/20 13:19 Primary Care Provider: BERTA ESTRELLA PA-C [Primary Care Provider] - Follow up as needed Mode of Arrival: Ambulatory Information source: Patient Notes: 35-year-old female presents to ED for complaint of abdominal pain and rectal bleeding. She states rectal bleeding started last night. She states she does have a colonoscopy scheduled scheduled for Monday and a hysterectomy scheduled for . She did have a Covid test today to prepare for the surgeries. It was a send out so she does not know the results. She states she is not having any symptoms. She is alert oriented respirations regular nonlabored speaking in full sentences. We will get blood and urine and have the doctor determine if they want to do the CT abdomen pelvis as she does have a colonoscopy scheduled. We will get type and screen as well. I have greeted and performed a rapid initial assessment of this patient. A comprehensive ED assessment and evaluation of the patient, analysis of test results and completion of medical decision making process will be conducted by an additional ED providers. TRAVEL OUTSIDE OF THE [place] IN LAST 30 DAYS: No - Related Data Allergies/Adverse Reactions: adhesive tape Allergy (Unknown, Verified 07/23/20 11:49) No Known Drug Allergies Allergy (Verified 07/23/20 11:49) Past Medical History - Past Medical History Cardiac Medical History: Pulmonary Medical History: Reports: Hx Asthma, Hx Pneumonia - multiple times, nodules in L lung Neurological Medical History: Endocrine Medical History: Denies: Hx Diabetes Mellitus Type 1, Hx Diabetes Mellitus Type 2, Hx Hypothyroidism Renal/ Medical History: Denies: Hx Kidney Stones, Hx Ovarian Cysts, Hx Peritoneal Dialysis, Hx Pelvic Inflammatory Disease Malignancy Medical History: Denies: Hx Breast Cancer, Hx Cervical Cancer, Hx Ovarian Cancer GI Medical History: Reports: Hx Gastritis, Hx Gastroesophageal Reflux Disease Musculoskeltal Medical History: Denies Hx Arthritis, Reports Hx Fibromyalgia, Reports Hx Musculoskeletal Trauma, Reports Hx Systemic Lupus Erythematosus Psychiatric Medical History: Reports: Hx Anxiety, Hx Depression - anxiety Traumatic Medical History: Denies: Hx Fractures Infectious Medical History: Denies: Hx HIV Past Surgical History: Reports: Hx Breast Surgery - lumpectomy x2, Hx Section, Hx Gynecologic Surgery - D&C, Hx Orthopedic Surgery - carpal tunnel, Other - Breast lumpectomy - Immunizations Immunizations up to date: Yes Hx Diphtheria, Pertussis, Tetanus Vaccination: Yes Doctor's Discharge - Discharge Referrals: BERTA ESTRELLA PA-C [Primary Care Provider] - Follow up as needed
[2020-08-19 14:06] LABS: ABSOLUTE LYMPHOCYTES (AUTO) 1.9 10^3/uL (0.5-4.7); ABSOLUTE MONOCYTES (AUTO) 0.3 10^3/uL (0.1-1.4); ABSOLUTE NEUT (AUTO) 4.8 10^3/uL (1.7-8.2); BASOPHILS % (AUTO) 0.6 % (0-2); EOSINOPHILS % (AUTO) 0.5 % (0-6); HEMATOCRIT 42.3 % (36.0-47.0); LYMPHOCYTES % (AUTO) 27.1 % (13-45); MEAN CORPUSCULAR HEMOGLOBIN 31.3 pg (27.0-33.4); MEAN CORPUSCULAR HGB CONC 33.2 g/dL (32.0-36.0); MEAN CORPUSCULAR VOLUME 94 fl (80-97); PLATELET COUNT 281 10^3/uL (150-450); RED BLOOD COUNT 4.49 10^6/uL (3.72-5.28); RED CELL DISTRIBUTION WIDTH 14.3 % (11.5-14.0); SEGMENTED NEUTROPHILS % (AUTO) 67.8 % (42-78); TOTAL CELLS COUNTED % (AUTO) 100 %
[2020-08-19 14:27] LABS: ALBUMIN 4.4 g/dL (3.5-5.0); ALKALINE PHOSPHATASE 55 U/L (38-126); ANION GAP 6 (5-19); ASPARTATE AMINO TRANSFERASE 21 U/L (14-36); BILIRUBIN,TOTAL 0.7 mg/dL (0.2-1.3); BLOOD UREA NITROGEN 8 mg/dL (7-20); CALCIUM 9.7 mg/dL (8.4-10.2); CARBON DIOXIDE 28 mmol/L (22-30); CHLORIDE 104 mmol/L (98-107); GLUCOSE 108 mg/dL (75-110); POTASSIUM 4.3 mmol/L (3.6-5.0); TOTAL PROTEIN 7.1 g/dL (6.3-8.2)
[2020-08-19 14:53] LABS: APPEARANCE,URINE CLEAR; BILIRUBIN,URINE NEGATIVE (NEGATIVE); COLOR,URINE YELLOW; GLUCOSE, URINE NEGATIVE (NEGATIVE); KETONES,URINE NEGATIVE (NEGATIVE); URINE SPECIFIC GRAVITY 1.023
[2020-08-19 14:54] LABS: ADD MANUAL MICROSCOPIC YES; LEUKOCYTE ESTERASE,URINE NEGATIVE (NEGATIVE); NITRITE,URINE NEGATIVE (NEGATIVE); PROTEIN,URINE NEGATIVE (NEGATIVE); UROBILINOGEN,URINE NEGATIVE mg/dL (<2.0)
[2020-08-19 14:55] LABS: RBC,URINE NONE SEEN /HPF; WBC,URINE NONE SEEN /HPF
[2020-08-19] MEDS ORDERED: NORMAL SALINE 1000 ML 1,000 ML IV ONE (15:16)
[2020-08-19] MEDS ORDERED: ONDANSETRON HCL INJ/PF 4 MG/2 ML SDV IV ONE (15:16)
[2020-08-19] MEDS ORDERED: PANTOPRAZOLE SODIUM 40 MG VIAL IV ONE (15:16)
--- NOTE | 2020-08-19 15:24 | ER Document Report ---
ED General - General Chief Complaint: Abdominal Pain Stated Complaint: RECTAL BLEEDING Time Seen by Provider: 08/19/20 13:19 Primary Care Provider: BERTA ESTRELLA PA-C [Primary Care Provider] - Follow up as needed Mode of Arrival: Ambulatory TRAVEL OUTSIDE OF THE [place] IN LAST 30 DAYS: No - HPI Notes: Chief complaint: Abdominal pain and rectal bleeding History of present illness: 35-year-old female presents to ED for complaint of abdominal pain and rectal bleeding. She has had some intermittent spotting of blood on toilet tissue after bowel movements for several weeks and had already talked with Dr. Campa from GI who is seen her in the past and he has her scheduled for a colonoscopy within the next several days. She states some increase rectal bleeding started last night she had a bowel movement and she had another episode of this again this morning. She feels somewhat nauseated and has vomited once prior to arrival here. He denies any hematemesis but says she saw some dark material at the end of her episode of vomiting after bringing up some undigested food. She previously had extensive work-up for abdominal pain several months ago by Dr. Jimenez which included an EGD which was apparently normal. She was told that she has esophageal reflux. She was also fat-sat found to have cholelithiasis and subsequently underwent a cholecystectomy laparoscopically which was performed in [facility]. She takes Prilosec for reflux symptoms intermittently. She states she does have a colonoscopy scheduled scheduled for Monday and a hysterectomy scheduled for . Dr. 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 She did have a Covid test today to prepare for the surgeries. It was a send out so she does not know the results. She states she is not having any symptoms. She denies any known exposure to Covid. Patient is an occasional smoker. She drinks wine socially. States she is not being treated for any other active medical problems aside from those discussed above. - Related Data Allergies/Adverse Reactions: adhesive tape Allergy (Unknown, Verified 07/23/20 11:49) No Known Drug Allergies Allergy (Verified 07/23/20 11:49) Past Medical History - General Information source: Patient - Social History Smoking Status: Current Some Day Smoker Chew tobacco use (# tins/day): No Frequency of alcohol use: Occasional Drug Abuse: None Family History: COPD - Past Medical History Cardiac Medical History: Pulmonary Medical History: Reports: Hx Asthma, Hx Pneumonia - multiple times, nodules in L lung Neurological Medical History: Endocrine Medical History: Denies: Hx Diabetes Mellitus Type 1, Hx Diabetes Me llitus Type 2, Hx Hypothyroidism Renal/ Medical History: Denies: Hx Kidney Stones, Hx Ovarian Cysts, Hx Peritoneal Dialysis, Hx Pelvic Inflammatory Disease Malignancy Medical History: Denies: Hx Breast Cancer, Hx Cervical Cancer, Hx Ovarian Cancer GI Medical History: Reports: Hx Gastritis, Hx Gastroesophageal Reflux Disease Musculoskeletal Medical History: Denies Hx Arthritis, Reports Hx Fibromyalgia, Reports Hx Musculoskeletal Trauma, Reports Hx Systemic Lupus Erythematosus Psychiatric Medical History: Reports: Hx Anxiety, Hx Depression - anxiety Traumatic Medical History: Denies: Hx Fractures Infectious Medical History: Denies: Hx HIV Past Surgical History: Reports: Hx Breast Surgery - lumpectomy x2, Hx Section, Hx Gynecologic Surgery - D&C, Hx Orthopedic Surgery - carpal tunnel, Other - Breast lumpectomy - Immunizations Immunizations up to date: Yes Hx Diphtheria, Pertussis, Tetanus Vaccination: Yes Review of Systems - Review of Systems Notes: Constitutional: Negative for fever. HENT: Negative for sore throat. Eyes: Negative for visual changes. Cardiovascular: Negative for chest pain. Respiratory: Negative for shortness of breath. Gastrointestinal: As per HPI. Genitourinary: Negative for dysuria. Musculoskeletal: Negative for back pain. Skin: Negative for rash. Neurological: Negative for headaches, focal weakness or numbness. 10 point ROS negative except as marked above and in HPI. Physical Exam - Vital signs Vitals: Temp Pulse Resp BP Pulse Ox 98.3 F 68 20 117/80 97 08/19/20 13:21 08/19/20 13:21 08/19/20 13:21 08/19/20 13:21 08/19/20 13:21 - Notes Notes: GENERAL: Slender female approximately stated age appearing in no acute distress. SKIN: Good turgor no rashes. HEAD: Normocephalic atraumatic. EYES: PERRLA. EOMI. Conjunctivae and sclerae clear. EARS: CANALS AND TMS CLEAR. NOSE: CLEAR. MOUTH: Moist mucosa. Good dentition. No stridor or edema. No drooling. NECK: Supple. No masses or thyromegaly. No adenopathy. Carotids 2+ without bruits. No JVD. BACK: Symmetrical without tenderness. CHEST: Respirations unlabored. Breath sounds clear and symmetrical. HEART: Regular rhythm. No murmur gallop or rub. ABDOMEN: Mild epigastric tenderness. Soft without masses, organomegaly or rebound. Bowel sounds normally active. No bruits. GENITALIA: Deferred. EXTREMITIES: No edema. No calf tenderness. Cap refill less than 1.5 seconds. Dorsalis pedis and posterior tibial pulses 3+ and symmetrical. NEUROLOGICAL: GCS 15. Alert and oriented x3. Normal gait. Fluent speech. Cranial nerves II through XII intact. Sensorimotor and cerebellar normal. Normal tone. PSYCHIATRIC: Mildly anxious affect. Course - Re-evaluation Re-evalutation: 08/19/20 21:30 Patient was hemodynamically stable. Her hemoglobin was normal. She had no orthostasis. She has a weakly heme positive stool here. She already has an outpatient appointment for a colonoscopy. We obtained a CT of abdomen and pelvis with IV and oral contrast and these were read as normal by the radiologist. The patient decided to sign herself out AMA before I could review results with her. She already has an appointment with a local supervisor grips Dr. Ayala for a colonoscopy within the next week. She is also scheduled for an elective hysterectomy to be performed by Dr. Brooklyn Lindsay within the next week. - Vital Signs Vital signs: Temp Pulse Resp BP Pulse Ox 98.3 F 65 20 116/65 97 08/19/20 13:21 08/19/20 17:30 08/19/20 13:21 08/19/20 17:30 08/19/20 13:21 - Laboratory Results Result Diagrams: 08/19/20 13:48 08/19/20 13:48 Laboratory Results Interpreted: 08/19/20 13:48 RDW 14.3 H Critical Laboratory Results Reviewed: No Critical Results - Radiology Results Radiology Results Interpreted: 08/19/20 21:32 Abdomen/Pelvis CT 08/19/20 00:00 IMPRESSION: NO SIGNIFICANT OR ACUTE FINDING IN THE ABDOMEN OR PELVIS ON CT SCAN WITH IV CONTRAST. Critical Radiology Results Reviewed: No Critical Results Discharge - Discharge Clinical Impression: Rectal bleeding Abdominal pain Qualifiers: Abdominal location: generalized Qualified Code(s): R10.84 - Generalized abdominal pain Disposition: AGAINST MEDICAL ADVICE Referrals: BERTA ESTRELLA PA-C [Primary Care Provider] - Follow up as needed
[2020-08-19] MEDS ORDERED: METOCLOPRAMIDE HCL INJ/PF 10 MG/2 ML SDV IV ONE (17:04)
[2020-08-19 17:48] VITALS: BP 116/65
--- NOTE | 2020-08-19 18:37 | RADIOLOGY REPORT (SQ) ---
EXAM DESCRIPTION: CT ABD/PELVIS WITH IV ORAL IMAGES COMPLETED DATE/TIME: 08/19/2020 5:20 pm REASON FOR STUDY: rectal bleeding, epigastric pain COMPARISON: Abdominal ultrasound, 04/22/2020. CT abdomen and pelvis without contrast 09/17/2014. TECHNIQUE: CT scan of the abdomen and pelvis performed using helical scanning technique with dynamic intravenous contrast injection. No oral contrast. Images reviewed with lung, soft tissue, and bone windows. Reconstructed coronal and sagittal MPR images reviewed. Delayed images for evaluation of the urinary system also acquired. All images stored on PACS. All CT scanners at this facility use dose modulation, iterative reconstruction, and/or weight based d osing when appropriate to reduce radiation dose to as low as reasonably achievable (ALARA). [facility]: Dose Right [facility]: CareDose [facility]: Dose Right [facility]: Teradose 4D [facility]: VisuMotion CONTRAST TYPE AND DOSE: contrast/concentration: Isovue 350.00 mmol/ml; Total Contrast Delivered: 70. 0 ml; Total Saline Delivered: 65.0 ml RENAL FUNCTION: GFR > 60. RADIATION DOSE: CT Rad equipment meets quality standard of care and radiation dose reduction techniq ues were employed. CTDIvol: 4.8 - 5.0 mGy. DLP: 502 mGy-cm.. LIMITATIONS: None. FINDINGS: LOWER CHEST: No significant findings. No nodules or infiltrates. LIVER: Liver has normal size and contour. No focal hepatic mass. Hepatic and portal veins are paten t. No biliary ductal dilation. SPLEEN: Normal size. No focal lesions. PANCREAS: No masses. No significant calcifications. No adjacent inflammation or peripancreatic fluid collections. Pancreatic duct not dilated. GALLBLADDER: Surgically absent. ADRENAL GLANDS: No significant masses or asymmetry. RIGHT KIDNEY AND URETER: No solid masses. No significant calcifications. No hydronephrosis or hyd roureter. LEFT KIDNEY AND URETER: No solid masses. No significant calcifications. No hydronephrosis or hydr oureter. AORTA AND VESSELS: No aneurysm. No dissection. Renal arteries, SMA, celiac without stenosis. RETROPERITONEUM: No retroperitoneal adenopathy, hemorrhage or masses. BOWEL AND PERITONEAL CAVITY: No masses or inflammatory changes. No free fluid or peritoneal masses. APPENDIX: Normal. PELVIS: No mass. No free fluid. Normal bladder. ABDOMINAL WALL: No masses. No hernias. BONES: No significant or acute findings. OTHER: No other significant finding. IMPRESSION: NO SIGNIFICANT OR ACUTE FINDING IN THE ABDOMEN OR PELVIS ON CT SCAN WITH IV CONTRAST. TECHNICAL DOCUMENTATION: JOB ID: [id number] Quality ID # [id number]: Final reports with documentation of one or more dose reduction techniques (e.g., Au tomated exposure control, adjustment of the mA and/or kV according to patient size, use of iterative reconstruction technique) 2010 [employer]- All Rights Reserved Reading location - IP/workstation name: [email or web address]
== END 2020-08-19 18:20 | disposition left against medical advice (07) ==
LOC: ER 13:07
DX: K62.5 Hemorrhage of anus and rectum (principal); R10.84 Generalized abdominal pain; F17.200 Nicotine dependence, unspecified, uncomplicated; J45.909 Unspecified asthma, uncomplicated
CPT/HCPCS: 99285; 96361; 96374; 96375; 36415; 87086; 83690; 84703; 85025; 80053; 81001; 74177; J2765; C9113; J2405; J7030

== ENCOUNTER 2020-08-27 05:30 | Day surgery (SDC) | payer MEDICAID ==
[2020-08-24 14:01] LABS: APPEARANCE,URINE CLEAR; BILIRUBIN,URINE NEGATIVE (NEGATIVE); COLOR,URINE STRAW; GLUCOSE, URINE NEGATIVE (NEGATIVE); KETONES,URINE NEGATIVE (NEGATIVE); LEUKOCYTE ESTERASE,URINE NEGATIVE (NEGATIVE); NITRITE,URINE NEGATIVE (NEGATIVE); PROTEIN,URINE NEGATIVE (NEGATIVE); URINE SPECIFIC GRAVITY 1.004; UROBILINOGEN,URINE NEGATIVE mg/dL (<2.0)
[2020-08-24 14:02] LABS: HEMATOCRIT 38.7 % (36.0-47.0); HEMOGLOBIN 12.8 g/dL (12.0-15.5); MEAN CORPUSCULAR HEMOGLOBIN 31.6 pg (27.0-33.4); MEAN CORPUSCULAR HGB CONC 33.1 g/dL (32.0-36.0); MEAN CORPUSCULAR VOLUME 95 fl (80-97); PLATELET COUNT 257 10^3/uL (150-450); RED BLOOD COUNT 4.06 10^6/uL (3.72-5.28); RED CELL DISTRIBUTION WIDTH 13.9 % (11.5-14.0); WHITE BLOOD COUNT 7.3 10^3/uL (4.0-10.5)
[2020-08-24 14:18] LABS: ALBUMIN 4.1 g/dL (3.5-5.0); ALKALINE PHOSPHATASE 63 U/L (38-126); ANION GAP 8 (5-19); ASPARTATE AMINO TRANSFERASE 19 U/L (14-36); BILIRUBIN,TOTAL 0.3 mg/dL (0.2-1.3); BLOOD UREA NITROGEN 8 mg/dL (7-20); CALCIUM 9.2 mg/dL (8.4-10.2); CARBON DIOXIDE 26 mmol/L (22-30); CHLORIDE 102 mmol/L (98-107); GLUCOSE 102 mg/dL (75-110); POTASSIUM 4.3 mmol/L (3.6-5.0); TOTAL PROTEIN 6.6 g/dL (6.3-8.2)
--- NOTE | 2020-08-24 16:10 | RADIOLOGY REPORT (SQ) ---
EXAM DESCRIPTION: CHEST 2 VIEWS IMAGES COMPLETED DATE/TIME: 08/24/2020 3:33 pm REASON FOR STUDY: PRE OP TESTING COMPARISON: None. EXAM PARAMETERS: NUMBER OF VIEWS: Two views. TECHNIQUE: PA and lateral views of the chest were obtained. RADIATION DOSE: NA LIMITATIONS: None. FINDINGS: LUNGS AND PLEURA: No consolidation, pleural effusion or pneumothorax. MEDIASTINUM AND HILAR STRUCTURES: No mediastinal or hilar contour abnormality. HEART AND VASCULAR STRUCTURES: The cardiac silhouette and pulmonary vasculature are within normal arce its. BONES: No acute findings. HARDWARE: None in the chest. OTHER: No other finding. IMPRESSION: No acute cardiopulmonary process. TECHNICAL DOCUMENTATION: JOB ID: [id number] 2010 [employer]- All Rights Reserved Reading location - IP/workstation name: [email or web address]
[~2020-08-27 05:30] MED LIST changes: +CEFAZOLIN 1 GM/D5W RTU 1 GM/50 ML RTUPB IV ONE; +CEFAZOLIN 1 GM/D5W RTU 1 GM/50 ML RTUPB IV PRN; -PROPOFOL INJ 200 MG/20 ML VIAL IV ONE
[2020-08-27] MEDS ORDERED: FENTANYL CITRATE INJ/PF 250 MCG/5 ML AMPULE ONE (06:40)
[2020-08-27] MEDS ORDERED: HYDROMORPHONE HCL INJ/PF 2 MG/ML AMPULE ONE (06:40)
[2020-08-27] MEDS ORDERED: PROPOFOL INJ 200 MG/20 ML VIAL IV ONE (06:40)
[2020-08-27] MEDS ORDERED: EPHEDRINE SULFATE INJ 50 MG/1 ML AMPULE ONE (06:40)
[2020-08-27] MEDS ORDERED: SUGAMMADEX SODIUM 200 MG/2 ML SDV IV ONE (06:40)
[2020-08-27] MEDS ORDERED: MIDAZOLAM 2 MG/2 ML INJ ONE (06:40)
[2020-08-27] MEDS ORDERED: LIDOCAINE 2% INJ (20 MG/ML) 20 ML MDV ONE (06:47)
[2020-08-27] MEDS ORDERED: PROMETHAZINE HCL INJ 25 MG/1 ML VIAL IV PRN ×2 (08:36)
[2020-08-27] MEDS ORDERED: DIPHENHYDRAMINE HCL 50 MG/ML VIAL IV PRN (08:36)
[2020-08-27] MEDS ORDERED: MEPERIDINE HCL/PF INJ 25 MG/1 ML DISP.SYRIN IV PRN (08:36)
[2020-08-27] MEDS ORDERED: MORPHINE SULFATE 10 MG/ML INJ IV PRN ×2 (08:36→09:25)
[2020-08-27] MEDS ORDERED: FENTANYL CITRATE INJ/PF 100 MCG/2 ML AMPUL IV PRN ×3 (08:36)
[2020-08-27] MEDS ORDERED: OXYCODONE-ACETAMINOPHEN 5-325 MG TABLET PO PRN ×3 (08:36→09:25)
[2020-08-27] MEDS ORDERED: ACETAMINOPHEN 325 MG TABLET PO PRN (09:25)
[2020-08-27] MEDS ORDERED: ACETAMINOPHEN 1 GM/100 ML RTUPB IV PRN (09:25)
--- NOTE | 2020-08-27 09:39 | Operative Report ---
Operative Report DATE OF SURGERY: 08/27/20 PREOPERATIVE DIAGNOSIS: Abnormal uterine bleeding, pelvic pain POSTOPERATIVE DIAGNOSIS: Same OPERATION: Robotic assisted total laparoscopic hysterectomy with bilateral salpingectomy SURGEON: NO KING 1ST [employer] WORKER: JAZZY PEREZ ANESTHESIA: GA TISSUE REMOVED OR ALTERED: Uterus cervix bilateral fallopian tubes COMPLICATIONS: None ESTIMATED BLOOD LOSS: 200 cc INTRAOPERATIVE FINDINGS: 6-week size uterus boggy in appearance consistent with adenomyosis, adhesions of the descending colon to the pelvic sidewall, normal appearing ovaries, fallopian tubes consistent with Filshie clip placement for sterilization PROCEDURE: Patient was taken to the operating room prepared and draped in normal sterile fashion in dorsolithotomy position. Under sterile conditions a Mendoza catheter was placed to gravity. Speculum was placed into the vagina and the cervix was grasped on the anterior lip with a single-tooth tenaculum. The cervix was then dilated to accommodate a medium V care uterine manipulator. Manipulate it was placed gloves were changed and attention was turned to the upper portion of the case. A 2-1/2 cm umbilical skin incision was made 11 blade and this was carried through to the underlying layer of fascia with the same 11 blade. It was grasped to Alexandr's acted with Woodward's. New cavity was entered bluntly. A GelPort was placed in a normal fashion the camera port and air seal in the appropriate locations. Jones was then inflated with approximately 2 L of CO2 gas. The camera was then introduced into the peritoneal cavity through the camera port and the patient was placed in steep Trendelenburg. The above findings were noted. Under direct visualization two 5 mm ports were placed approximately 10 cm on either side of the umbilicus. The robot was then docked with the vessel sealer placed on the patient's left and the monopolar scissors placed placed on the patient's right. I then unscrubbed and set at the robotic console beginning with the left adnexa fallopian tube was transected from the uterus using the vessel sealer and monopolar scissors as needed. The fallopian tube was then removed through the assistance port. The ovarian ligament was then transected using the vessel sealer. The uterine artery was skeletonized using blunt dissection and ligated using the vessel sealer down to the level of the external cervical os. The bladder flap was then begun using monopolar scissors and blunt dissection over the V care cup noted through the mucosa. Attention was then turned to the right adnexa where the fallopian tube was transected in a similar fashion. The utero-ovarian ligament was transected using the vessel sealer. The Uterine artery was then transected using the vessel sealer and skeletonized using blunt dissection. The vessel sealer was again used to completely transect the uterine artery down to the level of the external cervical os. The bladder flap was completed using similar sharp and blunt dissection. Once the bladder was felt to be adequately away from the lower uterine segment, the colpotomy was begun on the anterior aspect of the cervix following the outline of the V care cup mucosa. The cup was followed in a circumferential fashion completely around the cervix estimate was completely freed. The specimen was then removed through the vaginal defect. The instruments were then changed to a Bar needle local company tanker driver and pro-grasp. AV lock needle was introduced through the assistance port. The lock needle was used to close the vaginal cuff and hemostasis. The needle was then removed through the assistance port. The peritoneal cavity was carefully inspected the ureters were noted to both be peristalsing and there was no signs of hydroureter. The robot was then undocked. The fascia was closed at the umbilical skin incision seen 0 Vicryl 3 skin incisions were closed using 4-0 Vicryl. Sponge lap and needle counts were correct x2 and the patient was taken to recovery in stable condition.
[2020-08-27] MEDS ORDERED: FENTANYL CITRATE INJ/PF 100 MCG/2 ML AMPUL ONE (09:50)
[2020-08-27] MEDS ORDERED: ACETAMINOPHEN 1,000 MG/100 ML RTUPB IV ONE (09:50)
[2020-08-27] MEDS: RINGERS SOLUTION,LACTATED 1,000 ML IV PRN ×3 (11:30→18:22)
[2020-08-27 12:07] LABS: HEMATOCRIT 31.1 % (36.0-47.0); MEAN CORPUSCULAR HEMOGLOBIN 31.3 pg (27.0-33.4); MEAN CORPUSCULAR HGB CONC 33.4 g/dL (32.0-36.0); MEAN CORPUSCULAR VOLUME 94 fl (80-97); PLATELET COUNT 238 10^3/uL (150-450); RED BLOOD COUNT 3.31 10^6/uL (3.72-5.28); RED CELL DISTRIBUTION WIDTH 13.8 % (11.5-14.0); WHITE BLOOD COUNT 12.5 10^3/uL (4.0-10.5)
[2020-08-27 12:10] LABS: HEMOGLOBIN 10.4 g/dL (12.0-15.5)
[2020-08-27] MEDS: DOCUSATE SODIUM 100 MG CAPSULE PO SCH ×2 (15:08→17:59)
[2020-08-27] MEDS: METRONIDAZOLE 500 MG/NS RTU 500 MG/100 ML RTUPB IV SCH ×2 (15:08→21:49)
[2020-08-27] MEDS: CEFAZOLIN 1 GM/D5W RTU 1 GM/50 ML RTUPB IV SCH ×2 (15:12→17:59)
[2020-08-27] MEDS: OXYCODONE-ACETAMINOPHEN 5-325 MG TABLET PO PRN ×2 (15:14→20:17)
[2020-08-27] MEDS: KETOROLAC TROMETHAMINE INJ/PF 30 MG/1 ML SDV IV SCH ×2 (15:18→21:42)
[2020-08-27] MEDS: SIMETHICONE 80 MG TAB.CHEW PO PRN (18:00)
[2020-08-27] MEDS: PROMETHAZINE HCL INJ 25 MG/1 ML VIAL IV PRN (18:11)
[2020-08-28] MEDS: CEFAZOLIN 1 GM/D5W RTU 1 GM/50 ML RTUPB IV SCH ×2 (00:12→05:32)
[2020-08-28] MEDS: PROMETHAZINE HCL INJ 25 MG/1 ML VIAL IV PRN ×2 (01:28→08:22)
[2020-08-28] MEDS: OXYCODONE-ACETAMINOPHEN 5-325 MG TABLET PO PRN ×2 (01:29→05:39)
[2020-08-28] MEDS: SIMETHICONE 80 MG TAB.CHEW PO PRN (01:37)
[2020-08-28] MEDS: KETOROLAC TROMETHAMINE INJ/PF 30 MG/1 ML SDV IV SCH (05:31)
[2020-08-28 07:18] LABS: HEMATOCRIT 21.3 % (36.0-47.0); MEAN CORPUSCULAR HEMOGLOBIN 31.7 pg (27.0-33.4); MEAN CORPUSCULAR HGB CONC 33.8 g/dL (32.0-36.0); MEAN CORPUSCULAR VOLUME 94 fl (80-97); PLATELET COUNT 164 10^3/uL (150-450); RED BLOOD COUNT 2.26 10^6/uL (3.72-5.28); RED CELL DISTRIBUTION WIDTH 13.7 % (11.5-14.0); WHITE BLOOD COUNT 7.4 10^3/uL (4.0-10.5)
[2020-08-28 07:21] LABS: HEMOGLOBIN 7.2 g/dL (12.0-15.5)
[2020-08-28 07:56] VITALS: BP 103/80
--- NOTE | 2020-08-28 08:39 | PDOC DISCHARGE SUMMARY ---
Impression - Admit/DC Date/PCP Admission Date/Primary Care Provider: BERTA ESTRELLA PA-C Discharge Date: 08/28/20 - Discharge Diagnosis (1) Pelvic pain Is this a current diagnosis for this admission?: Yes (2) Abnormal uterine bleeding Is this a current diagnosis for this admission?: Yes (3) Pelvic adhesions Is this a current diagnosis for this admission?: Yes - Assessment Summary: underwent a RATLH w/ b/l salpingectomy. doing well. ready for discharge home. - Additional Information Discharge Diet: As Tolerated Discharge Activity: Activity As Tolerated, Balance Activity w/Rest, No Driving, No Lifting Over 10 Pounds, No Lifting/Push/Pulling, Pelvic Rest, No tub bath, Walk Frequently Referrals: BERTA ESTRELLA PA-C [Primary Care Provider] - Prescriptions: Oxycodone HCl/Acetaminophen [Percocet 5-325 mg Tablet] 2 tab PO Q4HP PRN #30 tablet PRN Reason: Docusate Sodium [Colace 100 mg Capsule] 100 mg PO BID #60 capsule Ibuprofen [Motrin 800 mg Tablet] 800 mg PO Q8H #60 tablet Home Medications: Lisdexamfetamine Dimesylate [Vyvanse] 70 mg PO DAILY 12/03/19 Omeprazole Magnesium [Prilosec Otc] 20 mg PO DAILY 08/24/20 Docusate Sodium [Colace 100 mg Capsule] 100 mg PO BID #60 capsule 08/28/20 Ibuprofen [Motrin 800 mg Tablet] 800 mg PO Q8H #60 tablet 08/28/20 Oxycodone HCl/Acetaminophen [Percocet 5-325 mg Tablet] 2 tab PO Q4HP PRN #30 tablet 08/28/20 History of Present Illiness History of Present Illness: MACK AMOR is a 35 year old female Physical Exam - Physical Exam Vital Signs: Temp Pulse Resp BP Pulse Ox 98.1 F 65 17 103/80 100 08/28/20 07:55 08/28/20 07:55 08/28/20 07:55 08/28/20 07:55 08/28/20 07:55 Intake & Output 08/27/20 08/28/20 08/29/20 06:59 06:59 06:59 Intake Total 0 5125 1000 Output Total 75 Balance 0 5050 1000 Weight 57.15 kg Results Laboratory Results: WBC 7.4 10^3/uL (4.0-10.5) 08/28/20 06:21 RBC 2.26 10^6/uL (3.72-5.28) L 08/28/20 06:21 Hgb 7.2 g/dL (12.0-15.5) L D 08/28/20 06:21 Hct 21.3 % (36.0-47.0) L 08/28/20 06:21 MCV 94 fl (80-97) 08/28/20 06:21 MCH 31.7 pg (27.0-33.4) 08/28/20 06:21 MCHC 33.8 g/dL (32.0-36.0) 08/28/20 06:21 RDW 13.7 % (11.5-14.0) 08/28/20 06:21 Plt Count 164 10^3/uL (150-450) 08/28/20 06:21 Sodium 135.5 mmol/L (137-145) L 08/24/20 12:29 Potassium 4.3 mmol/L (3.6-5.0) 08/24/20 12:29 Chloride 102 mmol/L (98-107) 08/24/20 12:29 Carbon Dioxide 26 mmol/L (22-30) 08/24/20 12:29 Anion Gap 8 (5-19) 08/24/20 12:29 BUN 8 mg/dL (7-20) 08/24/20 12:29 Creatinine 0.62 mg/dL (0.52-1.25) 08/24/20 12:29 Est GFR ( Amer) > 60 (>60) 08/24/20 12:29 Est GFR (MDRD) Non-Af > 60 (>60) 08/24/20 12:29 Glucose 102 mg/dL (75-110) 08/24/20 12:29 POC Glucose 181 mg/dL (70-110) H 08/27/20 12:33 Calcium 9.2 mg/dL (8.4-10.2) 08/24/20 12:29 Total Bilirubin 0.3 mg/dL (0.2-1.3) 08/24/20 12:29 Direct Bilirubin 0.0 mg/dL (0.0-0.4) 08/24/20 12:29 Neonat Total Bilirubin Not Reportable 08/24/20 12:29 Neonat Direct Bilirubin Not Reportable 08/24/20 12:29 Neonat Indirect Bili Not Reportable 08/24/20 12:29 AST 19 U/L (14-36) 08/24/20 12:29 ALT 15 U/L (<35) 08/24/20 12:29 Alkaline Phosphatase 63 U/L (38-126) 08/24/20 12:29 Total Protein 6.6 g/dL (6.3-8.2) 08/24/20 12:29 Albumin 4.1 g/dL (3.5-5.0) 08/24/20 12:29 Urine Color STRAW 08/24/20 11:56 Urine Appearance CLEAR 08/24/20 11:56 Urine pH 6.0 (5.0-9.0) 08/24/20 11:56 Ur Specific [place] 1.004 08/24/20 11:56 Urine Protein NEGATIVE mg/dL (NEGATIVE) 08/24/20 11:56 Urine Glucose (UA) NEGATIVE mg/dL (NEGATIVE) 08/24/20 11:56 Urine Ketones NEGATIVE mg/dL (NEGATIVE) 08/24/20 11:56 Urine Blood NEGATIVE (NEGATIVE) 08/24/20 11:56 Urine Nitrite NEGATIVE (NEGATIVE) 08/24/20 11:56 Urine Bilirubin NEGATIVE (NEGATIVE) 08/24/20 11:56 Urine Urobilinogen NEGATIVE mg/dL (<2.0) 08/24/20 11:56 Ur Leukocyte Esterase NEGATIVE (NEGATIVE) 08/24/20 11:56 Urine WBC (Auto) 1 /HPF 08/24/20 11:56 Urine RBC (Auto) 2 /HPF 08/24/20 11:56 Urine Bacteria (Auto) TRACE /HPF 08/24/20 11:56 Squamous Epi Cells Auto 1 /HPF 08/24/20 11:56 Urine Mucus (Auto) RARE /LPF 08/24/20 11:56 Urine Ascorbic Acid NEGATIVE (NEGATIVE) 08/24/20 11:56 Urine HCG, Qual NEGATIVE (NEGATIVE) 08/27/20 05:30 COVID-19 Source See comment 08/24/20 12:21 COVID-19 (ABY) Not Detected (Not Detect) 08/24/20 12:21 Blood Type O POSITIVE 08/24/20 12:29 Antibody Screen NEGATIVE 08/24/20 12:29 Impressions: Chest X-Ray 08/24/20 00:00 IMPRESSION: No acute cardiopulmonary process. Stroke Is this a Stroke Patient?: No Acute Heart Failure Is this a Heart Failure Patient?: No
[2020-08-28] MEDS ORDERED: IBUPROFEN 800 MG TABLET PO SCH (12:00)
== END 2020-08-28 09:15 | disposition home or self-care (01) ==
LOC: OROUT 05:30 → 2S 11:36 → OROUT 08-28 09:15
PROVIDERS: ATTEND Obstetrics & Gynecology
DX: N87.0 Mild cervical dysplasia (principal); N72 Inflammatory disease of cervix uteri; R10.2 Pelvic and perineal pain; N93.9 Abnormal uterine and vaginal bleeding, unspecified; N99.85 Post endometrial ablation syndrome; Z20.828 Contact with and (suspected) exposure to other viral communicable diseases; N73.6 Female pelvic peritoneal adhesions (postinfective); Z79.899 Other long term (current) drug therapy; Z86.32 Personal history of gestational diabetes; Z86.19 Personal history of other infectious and parasitic diseases; Z98.890 Other specified postprocedural states; Z83.3 Family history of diabetes mellitus; Z80.41 Family history of malignant neoplasm of ovary; Z98.51 Tubal ligation status; K21.9 Gastro-esophageal reflux disease without esophagitis; F17.210 Nicotine dependence, cigarettes, uncomplicated
CPT/HCPCS: 86900; 86901; 36415 ×2; 86850; 82962; 85027 ×2; 87635; 81025; 80053; 81001; 88307 ×2; 71046; 94799; 00840; 58571; C1758; A4649; J2250; J3490 ×4; J0690 ×2; J3010 ×2; J1885 ×2; J2550 ×2; J7120; J2704; J0131; C9803; 840; J1170; J2270

== ENCOUNTER 2020-08-29 21:33 | Emergency (ER) | payer MEDICAID ==
--- NOTE | 2020-08-29 21:46 | ER Document Report ---
ED Medical Screen (RME) - General Chief Complaint: Post Surgical Pain Stated Complaint: LEFT SIDE ABDOMINAL PAIN/HYSTERECTOMY 08/27/20 Time Seen by Provider: 08/29/20 21:36 Primary Care Provider: BERTA ESTRELLA PA-C [Primary Care Provider] - Follow up as needed Notes: Patient presents complaining of abdominal pain with swelling and increased bruising to abdomen. Patient is status post hysterectomy 2 days ago. Patient reports some lightheadedness. Patient denies any fever. Patient denies any urinary symptoms. Patient reports minimal pink vaginal spotting. I have greeted and performed a rapid initial assessment of this patient. A comprehensive ED assessment and evaluation of the patient, analysis of test results and completion of the medical decision making process will be conducted by additional ED providers. TRAVEL OUTSIDE OF THE [place] IN LAST 30 DAYS: No - Related Data Allergies/Adverse Reactions: adhesive tape Allergy (Severe, Verified 08/27/20 06:06) BLISTER Past Medical History - Social History Chew tobacco use (# tins/day): No Frequency of alcohol use: Occasional Drug Abuse: None - Past Medical History Cardiac Medical History: Denies: Hx Coronary Artery Disease, Hx Heart Attack, Hx Hypertension Pulmonary Medical History: Reports: Hx Asthma, Hx Pneumonia - multiple times, nodules in L lung Denies: Hx COPD Neurological Medical History: Denies: Hx Cerebrovascular Accident, Hx Seizures Endocrine Medical History: Denies: Hx Diabetes Mellitus Type 1, Hx Diabetes Mellitus Type 2, Hx Hypothyroidism Renal/ Medical History: Denies: Hx Kidney Stones, Hx Ovarian Cysts, Hx Peritoneal Dialysis, Hx Pelvic Inflammatory Disease Malignancy Medical History: Denies: Hx Breast Cancer, Hx Cervical Cancer, Hx Ovarian Cancer GI Medical History: Reports: Hx Gastritis, Hx Gastroesophageal Reflux Disease Musculoskeltal Medical History: Denies Hx Arthritis, Reports Hx Fibromyalgia, Reports Hx Musculoskeletal Trauma, Reports Hx Systemic Lupus Erythematosus Psychiatric Medical History: Reports: Hx Anxiety, Hx Depression - anxiety Traumatic Medical History: Denies: Hx Fractures Infectious Medical History: Denies: Hx HIV Past Surgical History: Reports: Hx Breast Surgery - lumpectomy x2, Hx Section, Hx Gynecologic Surgery - D&C, Hx Orthopedic Surgery - carpal tunnel, Other - Breast lumpectomy - Immunizations Immunizations up to date: Yes Hx Diphtheria, Pertussis, Tetanus Vaccination: Yes Physical Exam - Vital signs Vitals: Temp Pulse Resp BP Pulse Ox 98.4 F 102 H 16 102/69 100 08/29/20 21:37 08/29/20 21:37 08/29/20 21:37 08/29/20 21:37 08/29/20 21:37 - General General appearance: Alert Notes: Large area of ecchymosis to left lower quadrant and left lateral side, patient with additional ecchymosis to the periumbilical area Course - Vital Signs Vital signs: Temp Pulse Resp BP Pulse Ox 98.4 F 102 H 16 102/69 100 08/29/20 21:41 08/29/20 21:37 08/29/20 21:37 08/29/20 21:37 08/29/20 21:37 Doctor's Discharge - Discharge Referrals: BERTA ESTRELLA PA-C [Primary Care Provider] - Follow up as needed
[2020-08-29 23:29] LABS: ABSOLUTE EOSINOPHILS # (AUTO) 0.3 10^3/uL (0.0-0.6); ABSOLUTE LYMPHOCYTES (AUTO) 2.1 10^3/uL (0.5-4.7); ABSOLUTE MONOCYTES (AUTO) 0.3 10^3/uL (0.1-1.4); ABSOLUTE NEUT (AUTO) 4.6 10^3/uL (1.7-8.2); BASOPHILS % (AUTO) 0.3 % (0-2); EOSINOPHILS % (AUTO) 3.6 % (0-6); HEMATOCRIT 19.5 % (36.0-47.0); LYMPHOCYTES % (AUTO) 28.7 % (13-45); MEAN CORPUSCULAR HEMOGLOBIN 33.1 pg (27.0-33.4); MEAN CORPUSCULAR HGB CONC 34.7 g/dL (32.0-36.0); MEAN CORPUSCULAR VOLUME 95 fl (80-97); MONOCYTES % (AUTO) 4.7 % (3-13); PLATELET COUNT 174 10^3/uL (150-450); RED BLOOD COUNT 2.05 10^6/uL (3.72-5.28); RED CELL DISTRIBUTION WIDTH 13.8 % (11.5-14.0); SEGMENTED NEUTROPHILS % (AUTO) 62.7 % (42-78); TOTAL CELLS COUNTED % (AUTO) 100 %; WHITE BLOOD COUNT 7.4 10^3/uL (4.0-10.5)
[2020-08-29 23:33] LABS: INTERNATIONAL RATION (INR) 1.01; PROTHROMBIN TIME 13.5 SEC (11.4-15.4)
[2020-08-29 23:34] LABS: PARTIAL THROMBOPLASTIN TIME 32.5 SEC (23.5-35.8)
[2020-08-29 23:37] LABS: ALBUMIN 2.9 g/dL (3.5-5.0); ALKALINE PHOSPHATASE 48 U/L (38-126); ASPARTATE AMINO TRANSFERASE 14 U/L (14-36); BILIRUBIN,DIRECT 0.1 mg/dL (0.0-0.4); BILIRUBIN,TOTAL 0.3 mg/dL (0.2-1.3); BLOOD UREA NITROGEN 7 mg/dL (7-20); CALCIUM 8.5 mg/dL (8.4-10.2); GLUCOSE 95 mg/dL (75-110); POTASSIUM 3.6 mmol/L (3.6-5.0); TOTAL PROTEIN 5.2 g/dL (6.3-8.2)
[2020-08-29 23:43] LABS: CARBON DIOXIDE 33 mmol/L (22-30); CHLORIDE 100 mmol/L (98-107)
[2020-08-29 23:47] LABS: ANION GAP 2 (5-19)
[2020-08-29 23:49] LABS: HEMOGLOBIN 6.8 g/dL (12.0-15.5)
[2020-08-30] MEDS ORDERED: MORPHINE SULFATE 10 MG/ML INJ IV ONE (00:23)
[2020-08-30] MEDS ORDERED: ONDANSETRON HCL INJ/PF 4 MG/2 ML SDV IV ONE (00:23)
--- NOTE | 2020-08-30 00:34 | ER Document Report ---
ED General - General Chief Complaint: Post Surgical Pain Stated Complaint: LEFT SIDE ABDOMINAL PAIN/HYSTERECTOMY 08/27/20 Time Seen by Provider: 08/29/20 21:36 Primary Care Provider: BERTA ESTRELLA PA-C [Primary Care Provider] - Follow up as needed TRAVEL OUTSIDE OF THE [place] IN LAST 30 DAYS: No - HPI Notes: Patient is a 35-year-old female, 2 days status post hysterectomy, who presents emergency department for evaluation of abdominal pain, bruising, swelling, occasional lightheadedness. She had a hysterectomy performed by Dr. Lindsay on . She was discharged home on Monday. She states since then she has developed significant bruising and edema over the left side of her abdomen. She denies any fevers or chills. No nausea or vomiting. She is passing gas, has not yet had a bowel movement. She denies any urinary symptoms. She is having very minimal vaginal discharge, pink only. - Related Data Allergies/Adverse Reactions: adhesive tape Allergy (Severe, Verified 08/27/20 06:06) BLISTER Home Medications: Percocet Past Medical History - General Information source: Patient - Social History Smoking Status: Current Some Day Smoker Chew tobacco use (# tins/day): No Frequency of alcohol use: Occasional Drug Abuse: None Family History: Reviewed & Not Pertinent, COPD Patient has homicidal ideation: No - Past Medical History Cardiac Medical History: Reports: Other - PFO Denies: Hx Coronary Artery Disease, Hx Heart Attack, Hx Hypertension Pulmonary Medical History: Reports: Hx Asthma, Hx Pneumonia - multiple times, nodules in L lung Denies: Hx COPD Neurological Medical History: Denies: Hx Cerebrovascular Accident, Hx Seizures Endocrine Medical History: Denies: Hx Diabetes Mellitus Type 1, Hx Diabetes Mellitus Type 2, Hx Hypothyroidism Renal/ Medical History: Denies: Hx Kidney Stones, Hx Ovarian Cysts, Hx Peritoneal Dialysis, Hx Pelvic Inflammatory Disease Malignancy Medical History: Denies: Hx Breast Cancer, Hx Cervical Cancer, Hx Ovarian Cancer GI Medical History: Reports: Hx Gastritis, Hx Gastroesophageal Reflux Disease Musculoskeletal Medical History: Denies Hx Arthritis, Reports Hx Fibromyalgia, Reports Hx Musculoskeletal Trauma, Reports Hx Systemic Lupus Erythematosus Psychiatric Medical History: Reports: Hx Anxiety, Hx Depression - anxiety Traumatic Medical History: Denies: Hx Fractures Infectious Medical History: Denies: Hx HIV Past Surgical History: Reports: Hx Breast Surgery - lumpectomy x2, Hx Section, Hx Gynecologic Surgery - D&C, Hx Orthopedic Surgery - carpal tunnel, Other - Breast lumpectomy - Immunizations Immunizations up to date: Yes Hx Diphtheria, Pertussis, Tetanus Vaccination: Yes Review of Systems - Review of Systems Constitutional: See HPI EENT: No symptoms reported Cardiovascular: No symptoms reported Respiratory: No symptoms reported Gastrointestinal: See HPI Genitourinary: No symptoms reported Female Genitourinary: See HPI Musculoskeletal: No symptoms reported Skin: No symptoms reported Neurological/Psychological: No symptoms reported Physical Exam - Vital signs Vitals: Temp Pulse Resp BP Pulse Ox 98.4 F 102 H 16 102/69 100 08/29/20 21:37 08/29/20 21:37 08/29/20 21:37 08/29/20 21:37 08/29/20 21:37 - Notes Notes: This is a 35-year-old female who appears her stated age, no acute distress. She is sitting in a semi-Fowlers position, has a drink beside her when I enter the room. Vital signs reviewed, please refer to chart. Head is normocephalic, atraumatic. Pupils equal round, reactive to light. Neck is supple without meningismus. Heart is regular rate and rhythm. Lungs are clear to auscultation bilaterally. Abdomen is mildly distended. She has well approximated surgical scars consistent with recent laparoscopic assisted hysterectomy. She has extensive ecchymosis over the left flank region, tracking at the waistline just inferior to the umbilicus around to the left posterior flank. Global tenderness without rebound or guarding. Extremities without cyanosis, clubbing. Posterior calves are nontender. Peripheral pulses are equal. Skin is warm and dry. Patient is awake, alert, neurological exam is nonfocal. Course - Re-evaluation Re-evalutation: 08/30/20 00:34 Patient presents emergency department for evaluation. Laboratory investigations and imaging were as ordered through triage. The patient was complaining of some pain, I did order morphine and Zofran. These will be administered IV. CT scan is still pending. Otherwise patient's vitals are stable, she is tender nonsurgical on exam. We will continue to monitor. 08/30/20 01:32 Patient has remained stable. Her CT scan shows diffuse edema and ecchymosis to the abdominal wall, but no active hemorrhage, no focal hematoma. Patient was feeling improved. I spoke with Dr. Lindsay about this patient, her complaint and her results. She states that the swelling and bruising is not unexpected. The patient should continue with her regular medications. We will start her on vitamin C and iron for her anemia. Patient is amenable to this plan. She is to return to the ED with worsening or new concerning symptoms of any sort. - Vital Signs Vital signs: Temp Pulse Resp BP Pulse Ox 98.4 F 102 H 16 102/69 100 08/29/20 21:41 08/29/20 21:37 08/29/20 21:37 08/29/20 21:37 08/29/20 21:37 - Laboratory Results Result Diagrams: 08/29/20 23:12 08/29/20 23:12 Laboratory Results Interpreted: 08/29/20 08/29/20 23:12 23:12 RBC 2.05 L Hgb 6.8 L Hct 19.5 L Sodium 134.9 L Carbon Dioxide 33 H Anion Gap 2 L Total Protein 5.2 L Albumin 2.9 L Critical Laboratory Results Reviewed: No Critical Results - Radiology Results Radiology Results Interpreted: 08/30/20 01:27 Abdomen/Pelvis CT 08/29/20 21:44 IMPRESSION: 1. Diffuse hemorrhage/edema of the left anterior abdominal wall, involving the subcutaneous tissues as well as the musculature. No discrete abscess or focal hematoma. 2. Changes of recent laparoscopic hysterectomy, with residual pneumoperitoneum. 3. No intra-abdominal abscess. 4. Previous cholecystectomy Critical Radiology Results Reviewed: No Critical Results Discharge - Discharge Clinical Impression: Traumatic ecchymosis of abdominal wall Qualifiers: Encounter type: initial encounter Qualified Code(s): S30.1XXA - Contusion of abdominal wall, initial encounter Anemia Qualifiers: Anemia type: other cause Condition: Stable Disposition: HOME, SELF-CARE Instructions: Anemia ([facility]) Additional Instructions: The swelling and bruising that you have is normal in the postoperative phase. Please continue to take your regular pain medications at home as prescribed. Your blood counts are slightly lower, we will start you on vitamin C and iron. Follow-up with Dr. Lindsay as scheduled. Return to the emergency department with worsening or new concerning symptoms of any sort. Referrals: BERTA ESTRELLA PA-C [Primary Care Provider] - Follow up as needed
--- NOTE | 2020-08-30 00:46 | RADIOLOGY REPORT (SQ) ---
EXAM DESCRIPTION: Site: CT ABD/PELVIS WITH IV ONLY RP: CT ABDOMEN PELVIS WITH IV CONTRAST CLINICAL HISTORY: 35 years Female; abd pain, swelling, bruising, hx recent hysterect; hysterectomy 2 days ago. Previous cholecystectomy. Ecchymosis left flank TECHNIQUE: CT of the abdomen and pelvis using intravenous contrast. All CT scans at this facility use dose modulation, iterative reconstruction, and/or weight based dosing when appropriate to reduce radiation dose to as low as reasonably achievable. COMPARISON: 08/19/2020 FINDINGS: Abdomen: There is diffuse subcutaneous hemorrhage/edema in the left anterior and lateral abdominal wall. Diffuse thickening of the left abdominal musculature is suggests intramuscular hemorrhage and/or edema. For reference, total muscle thickness on the left is 2.3 cm; 1.6 cm on the right. There are a few scattered foci of air in the intra-abdominal wall. Stomach: No significant distention or surrounding edema. Liver:No focal lesions. No intrahepatic ductal distention. Gallbladder: Surgically absent Pancreas:Within normal limits Spleen:Within normal limits Right kidney:No hydronephrosis. No focal lesion. Left kidney:No hydronephrosis. No focal lesion. Adrenal glands:Within normal limits Vascular structures:Within normal limits Pelvis: Small bowel:No significant distention. Appendix:Within normal limits Colon: Nondistended Bones: No acute bone findings. Bladder: Unremarkable. Uterus not identified. Small amount of fluid/hemorrhage in the dependent portion of the pelvis. No peripherally enhancing fluid collections. Pneumoperitoneum is noted, not unusual after recent laparoscopic procedure. IMPRESSION: 1. Diffuse hemorrhage/edema of the left anterior abdominal wall, involving the subcutaneous tissues as well as the musculature. No discrete abscess or focal hematoma. 2. Changes of recent laparoscopic hysterectomy, with residual pneumoperitoneum. 3. No intra-abdominal abscess. 4. Previous cholecystectomy
[2020-08-30 02:02] VITALS: BP 107/60
== END 2020-08-30 02:02 | disposition home or self-care (01) ==
LOC: ER 21:33
DX: S30.1XXA Contusion of abdominal wall, initial encounter (principal); X58.XXXA Exposure to other specified factors, initial encounter; D64.9 Anemia, unspecified; R42 Dizziness and giddiness; J45.909 Unspecified asthma, uncomplicated; F17.200 Nicotine dependence, unspecified, uncomplicated; Z91.048 Other nonmedicinal substance allergy status; Z79.891 Long term (current) use of opiate analgesic; Z90.710 Acquired absence of both cervix and uterus; Z90.49 Acquired absence of other specified parts of digestive tract
CPT/HCPCS: 99285; 96374; 96375; 86900; 86901; 36415; 86850; 85025; 85610; 85730; 80053; 74177; J2270; J2405

== ENCOUNTER 2020-08-31 15:28 | Emergency (ER) | payer MEDICAID ==
--- NOTE | 2020-08-31 15:56 | ER Document Report ---
ED Medical Screen (RME) - General Chief Complaint: Weakness Stated Complaint: WEAKNESS,DIZZINESS Time Seen by Provider: 08/31/20 15:50 Primary Care Provider: BERTA ESTRELLA PA-C [Primary Care Provider] - Follow up as needed Mode of Arrival: Wheelchair Information source: Patient Notes: 35-year-old female presented to ED for complaint of continued pain to her surgical incisions with bruising increase in. She states she is very swollen at the incisional sites. She states she was seen here couple days ago they states she had a low hemoglobin hematocrit platelet and iron they did not give her transfusion. She states she is not having any acute active bleeding but she is increasing in bruising she also feels cold all the time. She states she sometimes smokes socially drinks does not use any drugs. She had a hysterectomy which left the ovaries on August 27 she had a cholecystectomy on June 26, 2020 and a of 08/28/2019. She is diagnosed with lupus fibromyalgia and multiple heart complications. She is alert oriented respirations regular nonlabored speaking in full sentences. I have greeted and performed a rapid initial assessment of this patient. A comprehensive ED assessment and evaluation of the patient, analysis of test results and completion of medical decision making process will be conducted by an additional ED providers. TRAVEL OUTSIDE OF THE [place] IN LAST 30 DAYS: No - Related Data Allergies/Adverse Reactions: adhesive tape Allergy (Severe, Verified 08/31/20 15:50) BLISTER Past Medical History - Past Medical History Cardiac Medical History: Denies: Hx Coronary Artery Disease, Hx Heart Attack, Hx Hypertension Pulmonary Medical History: Reports: Hx Asthma, Hx Pneumonia - multiple times, nodules in L lung Denies: Hx COPD Neurological Medical History: Denies: Hx Cerebrovascular Accident, Hx Seizures Endocrine Medical History: Denies: Hx Diabetes Mellitus Type 1, Hx Diabetes Mellitus Type 2, Hx Hypothyroidism Renal/ Medical History: Denies: Hx Kidney Stones, Hx Ovarian Cysts, Hx Peritoneal Dialysis, Hx Pelvic Inflammatory Disease Malignancy Medical History: Denies: Hx Breast Cancer, Hx Cervical Cancer, Hx Ovarian Cancer GI Medical History: Reports: Hx Gastritis, Hx Gastroesophageal Reflux Disease Musculoskeltal Medical History: Denies Hx Arthritis, Reports Hx Fibromyalgia, Reports Hx Musculoskeletal Trauma, Reports Hx Systemic Lupus Erythematosus Psychiatric Medical History: Reports: Hx Anxiety, Hx Depression - anxiety Traumatic Medical History: Denies: Hx Fractures Infectious Medical History: Denies: Hx HIV Past Surgical History: Reports: Hx Breast Surgery - lumpectomy x2, Hx Section, Hx Gynecologic Surgery - D&C, Hx Orthopedic Surgery - carpal tunnel, Other - Breast lumpectomy - Immunizations Immunizations up to date: Yes Hx Diphtheria, Pertussis, Tetanus Vaccination: Yes Physical Exam - Vital signs Vitals: Temp Pulse Resp BP Pulse Ox 98.4 F 84 16 121/67 96 08/31/20 03:49 08/31/20 03:49 08/31/20 03:49 08/31/20 03:49 08/31/20 03:49 Course - Vital Signs Vital signs: Temp Pulse Resp BP Pulse Ox 98.4 F 84 16 121/67 96 08/31/20 03:49 08/31/20 03:49 08/31/20 03:49 08/31/20 03:49 08/31/20 03:49 Doctor's Discharge - Discharge Referrals: BERTA ESTRELLA PA-C [Primary Care Provider] - Follow up as needed
[2020-08-31 16:55] LABS: ABSOLUTE EOSINOPHILS # (AUTO) 0.3 10^3/uL (0.0-0.6); ABSOLUTE LYMPHOCYTES (AUTO) 1.5 10^3/uL (0.5-4.7); ABSOLUTE MONOCYTES (AUTO) 0.3 10^3/uL (0.1-1.4); ABSOLUTE NEUT (AUTO) 6.1 10^3/uL (1.7-8.2); BASOPHILS % (AUTO) 0.3 % (0-2); EOSINOPHILS % (AUTO) 3.8 % (0-6); HEMATOCRIT 23.3 % (36.0-47.0); LYMPHOCYTES % (AUTO) 18.5 % (13-45); MEAN CORPUSCULAR HEMOGLOBIN 32.5 pg (27.0-33.4); MEAN CORPUSCULAR VOLUME 96 fl (80-97); MONOCYTES % (AUTO) 3.6 % (3-13); PLATELET COUNT 282 10^3/uL (150-450); RED BLOOD COUNT 2.44 10^6/uL (3.72-5.28); RED CELL DISTRIBUTION WIDTH 13.8 % (11.5-14.0); SEGMENTED NEUTROPHILS % (AUTO) 73.8 % (42-78); TOTAL CELLS COUNTED % (AUTO) 100 %; WHITE BLOOD COUNT 8.3 10^3/uL (4.0-10.5)
[2020-08-31 17:02] LABS: HEMOGLOBIN 7.9 g/dL (12.0-15.5)
[2020-08-31 17:04] LABS: APPEARANCE,URINE SLIGHTLY-CLOUDY; BILIRUBIN,URINE NEGATIVE (NEGATIVE); COLOR,URINE YELLOW; GLUCOSE, URINE NEGATIVE (NEGATIVE); KETONES,URINE NEGATIVE (NEGATIVE); LEUKOCYTE ESTERASE,URINE NEGATIVE (NEGATIVE); NITRITE,URINE NEGATIVE (NEGATIVE); PROTEIN,URINE NEGATIVE (NEGATIVE); URINE SPECIFIC GRAVITY 1.013; UROBILINOGEN,URINE NEGATIVE mg/dL (<2.0)
[2020-08-31 17:13] LABS: ALBUMIN 3.4 g/dL (3.5-5.0); ALKALINE PHOSPHATASE 52 U/L (38-126); ASPARTATE AMINO TRANSFERASE 22 U/L (14-36); BILIRUBIN,DIRECT 0.1 mg/dL (0.0-0.4); BILIRUBIN,TOTAL 0.6 mg/dL (0.2-1.3); BLOOD UREA NITROGEN 8 mg/dL (7-20); CALCIUM 8.6 mg/dL (8.4-10.2); CARBON DIOXIDE 31 mmol/L (22-30); CHLORIDE 100 mmol/L (98-107); GLUCOSE 91 mg/dL (75-110); POTASSIUM 4.5 mmol/L (3.6-5.0); TOTAL PROTEIN 5.9 g/dL (6.3-8.2)
[2020-08-31 17:20] LABS: ANION GAP 2 (5-19)
[2020-08-31] MEDS ORDERED: ONDANSETRON HCL INJ/PF 4 MG/2 ML SDV IV ONE (19:04)
[2020-08-31] MEDS ORDERED: RINGERS SOLUTION,LACTATED 1,000 ML IV ONE (19:04)
--- NOTE | 2020-08-31 19:05 | ER Document Report ---
Entered by MIKE WASHINGTON SCRIBE 08/31/20 [id number] Acting as scribe for:MILANA SANDERS DO ED General - General Chief Complaint: Weakness Stated Complaint: WEAKNESS,DIZZINESS Time Seen by Provider: 08/31/20 15:50 Primary Care Provider: BERTA ESTRELLA PA-C [Primary Care Provider] - Follow up as needed NO KING MD [ACTIVE STAFF] - Follow up as needed Mode of Arrival: Wheelchair Information source: Patient Notes: This 35 year old female patient s/p laparoscopic hysterectomy on 27 August 2020 presents to the emergency department today with complaints of mild generalized abdominal discomfort and nausea. Patient reports that she has passed a small amount of stool since the surgery but mentions that she has been passing gas frequently. Patient's follow-up appointment is September 16. She denies any vomiting, urinary symptoms, or vaginal bleeding. TRAVEL OUTSIDE OF THE [place] IN LAST 30 DAYS: No - Related Data Allergies/Adverse Reactions: adhesive tape Allergy (Severe, Verified 08/31/20 15:50) BLISTER Past Medical History - General Information source: Patient - Social History Smoking Status: Current Some Day Smoker Cigarette use (# per day): Yes Chew tobacco use (# tins/day): No Frequency of alcohol use: Social Drug Abuse: None Lives with: Family Family History: Reviewed & Not Pertinent, COPD Patient has homicidal ideation: No Pulmonary Medical History: Reports: Hx Asthma, Hx Pneumonia - multiple times, nodules in L lung Neurological Medical History: GI Medical History: Reports: Hx Gastritis, Hx Gastroesophageal Reflux Disease Musculoskeletal Medical History: Reports Hx Fibromyalgia, Reports Hx Musculoskeletal Trauma, Reports Hx Systemic Lupus Erythematosus Psychiatric Medical History: Reports: Hx Anxiety, Hx Depression - anxiety Past Surgical History: Reports: Hx Breast Surgery - lumpectomy x2, Hx Section, Hx Gynecologic Surgery - D&C, Hx Hysterectomy, Hx Orthopedic Surgery - carpal tunnel, Other - Breast lumpectomy - Immunizations Immunizations up to date: Yes Hx Diphtheria, Pertussis, Tetanus Vaccination: Yes Review of Systems - Review of Systems Constitutional: No symptoms reported EENT: No symptoms reported Cardiovascular: No symptoms reported Respiratory: No symptoms reported Gastrointestinal: See HPI, Abdominal pain, Nausea. denies: Vomiting Genitourinary: denies: Dysuria Female Genitourinary: denies: Vaginal bleeding Musculoskeletal: No symptoms reported Skin: No symptoms reported Hematologic/Lymphatic: No symptoms reported Neurological/Psychological: No symptoms reported -: Yes All other systems reviewed and negative Physical Exam - Vital signs Vitals: Temp Pulse Resp BP Pulse Ox 98.4 F 84 16 121/67 96 08/31/20 03:49 08/31/20 03:49 08/31/20 03:49 08/31/20 03:49 08/31/20 03:49 - Notes Notes: Physical Exam: General: Alert, appears uncomfortable. HEENT: Normocephalic. Atraumatic. PERRL. Extraocular movements intact. Oropharynx clear. [place] conjunctiva. Neck: Supple. Non-tender. Respiratory: No respiratory distress. Clear and equal breath sounds bilaterally. Cardiovascular: Regular rate and rhythm. Abdominal: There is ecchymosis to the left flank. Healing abdominal incisions without sign of infection. Mild diffuse tenderness to palpation. No distension. Normal Bowel Sounds. Back: No gross abnormalities. Extremities: Moves all four extremities. Upper extremities: Normal inspection. Normal ROM. Lower extremities: Normal inspection. No edema. Normal ROM. Neurological: Normal cognition. AAOx4. Normal speech. Psychological: Normal affect. Normal Mood. Skin: Warm. Dry. Normal color. Course - Re-evaluation Re-evalutation: 08/31/20 19:08 MDM 35 year old s/p hysterectomy 08/27. Just feeling poorly today and some nausea. No vomiting and + flatus. Has follow up scheduled with Dr. King first week of Sep. Abd is benign here with my exam. Incisions are clean and without sign of infection and left flank ecchymosis is improving. I have discussed with Dr. Cueva and she will inform Dr. King in the am that the pt was here. Discussed return precautions with pt and she expressed understanding. - Vital Signs Vital signs: Temp Pulse Resp BP Pulse Ox 98.4 F 84 16 120/70 99 08/31/20 03:49 08/31/20 03:49 08/31/20 19:01 08/31/20 19:01 08/31/20 19:01 - Laboratory Results Result Diagrams: 08/31/20 16:25 08/31/20 16:25 Laboratory Results Interpreted: 08/31/20 08/31/20 16:25 16:25 RBC 2.44 L Hgb 7.9 L Hct 23.3 L Sodium 133.4 L Carbon Dioxide 31 H Anion Gap 2 L Total Protein 5.9 L Albumin 3.4 L Lipase 18.7 L Critical Laboratory Results Reviewed: No Critical Results - Radiology Results Critical Radiology Results Reviewed: No Critical Results Discharge - Discharge Clinical Impression: Post-operative pain, Nausea alone Anemia Qualifiers: Anemia type: unspecified type Qualified Code(s): D64.9 - Anemia, unspecified Condition: Stable Disposition: HOME, SELF-CARE Instructions: Anemia ([facility]), Nausea or Vomiting, Nonspecific ([facility]), Weakness ([facility]) Additional Instructions: Keep the follow up with Dr. King as scheduled. Please return here for bleeding, dizziness, other problems or concerns. Take the nausea medicine as directed. Switch from oxycodone to tylenol or ibuprofen for discomfort and continue to get up and walk. Drink plenty of fluids. Referrals: BERTA ESTRELLA PA-C [Primary Care Provider] - Follow up as needed NO KING MD [ACTIVE STAFF] - Follow up as needed I personally performed the services described in the documentation, reviewed and edited the documentation which was dictated to the scribe in my presence, and it accurately records my words and actions.
[2020-08-31] MEDS ORDERED: PROMETHAZINE HCL 25 MG SUPP (4 SUPP/ER DISP) PR ONE (19:15)
[2020-08-31] MEDS ORDERED: FENTANYL CITRATE INJ/PF 100 MCG/2 ML AMPUL IV ONE (19:26)
[2020-08-31 19:48] VITALS: BP 120/70
== END 2020-08-31 20:10 | disposition home or self-care (01) ==
LOC: ER 15:28
DX: G89.18 Other acute postprocedural pain (principal); R11.0 Nausea; D64.9 Anemia, unspecified; R10.9 Unspecified abdominal pain; R53.1 Weakness; R42 Dizziness and giddiness; F17.210 Nicotine dependence, cigarettes, uncomplicated; Z90.710 Acquired absence of both cervix and uterus
CPT/HCPCS: 99284; 96361; 96374; 96375; 36415; 83690; 85025; 80053; 81001; 84484; J3010; J3490; J2405; J7120

== ENCOUNTER 2020-09-24 15:45 | Emergency (ER) | payer MEDICAID ==
[2020-09-24 15:57] VITALS: BP 120/51
--- NOTE | 2020-09-24 17:08 | ER Document Report ---
ED Medical Screen (RME) - General Chief Complaint: Chest Pain Stated Complaint: CHEST PAIN/SHORTNESS OF BREATH Time Seen by Provider: 09/24/20 16:40 Primary Care Provider: BERTA ESTRELLA PA-C [Primary Care Provider] - Follow up as needed Mode of Arrival: Ambulatory Information source: Patient Notes: 35-year-old female patient presented to the emergency department with 5-day history of right-sided headache. She is also complaining of 3 days of left- sided chest pain. Patient reports she has a history of a PFO. Patient denies any fever, chills, nausea, vomiting, shortness of breath. Denies any known positive exposure to Covid. Lung sounds clear and equal bilaterally, no acute distress noted. I have greeted and performed a rapid initial assessment of this patient. A comprehensive ED assessment and evaluation of the patient, analysis of test results and completion of the medical decision making process will be conducted by additional ED providers. I have specifically instructed the patient or family members with the patient to immediately return to any nursing staff should anything change in the patient's condition or with their chief complaint. TRAVEL OUTSIDE OF THE [place] IN LAST 30 DAYS: No - Related Data Allergies/Adverse Reactions: adhesive tape Allergy (Severe, Verified 08/31/20 15:50) BLISTER Past Medical History - Past Medical History Cardiac Medical History: Denies: Hx Coronary Artery Disease, Hx Heart Attack, Hx Hypertension Pulmonary Medical History: Reports: Hx Asthma, Hx Pneumonia - multiple times, nodules in L lung Denies: Hx COPD Neurological Medical History: Denies: Hx Cerebrovascular Accident, Hx Seizures Endocrine Medical History: Denies: Hx Diabetes Mellitus Type 1, Hx Diabetes Mellitus Type 2, Hx Hypothyroidism Renal/ Medical History: Denies: Hx Kidney Stones, Hx Ovarian Cysts, Hx Peritoneal Dialysis, Hx Pelvic Inflammatory Disease Malignancy Medical History: Denies: Hx Breast Cancer, Hx Cervical Cancer, Hx Ovarian Cancer GI Medical History: Reports: Hx Gastritis, Hx Gastroesophageal Reflux Disease Musculoskeltal Medical History: Denies Hx Arthritis, Reports Hx Fibromyalgia, Reports Hx Musculoskeletal Trauma, Reports Hx Systemic Lupus Erythematosus Psychiatric Medical History: Reports: Hx Anxiety, Hx Depression - anxiety Traumatic Medical History: Denies: Hx Fractures Infectious Medical History: Denies: Hx HIV Past Surgical History: Reports: Hx Breast Surgery - lumpectomy x2, Hx Section, Hx Gynecologic Surgery - D&C, Hx Hysterectomy, Hx Orthopedic Surgery - carpal tunnel, Other - Breast lumpectomy - Immunizations Immunizations up to date: Yes Hx Diphtheria, Pertussis, Tetanus Vaccination: Yes Physical Exam - Vital signs Vitals: Temp Pulse Resp BP Pulse Ox 98.3 F 106 H 16 120/51 L 100 09/24/20 15:48 09/24/20 15:48 09/24/20 15:48 09/24/20 15:48 09/24/20 15:48 Course - Vital Signs Vital signs: Temp Pulse Resp BP Pulse Ox 98.3 F 89 16 120/51 L 100 09/24/20 15:48 09/24/20 17:01 09/24/20 15:48 09/24/20 15:48 09/24/20 15:48 Doctor's Discharge - Discharge Referrals: BERTA ESTRELLA PA-C [Primary Care Provider] - Follow up as needed
[2020-09-24 17:31] LABS: ABSOLUTE EOSINOPHILS # (AUTO) 0.3 10^3/uL (0.0-0.6); ABSOLUTE LYMPHOCYTES (AUTO) 1.8 10^3/uL (0.5-4.7); ABSOLUTE MONOCYTES (AUTO) 0.2 10^3/uL (0.1-1.4); BASOPHILS % (AUTO) 0.7 % (0-2); EOSINOPHILS % (AUTO) 4.6 % (0-6); HEMATOCRIT 38.3 % (36.0-47.0); HEMOGLOBIN 12.7 g/dL (12.0-15.5); LYMPHOCYTES % (AUTO) 28.1 % (13-45); MEAN CORPUSCULAR HEMOGLOBIN 31.6 pg (27.0-33.4); MEAN CORPUSCULAR HGB CONC 33.2 g/dL (32.0-36.0); MEAN CORPUSCULAR VOLUME 95 fl (80-97); MONOCYTES % (AUTO) 3.6 % (3-13); PLATELET COUNT 289 10^3/uL (150-450); RED BLOOD COUNT 4.02 10^6/uL (3.72-5.28); RED CELL DISTRIBUTION WIDTH 14.4 % (11.5-14.0); TOTAL CELLS COUNTED % (AUTO) 100 %; WHITE BLOOD COUNT 6.4 10^3/uL (4.0-10.5)
[2020-09-24 17:49] LABS: ALBUMIN 4.3 g/dL (3.5-5.0); ALKALINE PHOSPHATASE 54 U/L (38-126); ASPARTATE AMINO TRANSFERASE 16 U/L (14-36); BILIRUBIN,DIRECT 0.1 mg/dL (0.0-0.4); BILIRUBIN,TOTAL 0.6 mg/dL (0.2-1.3); BLOOD UREA NITROGEN 7 mg/dL (7-20); CALCIUM 9.2 mg/dL (8.4-10.2); GLUCOSE 110 mg/dL (75-110); POTASSIUM 4.7 mmol/L (3.6-5.0); TOTAL PROTEIN 6.9 g/dL (6.3-8.2)
[2020-09-24 17:54] LABS: CARBON DIOXIDE 30 mmol/L (22-30); CHLORIDE 101 mmol/L (98-107)
[2020-09-24 17:55] LABS: ANION GAP 5 (5-19)
--- NOTE | 2020-09-24 17:57 | RADIOLOGY REPORT (SQ) ---
EXAM DESCRIPTION: CHEST SINGLE VIEW IMAGES COMPLETED DATE/TIME: 09/24/2020 5:29 pm REASON FOR STUDY: chest pain COMPARISON: 08/24/2020 EXAM PARAMETERS: NUMBER OF VIEWS: One view. TECHNIQUE: Single frontal radiographic view of the chest acquired. RADIATION DOSE: NA LIMITATIONS: None. FINDINGS: LUNGS AND PLEURA: No opacities, masses or pneumothorax. No pleural effusion. MEDIASTINUM AND HILAR STRUCTURES: No masses. Contour normal. HEART AND VASCULAR STRUCTURES: Heart normal in size. Normal vasculature. BONES: No acute findings. HARDWARE: None in the chest. OTHER: No other significant finding. IMPRESSION: NO ACUTE RADIOGRAPHIC FINDING IN THE CHEST. TECHNICAL DOCUMENTATION: JOB ID: [id number] 2010 [employer] All Rights Reserved Reading location - IP/workstation name: [email or web address]
--- NOTE | 2020-09-24 19:55 | EKG REPORT ---
SEVERITY:- NORMAL ECG - SINUS RHYTHM : Confirmed by: Esthela Cuevas MD 24-Sep-2020 19:54:18
[2020-09-24] MEDS ORDERED: ACETAMINOPHEN 325 MG TABLET PO ONE (20:25)
== END 2020-09-24 20:53 | disposition left against medical advice (07) ==
LOC: ER 15:45
DX: R51.9 Headache, unspecified (principal); R07.9 Chest pain, unspecified; J45.909 Unspecified asthma, uncomplicated; Z91.048 Other nonmedicinal substance allergy status; Z53.20 Procedure and treatment not carried out because of patient's decision for unspecified reasons
CPT/HCPCS: 36415; 71045; 80053; 83735; 84484; 85025; 93005; 93010; 99281